=== PATIENT | female | born 1950 | race Hispanic/Latino ===

== ENCOUNTER 2017-10-13 10:03 | Emergency (ER) | payer OTHER ==
[2017-10-13] MEDS ORDERED: CODEINE 30MG/APAP 300MG TAB ONE (10:34)
--- NOTE | 2017-10-13 12:16 | EDPHYS ---
Physician Documentation [facility] Name: Lynne Leggett Age: 67 yrs Sex: Female : 1950 Arrival Date: 10/13/2017 Time: 10:06 Bed 12 Private MD: Kiersten Mukherjee ED Physician Jim Quintanilla HPI: 10/13 13:32 This 67 yrs old Female presents to ER via Ambulatory with complaints of Blood pm1 Pressure Problem, Headache. 13:32 The patient complains of pain to the left occipital area and right occipital area. The pm1 patient describes the headache as aching, constant. Onset: The symptoms/episode began/occurred this morning. Associated signs and symptoms: Pertinent negatives: fever, nausea, paresthesias, rash, vomiting, weakness, vertigo. Severity of symptoms: in the emergency department the pain is unchanged. Headache History: Denies prior headaches. The symptoms are alleviated by over the counter pain medication, Tylenol, the symptoms are aggravated by nothing. Patient with 4 episodes of vomiting on that resolved without intervention. Patient with dialysis treatment on [facility]. Patient reports that her blood pressure was 90's systolic Saturday and Saturday. Blood pressure has improved today. Patient presenting to the ER today due to headache, occipital area. Patient with history of CVA and is concerned about the headache. Historical: - Allergies: 10:16 Nifedipine; la1 10:16 Vancomycin; la1 - Home Meds: 10:23 amlodipine 5 mg tab 2 tabs nightly [Active]; atorvastatin 20 mg Oral tab 1 tab once la1 daily [Active]; Daily-Isael Oral tab daily [Active]; glipizide 10 mg Oral tab 1 tab 2 times per day [Active]; hydralazine 25 mg Oral tab 1 tab 2 times per day [Active]; losartan 100 mg Oral tab 1 tab once daily [Active]; metoprolol tartrate 25 mg Oral tab 1 tab 2 times per day [Active]; pantoprazole 40 mg Oral TbEC 1 tab 2 times per day [Active]; Renvela 800 mg Oral tab 2 tabs 3 times per day [Active]; sodium polystyrene sulfonate Oral [Active]; Tradjenta 5 mg Oral tab 1 tab once daily [Active]; valtessa [Active]; victoza 0.6mg/ 0.1 mL 6 units at bedtime [Active]; - PMHx: 10:16 CVA (hemorrhagic); Diabetes - NIDDM; DIALYSIS MWF; ESRD; GERD; High Cholesterol; la1 Hypertension; - Immunization history:: Adult Immunizations up to date. - Social history:: Smoking status: Patient/guardian denies using tobacco. ROS: 13:40 Constitutional: Negative for fever, chills, and weight loss, Eyes: Negative for injury, pm1 pain, redness, and discharge, ENT: Negative for injury, pain, and discharge, Neck: Negative for injury, pain, and swelling, Cardiovascular: Negative for chest pain, palpitations, and edema, Respiratory: Negative for shortness of breath, cough, wheezing, and pleuritic chest pain, Abdomen/GI: Negative for abdominal pain, nausea, vomiting, diarrhea, and constipation, Back: Negative for injury and pain, : Negative for injury, bleeding, discharge, and swelling, MS/Extremity: Negative for injury and deformity, Skin: Negative for injury, rash, and discoloration. 13:40 Neuro: Positive for headache, Negative for numbness, tingling, weakness. Exam: 13:40 Constitutional: This is a well developed, well nourished patient who is awake, alert, pm1 and in no acute distress. Head/Face: Normocephalic, atraumatic. Chest/axilla: Normal chest wall appearance and motion. Nontender with no deformity. No lesions are appreciated. Cardiovascular: Regular rate and rhythm with a normal S1 and S2. No gallops, murmurs, or rubs. Normal PMI, no JVD. No pulse deficits. Respiratory: Lungs have equal breath sounds bilaterally, clear to auscultation and percussion. No rales, rhonchi or wheezes noted. No increased work of breathing, no retractions or nasal flaring. Abdomen/GI: Soft, non-tender, with normal bowel sounds. No distension or tympany. No guarding or rebound. No evidence of tenderness throughout. Back: No spinal tenderness. No costovertebral tenderness. Full range of motion. Skin: Warm, dry with normal turgor. Normal color with no rashes, no lesions, and no evidence of cellulitis. MS/ Extremity: Pulses equal, no cyanosis. Neurovascular intact. Full, normal range of motion. 13:40 Neuro: Orientation: is normal, Mentation: is normal, Cranial nerves: CN II- XII are normal as tested, Cerebellar function: normal finger to nose testing, Motor: moves all fours, Sensation: is normal, no obvious gross deficits. Vital Signs: 10:17 BP 165 / 73; Pulse 81; Resp 15; Temp 97.2(TE); Pulse Ox 100% on R/A; Weight 52 kg; la1 Height 4 ft. 11 in. (149.86 cm); 12:11 BP 170 / 80; Pulse 78; Resp 16 S; Pulse Ox 100% on R/A; iw 10:17 Body Mass Index 23.15 (52.00 kg, 149.86 cm) la1 MDM: 10:19 Patient medically screened. pm1 10:35 ED course: Patient does not want labs drawn or IV medications. Requests medications for pm1 pain by mouth. 12:14 Data reviewed: vital signs. Data interpreted: Pulse oximetry: on room air is 100 %. pm1 Interpretation: normal. Counseling: I had a detailed discussion with the patient and/or guardian regarding: the historical points, exam findings, and any diagnostic results supporting the discharge/admit diagnosis, radiology results, the need for outpatient follow up, to return to the emergency department if symptoms worsen or persist or if there are any questions or concerns that arise at home. 10/13 10:31 Order name: CT Head Brain wo Cont pm1 Administered Medications: 10:32 Drug: Tylenol #3 (300 mg-30 mg) 1 tablet Route: PO; hj 10:53 Follow up: Response: Pain is decreased Point of Care Testing: Blood Glucose: 10:54 Blood Glucose: 168 mg/dL; Ranges: Critical Glucose Levels:Adult <50 mg/dl or >400 mg/dl <40 mg/dl or >180 mg/dl Disposition: 18:58 Co-signature as Attending Physician, Jim Quintanilla MD. Disposition: 10/13/17 12:15 Discharged to Home. Impression: Headache. - Condition is Stable. - Discharge Instructions: General Headache Without Cause. - Prescriptions for Tylenol- Codeine #3 300-30 mg Oral Tablet - take 1 tablet by ORAL route every 8 hours As needed; 15 tablet. - Medication Reconciliation Form, Thank You Letter, Prescription Opioid Use form. - Follow up: Emergency Department; When: As needed; Reason: Worsening of condition. Follow up: Kiersten Mukherjee MD; When: 2 - 3 days; Reason: Recheck today's complaints, Continuance of care, Re-evaluation by your physician. - Problem is new. - Symptoms have improved. Signatures: Dispatcher [employer] EDMS Velma Shore RN RN iw Attema, Lee, RN RN la1 Derek Nolan RN RN hj Marinas, Patrick, GENERAL ADMINISTRATOR GENERAL ADMINISTRATOR pm1 Jim Quintanilla MD MD
--- NOTE | 2017-10-13 12:16 | ER ---
Nurse's Notes [facility] Name: Lynne Leggett Age: 67 yrs Sex: Female : 1950 Arrival Date: 10/13/2017 Time: 10:06 Bed 12 Private MD: Kiersten Mukherjee Diagnosis: Headache Presentation: 10/13 10:14 Presenting complaint: Patient states: Since Saturday at dialysis (completed) I have been la1 having problems with my blood pressure being low. this morning the top number was 90 and I have a GUAN. Transition of care: patient was not received from another setting of care. Onset of symptoms was October 13, 2017. Initial Sepsis Screen: Does the patient meet any 2 criteria? No. Patient's initial sepsis screen is negative. Does the patient have a suspected source of infection? No. Patient's initial sepsis screen is negative. Care prior to arrival: None. 10:14 Method Of Arrival: Ambulatory la1 10:14 Acuity: SHIKHA 3 la1 Triage Assessment: 10:21 Headache History: Denies prior headaches. General: Appears in no apparent distress. la1 Behavior is calm, cooperative. Pain: Also complains of. Pain: Pain currently is 5 out of 10 on a pain scale. Pain began 1 day ago. Historical: - Allergies: 10:16 Nifedipine; la1 10:16 Vancomycin; la1 - Home Meds: 10:23 amlodipine 5 mg tab 2 tabs nightly [Active]; atorvastatin 20 mg Oral tab 1 tab once la1 daily [Active]; Daily-Isael Oral tab daily [Active]; glipizide 10 mg Oral tab 1 tab 2 times per day [Active]; hydralazine 25 mg Oral tab 1 tab 2 times per day [Active]; losartan 100 mg Oral tab 1 tab once daily [Active]; metoprolol tartrate 25 mg Oral tab 1 tab 2 times per day [Active]; pantoprazole 40 mg Oral TbEC 1 tab 2 times per day [Active]; Renvela 800 mg Oral tab 2 tabs 3 times per day [Active]; sodium polystyrene sulfonate Oral [Active]; Tradjenta 5 mg Oral tab 1 tab once daily [Active]; valtessa [Active]; victoza 0.6mg/ 0.1 mL 6 units at bedtime [Active]; - PMHx: 10:16 CVA (hemorrhagic); Diabetes - NIDDM; DIALYSIS MWF; ESRD; GERD; High Cholesterol; la1 Hypertension; - Immunization history:: Adult Immunizations up to date. - Social history:: Smoking status: Patient/guardian denies using tobacco. Screenin:21 Abuse screen: Denies threats or abuse. Nutritional screening: No deficits noted. la1 Tuberculosis screening: No symptoms or risk factors identified. Fall Risk None identified. Assessment: 10:20 General: Appears in no apparent distress. Behavior is calm, cooperative. Pain: la1 Complains of pain in headache. Neuro: Level of Consciousness is awake, alert, obeys commands, Oriented to person, place, time, situation. Neuro: Moves all extremities. Full function Gait is steady, Speech is normal, Facial symmetry appears normal, Pupils are PERRLA. Cardiovascular: Heart tones S1 S2 present Capillary refill < 3 seconds Chest pain is denied Dialysis shunt: in the dorsal aspect of right forearm, with palpable thrill, with auscultated bruit, with no erythema, with no edema, no bleeding noted. Respiratory: Airway is patent Respiratory effort is even, unlabored, Respiratory pattern is regular, symmetrical, Breath sounds are clear bilaterally. GI: No signs and/or symptoms were reported involving the gastrointestinal system. : No signs and/or symptoms were reported regarding the genitourinary system. 12:09 Reassessment: Patient appears in no apparent distress at this time. Patient and/or iw family updated on plan of care and expected duration. Pain level reassessed. Patient is alert, oriented x 3, equal unlabored respirations, skin warm/dry/pink. headache is resolved Patient states feeling better. Patient states symptoms have improved. Vital Signs: 10:17 BP 165 / 73; Pulse 81; Resp 15; Temp 97.2(TE); Pulse Ox 100% on R/A; Weight 52 kg; la1 Height 4 ft. 11 in. (149.86 cm); 12:11 BP 170 / 80; Pulse 78; Resp 16 S; Pulse Ox 100% on R/A; iw 10:17 Body Mass Index 23.15 (52.00 kg, 149.86 cm) la1 ED Course: 10:06 Patient arrived in ED. mr 10:06 Kiersten Mukherjee MD is Private Physician. mr 10:14 Darek Matta RN is Primary Nurse. la1 10:15 Triage completed. la1 10:17 Arm band placed on right wrist. la1 10:19 Mauro Medeiros NP is [facility]. pm1 10:19 Jim Quintanilla MD is Attending Physician. pm1 10:21 Call light in reach. Side rails up X 1. Pulse ox on. NIBP on. la1 10:45 CT completed. Patient moved to CT via stretcher. Patient moved back from CT. cw1 10:47 CT Head Brain wo Cont In Process Unspecified. EDMS 12:12 Primary Nurse role handed off by Darek Matta RN iw 12:12 Velma Shore, RN is Primary Nurse. iw 12:12 No provider procedures requiring assistance completed. Patient did not have IV access iw during this emergency room visit. 12:15 Kiersten Mukherjee MD is Referral Physician. pm1 Administered Medications: 10:32 Drug: Tylenol #3 (300 mg-30 mg) 1 tablet Route: PO; hj 10:53 Follow up: Response: Pain is decreased Point of Care Testing: Blood Glucose: 10:54 Blood Glucose: 168 mg/dL; hj Ranges: Outcome: 12:15 Discharge ordered by MD. pm1 12:30 Discharged to home ambulatory, with family. iw 12:30 Condition: good 12:30 Discharge instructions given to patient, family, Instructed on discharge instructions, follow up and referral plans. medication usage, Demonstrated understanding of instructions, follow-up care, medications, Prescriptions given X 1. 12:31 Patient left the ED. iw Signatures: Dispatcher [employer] EDWA Mayra Arguello mr Velma Shore RN RN Delia Collado cw1 Darek Matta RN RN la1 Joaquin, Henry, RN RN Mauro Medeiros NP COMPUTER CLERK pm1
[2017-10-13 12:35] VITALS: TEMP 97.2; O2SAT 100
[2017-10-13 12:36] VITALS: BP 170/80
--- NOTE | 2017-10-13 15:29 | RAD REPORT ---
EXAM DESCRIPTION: CT - Head Brain Wo Cont - 10/13/2017 10:47 am CLINICAL HISTORY: Headache, hypotension Hearing Impaired Teacher system malfunction precluded earlier written report. Verbal report call to the referevelyn anthony clinician. COMPARISON: CT imaging July 29 TECHNIQUE: Axial 5 mm thick images of the head were obtained without IV contrast. All CT scans are performed using dose optimization technique as appropriate and may include automated exposure control or mA/KV adjustment according to patient size. FINDINGS: No intracranial hemorrhage, mass, edema or shift of mid-line structures. No acute cortical based infarction. Moderate severity atrophy and chronic ischemic changes are present. Ventricular si ze is in proportion. Arterial and physiologic calcifications are present. No abnormal extra-axial flu id collections. Intracranial findings are similar to the comparison. Mastoid air cells and visualized portions of the paranasal sinuses are clear. No acute bony findings. IMPRESSION: Moderate severity atrophy and chronic ischemic change similar to comparison. No acute intracranial finding seen. Chronic ischemic changes can mask nonhemorrhagic acute infarction. MR brain followup can be obtained if there is ongoing concern for acute ischemia.
== END 2017-10-13 12:31 | disposition home or self-care (01) ==
LOC: ER 10:03
DX: R51 Headache (principal); E11.22 Type 2 diabetes mellitus with diabetic chronic kidney disease; I12.0 Hypertensive chronic kidney disease with stage 5 chronic kidney disease or end stage renal disease; N18.6 End stage renal disease; Z99.2 Dependence on renal dialysis; Z88.3 Allergy status to other anti-infective agents; Z88.8 Allergy status to other drugs, medicaments and biological substances
CPT/HCPCS: 70450; 82962; 99284

== ENCOUNTER 2017-10-15 10:34 | Observation (INO) | payer OTHER ==
[2017-10-15 11:36] LABS: Protime INR 1.11
[2017-10-15 11:38] LABS: Absolute Lymphocytes (CBC) 1.3 K/uL (0.7-4.9); Absolute Monocytes 1.2 K/uL (0.1-1.3); Absolute Neutrophil 12.1 K/uL (1.8-8.0); Basophils % 0.2 % (0-1.3); Eosinophils % 0.1 % (0-4.4); Hematocrit 38.8 % (36.0-45.0); Lymphocytes % 8.7 % (15.3-44.8); MCH 29.4 pg (27.0-35.0); MCV 92.3 fL (80-100); MPV 11.1 fL (7.6-11.3); Monocytes % 8.1 % (3.3-12.3)
--- NOTE | 2017-10-15 11:38 | RAD REPORT ---
EXAM DESCRIPTION: RAD - Chest Single View - 10/15/2017 11:24 am CLINICAL HISTORY: Chest pain. COMPARISON: 07/29/2017 FINDINGS: Portable technique limits examination quality. The lungs are grossly clear. The heart is normal in size. No displaced fractures.Stent is present in the right subclavian region. IMPRESSION: No acute intrathoracic process suspected.
[2017-10-15] MEDS ORDERED: NA CHLORIDE 0.9% 1,000 ML ONE (11:39)
[2017-10-15] MEDS ORDERED: ONDANSETRON 4 MG/2 ML VIAL ONE (11:39)
[2017-10-15 11:56] LABS: CKMB Creatine Kinase MB 1.3 ng/ml (0.3-4.0); Potassium 5.1 mEq/L (3.6-5.0)
[2017-10-15] MEDS ORDERED: FAMOTIDINE 20 MG/2 ML VIAL IV ONE (11:56)
[2017-10-15 12:02] LABS: Bilirubin Direct 0.2 mg/dL (0-0.2); Bilirubin Total 1.2 mg/dL (0.3-1.2)
--- NOTE | 2017-10-15 13:31 | EDPHYS ---
Physician Documentation [facility] Name: Lynne Leggett Age: 67 yrs Sex: Female : 1950 Arrival Date: 10/15/2017 Time: 10:35 Bed 18 Private MD: FELICIA Physician Nakul Jett HPI: 10/15 11:03 This 67 yrs old Female presents to ER via Ambulatory with complaints of Abd homero Pain > 50 y/o. 11:03 The patient presents with abdominal pain in the upper abdomen, in the lower abdomen. homero Onset: The symptoms/episode began/occurred 5 day(s) ago. The patient presents to the emergency department with nausea, vomiting, abdominal pain, of the right upper quadrant, left upper quadrant, right lower quadrant and left lower quadrant. Onset: The symptoms/episode began/occurred 5 day(s) ago. Possible causes: unknown. The symptoms are aggravated by nothing. The symptoms are alleviated by nothing. Associated signs and symptoms: The patient has no apparent associated signs or symptoms. Associated signs and symptoms: none. Historical: - Allergies: 10:42 Nifedipine; ch 10:42 Vancomycin; ch - Home Meds: 10:42 amlodipine 5 mg tab 2 tabs nightly [Active]; atorvastatin 20 mg Oral tab 1 tab once ch daily [Active]; Daily-Isael Oral tab daily [Active]; glipizide 10 mg Oral tab 1 tab 2 times per day [Active]; hydralazine 25 mg Oral tab 1 tab 2 times per day [Active]; losartan 100 mg Oral tab 1 tab once daily [Active]; metoprolol tartrate 25 mg Oral tab 1 tab 2 times per day [Active]; pantoprazole 40 mg Oral TbEC 1 tab 2 times per day [Active]; Renvela 800 mg Oral tab 2 tabs 3 times per day [Active]; sodium polystyrene sulfonate Oral [Active]; Tradjenta 5 mg Oral tab 1 tab once daily [Active]; valtessa [Active]; victoza 0.6mg/ 0.1 mL 6 units at bedtime [Active]; - PMHx: 10:42 CVA (hemorrhagic); Diabetes - NIDDM; DIALYSIS MWF; ESRD; GERD; High Cholesterol; ch Hypertension; - PSHx: 10:42 dialysis shunt R arm; ch - Immunization history:: Adult Immunizations up to date. - Social history:: Smoking status: Patient/guardian denies using tobacco. - Family history:: not pertinent. ROS: 11:03 Constitutional: Negative for fever, chills, and weight loss, Eyes: Negative for injury, homero pain, redness, and discharge, ENT: Negative for injury, pain, and discharge, Neck: Negative for injury, pain, and swelling, Cardiovascular: Negative for chest pain, palpitations, and edema, Respiratory: Negative for shortness of breath, cough, wheezing, and pleuritic chest pain, Back: Negative for injury and pain, : Negative for injury, bleeding, discharge, and swelling, MS/Extremity: Negative for injury and deformity, Skin: Negative for injury, rash, and discoloration, Neuro: Negative for headache, weakness, numbness, tingling, and seizure, Psych: Negative for depression, anxiety, suicide ideation, homicidal ideation, and hallucinations, Allergy/Immunology: Negative for hives, rash, and allergies, Endocrine: Negative for neck swelling, polydipsia, polyuria, polyphagia, and marked weight changes, Hematologic/Lymphatic: Negative for swollen nodes, abnormal bleeding, and unusual bruising. 11:03 Abdomen/GI: Positive for abdominal pain, nausea and vomiting, of the right upper quadrant, left upper quadrant, right lower quadrant and left lower quadrant. Exam: 11:03 Constitutional: This is a well developed, well nourished patient who is awake, alert, homero and in no acute distress. Head/Face: Normocephalic, atraumatic. Eyes: Pupils equal round and reactive to light, extra-ocular motions intact. Lids and lashes normal. Conjunctiva and sclera are non-icteric and not injected. Cornea within normal limits. Periorbital areas with no swelling, redness, or edema. ENT: Nares patent. No nasal discharge, no septal abnormalities noted. Tympanic membranes are normal and external auditory canals are clear. Oropharynx with no redness, swelling, or masses, exudates, or evidence of obstruction, uvula midline. Mucous membranes moist. Neck: Trachea midline, no thyromegaly or masses palpated, and no cervical lymphadenopathy. Supple, full range of motion without nuchal rigidity, or vertebral point tenderness. No Meningismus. Chest/axilla: Normal chest wall appearance and motion. Nontender with no deformity. No lesions are appreciated. Cardiovascular: Regular rate and rhythm with a normal S1 and S2. No gallops, murmurs, or rubs. Normal PMI, no JVD. No pulse deficits. Respiratory: Lungs have equal breath sounds bilaterally, clear to auscultation and percussion. No rales, rhonchi or wheezes noted. No increased work of breathing, no retractions or nasal flaring. Back: No spinal tenderness. No costovertebral tenderness. Full range of motion. Female : Normal external genitalia. Skin: Warm, dry with normal turgor. Normal color with no rashes, no lesions, and no evidence of cellulitis. MS/ Extremity: Pulses equal, no cyanosis. Neurovascular intact. Full, normal range of motion. Neuro: Awake and alert, GCS 15, oriented to person, place, time, and situation. Cranial nerves II-XII grossly intact. Motor strength 5/5 in all extremities. Sensory grossly intact. Cerebellar exam normal. Normal gait. Psych: Awake, alert, with orientation to person, place and time. Behavior, mood, and affect are within normal limits. 11:03 Abdomen/GI: Inspection: abdomen appears normal, Bowel sounds: normal, Palpation: mild abdominal tenderness, in the right upper quadrant, left upper quadrant, right lower quadrant and left lower quadrant, Liver: no appreciated palpable abnormalities, Hernia: not appreciated. Vital Signs: 10:42 BP 86 / 62; Pulse 93; Resp 14; Temp 97.1; Pulse Ox 94% on R/A; Weight 51 kg; Height 4 ch ft. 11 in. (149.86 cm); Pain 6/10; 10:50 BP 120 / 65; Pulse 89; Resp 16 S; Pulse Ox 96% on R/A; jl7 11:30 BP 171 / 75; Pulse 88; Resp 16; Pulse Ox 100% ; jl7 12:30 BP 151 / 74; Pulse 86; Resp 16; Pulse Ox 97% ; jl7 13:53 BP 151 / 74; Pulse 89; Resp 16; Pulse Ox 98% on R/A; mh5 14:30 BP 154 / 82; Pulse 90; Resp 16; Pulse Ox 100% ; jl7 15:13 BP 162 / 80; Pulse 94; Resp 16; Pulse Ox 98% ; jl7 10:42 Body Mass Index 22.71 (51.00 kg, 149.86 cm) MDM: 10:45 Patient medically screened. [facility] 11:06 Data reviewed: vital signs, nurses notes, lab test result(s), EKG, radiologic studies. [facility] 10/15 10:47 Order name: Basic Metabolic Panel; Complete Time: 13:[address] [facility] 10/15 10:47 Order name: BNP; Complete Time: 13:[address] [facility] 10/15 10:47 Order name: CBC with Diff; Complete Time: 13:[address] [facility] 10/15 10:47 Order name: Ckmb; Complete Time: 13:[address] [facility] 10/15 10:47 Order name: CPK; Complete Time: 13:[address] [facility] 10/15 10:47 Order name: LFT's; Complete Time: 13:[address] [facility] 10/15 10:47 Order name: Magnesium; Complete Time: 13:[address] [facility] 10/15 10:47 Order name: PT-INR; Complete Time: 13:[address] [facility] 10/15 10:47 Order name: Ptt, Activated; Complete Time: 13:[address] [facility] 10/15 10:47 Order name: Troponin (emerg Dept Use Only); Complete Time: 13:[address] [facility] 10/15 10:47 Order name: XRAY Chest (1 view); Complete Time: 13:[address] [facility] 10/15 10:47 Order name: Blood Culture Adult (2) [facility] 10/15 10:47 Order name: Type And Screen; Complete Time: 14:[address] [facility] 10/15 10:47 Order name: Urine Culture [facility] 10/15 10:47 Order name: EKG; Complete Time: 10:[address] [facility] 10/15 10:47 Order name: Cardiac monitoring; Complete Time: 12:[address] [facility] 10/15 10:47 Order name: EKG - Nurse/Tech; Complete Time: 12:[address] [facility] 10/15 10:47 Order name: IV Saline Lock; Complete Time: 12:[address] [facility] 10/15 10:47 Order name: Labs collected and sent; Complete Time: 12:[address] [facility] 10/15 10:47 Order name: O2 Per Protocol; Complete Time: 12:[address] [facility] 10/15 10:47 Order name: O2 Sat Monitoring; Complete Time: 11:[address] [facility] 10/15 10:47 Order name: CT Abd/Pelvis - Without Cont; Complete Time: 14:[address] [facility] 10/15 13:39 Order name: CONS Physician Consult EDMS Administered Medications: 11:50 Drug: NS 0.9% 1000 ml Route: IV; Rate: 75 ml/hr; Site: left antecubital; jl7 15:46 Follow up: IV Status: Infusion continued upon admission jl7 11:51 Drug: Zofran 4 mg Route: IVP; Site: left antecubital; jl7 12:24 Follow up: Response: No adverse reaction; Nausea is decreased jl7 11:58 Drug: Pepcid 20 mg Route: IVP; Site: left antecubital; jl7 12:23 Follow up: Response: No adverse reaction jl7 14:27 Drug: Flagyl 500 mg Volume: 100 ml; Route: IVPB; Rate: 200 ml/hr; Infused Over: 30 jl7 mins; Site: left antecubital; 15:00 Follow up: Response: No adverse reaction; IV Status: Completed infusion jl7 15:05 Drug: levofloxacin 500 mg Volume: 100 ml; Route: IVPB; Infused Over: 60 mins; Site: jl left antecubital; 15:45 Follow up: IV Status: Infusion continued upon admission jl7 15:46 Drug: Kayexalate 15 grams Route: PO; jl7 15:46 Follow up: Response: No adverse reaction 7 Disposition: 10/15/17 13:31 Hospitalization ordered by Yuriy Domingo for Inpatient Admission. Preliminary diagnosis are Abdominal tenderness, Vomiting, Weakness, Type 2 diabetes mellitus, Elevated white blood cell count, Hyperkalemia. - Bed requested for Telemetry/MedSurg (Inpatient). - Status is Inpatient Admission. 7 - Condition is Stable. - Problem is new. - Symptoms have improved. UTI on Admission? No Signatures: Dispatcher [employer] EDDelores Hutton, RN Vicky Matias ch, RN RN dw Anderson, Corey, MD MD cha Leal, Jahala, RN RN jl7 Corrections: (The following items were deleted from the chart) 15:09 10:47 Urine Dipstick-Ancillary ordered. homero terry
--- NOTE | 2017-10-15 13:31 | ER ---
Nurse's Notes [facility] Name: Lynne Leggett Age: 67 yrs Sex: Female : 1950 Arrival Date: 10/15/2017 Time: 10:35 Bed 18 Private MD: Diagnosis: Abdominal tenderness;Vomiting;Weakness;Type 2 diabetes mellitus;Elevated white blood cell count;Hyperkalemia Presentation: 10/15 10:40 Presenting complaint: Child states: headache, vomiting, abdominal pain for the past 5 ch days. seen here on Saturday for just a headache but her doctor said to come back. her dialysis doctor said to get labs checked here. Transition of care: patient was not received from another setting of care. Onset of symptoms was October 11, 2017. Initial Sepsis Screen: Does the patient meet any 2 criteria? Systolic BP < 90 mmHg. HR > 90 bpm. Yes Does the patient have a suspected source of infection? Yes: Acute abdominal pain. Care prior to arrival: None. 10:40 Method Of Arrival: Ambulatory 10:40 Acuity: SHIKHA 2 ch Triage Assessment: 10:42 General: Appears in no apparent distress. comfortable, Behavior is cooperative, ch appropriate for age. Pain: Complains of pain in abdomen. Historical: - Allergies: 10:42 Nifedipine; ch 10:42 Vancomycin; ch - Home Meds: 10:42 amlodipine 5 mg tab 2 tabs nightly [Active]; atorvastatin 20 mg Oral tab 1 tab once ch daily [Active]; Daily-Isael Oral tab daily [Active]; glipizide 10 mg Oral tab 1 tab 2 times per day [Active]; hydralazine 25 mg Oral tab 1 tab 2 times per day [Active]; losartan 100 mg Oral tab 1 tab once daily [Active]; metoprolol tartrate 25 mg Oral tab 1 tab 2 times per day [Active]; pantoprazole 40 mg Oral TbEC 1 tab 2 times per day [Active]; Renvela 800 mg Oral tab 2 tabs 3 times per day [Active]; sodium polystyrene sulfonate Oral [Active]; Tradjenta 5 mg Oral tab 1 tab once daily [Active]; valtessa [Active]; victoza 0.6mg/ 0.1 mL 6 units at bedtime [Active]; - PMHx: 10:42 CVA (hemorrhagic); Diabetes - NIDDM; DIALYSIS MWF; ESRD; GERD; High Cholesterol; ch Hypertension; - PSHx: 10:42 dialysis shunt R arm; ch - Immunization history:: Adult Immunizations up to date. - Social history:: Smoking status: Patient/guardian denies using tobacco. - Family history:: not pertinent. Screenin:00 Abuse screen: Denies threats or abuse. Denies injuries from another. Nutritional jl7 screening: No deficits noted. Tuberculosis screening: No symptoms or risk factors identified. Fall Risk IV access (20 points). Total James Fall Scale indicates No Risk (0-24 pts). Assessment: 11:00 General: Appears in no apparent distress. uncomfortable, Behavior is calm, cooperative, jl7 appropriate for age. Pain: Complains of pain in abdomen diffuse Pain currently is 4 out of 10 on a pain scale. Quality of pain is described as "Bloated." Pain began 2-3 days ago. Is intermittent. Neuro: Level of Consciousness is awake, alert, obeys commands, Oriented to person, place, time, situation. Cardiovascular: Patient's skin is warm and dry. Respiratory: Airway is patent Respiratory effort is even, unlabored, Respiratory pattern is regular, symmetrical. GI: Abdomen is flat, non-distended, Bowel sounds present X 4 quads. Abd is soft Abdomen is tender to palpation Reports nausea, vomiting. : Reports "I do not make urine.". EENT: No signs and/or symptoms were reported regarding the EENT system. Derm: Skin is pink, warm \\T\\ dry. Musculoskeletal: No signs and/or symptoms reported regarding the musculoskeletal system. 11:35 Reassessment: pt finished drinking oral contrast, CT notified. jl7 12:04 Reassessment: Provider notified of lab alert, Creatinine 6.88. jl7 13:00 Reassessment: Patient and/or family updated on plan of care and expected duration. Pain jl7 level reassessed. Patient is alert, oriented x 3, equal unlabored respirations, skin warm/dry/pink. 14:00 Reassessment: Patient and/or family updated on plan of care and expected duration. Pain jl7 level reassessed. Patient is alert, oriented x 3, equal unlabored respirations, skin warm/dry/pink. Daughter remains at bedside. 15:00 Reassessment: Patient and/or family updated on plan of care and expected duration. Pain jl7 level reassessed. Patient is alert, oriented x 3, equal unlabored respirations, skin warm/dry/pink. GI: Bowel sounds present X 4 quads. Abd is soft X 4 quads Abdomen is tender to palpation. Vital Signs: 10:42 BP 86 / 62; Pulse 93; Resp 14; Temp 97.1; Pulse Ox 94% on R/A; Weight 51 kg; Height 4 ch ft. 11 in. (149.86 cm); Pain 6/10; 10:50 BP 120 / 65; Pulse 89; Resp 16 S; Pulse Ox 96% on R/A; jl7 11:30 BP 171 / 75; Pulse 88; Resp 16; Pulse Ox 100% ; jl7 12:30 BP 151 / 74; Pulse 86; Resp 16; Pulse Ox 97% ; jl7 13:53 BP 151 / 74; Pulse 89; Resp 16; Pulse Ox 98% on R/A; 5 14:30 BP 154 / 82; Pulse 90; Resp 16; Pulse Ox 100% ; jl7 15:13 BP 162 / 80; Pulse 94; Resp 16; Pulse Ox 98% ; jl7 10:42 Body Mass Index 22.71 (51.00 kg, 149.86 cm) ED Course: 10:35 Patient arrived in ED. sb2 10:41 Triage completed. 10:42 Arm band placed on left wrist. Patient placed in an exam room, on a stretcher. 10:44 Tracy Scott, LUZMARIA is Primary Nurse. jl7 10:45 Nakul Jett MD is Attending Physician. [facility] [place] 11:00 Patient has correct armband on for positive identification. Placed in gown. Bed in low jl7 position. Call light in reach. Side rails up X 1. desk monitor on. Pulse ox on. NIBP on. Warm blanket given. 11:14 X-ray completed. Portable x-ray completed in exam room. Patient tolerated procedure jb2 well. 11:21 EKG done, by nanoscience technician. reviewed by Nakul Jett MD. dt2 11:24 XRAY Chest (1 view) In Process Unspecified. EDMS 11:30 Initial lab(s) drawn, by ak, sent to lab. Inserted saline lock: 20 gauge in left jl7 antecubital area, using aseptic technique. Blood collected. 13:28 CT completed. Patient tolerated procedure well. Patient moved to CT via wheelchair. Patient moved back from CT. 13:28 Yuriy Domingo MD is Hospitalizing Provider. [facility] [place] 13:29 CT Abd/Pelvis - Without Cont In Process Unspecified. EDMS 15:50 No provider procedures requiring assistance completed. Patient admitted, IV remains in jl7 place. Administered Medications: 11:50 Drug: NS 0.9% 1000 ml Route: IV; Rate: 75 ml/hr; Site: left antecubital; jl7 15:46 Follow up: IV Status: Infusion continued upon admission jl7 11:51 Drug: Zofran 4 mg Route: IVP; Site: left antecubital; jl7 12:24 Follow up: Response: No adverse reaction; Nausea is decreased jl7 11:58 Drug: Pepcid 20 mg Route: IVP; Site: left antecubital; jl7 12:23 Follow up: Response: No adverse reaction jl 14:27 Drug: Flagyl 500 mg Volume: 100 ml; Route: IVPB; Rate: 200 ml/hr; Infused Over: 30 jl7 mins; Site: left antecubital; 15:00 Follow up: Response: No adverse reaction; IV Status: Completed infusion jl7 15:05 Drug: levofloxacin 500 mg Volume: 100 ml; Route: IVPB; Infused Over: 60 mins; Site: jl7 left antecubital; 15:45 Follow up: IV Status: Infusion continued upon admission jl7 15:46 Drug: Kayexalate 15 grams Route: PO; jl7 15:46 Follow up: Response: No adverse reaction [facility] Outcome: 13:31 Decision to Hospitalize by Provider. [facility] [place] 15:47 Admitted to [facility] accompanied by tech, family with patient, via wheelchair, room 224, jl7 with chart, Report called to Rodri Thomas RN 15:47 Condition: stable 15:47 Discharge instructions given to 15:50 Patient left the ED. jl7 Signatures: Dispatcher [employer] EDDelores Hutton, RN Nakul Desai ch, MD MD cha Buechter, Jesse jb2 Jones, Susan sj Martinez, Maria 5 Tracy Scott RN RN jl7 Jacki Mcneal2 Janneth Martel2 Corrections: (The following items were deleted from the chart) 10:41 10:40 Acuity: SHIKHA 3 ch ch
--- NOTE | 2017-10-15 13:43 | RAD REPORT ---
EXAM DESCRIPTION: CT - Abdomen Pelvis Wo Contrast - 10/15/2017 1:29 pm CLINICAL HISTORY: Abdominal pain. COMPARISON: 01/30/2015 TECHNIQUE: CT imaging of the abdomen and pelvis was performed without contrast. Solid organ, bowel a nd vascular assessment is limited due to lack of IV and oral contrast. All CT scans are performed using dose optimization technique as appropriate and may include automated exposure control or mA/KV adjustment according to patient size. FINDINGS: The lower lung calderon are clear. The liver demonstrates no focal mass or biliary dilatation. The spleen, pancreas, adrenal glands are normal. Mildly atrophic kidneys are present bilaterally. Large duodenal diverticulum is present measu ring 3 cm. Additional more distal duodenal diverticulum is present which is larger measuring almost 5 cm. No bowel obstruction, free air, free fluid or abscess. Prominent sigmoid diverticulosis coli without diverticulitis. The appendix is normal. 3 cm soft tissue fullness in the right adnexa appears less pr ominent than on the comparative study. The osseous structures are within normal limits. IMPRESSION: Duodenal diverticulosis. Extensive sigmoid diverticulosis without diverticulitis. Mildly atrophic kidneys. A limited non-contrast examination was performed as detailed.
[2017-10-15] MEDS ORDERED: METRONIDAZOLE 500mg IVPB 500 MG/100 ML BAG IV ONE (14:14)
[2017-10-15] MEDS ORDERED: SOD POLYSTYREN SUL 15 GM/60 ML UCUP ONE (14:14)
[2017-10-15] MEDS ORDERED: Levofloxacin500mg IV 500 MG/100 ML BAG IV ONE (14:14)
[2017-10-15] MEDS ORDERED: ACETAMINOPHEN 500 MG TAB PO PRN (14:17)
[2017-10-15] MEDS ORDERED: ONDANSETRON 4 MG/2 ML VIAL IV PRN (14:17)
[2017-10-15] MEDS ORDERED: D50W 25 GM/50 ML SYRINGE IV PRN (14:27)
[2017-10-15] MEDS ORDERED: GLUCAGON 1 MG/VIAL IM PRN (14:27)
--- NOTE | 2017-10-15 14:35 | EKG ---
Test Date: 2017-10-15 Test Time: 11:02:01 [employer] Leader: BERNARD MEASUREMENT RESULTS: Intervals: Rate: 89 HI: 124 QRSD: 82 QT: 360 QTc: 438 [place]: P: 56 HI: 124 QRS: 17 T: 69 INTERPRETIVE STATEMENTS: Normal sinus rhythm Normal ECG Compared to ECG 07/29/2017 09:00:24 No significant changes Electronically Signed On 10-15-17 14:33:47 CDT by Umberto Puri
[2017-10-15] MEDS ORDERED: SODIUM CHLORIDE 0.9% 10ML INJ IV PRN (14:36)
[2017-10-15] MEDS ORDERED: NA CHLORIDE 0.9% 1,000 ML IV SCH (15:00)
[2017-10-15] MEDS ORDERED: MULTIVITAMINS,THERAPEUT 1 TAB PO SCH (16:15)
[2017-10-15] MEDS ORDERED: HYDRALAZINE HCL 25 MG TABLET PO PRN (16:17)
[2017-10-15 16:20] VITALS: BMI 22.6
[2017-10-15] MEDS: INSULIN -REGULAR HUMAN 50 UNIT/0.5 ML ML SQ SCH ×2 (16:21→21:00)
[2017-10-15] MEDS ORDERED: SEVELAMER CARBONATE 800 MG TABLET PO SCH (17:00)
[2017-10-15] MEDS: ENOXAPARIN 30 MG/0.3 ML SQ SCH (18:57)
[2017-10-15] MEDS: ATORVASTATIN 20 MG TAB PO SCH (21:11)
[2017-10-15] MEDS: METOPROLOL TAR 25 MG TAB PO SCH (21:11)
[2017-10-16] MEDS: METRONIDAZOLE 500mg IVPB 500 MG/100 ML BAG IV SCH ×3 (00:41→17:00)
--- NOTE | 2017-10-16 01:17 | HP ---
Date of Admission: 10/15/2017 Primary Care Physician: Dr. Dougherty. Consultants: Dr. Valencia with Nephrology. Chief Complaint: Abdominal pain, nausea, vomiting. Code Status: Full. History Of Present Illness: The patient is a 67-year-old female with past medical history of diabetes on insulin, end-stage renal disease on hemodialysis for the past 9 years, hypertension, hyperlipidemia, diverticulosis, right ovarian cyst, history of hemorrhagic CVA requiring craniotomy, GERD, who was in her usual state of health until the day prior to admission when the patient had sudden onset of diffuse epigastric abdominal pain that was nonradiating, dull, achy, associated with some nausea and vomiting. No fevers, chills, shortness of breath or chest pain. No unusual foods or travel outside the country. No ill contacts. The patient did go for dialysis yesterday and felt somewhat more lethargic. The patient's symptoms were constant, moderate, progressively worsening. Therefore, she came into the ER for further evaluation. Upon arrival, her workup revealed white blood cell count of 14,000 with left shift. Her CT scan of the abdomen showed diffuse diverticulosis without diverticulitis , and the patient was referred for admission. When seen in the ER, the patient was awake, alert, oriented x3, in some mild distress. Past Medical History: End-stage renal disease on hemodialysis Saturday, Saturday , and Saturday sees Dr. Lynn. Hyperlipidemia, hypertension, diabetes mellitus type 2, diverticulosis, right ovarian cyst, history of hemorrhagic CVA requiring craniotomy. GERD. Surgical History: Laser surgery on eyes, craniotomy for hemorrhagic CVA, AV graft to the right arm, AV graft to the right upper leg is no longer functioning. Allergies: THE PATIENT STATES SHE IS NOT ALLERGIC TO ANYTHING. HOWEVER, HER CHART SHOWS ALLERGIES TO NIFEDIPINE AND VANCOMYCIN. Family History: Mother has diabetes. Social History: The patient denies any tobacco use, alcohol use, or illicit drug use. The patient is independent in her activities of daily living. Does not use any assistive ambulatory devices. Review of Systems: An 11-point system reviewed, negative except as per HPI. Physical Examination: Vital Signs: Temperature 97.1, heart rate 93, blood pressure 86/62, respirations 14, O2 saturation 94% on room air. Blood pressure is improved to 151/74. General: Awake, alert, oriented x3. Denies any pain in some mild distress. Elderly female, ill appearing. HEENT: Normocephalic, atraumatic. PERRLA. EOMI. Dry mucous membranes. Oropharynx is clear. Normal dentition. Conjunctiva is anicteric. Neck: Supple. No JVD. Trachea midline. CV: S1, S2. No murmurs. Regular rate and rhythm. Peripheral pulses present. Respiratory: Moving air well bilaterally. No wheezing. No stridor. No use of accessory muscles. Gastrointestinal: Abdomen is soft, nontender. Has mild tenderness to palpation. Nondistended. Positive bowel sounds. No guarding or rigidity. Extremities: No clubbing, cyanosis, or edema. No calf tenderness. Neuro: Cranial nerves 2 through 12 intact grossly. No focal neurological deficit. Speech is normal. Strength is 5/5 bilateral in the upper and lower extremities. Skin: AV graft on the right arm with palpable thrill. Laboratory Data: Sodium 130, potassium 5.1, chloride 93, CO2 25, BUN 36, creatinine 6.88, glucose 208, calcium 9.4, magnesium 2. Troponin 0.03. BNP 459. INR 1.11. WBC 14.6, H and H 12.3 and 38.8, platelets 181, neutrophils 82% . Blood cultures pending. Chest x-ray, personally reviewed, shows no acute intrathoracic process. CT scan of the abdomen shows duodenal diverticulosis, extensive sigmoid diverticulosis without diverticulitis. Mildly atrophic kidneys. Limited noncontrast examination performed as above. Assessment: A 67-year-old female with: 1. Acute generalized abdominal pain. It may be secondary to viral or bacterial gastroenteritis. The patient does have some nausea and vomiting. We will start her on some antibiotics with Cipro and Flagyl. We will place her on clear liquid diet. 2. End-stage renal disease, on hemodialysis. We will continue dialysis as scheduled. Consult Dr. Valencia with Nephrology. 3. Hyperkalemia. The patient was given Kayexalate in the ER. We will monitor potassium level. 4. Essential hypertension. The patient was initially hypotensive. 5. Blood pressures, we will continue to monitor closely. 6. Diabetes mellitus type 2 without long-term use of insulin. We will place on sliding scale insulin and monitor. 7. Hyperlipidemia. Continue statin. 8. History of diffuse diverticulosis. CT scan of the abdomen shows sigmoid diverticulosis without diverticulitis. 9. Right ovarian cyst. 10. History of hemorrhagic CVA requiring craniotomy. 11. Gastroesophageal reflux disease without esophagitis. Continue PPI. 12. Gastrointestinal and deep venous thrombosis prophylaxis with PPI and Lovenox renally dosed. Plan: Admit the patient to [facility] inpatient. No medical power of patent attorney or living will /BROOKE Voice ID: [id number] MTDD
[2017-10-16 01:49] VITALS: O2SAT 96
--- NOTE | 2017-10-16 02:47 | CON ---
Date of Consultation: 10/15/2017 Additional Consulting Physician: Dr. Yuriy Domingo. Reason For Consultation: Elevated BUN and creatinine, hypertension, fluid management. History Of Present Illness: This is a pleasant 67-year-old female, [facility], with significant past medical history of hypertension; hyperlipidemia; end-stage renal disease, on hemodialysis Saturday, Saturday, and Saturday at [facility]; and diabetes complicat ed with neuropathy and nephropathy. The patient last dialyzed yesterday. The patient was in her [facility] state of health and started having abdominal pain on the right upper and lower quadrant, radiati ng to her back, with nausea without any vomiting. No diarrhea. For that reason, reported to the ER. In the ER, primary workup found to have colitis. For that reason, the patient was admitted. Her l ab showed leukocytosis with hyperkalemia. For that reason, we have been consulted and for the hypona tremia. The patient denied any change in her diet. The patient has been compliant with her dialysis . Past Medical History: Includes; 1.Hypertension. 2.Diabetes, complicated with neuropathy and nephropathy. 3.Hyperlipidemia. 4.End-stage renal disease, on hemodialysis Saturday, Saturday, and Saturday. Allergies: NO KNOWN DRUG ALLERGIES. Past Surgical History: Includes; 1.Ovarian cyst. 2.AV fistula creation. Family History: Positive for diabetes. Social History: Denies smoking. Denies drinking. Denies drug abuse. Home Medications: Include Nephro-Isael, atorvastatin, Norvasc, losartan, pantoprazole, and metoprolol . Review of Systems: Head and Neck: No red eye. No ear pain. Gastrointestinal: Has abdominal pain. Genitourinary: No polyuria. No dysuria. No hematuria. Gynecology: No vaginal discharge. Respiratory: No shortness of breath. Cardiovascular: No chest pain. Neurologic: No weakness. Musculoskeletal: No joint pain. Endocrine: No polydipsia. Skin: No rash. Current Medications: Current medications in the hospital include Cipro 400 daily, metronidazole 500 q.8 h., Lovenox, Norvasc 10, atorvastatin, hydralazine p.r.n., losartan 100 t.i.d., metoprolol 25 b.i .d., Renvela 4 tablets with each meal, Tylenol, Zofran, pantoprazole, and normal saline at 75 per gely r. Physical Examination: Vital Signs: When I saw the patient, blood pressure of 149/69, pulse of 97, and afebrile. Chest: Clear to auscultation. Heart: S1, S2. Systolic murmur. Abdomen: Soft, tender. No guarding. Extremities: No edema. Laboratory Data: WBC 14.6, H and H 12.3/38.8, and platelets 181. Sodium 130, potassium 5.1, bicarb 25, BUN 36, creatinine 6.8, calcium 9.4, and magnesium of 2. Assessment And Plan: 1.End-stage renal disease, normal volume. Discontinue IV fluid. We will arrange for dialysis tomor row. We will dialyze on low-potassium bath. 2.Hypertension, controlled, optimal. We will discontinue IV fluid. Continue home medication. 3.Hyperkalemia. Will be dialyzed on low-potassium bath, and we will follow up the patient. 4.Colitis. Continue current antibiotic. We will follow up with the primary dose of antibiotic appr opriate. 5.Diabetes, as by primary. 6.Hyponatremia secondary to renal failure, going to be corrected on dialysis tomorrow. Case was discussed with the patient and family by bedside, verbalized understanding. Discussed with Dr. Domingo. MECHELLE/BROOKE Voice ID: [id number] Report ID: [id number]
[2017-10-16 06:00] LABS: Absolute Lymphocytes (CBC) 1.8 K/uL (0.7-4.9); Absolute Monocytes 1.1 K/uL (0.1-1.3); Absolute Neutrophil 8.2 K/uL (1.8-8.0); Basophils % 0.3 % (0-1.3); Eosinophils % 0.5 % (0-4.4); Hematocrit 36.1 % (36.0-45.0); Lymphocytes % 15.8 % (15.3-44.8); MCH 30.6 pg (27.0-35.0); MCV 92.3 fL (80-100); Monocytes % 9.6 % (3.3-12.3); RBC Red Blood Cell Count 3.91 M/uL (3.86-4.86)
[2017-10-16 06:10] LABS: Albumin 3.2 g/dL (3.2-5.5); Bilirubin Total 1.1 mg/dL (0.3-1.2); Protein, Total 6.4 g/dL (6.0-8.3)
[2017-10-16] MEDS: INSULIN -REGULAR HUMAN 50 UNIT/0.5 ML ML SQ SCH ×3 (07:30→16:09)
[2017-10-16] MEDS ORDERED: AMLODIPINE 10 MG TAB PO SCH (09:00)
[2017-10-16] MEDS ORDERED: LOSARTAN POTASSIUM 50 MG TABLET PO SCH (09:00)
[2017-10-16] MEDS ORDERED: HOME MED 1 EA UNK (Linagliptin [Tradjenta] 5 MG) PO SCH (09:00)
[2017-10-16] MEDS ORDERED: PANTOPRAZOLE 40 MG INJ IVP SCH (09:00)
[2017-10-16] MEDS ORDERED: PATIROMER CALCIUM SORBITEX 8.4 GM PO SCH (09:00)
[2017-10-16] MEDS ORDERED: CIPROFLOXACIN 400mg IV 400 MG/200 ML BAG IV SCH (09:00)
[2017-10-16] MEDS: METOPROLOL TAR 25 MG TAB PO SCH ×2 (10:46→20:38)
[2017-10-16 16:16] VITALS: TEMP 97.7
[2017-10-16] MEDS: ENOXAPARIN 30 MG/0.3 ML SQ SCH (17:00)
[2017-10-16] MEDS: ATORVASTATIN 20 MG TAB PO SCH (20:38)
[2017-10-16 20:45] VITALS: BP 122/60
--- NOTE | 2017-10-17 03:40 | PN ---
Date of Progress Note: 10/16/2017 Subjective: The patient was admitted with colitis. Started hydration, recovered. The patient is pl anned for dialysis today. Physical Examination: Vital Signs: Blood pressure 138/70, pulse of 88. Chest: Clear to auscultation. Heart: S1, S2. Regular. Abdomen: Soft nontender. Extremities: No edema. Laboratory Data: Reviewed. Medications: Reviewed. Assessment And Plan: 1.End-stage renal disease. Normal volume. We are looking for dialysis today. 2.Leukocytosis, secondary to colitis, resolved. 3.Hypertension, controlled optimal. Continue current medication. 4.Hyperkalemia. We will dialyze on 2 potassium baths and we will follow up. 5.Dehydration, secondary to colitis. We will not have significant ultrafiltration. Today, we will follow up. FRANK Voice ID: [id number] Report ID: [id number]
--- NOTE | 2017-10-17 15:34 | DS ---
Date of Discharge: 10/16/2017 Deblocker: Dr. Valencia with Cardiology. Discharge Diagnoses: 1.Acute generalized abdominal pain, resolved. 2.End-stage renal disease, on hemodialysis. 3.Hyperkalemia, corrected. 4.Essential hypertension, stable. 5.Diabetes mellitus type 2 with long-term use of insulin. 6.Hyperlipidemia, statin. 7.Diverticulosis. 8.Right ovarian cyst. 9.History of hemorrhagic cerebrovascular accident, requiring craniotomy. 10.Gastroesophageal reflux disease without esophagitis. PPI. Hospital Course: The patient is a 67-year-old female, who came in with abdominal pain, nausea, and v omiting. The patient's workup showed elevated white count of 14,000 with left shift. She did have s ome generalized abdominal pain. CT scan, however, did not show any diverticulitis, but did show diff use diverticulosis in the sigmoid. The patient was admitted to the hospital. She was started on amelia ar liquid diet, IV fluids, and IV antibiotics. The patient had a negative troponin level. Chest x-r ay was negative. She was seen by Nephrology, Dr. Valencia, and her dialysis was continued. Her bloo d cultures were obtained, which were negative to date. She did have some mild electrolyte abnormalit ies, which were corrected. The patient had improvement in her condition. Her white count essentiall y normalized. She was able to tolerate her food, did not have any nausea or vomiting. The patient w as then cleared for discharge and was sent home in a stable condition after dialysis. Medications: As per medication reconciliation list. Followup: Follow up with primary care physician in 2-3 days. Follow up with chief order dispatcher, Dr. Marcus kilgore in 2 weeks. Return to ER for worsening condition. Diet: Renal. Activity: As tolerated. Physical Examination: General: Awake, alert, oriented, no acute distress. CV: S1, S2. No murmurs. Respiratory: Moving air well bilaterally. Gastrointestinal: Abdomen is soft, nontender, and nondistended. Positive bowel sounds. No guarding or rigidity. Bowel sounds are positive. Extremities: No clubbing, cyanosis, edema. Neurologic: Nonfocal. SA/MODL Voice ID: [id number] Report ID: [id number]
== END 2017-10-16 21:10 | disposition home or self-care (01) ==
LOC: ER 10:34 → ERHOLD 13:36 → INTOOBSV 13:36 → ERHOLD 14:44 → 2ND 15:26
PROVIDERS: ADMIT Family Medicine; ATTEND Family Medicine
PROC: 5A1D70Z Performance of Urinary Filtration, Intermittent, Less than 6 Hours Per Day (ICD-10-PCS; principal; 2017-10-16)
DX: R10.84 Generalized abdominal pain (principal); I12.0 Hypertensive chronic kidney disease with stage 5 chronic kidney disease or end stage renal disease; E11.22 Type 2 diabetes mellitus with diabetic chronic kidney disease; N18.6 End stage renal disease; E87.5 Hyperkalemia; K57.90 Diverticulosis of intestine, part unspecified, without perforation or abscess without bleeding; N83.201 Unspecified ovarian cyst, right side; K21.9 Gastro-esophageal reflux disease without esophagitis; E78.5 Hyperlipidemia, unspecified; E87.1 Hypo-osmolality and hyponatremia; Z86.73 Personal history of transient ischemic attack (TIA), and cerebral infarction without residual deficits
CPT/HCPCS: 36415; 71045; 74176; 80048; 80053; 80076; 82550; 82553; 82962; 83735; 83880; 84484; 85025; 85610; 85730; 86850; 86900; 86901; 87040; 93005; 94760; 96361; 96365; 96367; 96375; 99285; C9113; G0257; G0378; J0744; J1650; J2405; J7030

== ENCOUNTER 2017-12-04 23:08 | Emergency (ER) | payer OTHER ==
--- OUTSIDE RECORDS SUMMARY | 2017-12-04 23:11 | XMS REPORT ---
:1950 Author Organization [employer] Care Team Providers Name Role Phone Mukherjee, Na Provider Role Unavailable Allergies, Adverse Reactions, Alerts Substance Reaction Event Type Lisinopril Info Not Available Drug Allergy Problems Problem Type Condition Code Onset Dates Condition Status Assessment Hyperlipidemia, mixed E78.2 Active Assessment Controlled type 2 diabetes mellitus E11.29 Active with other diabetic kidney complication, without long-term current use of insulin Assessment Benign essential HTN I10 Active Assessment End stage renal disease N18.6 Active Problem Diabetes E11.9 Active Problem Benign essential HTN I10 Active Problem Controlled type 2 diabetes mellitus E11.29 Active with other diabetic kidney complication, without long-term current use of insulin Problem Hyperlipidemia, mixed E78.2 Active Problem End stage renal disease N18.6 Active Problem Venous insufficiency I87.2 Active Problem Anemia in chronic illness D63.8 Active Medications Medication Code Code Instructions Start End Date Status Dosage System Date Tradjenta [facility] 32224955818 5 MG Orally Once Active 1 tablet a day Fosrenol [facility] 66187592008 1000 MG Orally Active 1 tablet Twice a day with meals Lipitor ND 79594737404 20 MG Orally Active 1 tablet Once a day Renvela [facility] 97902669433 800 MG Orally Active 1 tablet Three times a with day meals Amlodipine ND 94871391740 10 MG Orally Active 1 tablet Besylate Once a day Protonix ND 11866683542 40 MG Orally Active 1 tablet Once a day Losartan ND 75720230055 100 MG Orally Active 1 tablet Potassium Once a day Metoprolol ND 02744578369 25 MG Orally Active 1 tablet Tartrate once a day with food Results No Known Results Summary Purpose [employer]Clinical[employer] Submission
[2017-12-04] MEDS ORDERED: CODEINE 30MG/APAP 300MG TAB ONE (23:44)
[2017-12-04] MEDS ORDERED: ONDANSETRON 4 MG (ODT) TAB ONE (23:52)
[2017-12-05] MEDS ORDERED: cloNIDine HCl 0.1 MG TAB ONE (01:09)
--- NOTE | 2017-12-05 02:58 | EDPHYS ---
Physician Documentation [facility] Name: Lynne Leggett Age: 67 yrs Sex: Female : 1950 Arrival Date: 12/04/2017 Time: 23:12 Bed 30 Private MD: Kiersten Mukherjee ED Physician Nakul Jett HPI: 12/05 00:00 This 67 yrs old Female presents to ER via Ambulatory with complaints of pm1 Headache. 00:00 The patient complains of pain to the forehead. The patient describes the headache as pm1 aching. Onset: The symptoms/episode began/occurred After dialysis treatment today. Associated signs and symptoms: Pertinent negatives: dizziness, fever, neck stiffness, paresthesias, Photophobia vision loss, weakness. Severity of symptoms: in the emergency department the pain is actually worse. Headache History: Other in September the patient had a similar headache. Patient has not had any headaches since then. The symptoms are alleviated by nothing. the symptoms are aggravated by nothing. The patient has experienced similar episodes in the past, a few times. Historical: - Allergies: 12/04 23:33 Nifedipine; bb 23:33 Vancomycin; bb - Home Meds: 23:33 amlodipine 5 mg tab 2 tabs nightly [Active]; atorvastatin 20 mg Oral tab 1 tab once bb daily [Active]; Daily-Isael Oral tab daily [Active]; glipizide 10 mg Oral tab 1 tab 2 times per day [Active]; hydralazine 25 mg Oral tab 1 tab 2 times per day [Active]; losartan 100 mg Oral tab 1 tab once daily [Active]; metoprolol tartrate 25 mg Oral tab 1 tab 2 times per day [Active]; pantoprazole 40 mg Oral TbEC 1 tab 2 times per day [Active]; Renvela 800 mg Oral tab 2 tabs 3 times per day [Active]; sodium polystyrene sulfonate Oral [Active]; Tradjenta 5 mg Oral tab 1 tab once daily [Active]; valtessa [Active]; victoza 0.6mg/ 0.1 mL 6 units at bedtime [Active]; - PMHx: 23:33 CVA (hemorrhagic); Diabetes - NIDDM; DIALYSIS MWF; ESRD; GERD; High Cholesterol; bb Hypertension; - PSHx: 23:33 dialysis shunt R arm; bb - Immunization history:: Adult Immunizations up to date. - Social history:: Smoking status: Patient/guardian denies using tobacco, Patient/guardian denies using alcohol, street drugs. - Ebola Screening: : Patient denies travel to an Ebola-affected area in the 21 days before illness onset No symptoms or risks identified at this time. ROS: 12/05 00:00 Constitutional: Negative for fever, chills, and weight loss, Eyes: Negative for injury, pm1 pain, redness, and discharge, ENT: Negative for injury, pain, and discharge, Neck: Negative for injury, pain, and swelling, Cardiovascular: Negative for chest pain, palpitations, and edema, Respiratory: Negative for shortness of breath, cough, wheezing, and pleuritic chest pain, Abdomen/GI: Negative for abdominal pain, nausea, vomiting, diarrhea, and constipation, Back: Negative for injury and pain, : Negative for injury, bleeding, discharge, and swelling, MS/Extremity: Negative for injury and deformity, Skin: Negative for injury, rash, and discoloration. Neuro: Positive for headache, Negative for altered mental status, dizziness, numbness, tingling, weakness. Exam: 00:00 Constitutional: This is a well developed, well nourished patient who is awake, alert, pm1 and in no acute distress. Head/Face: Normocephalic, atraumatic. Eyes: Pupils equal round and reactive to light, extra-ocular motions intact. Lids and lashes normal. Conjunctiva and sclera are non-icteric and not injected. Cornea within normal limits. Periorbital areas with no swelling, redness, or edema. ENT: Nares patent. No nasal discharge, no septal abnormalities noted. Tympanic membranes are normal and external auditory canals are clear. Oropharynx with no redness, swelling, or masses, exudates, or evidence of obstruction, uvula midline. Mucous membranes moist. Neck: Trachea midline, no thyromegaly or masses palpated, and no cervical lymphadenopathy. Supple, full range of motion without nuchal rigidity, or vertebral point tenderness. No Meningismus. Chest/axilla: Normal chest wall appearance and motion. Nontender with no deformity. No lesions are appreciated. Cardiovascular: Regular rate and rhythm with a normal S1 and S2. No gallops, murmurs, or rubs. Normal PMI, no JVD. No pulse deficits. Respiratory: Lungs have equal breath sounds bilaterally, clear to auscultation and percussion. No rales, rhonchi or wheezes noted. No increased work of breathing, no retractions or nasal flaring. Abdomen/GI: Soft, non-tender, with normal bowel sounds. No distension or tympany. No guarding or rebound. No evidence of tenderness throughout. Back: No spinal tenderness. No costovertebral tenderness. Full range of motion. Skin: Warm, dry with normal turgor. Normal color with no rashes, no lesions, and no evidence of cellulitis. 00:00 Musculoskeletal/extremity: Extremities: grossly normal except: left arm bruit auscultated and palpated over AV fistula for dialysis, ROM: intact in all extremities, Circulation is intact in all extremities. Sensation intact. Vital Signs: 12/04 23:33 BP 222 / 97; Pulse 95; Resp 18 S; Temp 98.6(O); Pulse Ox 99% on R/A; Weight 52 kg (R); bb Height 4 ft. 11 in. (149.86 cm) (R); Pain 10/10; 12/05 00:58 BP 233 / 108; Pulse 98; Resp 20; Pulse Ox 98% on R/A; mb3 02:39 BP 208 / 103; Pulse 103; Resp 20; Pulse Ox 98% on R/A; mb3 12/04 23:33 Body Mass Index 23.15 (52.00 kg, 149.86 cm) bb MDM: 12/04 23:38 Patient medically screened. pm1 12/05 02:56 Data reviewed: vital signs. Data interpreted: Pulse oximetry: on room air is 98 %. pm1 Interpretation: normal. Counseling: I had a detailed discussion with the patient and/or guardian regarding: the historical points, exam findings, and any diagnostic results supporting the discharge/admit diagnosis, radiology results, the need for outpatient follow up, to return to the emergency department if symptoms worsen or persist or if there are any questions or concerns that arise at home. 12/04 23:38 Order name: CT Head Brain wo Cont pm1 Administered Medications: 12/04 23:45 Drug: Tylenol #3 (300 mg-30 mg) 1 tablet Route: PO; 3 12/05 03:13 Follow up: Response: No adverse reaction 3 12/04 23:47 Not Given (Patient Refused; Pt took her own medication): HydrALAZINE 25 mg PO once mb3 23:51 Drug: Zofran 4 mg Route: PO; mb3 12/05 03:13 Follow up: Response: No adverse reaction mb3 01:10 Drug: cloNIDine 0.2 mg Route: PO; mb3 03:13 Follow up: Response: No adverse reaction mb3 Disposition: 15:33 Co-signature as Attending Physician, Nakul Jett MD I agree with the assessment and homero plan of care. Disposition: 12/05/17 02:57 Discharged to Home. Impression: Headache. - Condition is Stable. - Discharge Instructions: General Headache Without Cause, Hypertension. - Medication Reconciliation Form, Thank You Letter, Prescription Opioid Use form. - Follow up: Emergency Department; When: As needed; Reason: Worsening of condition. Follow up: Kiersten Mukherjee MD; When: 2 - 3 days; Reason: Recheck today's complaints, Continuance of care, Re-evaluation by your physician. - Problem is new. - Symptoms have improved. Signatures: Dispatcher [employer] EDNakul Edwards MD MD cha Ballard, Brenda, RN RN bb Mauro Medeiros, CIGAR HEAD PUNCHER CIGAR HEAD PUNCHER pm1 Alan Garcia RN RN mb3 Corrections: (The following items were deleted from the chart) 03:14 02:57 12/05/2017 02:57 Discharged to Home. Impression: Headache. Condition is Stable. mb3 Forms are Medication Reconciliation Form, Thank You Letter, Antibiotic Education, Prescription Opioid Use. Follow up: Emergency Department; When: As needed; Reason: Worsening of condition. Follow up: Kiersten Mukherjee; When: 2 - 3 days; Reason: Recheck today's complaints, Continuance of care, Re-evaluation by your physician. Problem is new. Symptoms have improved. pm1
--- NOTE | 2017-12-05 02:58 | ER ---
Nurse's Notes [facility] Name: Lynne Leggett Age: 67 yrs Sex: Female : 1950 Arrival Date: 12/04/2017 Time: 23:12 Bed 30 Private MD: Kiersten Mukherjee Diagnosis: Headache Presentation: 12/04 23:30 Presenting complaint: Patient states: she is having a really bad headache since she got bb home from dialysis today she took 2 tylenol but has no relief. Transition of care: patient was not received from another setting of care. Onset of symptoms was December 04, 2017. Risk Assessment: Do you want to hurt yourself or someone else? Patient reports no desire to harm self or others. Initial Sepsis Screen: Does the patient meet any 2 criteria? No. Patient's initial sepsis screen is negative. Does the patient have a suspected source of infection? No. Patient's initial sepsis screen is negative. Care prior to arrival: None. 23:30 Method Of Arrival: Ambulatory bb 23:30 Acuity: SHIKHA 2 bb Triage Assessment: 23:58 Headache History: The patient has had previous headaches and this one is similar to mb3 previous episodes. General: Appears uncomfortable, Behavior is calm, cooperative, appropriate for age. Pain: Also complains of. Pain: Pain currently is 10 out of 10 on a pain scale. Pain began gradually, 2 hours ago. Historical: - Allergies: 23:33 Nifedipine; bb 23:33 Vancomycin; bb - Home Meds: 23:33 amlodipine 5 mg tab 2 tabs nightly [Active]; atorvastatin 20 mg Oral tab 1 tab once bb daily [Active]; Daily-Isael Oral tab daily [Active]; glipizide 10 mg Oral tab 1 tab 2 times per day [Active]; hydralazine 25 mg Oral tab 1 tab 2 times per day [Active]; losartan 100 mg Oral tab 1 tab once daily [Active]; metoprolol tartrate 25 mg Oral tab 1 tab 2 times per day [Active]; pantoprazole 40 mg Oral TbEC 1 tab 2 times per day [Active]; Renvela 800 mg Oral tab 2 tabs 3 times per day [Active]; sodium polystyrene sulfonate Oral [Active]; Tradjenta 5 mg Oral tab 1 tab once daily [Active]; valtessa [Active]; victoza 0.6mg/ 0.1 mL 6 units at bedtime [Active]; - PMHx: 23:33 CVA (hemorrhagic); Diabetes - NIDDM; DIALYSIS MWF; ESRD; GERD; High Cholesterol; bb Hypertension; - PSHx: 23:33 dialysis shunt R arm; bb - Immunization history:: Adult Immunizations up to date. - Social history:: Smoking status: Patient/guardian denies using tobacco, Patient/guardian denies using alcohol, street drugs. - Ebola Screening: : Patient denies travel to an Ebola-affected area in the 21 days before illness onset No symptoms or risks identified at this time. Screenin:58 Abuse screen: Denies threats or abuse. Nutritional screening: No deficits noted. mb3 Tuberculosis screening: No symptoms or risk factors identified. Fall Risk None identified. Assessment: 23:30 General: Appears uncomfortable, ill, obese, Behavior is calm, cooperative, appropriate mb3 for age. Pain: Complains of pain in top of head, forehead, left temporal area and right temporal area Pain does not radiate. Neuro: No deficits noted. Level of Consciousness is awake, alert, obeys commands, Oriented to person, place, time, situation, Appropriate for age Recreation Therapy Director are equal bilaterally Moves all extremities. Cardiovascular: No deficits noted. Respiratory: No deficits noted. Airway is patent Respiratory effort is even, unlabored, Respiratory pattern is regular, symmetrical. Respiratory: Breath sounds are clear bilaterally. GI: No deficits noted. No signs and/or symptoms were reported involving the gastrointestinal system. : No deficits noted. No signs and/or symptoms were reported regarding the genitourinary system. 23:30 Derm: No deficits noted. No signs and/or symptoms reported regarding the dermatologic mb3 system. 23:53 Reassessment: Pt vomited, WIRE FENCE ERECTOR informed, zofran adm. mb3 12/05 02:43 Reassessment: Patient appears in no apparent distress at this time. Patient and/or mb3 family updated on plan of care and expected duration. Pain level reassessed. Patient is alert, oriented x 3, equal unlabored respirations, skin warm/dry/pink. Vital Signs: 12/04 23:33 BP 222 / 97; Pulse 95; Resp 18 S; Temp 98.6(O); Pulse Ox 99% on R/A; Weight 52 kg (R); bb Height 4 ft. 11 in. (149.86 cm) (R); Pain 10/; 12/05 00:58 BP 233 / 108; Pulse 98; Resp 20; Pulse Ox 98% on R/A; mb3 02:39 BP 208 / 103; Pulse 103; Resp 20; Pulse Ox 98% on R/A; mb3 12/04 23:33 Body Mass Index 23.15 (52.00 kg, 149.86 cm) bb ED Course: 12/04 23:12 Patient arrived in ED. es 23:13 Kiersten Mukherjee MD is Private Physician. es 23:31 Mauro Medeiros NP is PHCP. pm1 23:31 Nakul Jett MD is Attending Physician. pm1 23:31 Triage completed. bb 23:33 Alan Garcia, LUZMARIA is Primary Nurse. mb3 23:33 Arm band placed on Patient placed in an exam room, on a stretcher, on pulse oximetry. bb Family accompanied patient. 12/05 00:40 CT Head Brain wo Cont In Process Unspecified. EDMS 00:48 CT completed. Patient tolerated procedure well. Patient moved to CT via wheelchair. eh Patient moved back from CT. 01:01 Patient has correct armband on for positive identification. Bed in low position. Call mb3 light in reach. Side rails up X 1. 02:56 Kiersten Mukherjee MD is Referral Physician. pm1 03:12 No provider procedures requiring assistance completed. Patient did not have IV access mb3 during this emergency room visit. Administered Medications: 12/04 23:45 Drug: Tylenol #3 (300 mg-30 mg) 1 tablet Route: PO; mb3 12/05 03:13 Follow up: Response: No adverse reaction mb3 12/04 23:47 Not Given (Patient Refused; Pt took her own medication): HydrALAZINE 25 mg PO once mb3 23:51 Drug: Zofran 4 mg Route: PO; mb3 12/05 03:13 Follow up: Response: No adverse reaction mb3 01:10 Drug: cloNIDine 0.2 mg Route: PO; mb3 03:13 Follow up: Response: No adverse reaction mb3 Outcome: 02:57 Discharge ordered by MD. pm1 03:11 Discharged to home ambulatory, with family. mb3 03:11 Condition: stable 03:11 Discharge instructions given to patient, family, Instructed on discharge instructions, follow up and referral plans. Demonstrated understanding of instructions, follow-up care. 03:14 Patient left the ED. mb3 Signatures: Dispatcher [employer] Alona Veliz Ervin eh Ballard, Brenda, RN RN bb Mauro Medeiros, WIRE FENCE ERECTOR WIRE FENCE ERECTOR pm1 Alan Garcia RN RN mb3
[2017-12-05 05:03] VITALS: TEMP 98.6
[2017-12-05 05:04] VITALS: O2SAT 98
[2017-12-05 05:05] VITALS: BP 208/103
--- NOTE | 2017-12-05 08:24 | RAD REPORT ---
EXAM DESCRIPTION: CT - Head Brain Wo Cont - 12/05/2017 3:29 am CLINICAL HISTORY: HEADACHE History of CVA COMPARISON: Head Brain Wo Cont dated 10/13/2017; Facial Bones W/ Mpr dated 07/29/2017; Brain Wo Cont d ated 07/17/2017; MRA Head Wo Cont dated 07/17/2017 TECHNIQUE: All CT scans are performed using dose optimization technique as appropriate and may inclu de automated exposure control or mA/KV adjustment according to patient size. FINDINGS: No intracranial hemorrhage, hydrocephalus or extra-axial fluid collection.Mild generalized brain atrophy is present with mild periventricular and deep white matter chronic microvascular ische dot changes.No areas of brain edema or evidence of midline shift. The paranasal sinuses and mastoids are clear. The calvarium is intact. Mild vertebral atherosclerosis . IMPRESSION: No acute intracranial abnormality.
== END 2017-12-05 03:14 | disposition home or self-care (01) ==
LOC: ER 23:08
DX: R51 Headache (principal); Z88.1 Allergy status to other antibiotic agents; Z88.8 Allergy status to other drugs, medicaments and biological substances; Z86.73 Personal history of transient ischemic attack (TIA), and cerebral infarction without residual deficits; I12.0 Hypertensive chronic kidney disease with stage 5 chronic kidney disease or end stage renal disease; E11.22 Type 2 diabetes mellitus with diabetic chronic kidney disease; N18.6 End stage renal disease; Z99.2 Dependence on renal dialysis; Z79.84 Long term (current) use of oral hypoglycemic drugs; K21.9 Gastro-esophageal reflux disease without esophagitis; E78.00 Pure hypercholesterolemia, unspecified
CPT/HCPCS: 70450; 99284

== ENCOUNTER 2018-05-21 13:27 | Observation (INO) | payer OTHER ==
--- OUTSIDE RECORDS SUMMARY | 2018-05-21 13:32 | XMS REPORT ---
[...] Date Status Dosage System Date Tradjenta [facility] 47449167988 5 MG Orally Once Active 1 tablet a day Fosrenol [facility] 30221662548 1000 MG Orally Active 1 tablet Twice a day with meals Lipitor ND 72522145086 20 MG Orally Active 1 tablet Once a day Renvela [facility] 36330032153 800 MG Orally Active 1 tablet Three times a with day meals Amlodipine ND 07306200054 10 MG Orally Active 1 tablet Besylate Once a day Protonix ND 49914388545 40 MG Orally Active 1 tablet Once a day Losartan ND 30413785518 100 MG Orally Active 1 tablet Potassium Once a day Metoprolol ND 65147392590 25 MG Orally Active 1 tablet Tartrate once a day with food Results No Known Results Summary Purpose eClinicalWorks Submission
--- OUTSIDE RECORDS SUMMARY | 2018-05-21 13:32 | XMS REPORT | Summary of Care ---
:1950 Author Organization [facility] Address [address] [place] [id number] Encounter HQ Encntr_andry(FIN) [id number] Date(s): 08/12/16 - 08/22/[address] Professional Services provided by [facility] [place] [address]- Discharge Disposition: Home or Self Care Attending Physician: Dari Lantigua MD Admitting Physician: Naomy Triana MD Vital Signs Most recent to oldest 1 2 3 [Reference Range]: Height 160.02 cm 160.02 cm 160.02 cm (08/15/16 3:56 AM) (08/14/16 11:57 PM) (08/14/16 7:58 PM) Current Weight 62 kg 61.008 kg 60.008 kg (08/19/16 5:00 AM) (08/16/16 4:27 AM) (08/15/16 5:25 AM) Temperature Oral [96.4-99.1 98.4 DegF 97.3 DegF 98.6 DegF DegF] (08/22/16 3:47 PM) (08/22/16 1:07 PM) (08/22/16 12:15 PM) Blood Pressure [90-140/60-90 129/46 mmHg 126/57 mmHg 146/68 mmHg mmHg] (08/22/16 3:47 PM) (08/22/16 1:07 PM) *HI* (08/22/16 12:15 PM) Respiratory Rate [14-20 BRMIN] 16 BRMIN 19 BRMIN 18 BRMIN (08/22/16 3:47 PM) (08/22/16 1:07 PM) (08/22/16 12:15 PM) Peripheral Pulse Rate [60-100 88 bpm 84 bpm 87 bpm bpm] (08/22/16 3:47 PM) (08/22/16 3:50 AM) (08/21/16 11:35 PM) Weight 62.3 kg (08/13/16 4:48 AM) Body Mass Index 24.33 m2 (08/13/16 4:48 AM) Problem List Condition Effective Dates Status Health Status Informant DM (diabetes mellitus)(Confirmed) Resolved ESRD (end stage renal Active disease)(Confirmed) Hyperlipidemia(Confirmed) Resolved HTN (hypertension)(Confirmed) Active Allergies, Adverse Reactions, Alerts Substance Reaction Severity Status NKDA Active Medications albuterol 0.083% inhalation solution 19.92 mg, 24 mL, Route: NEB, Drug form: SOLN, Continuous, kg, Priority: STAT, Start date: 08/13/16 1:23:00 ABSTRACT MANAGER, Duration: 1 doses or times Notes: SEE RT DOCUMENTATION (Same as: Vernon) Start Date: 08/13/16 Stop Date: 08/21/16 Status: CompletedamLODIPine 5 mg, Route: PO, Drug form: TAB, ONCE, Dosing Weight 62.3, kg, Start date: 08/18 11:12:00 ABSTRACT MANAGER, Stop date: 08/18/16 11:12:00 ABSTRACT MANAGER Start Date: 08/18/16 Stop Date: 08/18/16 Status: DiscontinuedamLODIPine 10 mg, 1 tab, Route: PO, Drug form: TAB, Daily, Dosing Weight 62.3, kg, Priority : Routine, Start date: 08/19/16 9:00:00 ABSTRACT MANAGER, Duration: 30 day, Stop date: 9:00:00 CDT Notes: (Same as: Misha) Start Date: 08/19/16 Stop Date: 08/22/16 Status: DiscontinuedamLODIPine 5 mg, 1 tab, Route: PO, Drug form: TAB, Daily, Dosing Weight 62.3, kg, Start date: 08/16/16 9:00:00 ABSTRACT MANAGER, Duration: 30 day, Stop date: 09/14/16 9:00:00 CDT Notes: (Same as: Misha) Start Date: 08/16/16 Stop Date: 08/18/16 Status: DiscontinuedamLODIPine 10 mg oral tablet 10 mg=1 tab, PO, Daily, # 60 tab, 1 Refill(s) Start Date: 08/21/16 Status: OrderedamLODIPine 5 mg oral tablet 5 mg=1 tab, PO, Daily, evening, # 90 tab, 1 Refill(s) Start Date: 08/15/16 Stop Date: 08/21/16 Status: DiscontinuedAncef 2 gm, Route: IVPB, ONCE, Dosing Weight 62.3, kg, Start date: 08/13/16 17:47:00 ABSTRACT MANAGER, Duration: 1 doses or times, Stop date: 08/13/16 17:47:00 ABSTRACT MANAGER, Surgical Prophylaxis Only; For patients < 120 kg Start Date: 08/13/16 Stop Date: 08/13/16 Status: Completedatorvastatin 20 mg oral tablet 20 mg=1 tab, PO, Bedtime, # 90 tab, 3 Refill(s) Start Date: 08/15/16 Stop Date: 08/21/16 Status: DiscontinuedBeneprotein 7 gm pkt 2 pkt, Route: T FEED, Drug Form: PWDR, Dosing Weight 62.3, kg, QID, Start date: 08/14/16 13:00:00 ABSTRACT MANAGER, Duration: 30 day, Stop date: 09/13/16 9:00:00 CDT Notes: (Same as: Beneprotein) Start Date: 08/14/16 Stop Date: 08/22/16 Status: Discontinuedcalcium chloride + sodium chloride 0.9% INJ 100 mL 2 gm, 20 mL, Route: IVPB, PRN, Dosing Weight 62.3, kg, PRN Abnormal Lab Result, Via central line, Start date: 08/14/16 11:00:00 ABSTRACT MANAGER, Stop date: 09/13/16 11:59: 00 CDT Notes: WASTE: F/P - Sink; E - Municipal Trash Bin Start Date: 08/14/16 Stop Date: 08/16/16 Status: Discontinuedcalcium chloride + sodium chloride 0.9% INJ 50 mL 1 gm, 10 mL, Route: IVPB, PRN, Dosing Weight 62.3, kg, PRN Abnormal Lab Result, Via central line, Start date: 08/14/16 11:00:00 ABSTRACT MANAGER, Duration: 30 day, Stop date : 09/13/16 11:59:00 CDT Notes: WASTE: F/P - Sink; E - Municipal Trash Bin Start Date: 08/14/16 Stop Date: 08/16/16 Status: DiscontinuedCathflo Activase 2 mg injection 1 mg, 1 mL, Route: intraVENTRICular, Drug form: INJ, Q8H, Dosing Weight 62.3, kg , Start date: 08/14/16 0:00:00 ABSTRACT MANAGER, Duration: 4 day, Stop date: 08/17/16 16:00: 00 ABSTRACT MANAGER Notes: "Syringe for catheter clearance or interventional radiology use.Pharmacy : Reconstitute each vial of Cathflo Activase with 2.2 ml Sterile Water resulting in a 1 mg/ml solution. Stable for 8 hoursonly. (Same as: Activase) * MEDICATION WASTE Product Size: 2 mgProduct Wasted: _1__ mg Start Date: 08/14/16 Stop Date: 08/14/16 Status: DiscontinuedCombigan ophthalmic solution 2 drp, BOTH EYES, BID, 0 Refill(s) Start Date: 08/17/16 Status: OrderedDDAVP 10 microgram, Route: IV, ONCE, kg, Start date: 08/13/16 0:35:00 ABSTRACT MANAGER, Stop date: 08/13/16 0:35:00 ABSTRACT MANAGER Start Date: 08/13/16 Stop Date: 08/13/16 Status: DiscontinuedDDAVP + sodium chloride 0.9% INJ 50 mL 18.69 microgram, 4.67 mL, Route: IV, ONCE, Dosing Weight 62.3, kg, given over 30 minutes prior to procedure, Start date: 08/13/16 9:32:00 ABSTRACT MANAGER, Stop date: 9:32:00 ABSTRACT MANAGER Notes: (Same As: DDAVP) MEDICATION WASTE Product Size: 4 microgram Product Wasted: ___ microgram Start Date: 08/13/16 Stop Date: 08/13/16 Status: CompletedDextrose 50% Syringe 25 gm, 50 mL, Route: IVP, Drug Form: INJ, kg, ONCE, STAT, Start date: 08/13/16 1 :24:00 ABSTRACT MANAGER, Stop date: 08/13/16 1:24:00 ABSTRACT MANAGER Start Date: 08/13/16 Stop Date: 08/13/16 Status: DiscontinuedDextrose 50% Syringe 25 gm, 50 mL, Route: IVP, Drug Form: INJ, kg, PRN, PRN Abnormal Lab Result, Start date: 08/13/16 4:08:00 ABSTRACT MANAGER, Duration: 30 day, Stop date: 09/12/16 5:07:00 CDT Start Date: 08/13/16 Stop Date: 08/22/16 Status: DiscontinuedDextrose 50% Syringe 12.5 gm, 25 mL, Route: IVP, Drug Form: INJ, kg, PRN, PRN Abnormal Lab Result, Start date: 08/13/16 4:08:00 ABSTRACT MANAGER, Duration: 30 day, Stop date: 09/12/16 5:07:00 CDT Start Date: 08/13/16 Stop Date: 08/22/16 Status: DiscontinuedDextrose 50% Syringe 6.25 gm, 12.5 mL, Route: IVP, Drug Form: INJ, kg, PRN, PRN Abnormal Lab Result, Start date: 174:08:00 ABSTRACT MANAGER, Duration: 30 day, Stop date: 09/12/16 5:07:00 CDT Start Date: 08/13/16 Stop Date: 08/22/16 Status: Discontinueddocusate-senna 50 mg-8.6 mg oral tablet 1 tab, Route: PO, Drug Form: TAB, kg, Q12H, Start date: 08/13/16 9:00:00 ABSTRACT MANAGER, Duration: 30 day, Stopdate: 09/11/16 21:00:00 CDT Notes: (Same as Senokot-S) Equiv. to Sherrie-Colace. Start Date: 08/13/16 Stop Date: 08/22/16 Status: DiscontinuedfentaNYL 1000microgram/20ml drip (pyxis) 1,000 microgram 1,000 microgram, 20 mL, Rate: Titrate, Start Dose: 50 microgram/hr, Titration: 25 microgram/hour every 15 minutes, Goal(s): rass -1, Max Dose: 300 microgram/hr , Route: IV, Total Volume: 20, Start date:08/13/16 1:32:00 ABSTRACT MANAGER, Duration: 30 day , Stop date... Start Date: 08/13/16 Stop Date: 08/16/16 Status: DiscontinuedglipiZIDE 10 mg oral tablet 10 mg=1 tab, PO, BID-Before Meals, # 180 tab, 1 Refill(s) Start Date: 08/15/16 Status: Orderedheparin 5000 units/mL injectable solution 5,000 unit, 1 mL, Route: SUB-Q, Drug form: INJ, Q8H, Dosing Weight 62.3, kg, Priority: NOW, Start date: 08/14/16 10:02:00 ABSTRACT MANAGER, Duration: 30 day, Stop date: 09/13/16 8:00:00 CDT Notes: porcine heparin Start Date: 08/14/16 Stop Date: 08/22/16 Status: DiscontinuedHumulin N 5 unit, 0.05 mL, Route: SUB-Q, Drug form: INJ, BID, Start date: 08/18/16 17:00: 00 ABSTRACT MANAGER, Duration: 30 day, Stop date: 09/17/16 9:00:00 CDT Notes: Roll in palms of hands gently; Do not shake vigorously. (Same as: Humulin N)Do not hold insulin without contacting prescriberWASTE: F/P - Black; E - Municipal Trash Bin Stable for 28 days at room temperatureExpires in ____ _ days from Date Start Date: 08/18/16 Stop Date: 08/22/16 Status: DiscontinuedhydrALAZINE 10 mg, 1 tab, Route: PO, Drug form: TAB, Q6H, Dosing Weight 62.3, kg, Start date : 08/13/16 12:00:00 ABSTRACT MANAGER, Duration: 30 day, Stop date: 09/12/16 6:00:00 CDT Notes: (Same as: Apresoline) May interfere w/enteral feedings.Take With Food Start Date: 08/13/16 Stop Date: 08/14/16 Status: DiscontinuedhydrALAZINE 10 mg, 0.5 mL, Route: IVP, Drug form: INJ, Q4H, Dosing Weight 62.3, kg, PRN Other -See Comment, Start date: 08/15/16 19:22:00 ABSTRACT MANAGER, Duration: 30 day, Stop date: 09/14/16 19:21:00 CDT, For SBP > 150 Notes: (Same as: Apresoline) Start Date: 08/15/16 Stop Date: 08/22/16 Status: DiscontinuedInsulin regular 5 unit, 0.05 mL, Route: IV, Drug form: SOLN, ONCE, kg, Priority: STAT, Start date: 08/13/16 1:23:00 ABSTRACT MANAGER, Stop date: 08/13/16 1:23:00 ABSTRACT MANAGER Notes: (Same as: Humulin R) Roll in palms of hands gently; Do not shake vigorously. "single patientuse only"(Restricted to patients requiring a dose > 60 units)WASTE: F/P - Black; E - Municipal Trash Bin Stable for 28 days at room temperatureExpires in days from Date Start Date: 08/13/16 Stop Date: 08/13/16 Status: CompletedInsulin regular 10 unit, 0.1 mL, Route: SUB-Q, Drug form: SOLN, Q6H, Dosing Weight 62.3, kg, Start date: 08/13/16 12:00:00 ABSTRACT MANAGER, Duration: 30 day, Stop date: 09/12/16 6:00: 00 CDT Notes: (Same as: Humulin R) Roll in palms of hands gently; Do not shake vigorously. "single patientuse only"(Restricted to patients requiring a dose > 60 units)WASTE: F/P - Black; E - Municipal Trash Bin Stable for 28 days at room temperatureExpires in days from Date Start Date: 08/13/16 Stop Date: 08/18/16 Status: Voided With Resultsinsulin regular 100 units/mL human recombinant 5 unit, 0.05 mL, Route: SUB-Q, Drug form: SOLN, PRN, kg, PRN Abnormal Lab Result , Start date: 08/13/16 4:08:00 ABSTRACT MANAGER, Duration: 30 day, Stop date: 09/12/16 5:07: 00 CDT Notes: (Same as: Humulin R) Roll in palms of hands gently; Do not shake vigorously. "single patientuse only"(Restricted to patients requiring a dose > 60 units)WASTE: F/P - Black; E - Municipal Trash Bin Stable for 28 days at room temperatureExpires in days from Date Start Date: 08/13/16 Stop Date: 08/22/16 Status: Discontinuedinsulin regular 100 units/mL human recombinant 7 unit, 0.07 mL, Route: SUB-Q, Drug form: SOLN, PRN, kg, PRN Abnormal Lab Result , Start date: 08/13/16 4:08:00 ABSTRACT MANAGER, Duration: 30 day, Stop date: 09/12/16 5:07: 00 CDT Notes: (Same as: Humulin R) Roll in palms of hands gently; Do not shake vigorously. "single patientuse only"(Restricted to patients requiring a dose > 60 units)WASTE: F/P - Black; E - Municipal Trash Bin Stable for 28 days at room temperatureExpires in days from Date Start Date: 08/13/16 Stop Date: 08/22/16 Status: Discontinuedinsulin regular 100 units/mL human recombinant 3 unit, 0.03 mL, Route: SUB-Q, Drug form: SOLN, PRN, kg, PRN Abnormal Lab Result , Start date: 08/13/16 4:08:00 ABSTRACT MANAGER, Duration: 30 day, Stop date: 09/12/16 5:07: 00 CDT Notes: (Same as: Humulin R) Roll in palms of hands gently; Do not shake vigorously. "single patientuse only"(Restricted to patients requiring a dose > 60 units)WASTE: F/P - Black; E - Municipal Trash Bin Stable for 28 days at room temperatureExpires in days from Date Start Date: 08/13/16 Stop Date: 08/22/16 Status: Discontinuedlabetalol 10 mg, 2 mL, Route: IVP, Drug form: INJ, Q1H, Dosing Weight 62.3, kg, PRN Other -See Comment, Priority: Routine, Start date: 08/15/16 19:22:00 ABSTRACT MANAGER, Duration: 30 day, Stop date: 09/14/16 20:21:00 CDT, For SBP > 150; HOLD for pulse < 60 Start Date: 08/15/16 Stop Date: 08/22/16 Status: Discontinuedlabetalol 10 mg, 2 mL, Route: IVP, Drug form: INJ, ONCE, Dosing Weight 62.3, kg, Start date: 08/15/16 21:29:00CST, Stop date: 08/15/16 21:29:00 ABSTRACT MANAGER Start Date: 08/15/16 Stop Date: 08/15/16 Status: Completedlabetalol 100 mg, 1 tab, Route: PO, Drug form: TAB, Q8H, Dosing Weight 62.3, kg, Priority : NOW, Start date: 08/14/16 9:58:00 ABSTRACT MANAGER, Duration: 30 day, Stop date: 09/13/16 8 :00:00 CDT Notes: With food. (Same as:Trandate, Normodyne) Start Date: 08/14/16 Stop Date: 08/18/16 Status: Discontinuedlabetalol 150 mg, 0.5 tab, Route: PO, Drug form: TAB, Q8H, Dosing Weight 62.3, kg, Priority: Routine, Start date: 08/18/16 16:00:00 ABSTRACT MANAGER, Duration: 30 day, Stop date: 09/17/16 8:00:00 CDT Notes: With food. (Same as:Trandate, Normodyne)150 mg=1/2 x 300 mg TAB Start Date: 08/18/16 Stop Date: 08/22/16 Status: Discontinuedlansoprazole 30 mg, 10 mL, Route: NG, Drug form: SUSP, Before Breakfast, kg, Start date: 7:30:00 ABSTRACT MANAGER, Duration: 30 day, Stop date: 09/11/16 7:30:00 CDT Notes: Take 1 hour before or 2 hours after meal; Expires in 14 days. Shake well before use. (Same as:Prevacid) Compounded Product - formulation not commercially available Start Date: 08/13/16 Stop Date: 08/15/16 Status: Discontinuedlosartan 50 mg, 1 tab, Route: PO, Drug form: TAB, Q12H, Dosing Weight 62.3, kg, Start date: 08/16/16 9:00:00 ABSTRACT MANAGER, Duration: 30 day, Stop date: 09/14/16 21:00:00 CDT Notes: (Same as: Jade) Start Date: 08/16/16 Stop Date: 08/22/16 Status: Discontinuedlosartan 100 mg oral tablet 100 mg=1 tab, PO, Daily, # 90 tab, 0 Refill(s) Start Date: 08/15/16 Stop Date: 08/21/16 Status: Discontinuedlosartan 50 mg oral tablet 50 mg=1 tab, PO, Q12H, # 120 tab, 1 Refill(s) Start Date: 08/21/16 Status: Orderedmagnesium sulfate 4 gm, 100 mL, Route: IVPB, Drug form: INJ, PRN, Dosing Weight 62.3, kg, PRN Abnormal Lab Result, Viacentral line, Start date: 08/14/16 11:00:00 ABSTRACT MANAGER, Duration: 30 day, Stop date: 09/13/16 11:59:00 CDT Notes: WASTE: F/P - Sink; E - Municipal Trash Bin Start Date: 08/14/16 Stop Date: 08/16/16 Status: Discontinuedmagnesium sulfate 2 gm, 50 mL, Route: IVPB, Drug form: INJ, PRN, Dosing Weight 62.3, kg, PRN Abnormal Lab Result, Via central line, Start date: 08/14/16 11:00:00 ABSTRACT MANAGER, Duration: 30 day, Stop date: 09/13/16 11:59:00 CDT Notes: WASTE: F/P - Sink; E - Municipal Trash Bin Start Date: 08/14/16 Stop Date: 08/16/16 Status: Discontinuedmetoprolol tartrate 25 mg oral tablet 25 mg=1 tab, PO, BID, # 180 tab, 0 Refill(s) Start Date: 08/15/16 Status: Orderedmidazolam 50mg/ NS 50ml drip (premixed) 50 mg 50 mg, 50 mL, Rate: Titrate, Start Dose: 1 mg/hr, Titration: Rebolus 1 mg IV and /or Titrate infusionby 1 mg/hour every 30 minutes, Goal(s): rass -1, Max Dose: 10 mg/hr, Route: IV, Total Volume: 50, Start date: 08/13/16 1:33:00 ABSTRACT MANAGER, Duration: 30 day,... Notes: (Same as: Versed) Start Date: 08/13/16 Stop Date: 08/14/16 Status: DiscontinuedMiraLax 17 gm, 1 pkt, Route: PO, Drug form: PWDR, Daily, Dosing Weight 62.3, kg, Priority: NOW, Start date: 08/14/16 9:58:00 ABSTRACT MANAGER, Duration: 30 day, Stop date: 9:00:00 CDT Notes: Dissolve in 8 oz of water or juice.(Same as: Miralax) Start Date: 08/14/16 Stop Date: 08/22/16 Status: DiscontinuedMiraLax 17 gm, Route: PO, BID, Dosing Weight 62.3, kg, Start date: 08/14/16 17:00:00 ABSTRACT MANAGER , Duration: 30 day, Stop date: 09/13/16 9:00:00 CDT Start Date: 08/14/16 Stop Date: 08/14/16 Status: Canceledmultivitamin Daily, 0 Refill(s) Start Date: 08/15/16 Status: OrderedniCARdipine 40 mg/ NS 200 ml IV Soln (premix) 40 mg 40 mg, 200 mL, Rate: Titrate, Start Dose: 5 mg/hr, Titration: 2.5 mg/hr every 15 minutes, Goal(s): systolic 140, Max Dose: 15 mg/hr, Route: IV, Total Volume: 200, Start date: 08/13/16 1:18:00 ABSTRACT MANAGER, Duration: 30 day, Stop date: 09/12/16 1: 17:00 CDT Notes: Same as: CardeneConcentration: (0.2 mg /1 ml ) Start Date: 08/13/16 Stop Date: 08/14/16 Status: Discontinuedpantoprazole 40 mg oral enteric coated tablet 40 mg=1 tab, PO, Daily, # 90 tab, 0 Refill(s) Start Date: 08/15/16 Status: Orderedphysiological irrigating solution 5,000 mL, Route: DIALYSIS, Dialysis PRN, Start date: 08/14/16 11:02:00 ABSTRACT MANAGER, Duration: 30 day, Stop date: 09/13/16 12:01:00 CDT Notes: NxStage [id number] ingredients in bag Na 140meq/L; K 4meq/L; HCO 35meq/L; Ca 3meq/L;Magnesium 1meq/L; CL 113meq/L; Glucose 100mg/dL; "Break seal Between compartments and mix before hanging" Start Date: 08/14/16 Stop Date: 08/22/16 Status: Discontinuedphysiological irrigating solution 5000 mL 5,000 mL, Route: DIALYSIS, Irrigation Site: Other: See Comments, 2,000 ml/hr, catheter, 2.5 hr, Total Volume: 5,000 mL, "For Irrigation Only", Start date: 11:00:00 ABSTRACT MANAGER, Duration: 30 day, Stop date: 09/13/16 10:59:00 CDT Start Date: 08/14/16 Stop Date: 08/14/16 Status: Deletedpotassium chloride 20 mEq, 100 mL, Route: IVPB, Drug form: INJ, PRN, Dosing Weight 62.3, kg, PRN Abnormal Lab Result, Via central line, Start date: 08/14/16 11:00:00 ABSTRACT MANAGER, Duration: 30 day, Stop date: 09/13/16 11:59:00 CDT Notes: (Same as: KCL) Infuse no faster than 10 mEq/hr if given peripherally. Start Date: 08/14/16 Stop Date: 08/16/16 Status: Discontinuedpropofol INJ 1,000 mg 1,000 mg, 100 mL, Rate: Titrate, Start Dose: 5 microgram/kg/min, Titration: 5 microgram/kg/min every15 min, Goal(s): RASS -1, Max Dose: 50 microgram/kg/min, Route: IV, Dosing Weight 62.3 kg, Total Volume: 100, Start date: 08/13/16 17:47: 00 ABSTRACT MANAGER, Durat... Notes: Same as: Diprivan Start Date: 08/13/16 Stop Date: 08/14/16 Status: DiscontinuedRenvela 1,600 mg, 2 tab, Route: PO, Drug form: TAB, TID-Meals, Dosing Weight 62.3, kg, Start date: 08/22/16 8:00:00 ABSTRACT MANAGER, Duration: 30 day, Stop date: 09/20/16 17:00: 00 CDT Notes: Same as: Renvela Start Date: 08/22/16 Stop Date: 08/22/16 Status: DiscontinuedRenvela 800 mg oral tablet 1,600 mg=2 tab, PO, TID-Meals, # 180 tab, 1 Refill(s) Start Date: 08/15/16 Stop Date: 09/14/16 Status: OrderedSaline Flush 0.9% 10 ml, Route: MISC, Drug Form: INJ, kg, Q12H, Start date: 08/13/16 9:00:00 ABSTRACT MANAGER, Duration: 30 day, Stop date: 09/11/16 21:00:00 CDT Notes: (Same as: BD Posiflush) Start Date: 08/13/16 Stop Date: 08/22/16 Status: DiscontinuedSaline Flush 0.9% 10 ml, Route: MISC, Drug Form: INJ, kg, PRN, PRN Line Flush, Start date: 2:23:00 ABSTRACT MANAGER, Duration: 30 day, Stop date: 09/12/16 3:22:00 CDT Notes: (Same as: BD Posiflush) Start Date: 08/13/16 Stop Date: 08/22/16 Status: DiscontinuedSaline Flush 0.9% 10 mL, Route: IVP, Drug Form: INJ, kg, PRN, PRN Line Flush, Start date: 0:08:00 ABSTRACT MANAGER, Duration: 30 day, Stop date: 09/12/16 1:07:00 CDT Notes: Same as: BD Posiflush Sterile Start Date: 08/13/16 Stop Date: 08/22/16 Status: Discontinuedsevelamer 800 mg, 1 tab, Route: PO, Drug form: TAB, TID-Meals, Dosing Weight 62.3, kg, Start date: 08/17/16 17:00:00 ABSTRACT MANAGER, Duration: 30 day, Stop date: 09/16/16 12:00: 00 CDT Notes: Same as: Renvela Start Date: 08/17/16 Stop Date: 08/21/16 Status: Discontinuedsodium phosphate + sodium chloride 0.9% INJ 250 mL 15 mmol, 5 mL, Route: IVPB, PRN, Dosing Weight 62.3, kg, PRN Abnormal Lab Result , Via central line, Start date: 08/14/16 11:00:00 ABSTRACT MANAGER, Duration: 30 day, Stop date: 09/13/16 11:59:00 CDT Start Date: 08/14/16 Stop Date: 08/16/16 Status: Discontinuedsodium phosphate + sodium chloride 0.9% INJ 250 mL 30 mmol, 10 mL, Route: IVPB, PRN, Dosing Weight 62.3, kg, PRN Abnormal Lab Result, Via central line,Start date: 08/14/16 11:00:00 ABSTRACT MANAGER, Duration: 30 day, Stop date: 09/13/16 11:59:00 CDT Start Date: 08/14/16 Stop Date: 08/16/16 Status: DiscontinuedStimate + sodium chloride 0.9% INJ 50 mL 20 microgram, 5 mL, 110 ml/hr, Route: IV, ONCE, Start date: 08/13/16 2:00:00 ABSTRACT MANAGER , Stop date: 08/13/16 2:00:00 ABSTRACT MANAGER Notes: (Same As: DDAVP) MEDICATION WASTE Product Size: 4 microgram Product Wasted: ___ microgram Start Date: 08/13/16 Stop Date: 08/13/16 Status: CompletedTradjenta 5 mg oral tablet 5 mg=1 tab, PO, Daily, # 30 tab, 3 Refill(s) Start Date: 08/15/16 Status: OrderedTravatan Z 0.004% ophthalmic solution 1 drp, BOTH EYES, QPM, # 5 ml, 0 Refill(s) Start Date: 08/17/16 Status: OrderedTylenol 650 mg, 2 tab, Route: PO, Drug form: TAB, Q6H, Dosing Weight 62.3, kg, PRN Pain 1-3/Temp > 100.4 F, Start date: 08/14/16 0:35:00 ABSTRACT MANAGER, Stop date: 09/13/16 0:34: 00 CDT Notes: (Same as: Tylenol) Start Date: 08/14/16 Stop Date: 08/22/16 Status: DiscontinuedVisipaque 320mg/ml 100 mL, Route: IVP, Drug Form: SOLN, kg, ONCALL, STAT, Start date: 08/13/16 1:25 :00 ABSTRACT MANAGER, Duration: 1doses or times, Dose=2.2ml/kg, Max knur=134tq -- "To be infused by Radiology Staff ONLY" Start Date: 08/13/16 Stop Date: 08/13/16 Status: CompletedZofran 4 mg, 2 mL, Route: IVP, Drug form: INJ, Q8H, Dosing Weight 62.3, kg, PRN Nausea , Start date: 08/13/16 11:46:00 ABSTRACT MANAGER, Duration: 30 day, Stop date: 09/12/16 11:45 :00 CDT Notes: (Same as: Zofran) MEDICATION WASTE Product Size: 4 mgProduct Wasted: ___ mg Start Date: 08/13/16 Stop Date: 08/22/16 Status: Discontinued Results BLOOD BANK RESULTS Most recent to oldest [Reference Range]: 1 2 3 ABO/Rh O POS *Unknown* (08/13/16 1:44 AM) Antibody Scrn Negative (08/13/16 1:44 AM) ELECTROLYTES Most recent to oldest 1 2 3 [Reference Range]: Sodium Lvl [135-145 mEq/L] 132 mEq/L 136 mEq/L 135 mEq/L *LOW* (08/21/16 3:17 AM) (08/20/16 6:24 PM) (08/22/16 1:02 AM) Potassium Lvl [3.5-5.1 mEq/L] 5.4 mEq/L 4.5 mEq/L 4.2 mEq/L *HI* (08/21/16 3:17 AM) (08/20/16 6:24 PM) (08/22/16 1:02 AM) Chloride Lvl [95-109 mEq/L] 94 mEq/L 97 mEq/L 96 mEq/L *LOW* (08/21/16 3:17 AM) (08/20/16 6:24 PM) (08/22/16 1:02 AM) CO2 [24-32 mEq/L] 24 mEq/L 27 mEq/L 30 mEq/L (08/22/16 1:02 AM) (08/21/16 3:17 AM) (08/20/16 6:24 PM) AGAP [10.0-20.0 mEq/L] 19.4 mEq/L 16.5 mEq/L 13.2 mEq/L (08/22/16 1:02 AM) (08/21/16 3:17 AM) (08/20/16 6:24 PM) CHEM PANEL Most recent to oldest 1 2 3 [Reference Range]: Creatinine Lvl [0.50-1.40 6.00 mg/dL 3.93 mg/dL 3.04 mg/dL mg/dL] *HI* *HI* *HI* (08/22/16 1:02 AM) (08/21/16 3:17 AM) (08/20/16 6:24 PM) eGFR 7 mL/min/1.73m2 1 11 mL/min/1.73m2 2 16 mL/min/1.73m2 3 *NA* *NA* *NA* (08/22/16 1:02 AM) (08/21/16 3:17 AM) (08/20/16 6:24 PM) BUN [7-22 mg/dL] 65 mg/dL 40 mg/dL 31 mg/dL *HI* *HI* *HI* (08/22/16 1:02 AM) (08/21/16 3:17 AM) (08/20/16 6:24 PM) Glucose Lvl [70-99 mg/dL] 125 mg/dL 140 mg/dL 247 mg/dL *HI* *HI* *HI* (08/22/16 1:02 AM) (08/21/16 3:17 AM) (08/20/16 6:24 PM) Calcium Lvl [8.5-10.5 mg/dL] 8.9 mg/dL 9.0 mg/dL 8.6 mg/dL (08/22/16 1:02 AM) (08/21/16 3:17 AM) (08/20/16 6:24 PM) Phosphorus [2.5-4.5 mg/dL] 6.1 mg/dL 4.5 mg/dL 6.5 mg/dL *HI* (08/21/16 3:17 AM) *HI* (08/22/16 1:02 AM) (08/20/16 3:41 AM) Magnesium Lvl [1.8-2.4 mg/dL] 2.9 mg/dL 2.8 mg/dL 2.8 mg/dL *HI* *HI* *HI* (08/22/16 1:02 AM) (08/21/16 3:17 AM) (08/20/16 3:41 AM) 1Result Comment: The eGFR is calculated using the CKD-EPI formula. In most young , healthy individualsthe eGFR will be >90 mL/min/1.73m2. The eGFR declines with age. An eGFR of 60-89 may be normal in some populations, particularly the elderly, for whom the CKD-EPI formula has not been extensively validated. Use of the eGFR is not recommended in the following populations: Individuals with unstable creatinine concentrations, including patients and those with serious co-morbid conditions. Patients with extremes in muscle mass or diet. The data above are obtained from the [employer] ( [employer]) which additionally recommends that when the eGFR is used in patients with extremes of body mass index for purposesof drug dosing, the eGFR should be multiplied by the estimated BMI.2Result Comment: The eGFR is calculated using the CKD-EPI formula. In most young, healthy individualsthe eGFR will be >90 mL/ min/1.73m2. The eGFR declines with age. An eGFR of 60-89 may be normal in some populations, particularly the elderly, for whom the CKD-EPI formula has not been extensively validated. Use of the eGFR is not recommended in the following populations: Individuals with unstable creatinine concentrations, including patients and those with serious co-morbid conditions. Patients with extremes in muscle mass or diet. The data above are obtained from the National Kidney Disease Education Program ( NKDEP) which additionally recommends that when the eGFR is used in patients with extremes of body mass index for purposesof drug dosing, the eGFR should be multiplied by the estimated BMI.3Result Comment: The eGFR is calculated using the CKD-EPI formula. In most young, healthy individualsthe eGFR will be >90 mL/ min/1.73m2. The eGFR declines with age. An eGFR of 60-89 may be normal in some populations, particularly the elderly, for whom the CKD-EPI formula has not been extensively validated. Use of the eGFR is not recommended in the following populations: Individuals with unstable creatinine concentrations, including patients and those with serious co-morbid conditions. Patients with extremes in muscle mass or diet. The data above are obtained from the National Kidney Disease Education Program ( NKDEP) which additionally recommends that when the eGFR is used in patients with extremes of body mass index for purposesof drug dosing, the eGFR should be multiplied by the estimated BMI.LIPIDS Most recent to oldest [Reference Range]: 1 2 3 CHD Risk [3.90-5.80] 3.43 *LOW* (08/13/16 3:03 AM) Chol [<=199 mg/dL] 144 mg/dL (08/13/16 3:03 AM) Trig [<=149 mg/dL] 160 mg/dL *HI* (08/13/16 3:03 AM) HDL [>=61 mg/dL] 42 mg/dL *LOW* (08/13/16 3:03 AM) LDL (Calculated) [<=99 mg/dL] 70 mg/dL (08/13/16 3:03 AM) VLDL 32 *NA* (08/13/16 3:03 AM) SPECIAL CHEMISTRY Most recent to oldest [Reference Range]: 1 2 3 Hgb A1C [<=5.6 %] 8.6 % *HI* (08/13/16 3:03 AM) PARATHYROID PROFILE Most recent to oldest 1 2 3 [Reference Range]: Ca Ion WB [1.05-1.25 mMol/L] 0.99 mMol/L 0.99 mMol/L 1.02 mMol/L *LOW* *LOW* *LOW* (08/21/16 3:17 AM) (08/20/16 3:41 AM) (08/19/16 4:52 AM) Ca Norm WB [1.05-1.25 mMol/L] 1.02 mMol/L 0.98 mMol/L 1.06 mMol/L *LOW* *LOW* (08/19/16 4:52 AM) (08/21/16 3:17 AM) (08/20/16 3:41 AM) DRUG SCREEN Most recent to oldest [Reference Range]: 1 2 3 U Amph Scr [Negative] Negative *NA* (08/13/16 3:03 AM) U Zoey Scr [Negative] Negative *NA* (08/13/16 3:03 AM) U Benzodia Scr [Negative] Negative *NA* (08/13/16 3:03 AM) U Cocaine Scr [Negative] Negative *NA* (08/13/16 3:03 AM) U Opiate Scr [Negative] Negative *NA* (08/13/16 3:03 AM) U Phencyc Scr [Negative] Negative *NA* (08/13/16 3:03 AM) U Cannab Scr [Negative] Negative *NA* (08/13/16 3:03 AM) UDS Note See Note *NA* (08/13/16 3:03 AM) URINE AND STOOL Most recent to oldest [Reference Range]: 1 2 3 UA Turbidity [Clear] Slight Cloudy (08/13/16 3:07 AM) UA Color [Yellow] Yellow *NA* (08/13/16 3:07 AM) UA pH [5.0-8.0] 8.5 *HI* (08/13/16 3:07 AM) UA Spec Grav [<=1.030] 1.015 (08/13/16 3:07 AM) UA Glucose [Negative mg/dL] 500 mg/dL *ABN* (08/13/16 3:07 AM) UA Blood [Negative] Large *ABN* (08/13/16 3:07 AM) UA Ketones [Negative] Negative *NA* (08/13/16 3:07 AM) UA Protein [Negative mg/dL] >=300 mg/dL *ABN* (08/13/16 3:07 AM) UA Urobilinogen [0.1-1.0 EU/dL] 0.2 EU/dL (08/13/16 3:07 AM) UA Bili [Negative] Negative *NA* (08/13/16 3:07 AM) UA Leuk Est [Negative] Negative (08/13/16 3:07 AM) UA Nitrite [Negative] Negative (08/13/16 3:07 AM) UA WBC [None Seen /HPF] 0-2 /HPF (08/13/16 3:07 AM) UA RBC [0-2 /HPF] 3-5 /HPF *ABN* (08/13/16 3:07 AM) UA Bacteria [None Seen /HPF] Few /HPF (08/13/16 3:07 AM) UA Sq Epi [Few /LPF] Few /LPF (08/13/16 3:07 AM) IMMUNOLOGY Most recent to oldest [Reference Range]: 1 2 3 Hep Bs Ag [Negative] Negative *NA* (08/13/16 9:51 AM) Hep B Core IgM [Negative] Negative *NA* (08/13/16 9:51 AM) Hep Bs Ab [<=7.4 mIU/mL] 356.4 mIU/mL *HI* (08/13/16 9:51 AM) Hep B Core Ab [Negative] Negative *NA* (08/13/16 9:51 AM) Hep C Ab Negative *NA* (08/13/16 9:51 AM) HEMATOLOGY Most recent to oldest 1 2 3 [Reference Range]: WBC [3.7-10.4 K/CMM] 9.5 K/CMM 11.3 K/CMM 10.2 K/CMM (08/22/16 1:02 AM) *HI* (08/20/16 3:41 AM) (08/21/16 3:17 AM) RBC [4.20-5.40 M/CMM] 2.63 M/CMM 2.77 M/CMM 2.38 M/CMM *LOW* *LOW* *LOW* (08/22/16 1:02 AM) (08/21/16 3:17 AM) (08/20/16 3:41 AM) Hgb [12.0-16.0 g/dL] 8.2 g/dL 8.5 g/dL 8.9 g/dL *LOW* *LOW* *LOW* (08/22/16 1:02 AM) (08/21/16 3:17 AM) (08/20/16 6:24 PM) Hct [36.0-48.0 %] 25.2 % 26.2 % 26.3 % *LOW* *LOW* *LOW* (08/22/16 1:02 AM) (08/21/16 3:17 AM) (08/20/16 6:24 PM) MCV [80.0-98.0 fL] 95.8 fL 94.5 fL 94.2 fL (08/22/16 1:02 AM) (08/21/16 3:17 AM) (08/20/16 3:41 AM) MCH [27.0-31.0 pg] 31.1 pg 30.7 pg 31.7 pg *HI* (08/21/16 3:17 AM) *HI* (08/22/16 1:02 AM) (08/20/16 3:41 AM) MCHC [32.0-36.0 g/dL] 32.5 g/dL 32.5 g/dL 33.7 g/dL (08/22/16 1:02 AM) (08/21/16 3:17 AM) (08/20/16 3:41 AM) RDW [11.5-14.5 %] 13.2 % 13.1 % 13.2 % (08/22/16 1:02 AM) (08/21/16 3:17 AM) (08/20/16 3:41 AM) Platelet [133-450 K/CMM] 195 K/CMM 176 K/CMM 156 K/CMM (08/22/16 1:02 AM) (08/21/16 3:17 AM) (08/20/16 3:41 AM) MPV [7.4-10.4 fL] 12.8 fL 11.9 fL 12.2 fL *HI* *HI* *HI* (08/22/16 1:02 AM) (08/21/16 3:17 AM) (08/20/16 3:41 AM) Segs [45.0-75.0 %] 72.4 % 76.0 % 76.2 % (08/22/16 1:02 AM) *HI* *HI* (08/21/16 3:17 AM) (08/20/16 3:41 AM) Lymphocytes [20.0-40.0 %] 14.2 % 10.6 % 10.9 % *LOW* *LOW* *LOW* (08/22/16 1:02 AM) (08/21/16 3:17 AM) (08/20/16 3:41 AM) Monocytes [2.0-12.0 %] 10.1 % 10.7 % 10.0 % (08/22/16 1:02 AM) (08/21/16 3:17 AM) (08/20/16 3:41 AM) Eosinophils [0.0-4.0 %] 2.5 % 2.3 % 2.5 % (08/22/16 1:02 AM) (08/21/16 3:17 AM) (08/20/16 3:41 AM) Basophils [0.0-1.0 %] 0.8 % 0.4 % 0.4 % (08/22/16 1:02 AM) (08/21/16 3:17 AM) (08/20/16 3:41 AM) Segs-Bands # [1.5-8.1 K/CMM] 6.9 K/CMM 8.6 K/CMM 7.8 K/CMM (08/22/16 1:02 AM) *HI* (08/20/16 3:41 AM) (08/21/16 3:17 AM) Lymphocytes # [1.0-5.5 1.4 K/CMM 1.2 K/CMM 1.1 K/CMM K/CMM] (08/22/16 1:02 AM) (08/21/16 3:17 AM) (08/20/16 3:41 AM) Monocytes # [0.0-0.8 K/CMM] 1.0 K/CMM 1.2 K/CMM 1.0 K/CMM *HI* *HI* *HI* (08/22/16 1:02 AM) (08/21/16 3:17 AM) (08/20/16 3:41 AM) Eosinophils # [0.0-0.5 0.2 K/CMM 0.3 K/CMM 0.3 K/CMM K/CMM] (08/22/16 1:02 AM) (08/21/16 3:17 AM) (08/20/16 3:41 AM) Basophils # [0.0-0.2 K/CMM] 0.1 K/CMM (08/22/16 1:02 AM) PT [12.0-14.7 seconds] 13.6 seconds 13.1 seconds (08/17/16 3:54 AM) (08/13/16 12:26 AM) INR [0.85-1.17] 1.02 0.97 (08/17/16 3:54 AM) (08/13/16 12:26 AM) PTT [22.9-35.8 seconds] 40.4 seconds 26.0 seconds *HI* (08/13/16 12:26 AM) (08/17/16 3:54 AM) ACT (TEG) Rapid [86-118 105 seconds seconds] (08/13/16 1:44 AM) Split Point Rapid 0.5 minutes *NA* (08/13/16 1:44 AM) R-time Rapid [0.4-0.7 0.6 minutes minutes] (08/13/16 1:44 AM) K-time Rapid [0.6-2.3 0.8 minutes minutes] (08/13/16 1:44 AM) Angle Rapid [64-80 degrees] 81 degrees *HI* (08/13/16 1:44 AM) Max Amplitude Rapid [52-71 71 mm mm] (08/13/16 1:44 AM) G-value Rapid [5.0-11.6 K 12.2 K d/sc d/sc] *HI* (08/13/16 1:44 AM) Estimated % Lysis Rapid 0.0 % [0.0-7.5 %] (08/13/16 1:44 AM) Immunizations No data available for this section Procedures No data available for this section Social History Social History Type Response Smoking Status Unknown if ever smoked; Ready to change: No; Concerns about tobacco use in household: No; Exposure to Tobacco Smoke Unable to obtain; Cigarette Smoking Last 365 Days Unable to obtain; Reg Smoking Cessation Counseling No Assessment and Plan Extracted from: Title: Progress Note Author: Edgardo Rowland MD Date: 08/22/16 Assessment/Plan 66 y/o F admitted for ICH renal consulted for ESRD ESRD: Will do HD today Hyponatremia: Likely from ESRD, Will be corrected with HD Hyperkalemia: Will be corrected with HD VOl status: Appears mildly hypervolumic. Will do UF on HD today Anemia of CKD Addendum by Laure Arzate MD on 08/23/2016 16:06 ABSTRACT MANAGER ATTENDING NOTE I have seen and examined the patient, reviewed the laboratory data, discussed the pertinent case findings with the resident/fellow, and agree with the assessment and plan as documented below. Date of Service 08/22/2016 ESRD HD today for solute control (hyperkalemia, hyponatremia)and treatment of volume overload. Extracted from: Title: Nephrology Consultation Note Author: Moisés Khoury DO Date: 08/13 Patient: MADELINE KOO Age: 66 years Sex: Female : 1950 Associated Diagnoses: None Author: Moisés Khoury DO Basic Information Source of history: Family member, Medical record. Present at bedside: Family member. Referral source: Naomy Triana MD. History limitation: Clinical condition. Chief Complaint 08/13/2016 04:48 SAH/IVH 08/12/2016 23:25 pt presented at OSH with vommitting, headache and lethargy. Pt declined in status and was intubated and found to have an SAH. History of Present Illness 66F w/ pmhx of ESRD on MWF, HTN, DM who was transferred from outside hospital for management of ICH with IVH. Prior to hospitalization, patient was having profuse episodes of headaches/nausea/vomiting. Patient then appeared lethargic. Patient was brought to OSH she was evaluated and intubated for airway protection. CT showed ICH with IVH. Patient has been transferred to our facilicty and we have been asked to evaluate this patient for HEATING AND COOLING TECHNICIAN needs. Patient seen/evaluated at the bedside. Daughter at the bedside. Patient is intubated however wakes up to verbal stimuli shakes her head yes and no. Review of Systems Constitutional: Weakness, Fatigue. Eye: No recent visual problem. Ear/Nose/Mouth/Throat: Negative. Respiratory: Negative. Cardiovascular: Negative. Gastrointestinal: No nausea. Musculoskeletal: Negative. Integumentary: Negative. Neurologic: No headache. Psychiatric: Negative. Unable to fuly assess due to clinical condition. Health Status Allergies: Allergic Reactions (All) Severity Not Documented NKDA- No reactions were documented., Allergies (1) Active Reaction NKDA None Documented Current medications: (Selected) Inpatient Medications Ordered DDAVP + sodium chloride 0.9% INJ 50 mL: 18.69 microgram, 4.67 mL, 100 ml/hr, IV , ONCE Dextrose 50% Syringe: 12.5 gm, 25 mL, IVP, PRN, PRN: Abnormal Lab Result Dextrose 50% Syringe: 25 gm, 50 mL, IVP, PRN, PRN: Abnormal Lab Result Dextrose 50% Syringe: 6.25 gm, 12.5 mL, IVP, PRN, PRN: Abnormal Lab Result Saline Flush 0.9%: 10 mL, IVP, PRN, PRN: Line Flush Saline Flush 0.9%: 10 ml, MISC, PRN, PRN: Line Flush Saline Flush 0.9%: 10 ml, MISC, Q12H albuterol 0.083% inhalation solution: 19.92 mg, 24 mL, NEB, Continuous docusate-senna 50 mg-8.6 mg oral tablet: 1 tab, PO, Q12H fentaNYL 1000microgram/20ml drip (pyxis) 1,000 microgram: Titrate, IV, Stop: 1:31:00 CDT insulin regular 100 units/mL human recombinant: 3 unit, 0.03 mL, SUB-Q, PRN, PRN: Abnormal Lab Result insulin regular 100 units/mL human recombinant: 5 unit, 0.05 mL, SUB-Q, PRN, PRN: Abnormal Lab Result insulin regular 100 units/mL human recombinant: 7 unit, 0.07 mL, SUB-Q, PRN, PRN: Abnormal Lab Result lansoprazole: 30 mg, 10 mL, NG, Before Breakfast midazolam 50mg/ NS 50ml drip (premixed) 50 mg: Titrate, IV, Stop: 09/12/16 1:32 :00 CDT niCARdipine 40 mg/ NS 200 ml IV Soln (premix) 40 mg: Titrate, IV, Stop: 1:17:00 CDT, Medications (16) Active Scheduled: (5) albuterol 0.083% 3 ml neb SOLN 19.92 mg 24 mL, NEB, Continuous desmopressin INJ + sodium chloride 0.9% INJ 50 mL 18.69 microgram 4.67 mL, IV , ONCE docusate-senna 50-8.6 mg TAB 1 tab, PO, Q12H lansoprazole 30mg/10ml oral susp 10ml 30 mg 10 mL, NG, Before Breakfast sodium chloride 0.9% 10 ml flush syr BD 10 ml, MISC, Q12H Continuous: (3) fentaNYL 1000microgram/20ml drip (pyxis) 1,000 microgram 1,000 microgram 20 mL , IV midazolam 50mg/ NS 50ml drip (premixed) 50 mg 50 mg 50 mL, IV niCARdipine 40 mg/ NS 200 ml IV Soln (premix) 40 mg 40 mg 200 mL, IV PRN: (8) Dextrose 50% 50 ml INJ syringe 25 gm 50 mL, IVP, PRN Dextrose 50% 50 ml INJ syringe 12.5 gm 25 mL, IVP, PRN Dextrose 50% 50 ml INJ syringe 6.25 gm 12.5 mL, IVP, PRN insulin reg human rec 100 unit/ml INJ 3 ml Vial 3 unit 0.03 mL, SUB-Q, PRN insulin reg human rec 100 unit/ml INJ 3 ml Vial 5 unit 0.05 mL, SUB-Q, PRN insulin reg human rec 100 unit/ml INJ 3 ml Vial 7 unit 0.07 mL, SUB-Q, PRN sodium chloride 0.9% 10 ml flush syr BD 10 ml, MISC, PRN sodium chloride 0.9% 10ml sterile flush syr BD 10 mL, IVP, PRN Problem list: All Problems ESRD (end stage renal disease) / SNOMED CT 1352057554 / Confirmed HTN (hypertension) / SNOMED CT 0115379459 / Confirmed, Active Problems (2) ESRD (end stage renal disease) HTN (hypertension) Histories Past Medical History: Active ESRD (end stage renal disease) (5204864910) HTN (hypertension) (0847304888) Resolved DM (diabetes mellitus) (782539290): Resolved. Hyperlipidemia (45397071): Resolved. Family History: Type 2 diabetes mellitus Mother Procedure history: No active procedure history items have been selected or recorded. Social History Social & Psychosocial Habits Tobacco 08/13/2016 Use: Unknown if ever smoked Ready to change: No Concerns about tobacco use in household: No Exposure to Tobacco Smoke Unable to obtain Cigarette Smoking Last 365 Days Unable to obtain Reg Smoking Cessation Counseling No . Physical Examination VS/Measurements Measurements from flowsheet : Measurements 08/13/2016 04:49 Heparin Dosing Weight (kg) 62.30 08/13/2016 04:48 Height 160.02 cm Height Collection Method Estimated Weight 62.3 kg Dosing Weight Collection Method Measured Body Surface Area 1.6641 m2 Body Mass Index 24.33 m2 , Vital Signs (last 24 hrs) Last Charted Temp Axillary 97.6 DegF (AUG 13 08:00) Heart Rate Apical 93 bpm (AUG 13 10:15) Resp Rate 14 BRMIN (AUG 13 10:45) SBP H 158mmHg (AUG 13 10:15) DBP 72 mmHg (AUG 13 10:15) SpO2 100 % (AUG 13 10:15) Weight 62.3 kg (AUG 13 04:48) Height 160.02 cm (AUG 13 08:32) BMI 24.33 (AUG 13 04:48) Review / Management Results review: Labs (Last four charted values) WBC H 15.3 (AUG 13) H 16.7 (AUG 13) Hgb L 9.9 (AUG 13) L 10.5 (AUG 13) Hct L 30.7 (AUG 13) L 32.0 (AUG 13) Plt L 126 (AUG 13) L 127 (AUG 13) Na 137 (AUG 13) K H 6.0 (AUG 13) CO2 L 21 (AUG 13) Cl 97 (AUG 13) Cr H 9.74 (AUG 13) BUN H 65 (AUG 13) Glucose Random H 323 (AUG 13) Ca L 8.1 (AUG 13) PT 13.1 (AUG 13) INR 0.97 (AUG 13) PTT 26.0 (AUG 13) . Impression and Plan 1. ESRD. We will continue to provide HEATING AND COOLING TECHNICIAN for this patient while she is admitted. Due to her hyperkalemia, we will offer emergent dialysis today. Case was discussed with primary team and consensus was th at patient would be able to undergo iHD. We will provide iHD for the patient today for her hyperkalemia and metabolic clearance. If her condition changes/ worsens and there is concern for needing CRRT fo r this patient, please place temporary dialysis catheter. 2. ICH and IVH. 3. Hyperkalemia. Correct with iHD. 4. Metabolic acidosis. 5. Leukocytosis. 6. Anemia of CKD. All findings were discussed with my attending Dr. Ulisses Khoury D.O. Nephrology PGY-4 Addendum by Ulisses Bob MD on CRITICAL CARE NEPHROLOGY STAFF ATTESTATION 08/14/2016 13:15 I saw this medically complex patient on 08-13-2016, reviewed the labs and radiographic data, discussed the plans with the Fellow, and agree with this note. Ulisses Bob MD, FACP, FASN, [facility] Nephrology Staff HD Note I saw the patient during hemodialysis on 08-13-2016, reviewed the dialysis prescription in the EHR, and I agree with this note. Blood pressure stable thus far. Tolerating dialysis. Ulisses Bob MD, FACP, FASN, FCCM Extracted from: Title: Stroke H and P Author: Jennifer Golden MD Date: 08/13/16 Stroke History and Physical Patient Name: Madeline Fontana Date of Admission: 08/13/2016 Requesting Physician/Service: Neurosurgery Chief Complaint: IVH HISTORY OF PRESENT ILLNESS: Patient is a 66-year-old female with past medical history of hypertension, diabetes, end-stage renal disease on Saturday hemodialysis, presents as transfer from outside hospital due to co ncern for ICH with IVH. Patient's daughter, patient was in her normal state of health today when she started having profuse episodes of vomiting and headache at around 7 PM today. Patient suddenly see med very tired and daughter placed her in a chair. Patient was taken to outside hospital where she was intubated due to lethargy for airway protection. Patient was noted to be GCS 3 off sedation. Her report, patient was hypertensive on initial evaluation. Patient had brain CT that showed concern for ICH with IVH patient, transferred for higher level On evaluation patient noted to be following commands and moving all 4 extremities to command when sedation. Initial labs concerning for elevated electrolytes, BUN, creatinine. Coagulation studies with in normal limits. Patient given DDAVP prior to assessment. GCS on admission 11 REVIEW OF SYSTEMS: Unable to obtain patient PAST MEDICAL HISTORY: Per HPI PAST SURGICAL HISTORY: AV fistula creation FAMILY MEDICAL HISTORY: Hypertension SOCIAL HISTORY: Patient lives with daughter, is able to take care of all of her ADLs. Patient does not smoke, drink, or use illicit drugs. MEDICATIONS: Daughter does not remember, medications for hypertension and diabetes ALLERGIES: NKDA PHYSICAL EXAM: 00:51 ---- ---- ---- 159/62 102 104 16 100 --- --- 08/13 00:42 ---- ---- ---- 170/77 110 104 17 100 --- --- 08/12 23:45 ---- ---- ---- 124/74 --- 98 16 100 --- --- 08/12 23:25 98.5 36.94 rect 131/86 --- 102 16 100 --- --- 02/26 23:23 ---- ---- ---- ----- --- --- -- 100 40% 23 General Physical Examination: GENERAL: Somnolent, opens eyes to command, intubated HEENT: - Normocephalic and atraumatic; Moist mucous membranes, no JVD LUNGS - Clear to auscultation bilaterally with no wheezes CV - S1S2 Regular rate and rhythm ABDOMEN - Soft, nontender, nondistended with normoactive bowel sounds EXTREMITIES: no cyanosis, rashes or edema visible MUSCULOSCKELETAL: movements as below, no visible joint erythema/deformity SKIN: No visble rashes, petechaie, purpura Neurology Examination: Higher Function: Intubated, follows simple commands Speech: intubated Cranial nerves: Pupils equal, round, and reactive. R___3___mm L__3___mm. Face appears to move symetric Motor: - Normal bulk and tone. - Reflexes: 2 + - Plantar- equivical Sensory:- withdraws in all extremities Coordination: Unable to test Gait: Unable to test NIH Stroke Scale (NIHSS) 1a. Level of Consciousness; 0-alert 1-drowsy 2-stupor 2 1b. LOC Questions month and age; 0-both 1-one 2-neither 2 1c. LOC Commands open/close eyes, housing counselor/release non-paretic hand; 0-both 1-one 2 -neither 1 2. Best Gaze; 0-nl 1-partial 2-forced gaze 3. Visual Snider; 0-No visual loss. 1-Partial hemianopia 2-Complete 3-Bilateral 4. Facial Palsy; 0-none 1-minor 2-partial 3-complete 5. Motor - R arm; 0-No drift 1-Drift 2-Some antigravity 3-No antigravity 4-No movement 3 6. Motor - R leg; 0-No drift 1-Drift 2-Some antigravity 3-No antigravity 4-No movement 3 7. Motor - L arm; 0-No drift 1-Drift 2-Some antigravity 3-No antigravity 4-No movement 3 8. Motor - L leg; 0-No drift 1-Drift 2-Some antigravity 3-No antigravity 4-No movement 3 9. Limb Ataxia; 0 absent 1 - 1limb 2 - 2 limbs 10. Sensory; 0-nl 1-partial loss 2-dense loss 11. Best Language; 0-nl 1-mild/mod 2-severe 3-mute 3 12. Dysarthria; 0-nl 1-mild/mod 2-severe x-untestable x 13. Extinction and Inattention (formerly Neglect); 0-none 1-partial 2-complete TOTAL SCORE 20 SIGNIFICANT LABS: Creatinine: 9.74 Glucose: 160 INR: 0.97 Cardiac Markers: pending DIAGNOSTIC TESTS: CT Head: IMPRESSION: 1. Stable parenchymal hemorrhage within the right caudate head with intraventricular extension. 2. Arterial atherosclerosis. CTA/Perfusion: IMPRESSION: 1. Atherosclerotic disease with high-grade stenosis at the origin of the left subclavian artery. 2. No intracranial branch occlusion. 3. No carotid bifurcation stenosis. Mild calcified plaque is noted within the left carotid bulb without stenosis. 4. Nonvisualization of the medial right transverse sinus, possible occlusion vs hypoplasia. If venous sinus thrombosis is suspected, magnetic resonance imaging, MRV, or conventional arteriography may be helpful for further evaluation. MRI/MRA of head: pending EKG: NSR ASSESSMENT: Patient is a 66 year old female with history of ESRD on dialysis MWF, diabetes , HTN who presents after acute vomiting, headache and lethargy. Found to have IPH in right caudate head with IVH. DIAGNOSIS: Stable parenchymal hemorrhage within the right caudate head with intraventricular extension. ETIOLOGY OF STROKE: probable HTN Acute Hemorrhagic Stroke: -Location of Bleed: Size of bleed: ___right caudate head, 10 cc, IVH: yes; ICH score: ___2__, no midline shift, + edema, no mass effect -SBP at presentation: 134 mmHg ( to our hospital, on cardene) reported to be HTN at OSH (unknown, stroke team not called on arrival) -No evidence of coagulopathy -Platelets normal 127 -Urine Drug Screen ordered - MRI with and without contrast -BP goal SBP 110 - 140 mmHg -Cardene drip to control BP -No Heparin for DVT prophylaxis & no antiplatelet agents in view of recent hemorrhage -Code Status: Full code, daughter is her POA, reports that patient would not want continued care if poor quality of life -Disposition: Home/Rehab/SNF/Outpatient OT. PT/Pending OT, PT evaluation Neurosurgery aware of patient, holding EVD placement due to metabolic concerns (needs dialysis today). THE FOLLOWING WERE PRESENT ON ADMISSION (POA) LINEMAN Encephalopathy (anoxic, metabolic, other) Cerebral edema Anoxic brain damage Obstructive hydrocephalus Hemiplegia Coma Respiratory Ventilator dependent Respiratory failure (acute, chronic, acute on chronic) Aspiration pneumonia (specific organism when known) HTN Renal CKD Stage 5 Hematology Anemia LOC 1-24h (specify w/ or w/o return to normal) Diabetes Hyperglycemia Hyperkalemia Hypocalcemia ACUTE STROKE BENCHMARKS: code stroke not called TIME PATIENT LAST SEEN NORMAL NA CODE STROKE ACTIVATION (CARE4 COMPUTER TIME) NA NEUROLOGY RESIDENT ARRIVAL AT THE BEDSIDE (CARE4 COMPUTER TIME) MA IV TPA BOLUS (TIME AND DOSE) NA IV TPA INFUSION (TIME AND DOSE) NA DELAYS IN THE CODE STROKE PROCESS NA Jennifer Golden MD PGY#3 STROKE ATTENDING I have seen and examined the patient. Furthermore, I have discussed the case with and reviewed the resident's note and agree with the history, exam, assessment and plan. See note below for additions a nd/or exceptions and my findings. I have personally viewed the patient's radiographic studies and laboratory tests. Imaging: CTH: 1. Stable parenchymal hemorrhage within the right caudate head with intraventricular extension. 2. Arterial atherosclerosis. Initial Head and Neck CTAon 08/13/16: 1. Atherosclerotic disease with high-grade stenosis at the origin of the left subclavian artery. 2. No intracranial branch occlusion. 3. No carotid bifurcation stenosis. Mild calcified plaque is noted within the left carotid bulb without stenosis. 4. Nonvisualization of the medial right transverse sinus, possible occlusion vs hypoplasia. If venous sinus thrombosis is suspected, magnetic resonance imaging, MRV, or conventional arteriography may be helpful for further evaluation. MRI Brain: Pending TTE: EKG: Assessment/Plan: 66 y rold with PMH sig for HTN, DMII, ESRD on HD found to be lethargic with nausea/vomiting CTH with right caudate IPH with IVH, likely hypertensive in nature [id number] Inpatient admission Principal Diagnosis I61.6 Nontraumatic intracerebral hemorrhage, multiple localized G91.1 Obstructive hydrocephalus G93.6 cerebral edema Acuity: Acute Etiology: Hypertension Current suspected etiology: Hypertension Continue evaluation: Repeat CTH to ensure hemorrhage stability, monitor clinical exam, MRI brain Treatment/Plan: Aggressive blood pressure control, EVD per neurosurgery and wean as tolerated I10 Essential (primary) hypertension Treatment: Aggressive BP control, goal SBP < 140mmHg N18.5 Chronic kidney disease stage 5 <15 or on HD HD as needed J96.00 Acute respiratory failure Treatment: On ventilator, wean as tolerated per NICU team Physical Therapy/Occupational Therapy Evaluation Disposition recommendation: Speech and Language Recommendations: DVT Prophylaxis Treatment: SCD s Discuss philosophy of care with patient and family, reviewed and updated on plan of care and prognosis Angeles Diamond MD ([place]) [employer] [facility] Neu[facility] Pager: [phone]
[2018-05-21 14:28] LABS: Absolute Lymphocytes (CBC) 0.5 K/uL (0.7-4.9); Absolute Monocytes 0.8 K/uL (0.1-1.3); Absolute Neutrophil 10.7 K/uL (1.8-8.0); Basophils % 0.4 % (0-1.3); Eosinophils % 0.2 % (0-4.4); Hematocrit 29.2 % (36.0-45.0); Lymphocytes % 4.5 % (15.3-44.8); MCH 30.8 pg (27.0-35.0); MPV 11.2 fL (7.6-11.3); Monocytes % 6.4 % (3.3-12.3); RBC Red Blood Cell Count 3.11 M/uL (3.86-4.86)
[2018-05-21 14:46] LABS: Potassium 4.4 mmol/L (3.5-5.1)
[2018-05-21] MEDS ORDERED: LEVALBUTEROL 1.25 MG/3 ML NEB ONE (15:21)
--- NOTE | 2018-05-21 15:34 | EKG ---
Test Date: 2018-05-21 Test Time: 13:40:23 Podiatric Surgeon: KAPIL/ MEASUREMENT RESULTS: Intervals: Rate: 111 HI: 138 QRSD: 84 QT: 328 QTc: 446 [place]: P: 70 HI: 138 QRS: 76 T: 50 INTERPRETIVE STATEMENTS: Sinus tachycardia Nonspecific ST abnormality Abnormal ECG Compared to ECG 10/15/2017 11:02:01 ST (T wave) deviation now present Sinus rhythm no longer present Electronically Signed On 05-21-18 15:32:54 SECRETARY ADMINISTRATIVE ASSISTANT by Major Cedeño
[2018-05-21 15:41] LABS: Blood Morphology Comment NOT SEEN (NOT SEEN); Platelet Estimate ADEQ; Urine White Blood Cell Casts OK
--- NOTE | 2018-05-21 17:50 | ER ---
Nurse's Notes [facility] Name: Lynne Leggett Age: 67 yrs Sex: Female : 1950 Arrival Date: 05/21/2018 Time: 13:28 Bed 5 Private MD: Diagnosis: Influenza due to other identified influenza virus;Dyspnea, unspecified;Hypoxemia Presentation: 05/21 13:34 Presenting complaint: Child states: she went to dialysis today and she has having a tw2 cough since Saturday, and she is having stomach pain when she coughs. Transition of care: patient was not received from another setting of care. Onset of symptoms was May 21, 2018. Risk Assessment: Do you want to hurt yourself or someone else? Patient reports no desire to harm self or others. Initial Sepsis Screen: Does the patient meet any 2 criteria? No. Patient's initial sepsis screen is negative. Does the patient have a suspected source of infection? No. Patient's initial sepsis screen is negative. Care prior to arrival: None. 13:34 Method Of Arrival: Wheelchair tw2 13:34 Acuity: SHIKHA 3 tw2 Historical: - Allergies: 13:40 Nifedipine; hb 13:40 Vancomycin; hb - Home Meds: 13:40 amlodipine 5 mg tab 2 tabs nightly [Active]; atorvastatin 20 mg Oral tab 1 tab once hb daily [Active]; Daily-Isael Oral tab daily [Active]; glipizide 10 mg Oral tab 1 tab 2 times per day [Active]; hydralazine 25 mg Oral tab 1 tab 2 times per day [Active]; losartan 100 mg Oral tab 1 tab once daily [Active]; pantoprazole 40 mg Oral TbEC 1 tab 2 times per day [Active]; metoprolol tartrate 25 mg Oral tab 1 tab 2 times per day [Active]; Renvela 800 mg Oral tab 2 tabs 3 times per day [Active]; sodium polystyrene sulfonate Oral [Active]; Tradjenta 5 mg Oral tab 1 tab once daily [Active]; valtessa [Active]; victoza 0.6mg/ 0.1 mL 6 units at bedtime [Active]; - PMHx: 13:40 CVA (hemorrhagic); Diabetes - NIDDM; DIALYSIS MWF; ESRD; GERD; High Cholesterol; hb Hypertension; - PSHx: 13:40 dialysis shunt R arm; hb - Immunization history:: Adult Immunizations up to date. - Social history:: Smoking status: Patient/guardian denies using tobacco. - Ebola Screening: : No symptoms or risks identified at this time. - Family history:: not pertinent. - Hospitalizations: : No recent hospitalization is reported. Screenin:40 Abuse screen: Denies threats or abuse. Denies injuries from another. Nutritional hb screening: No deficits noted. Tuberculosis screening: No symptoms or risk factors identified. Fall Risk None identified. Assessment: 14:25 General: Appears in no apparent distress. well groomed, well developed, well nourished, sg Behavior is calm, cooperative, appropriate for age. Pain: Complains of pain in diaphragm, right upper quadrant and left upper quadrant Quality of pain is described as aching. Neuro: Level of Consciousness is awake, alert, obeys commands, Oriented to person, place, time, Birdcage Assembler are equal bilaterally Speech is normal, Facial symmetry appears normal. Cardiovascular: Patient's skin is warm and dry. Chest pain is denied. Cardiovascular: Heart tones S1 S2 present Dialysis shunt: in the right bicep, with palpable thrill, with auscultated bruit, with mild erythema, with mild edema, dried blood noted from having dialysis accessed today. Respiratory: Airway is patent Respiratory effort is even, unlabored, Respiratory pattern is regular, symmetrical. GI: No signs and/or symptoms were reported involving the gastrointestinal system. : No signs and/or symptoms were reported regarding the genitourinary system. EENT: No signs and/or symptoms were reported regarding the EENT system. Derm: Skin is intact, is fragile, Skin is dry, Skin is normal, Skin temperature is cool. Musculoskeletal: No signs and/or symptoms reported regarding the musculoskeletal system. 15:15 Reassessment: Patient appears in no apparent distress at this time. Patient and/or hb family updated on plan of care and expected duration. Pain level reassessed. Patient is alert, oriented x 3, equal unlabored respirations, skin warm/dry/pink. 16:06 Reassessment: Patient appears in no apparent distress at this time. Patient and/or hb family updated on plan of care and expected duration. Pain level reassessed. Patient is alert, oriented x 3, equal unlabored respirations, skin warm/dry/pink. 17:00 Reassessment: Patient appears in no apparent distress at this time. Patient and/or hb family updated on plan of care and expected duration. Pain level reassessed. Patient is alert, oriented x 3, equal unlabored respirations, skin warm/dry/pink. 18:00 Reassessment: Patient appears in no apparent distress at this time. No changes from hb previously documented assessment. Patient and/or family updated on plan of care and expected duration. Pain level reassessed. Patient is alert, oriented x 3, equal unlabored respirations, skin warm/dry/pink. 19:02 Reassessment: Patient appears in no apparent distress at this time. pt and family ak1 informed of wait for shift change to be transferred up to room. Vital Signs: 13:35 BP 109 / 88; Pulse 112; Resp 18; Temp 99.5(O); Pulse Ox 85% on R/A; Pain 7/10; tw2 14:45 BP 132 / 82; Pulse 112; Resp 15; Pulse Ox 100% on R/A; Pain 5/10; hb 16:00 BP 141 / 85; Pulse 111; Resp 17; Pulse Ox 98% on R/A; hb 17:37 BP 156 / 102; Pulse 103; Resp 17; Pulse Ox 98% on R/A; sg 18:30 BP 156 / 79; Pulse 102; Resp 17; Pulse Ox 96% on R/A; hb 19:06 BP 155 / 88; Pulse 108; Resp 18; Temp 98.6(TE); Pulse Ox 92% on 2 lpm NC; ak1 ED Course: 13:28 Patient arrived in ED. as 13:35 Triage completed. tw2 13:38 Dagoberto Stone MD is Attending Physician. rn 13:40 Arm band placed on right wrist. hb 14:00 EKG done, by air sealing technician. reviewed by Dagoberto Stone MD. vh 14:10 Initial lab(s) drawn, by me, sent to lab. Inserted saline lock: 22 gauge in left sg antecubital area, using aseptic technique. Blood collected. 14:10 First set of blood cultures drawn by me. sg 15:05 Garth Hartman, RN is Primary Nurse. sg 17:49 Les Thapa DO is Hospitalizing Provider. rn 17:49 Ronan Thapa MD is Hospitalizing Provider. rn 17:49 Anais Thapa MD is Hospitalizing Provider. rn 19:03 Patient has correct armband on for positive identification. Bed in low position. Call ak1 light in reach. Side rails up X2. Adult w/ patient. playground monitor on. Pulse ox on. NIBP on. 19:04 No provider procedures requiring assistance completed. Patient admitted, IV remains in ak1 place. Administered Medications: 15:19 Drug: Xopenex 1.25 mg Route: Inhalation; hb 17:55 Drug: NS 0.9% 500 ml Route: IV; Rate: bolus; Site: left forearm; hb 19:04 Follow up: IV Status: Completed infusion ak1 17:56 Drug: Tamiflu 75 mg Route: PO; hb 19:04 Follow up: Response: No adverse reaction ak1 Outcome: 17:50 Decision to Hospitalize by Provider. rn 19:38 Admitted to Med/surg accompanied by tech, family with patient, via wheelchair, room ak1 223, with oxygen, with chart, Report called to Nia. pt transported with 2L via NC and mask for droplet precautions. 19:38 Condition: good 19:38 Instructed on the need for admit. 19:50 Patient left the ED. ak1 Signatures: Garth Hartman RN RN Andree Ortega Roman, MD MD rn Harrell, Venessa vh Krenek, Amber, RN RN [facility] Irene Kelley RN RN Leonora Rodríguez RN RN tw2
--- NOTE | 2018-05-21 17:50 | EDPHYS ---
Physician Documentation [facility] Name: Lynne Leggett Age: 67 yrs Sex: Female : 1950 Arrival Date: 05/21/2018 Time: 13:28 Bed 5 Private MD: ED Physician Dagoberto Stone HPI: 05/21 14:08 This 67 yrs old Female presents to ER via Wheelchair with complaints of Cough, rn Fever, Chest Congestion. 14:08 The patient or guardian reports cough, described as moderate, with productive sputum. rn Onset: The symptoms/episode began/occurred 5 day(s) ago. Severity of symptoms: At their worst the symptoms were mild, in the emergency department the symptoms are unchanged. Modifying factors: The symptoms are alleviated by nothing, the symptoms are aggravated by nothing. The patient has experienced similar episodes in the past. Reports cough, fever, began 5 days ago, seen by pcp on Saturday, given tamiflu (told flu neg), and coughmedication, feels like getting worse. . Historical: - Allergies: 13:40 Nifedipine; hb 13:40 Vancomycin; hb - Home Meds: 13:40 amlodipine 5 mg tab 2 tabs nightly [Active]; atorvastatin 20 mg Oral tab 1 tab once hb daily [Active]; Daily-Isael Oral tab daily [Active]; glipizide 10 mg Oral tab 1 tab 2 times per day [Active]; hydralazine 25 mg Oral tab 1 tab 2 times per day [Active]; losartan 100 mg Oral tab 1 tab once daily [Active]; pantoprazole 40 mg Oral TbEC 1 tab 2 times per day [Active]; metoprolol tartrate 25 mg Oral tab 1 tab 2 times per day [Active]; Renvela 800 mg Oral tab 2 tabs 3 times per day [Active]; sodium polystyrene sulfonate Oral [Active]; Tradjenta 5 mg Oral tab 1 tab once daily [Active]; valtessa [Active]; victoza 0.6mg/ 0.1 mL 6 units at bedtime [Active]; - PMHx: 13:40 CVA (hemorrhagic); Diabetes - NIDDM; DIALYSIS MWF; ESRD; GERD; High Cholesterol; hb Hypertension; - PSHx: 13:40 dialysis shunt R arm; hb - Immunization history:: Adult Immunizations up to date. - Social history:: Smoking status: Patient/guardian denies using tobacco. - Ebola Screening: : No symptoms or risks identified at this time. - Family history:: not pertinent. - Hospitalizations: : No recent hospitalization is reported. ROS: 14:08 Constitutional: + fever chills Eyes: Negative for injury, pain, redness, and discharge, rn Neck: Negative for injury, pain, and swelling, Cardiovascular: Negative for chest pain, palpitations, and edema, Respiratory: + cough and sob Abdomen/GI: Negative for abdominal pain, nausea, vomiting, diarrhea, and constipation, MS/Extremity: Negative for injury and deformity, Skin: Negative for injury, rash, and discoloration, Neuro: Negative for headache, numbness, tingling, and seizure. Exam: 14:08 Constitutional: This is a well developed, well nourished patient who is awake, alert, rn and in no acute distress. Head/Face: Normocephalic, atraumatic. Eyes: Pupils equal round and reactive to light, extra-ocular motions intact. Lids and lashes normal. Conjunctiva and sclera are non-icteric and not injected. Cornea within normal limits. Periorbital areas with no swelling, redness, or edema. ENT: mild pharyngeal erythema, no stridor Cardiovascular: tachycardic, regular, no murmur Respiratory: + faint wheezing left lung field, no retractions Abdomen/GI: soft, non-tender MS/ Extremity: Pulses equal, no cyanosis. Neurovascular intact. Full, normal range of motion. Equal circumference. Neuro: Awake and alert, GCS 15, oriented to person, place, time, and situation. Cranial nerves II-XII grossly intact. Motor strength 5/5 in all extremities. Sensory grossly intact. Vital Signs: 13:35 BP 109 / 88; Pulse 112; Resp 18; Temp 99.5(O); Pulse Ox 85% on R/A; Pain 7/10; tw2 14:45 BP 132 / 82; Pulse 112; Resp 15; Pulse Ox 100% on R/A; Pain 5/10; hb 16:00 BP 141 / 85; Pulse 111; Resp 17; Pulse Ox 98% on R/A; hb 17:37 BP 156 / 102; Pulse 103; Resp 17; Pulse Ox 98% on R/A; sg 18:30 BP 156 / 79; Pulse 102; Resp 17; Pulse Ox 96% on R/A; hb 19:06 BP 155 / 88; Pulse 108; Resp 18; Temp 98.6(TE); Pulse Ox 92% on 2 lpm NC; ak1 MDM: 13:38 Patient medically screened. rn 17:48 Differential Diagnosis: Bronchitis Influenza Upper Respiratory Infection Viral Syndrome rn Pneumonia. Data reviewed: vital signs, nurses notes, lab test result(s), radiologic studies, plain films, and as a result, I will admit patient. Counseling: I had a detailed discussion with the patient and/or guardian regarding: the historical points, exam findings, and any diagnostic results supporting the discharge/admit diagnosis, lab results, radiology results, the need for further work-up and treatment in the hospital. Response to treatment: the patient's symptoms have mildly improved after treatment, and as a result, I will admit patient. Admission orders: after a detailed discussion of the patient's condition and case, the admit orders are written by me. ED course: Pt with oxygen requirement, 85% on RA, improved with nebulizer and 2L O2 to 97%, still tachycardic and reports dyspnea, will admit to Dr. Thapa for further therapy. . 05/21 13:46 Order name: Flu rn 05/21 13:46 Order name: CBC with Diff rn 05/21 13:46 Order name: Basic Metabolic Panel rn 05/21 13:46 Order name: Blood Culture Adult (2) rn 05/21 13:46 Order name: Procalcitonin rn 05/21 14:34 Order name: CBC with Automated Diff; Complete Time: 16:32 EDND 05/21 13:46 Order name: XRAY Chest (1 view) rn 05/21 14:43 Order name: Influenza Screen (A ; Complete Time: 14:45 EDMS 05/21 14:47 Order name: Basic Metabolic Panel; Complete Time: 15:00 EDND 05/21 15:06 Order name: Procalcitonin; Complete Time: 15:30 EDMS 05/21 15:42 Order name: CBC Smear Scan; Complete Time: 16:32 EDMS 05/21 17:53 Order name: RAD EDND 05/21 13:46 Order name: IV Start; Complete Time: 14:33 rn 05/21 13:46 Order name: EKG; Complete Time: 13:47 rn 05/21 13:46 Order name: EKG - Nurse/Tech; Complete Time: 15:05 rn Administered Medications: 15:19 Drug: Xopenex 1.25 mg Route: Inhalation; hb 17:55 Drug: NS 0.9% 500 ml Route: IV; Rate: bolus; Site: left forearm; hb 19:04 Follow up: IV Status: Completed infusion ak1 17:56 Drug: Tamiflu 75 mg Route: PO; hb 19:04 Follow up: Response: No adverse reaction ak1 Disposition: 05/21/18 17:50 Hospitalization ordered by Anais Thapa for Inpatient Admission. Preliminary diagnosis are Influenza due to other identified influenza virus, Dyspnea, unspecified, Hypoxemia. - Bed requested for Telemetry/MedSurg (Inpatient). - Status is Inpatient Admission. ak1 - Condition is Stable. - Problem is new. - Symptoms are unchanged. UTI on Admission? No Signatures: Dispatcher [employer] EDMS Vicky Kim RN RN dw Dagoberto Stone MD MD rn Krenek, Amber, RN RN ak1 Irene Kelley RN RN Corrections: (The following items were deleted from the chart) 18:38 17:50 Hospitalization Ordered by Anais Thapa MD for Inpatient Admission. Preliminary dw diagnosis is Influenza due to other identified influenza virus; Dyspnea, unspecified; Hypoxemia. Bed requested for Telemetry/MedSurg (Inpatient). Status is Inpatient Admission. Condition is Stable. Problem is new. Symptoms are unchanged. UTI on Admission? No. rn 19:20 18:38 05/21/2018 17:50 Hospitalization Ordered by Anais Thapa MD for Inpatient dw Admission. Preliminary diagnosis is Influenza due to other identified influenza virus; Dyspnea, unspecified; Hypoxemia. Bed requested for Telemetry/MedSurg (Inpatient). Status is Inpatient Admission. Condition is Stable. Problem is new. Symptoms are unchanged. UTI on Admission? No. dw 19:24 19:20 05/21/2018 17:50 Hospitalization Ordered by Anais Thapa MD for Inpatient dw Admission. Preliminary diagnosis is Influenza due to other identified influenza virus; Dyspnea, unspecified; Hypoxemia. Bed requested for Telemetry/MedSurg (Inpatient). Status is Inpatient Admission. Condition is Stable. Problem is new. Symptoms are unchanged. UTI on Admission? No. dw 19:50 19:24 05/21/2018 17:50 Hospitalization Ordered by Anais Thapa MD for Inpatient ak1 Admission. Preliminary diagnosis is Influenza due to other identified influenza virus; Dyspnea, unspecified; Hypoxemia. Bed requested for Telemetry/MedSurg (Inpatient). Status is Inpatient Admission. Condition is Stable. Problem is new. Symptoms are unchanged. UTI on Admission? No. dw
--- NOTE | 2018-05-21 17:51 | RAD REPORT ---
EXAM DESCRIPTION: Yazmin Single View05/21/2018 2:23 pm CLINICAL HISTORY: cough COMPARISON: none FINDINGS: The pulmonary interstitial pattern appears mildly prominent. . The heart is normal size IMPRESSION: Mild prominence of the pulmonary interstitium probably indicates mild interstitial pulm onary edema
[2018-05-21] MEDS ORDERED: NA CHLORIDE 0.9% 500 ML ONE (17:57)
[2018-05-21] MEDS ORDERED: OSELTAMIVIR 75 MG CAP ONE (17:59)
[2018-05-21] MEDS ORDERED: ACETAMINOPHEN 500 MG TAB PO PRN (18:10)
[2018-05-21] MEDS ORDERED: ONDANSETRON 4 MG/2 ML VIAL IV PRN (18:10)
[2018-05-21] MEDS ORDERED: IPRATROPIUM BROM 0.5MG/2.5ML NEB PRN (18:13)
[2018-05-21] MEDS ORDERED: ALBUTEROL 2.5 MG/3 ML NEB SOL NEB PRN (18:13)
[2018-05-21] MEDS: INSULIN -REGULAR HUMAN 50 UNIT/0.5 ML ML SQ SCH (21:00)
[2018-05-21] MEDS: Levofloxacin500mg IV 500 MG/100 ML BAG IV SCH (22:39)
[2018-05-21] MEDS: OSELTAMIVIR 75 MG CAP PO SCH (22:39)
[2018-05-21] MEDS ORDERED: NA CHLORIDE 0.9% 250 ML ONE (23:00)
[2018-05-22 06:32] LABS: Absolute Lymphocytes (CBC) 0.6 K/uL (0.7-4.9); Absolute Monocytes 0.8 K/uL (0.1-1.3); Absolute Neutrophil 10.7 K/uL (1.8-8.0); Basophils % 0.7 % (0-1.3); Eosinophils % 0.3 % (0-4.4); Hematocrit 26.8 % (36.0-45.0); Lymphocytes % 4.5 % (15.3-44.8); MCH 30.6 pg (27.0-35.0); MCV 93.8 fL (80-100); MPV 11.4 fL (7.6-11.3); Monocytes % 6.7 % (3.3-12.3); RBC Red Blood Cell Count 2.86 M/uL (3.86-4.86)
[2018-05-22 06:52] LABS: Blood Morphology Comment NOT SEEN (NOT SEEN); Platelet Estimate ADEQ; Platelets, Giant PRESENT; Urine White Blood Cell Casts OK
[2018-05-22 07:10] LABS: Albumin 3.1 g/dL (3.4-5.0); Magnesium 2.2 mg/dL (1.8-2.4); Phosphorus 4.7 mg/dL (2.5-4.9); Potassium 4.6 mmol/L (3.5-5.1); Protein, Total 6.8 g/dL (6.4-8.2)
[2018-05-22] MEDS: INSULIN -REGULAR HUMAN 50 UNIT/0.5 ML ML SQ SCH ×4 (07:30→21:09)
[2018-05-22] MEDS: OSELTAMIVIR 75 MG CAP PO SCH ×2 (09:33→21:01)
--- NOTE | 2018-05-22 14:30 | P.HP ---
Certification for Inpatient Patient admitted to: Observation With expected LOS: <2 Midnights Patient will require the following post-hospital care: None Practitioner: I am a practitioner with admitting privileges, knowledge of patient current condition, hospital course, and medical plan of care. Services: Services provided to patient in accordance with Admission requirements found in Title 42 Section 412.3 of the Code of Federal Regulations Patient History Date of Service: 05/21/18 Reason for admission: Hypoxemia History of Present Illness: Patient is a 68-year-old female who comes into the hospital with shortness of breath. She was found to be severely hypoxic at 85% on room air in the emergency room. She does not wear home oxygen. She has been coughing and congested for the last few days. Her clinical symptoms have not been improving even though she went to see her PCP and he gave her oral antibiotics. As she continued to worsen she went to the urgent care and was found to have influenza. She was prescribed Tamiflu and although her clinical symptoms still did not improve she had to come back to get readmitted. patient is short of breath even while in bed. She looks to be congested with significant amount of congestion. She has multiple comorbidities. I do not think she will get better and just 24 hr. I think because of her hypoxemia and the fact that she has so many comorbidities with the influenza virus she requires inpatient admission. Allergies No Known Allergies Allergy (Verified 05/22/18 12:06) Home Medications: Atorvastatin Calcium [Lipitor*] 20 mg PO BEDTIME 01/30/15 Losartan Potassium [Cozaar*] 100 mg PO DAILY 01/30/15 Metoprolol Tartrate [Lopressor*] 25 mg PO BID 01/30/15 Amlodipine [Norvasc*] 10 mg PO BEDTIME 01/02/17 Linagliptin [Tradjenta] 5 mg PO DAILY 01/02/17 Hydralazine [Apresoline*] 25 mg PO PRN PRN 07/29/17 Sevelamer Carbonate [Renvela*] 2 tab PO TIDWM 10/15/17 Pantoprazole Sodium [Protonix] 40 mg PO BIDAC 05/22/18 - Past Medical/Surgical History Has patient received pneumonia vaccine in the past: Yes Diabetic: Yes -: DM-Type 2 -: HTN -: Hyperlipidemia -: ESRD on Dialysis M,W,F, Nephrology-Dr. Lynn -: Diverticulosis -: GERD -: History hemorrhagic CVA requiring craniotomy -: GERD -: Laser surgery on bilateral eyes -: AV graft to right arm -: Old AV graft in right upper leg-doesn't work. -: Craniotomy Psychosocial/ Personal History: , Lives with daughter. - Family History Father History Unknown: Yes Mother Medical History: Diabetes - Social History Smoking Status: Never smoker Alcohol use: No CD- Drugs: No Caffeine use: Yes Place of Residence: Home Review of Systems 10-point ROS is otherwise unremarkable Physical Examination - Vital Signs Temperature: 98.1 F Blood Pressure: 121/65 Pulse: 100 Respirations: 18 Pulse Ox (%): 96 - Physical Exam General: Alert, In no apparent distress, Oriented x3 HEENT: Atraumatic, PERRLA, Mucous membr. moist/pink, EOMI, Sclerae nonicteric Neck: Supple, 2+ carotid pulse no bruit, No LAD, Without JVD or thyroid abnormality Respiratory: Diminished, Expiratory wheezes, Rhonchi/gurgles Cardiovascular: Regular rate/rhythm, Normal S1 S2, Systolic murmur Gastrointestinal: Normal bowel sounds, Soft and benign, Non-distended, No tenderness Musculoskeletal: No clubbing, No swelling, No tenderness Integumentary: No rashes Neurological: Normal speech, Normal tone, Sensation intact, Cranial nerves 3-12 intact, Normal affect, Abnormal strength Lymphatics: No axilla or inguinal lymphadenopathy - Studies Laboratory Data (last 24 hrs) 05/21/18 14:10: Sodium 137, Potassium 4.4, BUN 12, Creatinine 3.40 H, Glucose 124 H 05/21/18 14:10: WBC 12.0 H, Hgb 9.6 L, Hct 29.2 L, Plt Count 190 Microbiology Data (last 24 hrs): 05/21/18 14:10 Nasopharnyx Influenza Type A Antigen Screen - Final 05/21/18 14:10 Nasopharnyx Influenza Type B Antigen Screen - Final Assessment & Plan - Problems (Diagnosis) (1) Hypoxemia Current Visit: Yes Status: Acute (2) Influenza, pneumonia Current Visit: Yes Status: Acute (3) DM w/o complication type II Onset Date: 01/31/15 Current Visit: No Status: Chronic (4) End-stage renal disease on hemodialysis Onset Date: 04/05/15 Current Visit: No Status: Chronic (5) HTN (hypertension) Onset Date: 01/31/15 Current Visit: No Status: Chronic Qualifiers: (6) Hyperlipidemia Onset Date: 01/31/15 Current Visit: No Status: Chronic Qualifiers: - Plan Plan: 1. Continue with tamiflu 2. Awaiting culture; procalcitonin level 3. Repeat chest x-ray in AM 4. Will order CT scan of the chest if influenza pneumonia is not improving 5. Respiratory isolation 6. Continue with nebs as needed 7. O2 per protocol 8. Nephrology for HD 9. Repeat labs including CBC and renal function in a.m. 10. GI and DVT prophylaxis Discharge Plan: Home Plan to discharge in: Greater than 2 days - Advance Directives Does patient have a Living Will: No Does patient have a Durable POA for Healthcare: No - Code Status/Comfort Care Code Status Assessed: Yes Code Status: Full Code Critical Care: No Time Spent Managing PTS Care (In Minutes): 50
--- NOTE | 2018-05-22 16:01 | P.PN ---
Subjective Date of Service: 05/22/18 Chief Complaint: Hypoxemia Patient seen and examined at bedside with RN. Chart reviewed. Case discussed with family member at bedside. This morning patient has no complaints to offer and states that she feels much better than before. Coughing has improved markedly as well. Review of Systems 10-point ROS is otherwise unremarkable Physical Examination - Vital Signs Temperature: 98.1 F Blood Pressure: 121/65 Pulse: 100 Respirations: 18 Pulse Ox (%): 96 - Physical Exam General: Alert, In no apparent distress HEENT: Atraumatic, PERRLA, EOMI Neck: Supple, JVD not distended Respiratory: Normal air movement, Crackles/rales Cardiovascular: Regular rate/rhythm, Normal S1 S2 Gastrointestinal: Normal bowel sounds, No tenderness Musculoskeletal: No tenderness Integumentary: No rashes Neurological: Normal speech, Normal tone, Normal affect Lymphatics: No axilla or inguinal lymphadenopathy - Studies Microbiology Data (last 24 hrs): 05/21/18 14:10 Nasopharnyx Influenza Type A Antigen Screen - Final 05/21/18 14:10 Nasopharnyx Influenza Type B Antigen Screen - Final Medications List Reviewed: Yes Assessment And Plan - Current Problems (Diagnosis) (1) Influenza, pneumonia Current Visit: Yes Status: Acute Plan: FLU B + -On Tamiflu now -IV levaquin as well -Pending Improvement (2) Pneumonia Current Visit: Yes Status: Acute Plan: Most likely bacterial pneumonia with greenish sputum -on IV Levaquin at this time -pending sputum culture -anticipate discharge in 24-48 hr Qualifiers: Pneumonia type: due to unspecified organism Laterality: unspecified laterality Lung location: unspecified part of lung Qualified Code(s): J18.9 - Pneumonia, unspecified organism (3) Diabetes mellitus Onset Date: 07/30/17 Current Visit: No Status: Chronic Qualifiers: Diabetes mellitus type: type 2 Diabetes mellitus local company intermodal truck driver insulin use: without local company intermodal truck driver use Diabetes mellitus complication status: with kidney complications Diabetes mellitus complication detail: with chronic kidney disease Chronic kidney disease stage: on chronic dialysis Qualified Code(s) : E11.22 - Type 2 diabetes mellitus with diabetic chronic kidney disease; N18.6 - End stage renal disease; N18.6 - End stage renal disease; N18.6 - End stage renal disease; N18.6 - End stage renal disease; Z99.2 - Dependence on renal dialysis; Z99.2 - Dependence on renal dialysis; Z99.2 - Dependence on renal dialysis; Z99.2 - Dependence on renal dialysis (4) ESRD (end stage renal disease) on dialysis Onset Date: 01/31/15 Current Visit: No Status: Chronic (5) GERD (gastroesophageal reflux disease) Onset Date: 07/30/17 Current Visit: No Status: Chronic Qualifiers: Esophagitis presence: esophagitis presence not specified Qualified Code(s) : K21.9 - Gastro-esophageal reflux disease without esophagitis (6) HTN (hypertension) Onset Date: 01/31/15 Current Visit: No Status: Chronic Qualifiers: Hypertension type: essential hypertension (7) Hyperlipidemia Onset Date: 01/31/15 Current Visit: No Status: Chronic Qualifiers: Hyperlipidemia type: mixed hyperlipidemia Qualified Code(s): E78.2 - Mixed hyperlipidemia - Plan Pending clinical improvement at this time. Discharge Plan: Home Plan to discharge in: 48 Hours - Code Status/Comfort Care Code Status Assessed: Yes Critical Care: No
[2018-05-22] MEDS: Levofloxacin500mg IV 500 MG/100 ML BAG IV SCH (21:01)
--- NOTE | 2018-05-22 23:20 | P.CNS ---
Date of Consult: 05/22/18 Reason for Consult: ESRD to resume HD and volumemanagment Chief Complaint: Hypoxemia History of Present Illness: A 67-year-old woman, with PMHx of DM with neuropathy, ESRD from [facility] presented for SOB Pt had productive cough since ;last week, was prescrivbed abx and cough meds by her PCP without improvement yesterday had fever at the hd unit and instructed to visit ER in ER hypoxic , No cheat pain, nausea , vomiting or diarrhea tachycardiac, flu b +ve Allergies No Known Allergies Allergy (Verified 05/22/18 12:06) Home Medications: Atorvastatin Calcium [Lipitor*] 20 mg PO BEDTIME 01/30/15 Losartan Potassium [Cozaar*] 100 mg PO DAILY 01/30/15 Metoprolol Tartrate [Lopressor*] 25 mg PO BID 01/30/15 Amlodipine [Norvasc*] 10 mg PO BEDTIME 01/02/17 Linagliptin [Tradjenta] 5 mg PO DAILY 01/02/17 Hydralazine [Apresoline*] 25 mg PO PRN PRN 07/29/17 Sevelamer Carbonate [Renvela*] 2 tab PO TIDWM 10/15/17 Pantoprazole Sodium [Protonix] 40 mg PO BIDAC 05/22/18 - Past Medical/Surgical History Diabetic: Yes -: DM-Type 2 -: HTN -: Hyperlipidemia -: ESRD on Dialysis M,W,F, Nephrology-Dr. Lynn -: Diverticulosis -: GERD -: History hemorrhagic CVA requiring craniotomy -: GERD -: Laser surgery on bilateral eyes -: AV graft to right arm -: Old AV graft in right upper leg-doesn't work. -: Craniotomy Psychosocial/ Personal History: , Lives with daughter. - Family History Father History Unknown: Yes Mother Medical History: Diabetes - Social History Alcohol use: No CD- Drugs: No Caffeine use: Yes Place of Residence: Home Physical Examination Temp Pulse Resp BP Pulse Ox 98 F 107 H 16 143/73 H 96 05/22/18 20:00 05/22/18 20:00 05/22/18 20:00 05/22/18 20:00 05/22/18 20:00 General: Oriented x3 HEENT: Atraumatic Neck: Supple, Without JVD or thyroid abnormality Respiratory: Normal air movement, Crackles/rales Cardiovascular: No edema, Regular rate/rhythm (tachycardic), Normal S1 S2, No rubs, No murmurs - Problems (1) Hypoxemia Current Visit: Yes Status: Acute (2) Influenza, pneumonia Current Visit: Yes Status: Acute (3) Pneumonia Current Visit: Yes Status: Acute Qualifiers: Pneumonia type: due to unspecified organism Laterality: unspecified laterality Lung location: unspecified part of lung Qualified Code(s): J18.9 - Pneumonia, unspecified organism (4) Diabetes mellitus Onset Date: 07/30/17 Current Visit: No Status: Chronic Qualifiers: Diabetes mellitus type: type 2 Diabetes mellitus intermediate insulin use: without moth exterminator use Diabetes mellitus complication status: with kidney complications Diabetes mellitus complication detail: with chronic kidney disease Chronic kidney disease stage: on chronic dialysis Qualified Code(s) : E11.22 - Type 2 diabetes mellitus with diabetic chronic kidney disease; N18.6 - End stage renal disease; N18.6 - End stage renal disease; N18.6 - End stage renal disease; N18.6 - End stage renal disease; Z99.2 - Dependence on renal dialysis; Z99.2 - Dependence on renal dialysis; Z99.2 - Dependence on renal dialysis; Z99.2 - Dependence on renal dialysis (5) ESRD (end stage renal disease) on dialysis Onset Date: 01/31/15 Current Visit: No Status: Chronic Conclusions/Impression: A 67-year-old woman, with PMHx of DM with neuropathy, ESRD from [facility] presented for SOB Pt had productive cough since ;last week, was prescrivbed abx and cough meds by her PCP without improvement yesterday had fever at the hd unit and instructed to visit ER in ER hypoxic , No cheat pain, nausea , vomiting or diarrhea tachycardiac, flu b +ve ESRD on HD MW HD tomorrow renal diet renal dose all meds Hypoxia flu +ve Cont tamiflu Anemia will resume Epo MBD resume binders
[2018-05-23 05:12] LABS: Absolute Lymphocytes (CBC) 0.8 K/uL (0.7-4.9); Absolute Monocytes 0.9 K/uL (0.1-1.3); Absolute Neutrophil 7.7 K/uL (1.8-8.0); Basophils % 0.5 % (0-1.3); Eosinophils % 1.1 % (0-4.4); Hematocrit 27.4 % (36.0-45.0); Lymphocytes % 8.4 % (15.3-44.8); MCV 93.9 fL (80-100); MPV 11.1 fL (7.6-11.3); RBC Red Blood Cell Count 2.92 M/uL (3.86-4.86)
[2018-05-23 05:34] LABS: Albumin 3.1 g/dL (3.4-5.0); Bilirubin Total 0.9 mg/dL (0.2-1.0); Magnesium 2.4 mg/dL (1.8-2.4); Phosphorus 4.3 mg/dL (2.5-4.9); Potassium 4.7 mmol/L (3.5-5.1)
[2018-05-23] MEDS: INSULIN -REGULAR HUMAN 50 UNIT/0.5 ML ML SQ SCH ×4 (07:30→21:00)
[2018-05-23] MEDS: OSELTAMIVIR 75 MG CAP PO SCH ×2 (08:53→20:57)
[2018-05-23] MEDS ORDERED: EPOETIN ALFA 10,000 UNIT/ML VIAL SQ SCH (10:00)
--- NOTE | 2018-05-23 15:55 | P.DS ---
Admission Date: 05/21/18 Discharge Date: 05/23/18 Disposition: ROUTINE DISCHARGE Discharge Condition: GOOD Reason for Admission: Hypoxemia - Problems (1) Influenza, pneumonia Current Visit: Yes Status: Acute (2) Pneumonia Current Visit: Yes Status: Acute Qualifiers: Pneumonia type: due to unspecified organism Laterality: unspecified laterality Lung location: unspecified part of lung Qualified Code(s): J18.9 - Pneumonia, unspecified organism (3) Diabetes mellitus Onset Date: 07/30/17 Current Visit: No Status: Chronic Qualifiers: Diabetes mellitus type: type 2 Diabetes mellitus nursing home insulin use: without termite exterminator helper use Diabetes mellitus complication status: with kidney complications Diabetes mellitus complication detail: with chronic kidney disease Chronic kidney disease stage: on chronic dialysis Qualified Code(s) : E11.22 - Type 2 diabetes mellitus with diabetic chronic kidney disease; N18.6 - End stage renal disease; N18.6 - End stage renal disease; N18.6 - End stage renal disease; N18.6 - End stage renal disease; Z99.2 - Dependence on renal dialysis; Z99.2 - Dependence on renal dialysis; Z99.2 - Dependence on renal dialysis; Z99.2 - Dependence on renal dialysis (4) ESRD (end stage renal disease) on dialysis Onset Date: 01/31/15 Current Visit: No Status: Chronic (5) GERD (gastroesophageal reflux disease) Onset Date: 07/30/17 Current Visit: No Status: Chronic Qualifiers: Esophagitis presence: esophagitis presence not specified Qualified Code(s) : K21.9 - Gastro-esophageal reflux disease without esophagitis (6) HTN (hypertension) Onset Date: 01/31/15 Current Visit: No Status: Chronic Qualifiers: Hypertension type: essential hypertension (7) Hyperlipidemia Onset Date: 01/31/15 Current Visit: No Status: Chronic Qualifiers: Hyperlipidemia type: mixed hyperlipidemia Qualified Code(s): E78.2 - Mixed hyperlipidemia Brief History of Present Illness: Patient is a 68-year-old female who comes into the hospital with shortness of breath. She was found to be severely hypoxic at 85% on room air in the emergency room. She does not wear home oxygen. She has been coughing and congested for the last few days. Her clinical symptoms have not been improving even though she went to see her PCP and he gave her oral antibiotics. As she continued to worsen she went to the urgent care and was found to have influenza. She was prescribed Tamiflu and although her clinical symptoms still did not improve she had to come back to get readmitted. patient is short of breath even while in bed. She looks to be congested with significant amount of congestion. She has multiple comorbidities. I do not think she will get better and just 24 hr. I think because of her hypoxemia and the fact that she has so many comorbidities with the influenza virus she requires inpatient admission. Hospital Course: Overall during the hospital stay patient remained stable Patient was initially admitted to the hospital for shortness of breath cough and congestion was found to have influenza B along with pneumonia. Patient was recently discharged from urgent [facility] with Tamiflu so prescription after she was found positive for flu B influenza. Patient however did not have any improvement thus was admitted to the hospital here. Patient was started on IV Levaquin along with Tamiflu here in the hospital as well. Patient had marked improvement in her symptoms. Patient was able to breathe properly and denied having any shortness of breath. Patient then was discharged home under stable condition was asked to follow up with her primary care provider along with the library technology instructor. Patient demonstrated understanding and thus was discharged home under stable condition the patient was given a prescription for Levaquin for total of 5 more days along with Tamiflu which was given for total of 2 more days. Vital Signs/Physical Exam: Temp Pulse Resp BP Pulse Ox 97 F 104 H 18 123/74 97 05/23/18 12:00 05/23/18 12:00 05/23/18 12:00 05/23/18 12:00 05/23/18 12:00 General: Alert, In no apparent distress HEENT: Atraumatic, PERRLA, EOMI Neck: Supple, JVD not distended Respiratory: Clear to auscultation bilaterally, Normal air movement Cardiovascular: Regular rate/rhythm, Normal S1 S2 Gastrointestinal: Normal bowel sounds, No tenderness Musculoskeletal: No tenderness Integumentary: No rashes Neurological: Normal speech, Normal tone, Normal affect Lymphatics: No axilla or inguinal lymphadenopathy Laboratory Data at Discharge: WBC 9.5 K/uL (4.3-10.9) D 05/23/18 04:39 Hgb 9.1 g/dL (12.0-15.0) L 05/23/18 04:39 Hct 27.4 % (36.0-45.0) L 05/23/18 04:39 Plt Count 195 K/uL (152-406) 05/23/18 04:39 Sodium 134 mmol/L (136-145) L 05/23/18 04:39 Potassium 4.7 mmol/L (3.5-5.1) 05/23/18 04:39 BUN 38 mg/dL (7-18) H 05/23/18 04:39 Creatinine 7.20 mg/dL (0.55-1.3) H* D 05/23/18 04:39 Glucose 100 mg/dL (74-106) 05/23/18 04:39 Phosphorus 4.3 mg/dL (2.5-4.9) 05/23/18 04:39 Magnesium 2.4 mg/dL (1.8-2.4) 05/23/18 04:39 Total Bilirubin 0.9 mg/dL (0.2-1.0) 05/23/18 04:39 AST 12 U/L (15-37) L 05/23/18 04:39 ALT 10 U/L (12-78) L 05/23/18 04:39 Alkaline Phosphatase 115 U/L (45-117) 05/23/18 04:39 Home Medications: Atorvastatin Calcium [Lipitor*] 20 mg PO BEDTIME 01/30/15 Losartan Potassium [Cozaar*] 100 mg PO DAILY 01/30/15 Metoprolol Tartrate [Lopressor*] 25 mg PO BID 01/30/15 Amlodipine [Norvasc*] 10 mg PO BEDTIME 01/02/17 Linagliptin [Tradjenta] 5 mg PO DAILY 01/02/17 Hydralazine [Apresoline*] 25 mg PO PRN PRN 07/29/17 Sevelamer Carbonate [Renvela*] 2 tab PO TIDWM 10/15/17 Pantoprazole Sodium [Protonix] 40 mg PO BIDAC 05/22/18 Oseltamivir [Tamiflu*] 75 mg PO BID #6 cap 05/23/18 levoFLOXacin [Levaquin] 500 mg PO DAILY #5 tab 05/23/18 New Medications: levoFLOXacin [Levaquin] 500 mg PO DAILY #5 tab Oseltamivir [Tamiflu*] 75 mg PO BID #6 cap Diet: Regular Activity: Ad ludy Followup: Junior Peñaloza MD [ACTIVE - CAN ADMIT] - 1 Week (Call for appointment.)
--- NOTE | 2018-05-23 22:12 | P.PN ---
Subjective Date of Service: 05/23/18 Chief Complaint: Hypoxemia Subjective: No new changes +ve for influenza on Tamiflu and levo Improved now HD today cleared for discharge from nephrology point of view Physical Examination - Vital Signs Temperature: 98.2 F Blood Pressure: 138/73 Pulse: 118 Respirations: 20 Pulse Ox (%): 96 - Physical Exam General: Oriented x3 Neck: Supple, Without JVD or thyroid abnormality Respiratory: Crackles/rales Cardiovascular: No edema Gastrointestinal: Normal bowel sounds Integumentary: No rashes - Studies Medications List Reviewed: Yes Assessment And Plan - Current Problems (Diagnosis) (1) Hypoxemia Current Visit: Yes Status: Acute (2) Influenza, pneumonia Current Visit: Yes Status: Acute (3) Pneumonia Current Visit: Yes Status: Acute Qualifiers: Pneumonia type: due to unspecified organism Laterality: unspecified laterality Lung location: unspecified part of lung Qualified Code(s): J18.9 - Pneumonia, unspecified organism (4) Diabetes mellitus Onset Date: 07/30/17 Current Visit: No Status: Chronic Qualifiers: Diabetes mellitus type: type 2 Diabetes mellitus detention insulin use: without detention use Diabetes mellitus complication status: with kidney complications Diabetes mellitus complication detail: with chronic kidney disease Chronic kidney disease stage: on chronic dialysis Qualified Code(s) : E11.22 - Type 2 diabetes mellitus with diabetic chronic kidney disease; N18.6 - End stage renal disease; N18.6 - End stage renal disease; N18.6 - End stage renal disease; N18.6 - End stage renal disease; Z99.2 - Dependence on renal dialysis; Z99.2 - Dependence on renal dialysis; Z99.2 - Dependence on renal dialysis; Z99.2 - Dependence on renal dialysis (5) ESRD (end stage renal disease) on dialysis Onset Date: 01/31/15 Current Visit: No Status: Chronic - Plan A 67-year-old woman, with PMHx of DM with neuropathy, ESRD from [place] presented for SOB Pt had productive cough since ;last week, was prescrivbed abx and cough meds by her PCP without improvement yesterday had fever at the hd unit and instructed to visit ER in ER hypoxic , No cheat pain, nausea , vomiting or diarrhea tachycardiac, flu b +ve ESRD on HD MW HD today renal diet renal dose all meds Hypoxia , improved flu +ve on tamiflu Anemia VANESSA MBD resume binders
[2018-05-24 05:24] LABS: Absolute Lymphocytes (CBC) 0.9 K/uL (0.7-4.9); Absolute Monocytes 0.8 K/uL (0.1-1.3); Absolute Neutrophil 7.7 K/uL (1.8-8.0); Basophils % 0.5 % (0-1.3); Eosinophils % 1.8 % (0-4.4); Hematocrit 28.7 % (36.0-45.0); MCH 30.9 pg (27.0-35.0); MCV 93.3 fL (80-100); MPV 11.1 fL (7.6-11.3); RBC Red Blood Cell Count 3.07 M/uL (3.86-4.86)
[2018-05-24 05:36] VITALS: BP 109/57; TEMP 97.4; BMI 22.4
[2018-05-24 05:43] LABS: Bilirubin Total 0.7 mg/dL (0.2-1.0); Magnesium 2.3 mg/dL (1.8-2.4); Phosphorus 3.4 mg/dL (2.5-4.9); Potassium 4.3 mmol/L (3.5-5.1)
[2018-05-24] MEDS: INSULIN -REGULAR HUMAN 50 UNIT/0.5 ML ML SQ SCH (07:30)
[2018-05-24] MEDS: OSELTAMIVIR 75 MG CAP PO SCH (09:18)
[2018-05-24 09:20] VITALS: O2SAT 95
--- NOTE | 2018-05-24 11:55 | P.PN ---
Subjective Date of Service: 05/24/18 Chief Complaint: Hypoxemia Patient seen and examined at bedside with RN. Chart reviewed. Case discussed with family member at bedside. Held Discharge for Dyspnea yesterday. Doing well today. DC home Review of Systems 10-point ROS is otherwise unremarkable Physical Examination - Vital Signs Temperature: 97.4 F Blood Pressure: 109/57 Pulse: 106 Respirations: 20 Pulse Ox (%): 95 - Physical Exam General: Alert, In no apparent distress HEENT: Atraumatic, PERRLA, EOMI Neck: Supple, JVD not distended Respiratory: Clear to auscultation bilaterally, Normal air movement Cardiovascular: Regular rate/rhythm, Normal S1 S2 Gastrointestinal: Normal bowel sounds, No tenderness Musculoskeletal: No tenderness Integumentary: No rashes Neurological: Normal speech, Normal tone, Normal affect Lymphatics: No axilla or inguinal lymphadenopathy - Studies Medications List Reviewed: Yes Assessment And Plan - Current Problems (Diagnosis) (1) Influenza, pneumonia Status: Acute Plan: FLU B + -On Tamiflu now -PO levaquin as well (2) Pneumonia Status: Acute Plan: Most likely bacterial pneumonia with greenish sputum -on PO Levaquin at this time -discharge now Qualifiers: Pneumonia type: due to unspecified organism Laterality: unspecified laterality Lung location: unspecified part of lung Qualified Code(s): J18.9 - Pneumonia, unspecified organism (3) Diabetes mellitus Onset Date: 07/30/17 Status: Chronic Qualifiers: Diabetes mellitus type: type 2 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 assisted use Diabetes mellitus complication status: with kidney complications Diabetes mellitus complication detail: with chronic kidney disease Chronic kidney disease stage: on chronic dialysis Qualified Code(s) : E11.22 - Type 2 diabetes mellitus with diabetic chronic kidney disease; N18.6 - End stage renal disease; N18.6 - End stage renal disease; N18.6 - End stage renal disease; N18.6 - End stage renal disease; Z99.2 - Dependence on renal dialysis; Z99.2 - Dependence on renal dialysis; Z99.2 - Dependence on renal dialysis; Z99.2 - Dependence on renal dialysis (4) ESRD (end stage renal disease) on dialysis Onset Date: 01/31/15 Status: Chronic (5) GERD (gastroesophageal reflux disease) Onset Date: 07/30/17 Status: Chronic Qualifiers: Esophagitis presence: esophagitis presence not specified Qualified Code(s) : K21.9 - Gastro-esophageal reflux disease without esophagitis (6) HTN (hypertension) Onset Date: 01/31/15 Status: Chronic Qualifiers: Hypertension type: essential hypertension (7) Hyperlipidemia Onset Date: 01/31/15 Status: Chronic Qualifiers: Hyperlipidemia type: mixed hyperlipidemia Qualified Code(s): E78.2 - Mixed hyperlipidemia Discharge Plan: Home Plan to discharge in: 48 Hours - Code Status/Comfort Care Code Status Assessed: Yes Critical Care: No
[2018-05-24] MEDS ORDERED: Levofloxacin 250mg IV 250 MG/50 ML BAG IV SCH (21:00)
--- NOTE | 2018-05-25 02:52 | PN ---
Date of Progress Note: 05/24/2018 Chief Complaint: End-stage renal disease, on dialysis. The patient underwent dialysis yesterday. Subjective: The patient has multiple medical problems including history of diabetes mellitus, hypert ension, history of hemorrhagic stroke. The patient was admitted with cough, generalized weakness, an d she was found to have pneumonia and was treated with Tamiflu and Levaquin for pneumonia and influen za infection. The patient is feeling better. Review of Systems: Denies fever or chills. Physical Examination: Lungs: Few crackles at bases. Heart: S1-S2. Abdomen: Soft, benign. Extremities: Minimal edema. Impression: 1.End-stage renal disease, azotemia, electrolytes controlled. Continue renal diet. The patient und erwent dialysis yesterday. Continue dialysis Saturday, Saturday, Saturday schedule. 2.End-stage renal disease. Monitor electrolytes. Continue renal diet and check phosphorus and adju st binders. 3.Hypertension, blood pressure controlled on multiple blood pressure medications. 4.Gastroesophageal reflux disease. Continue treatment. The patient currently asymptomatic. 5.Hypertension. Continue low-sodium diet and blood pressure as before. HANY/BROOKE Voice ID: [id number] Report ID: [id number]
== END 2018-05-24 11:33 | disposition home or self-care (01) ==
LOC: ER 13:27 → ERHOLD 18:12 → 2ND 19:41
PROVIDERS: ADMIT Family Medicine; ATTEND Hospitalist
DX: J11.00 Influenza due to unidentified influenza virus with unspecified type of pneumonia (principal); I12.0 Hypertensive chronic kidney disease with stage 5 chronic kidney disease or end stage renal disease; E11.22 Type 2 diabetes mellitus with diabetic chronic kidney disease; N18.6 End stage renal disease; Z99.2 Dependence on renal dialysis; E78.5 Hyperlipidemia, unspecified; K21.9 Gastro-esophageal reflux disease without esophagitis; R09.02 Hypoxemia
CPT/HCPCS: 36415 ×3; 71045; 80048; 80053 ×3; 82962 ×10; 83605; 83735 ×3; 84100 ×3; 84145; 85025 ×4; 87040 ×2; 87070; 87205 ×2; 87804 ×2; 90935 ×2; 93005; 94760 ×5; 96360; 99285; G0378 ×2; J1644; Q4081

== ENCOUNTER 2018-08-06 13:19 | Emergency (ER) | payer OTHER ==
--- OUTSIDE RECORDS SUMMARY | 2018-08-06 13:23 | XMS REPORT ---
:1950 Author Organization [employer] Care Team Providers Name Role Phone Mukherjee, Na Provider Role Unavailable Allergies, Adverse Reactions, Alerts Substance Reaction Event Type Lisinopril Info Not Available Drug Allergy Problems Problem Type Condition Code Onset Dates Condition Status Assessment Fever, unspecified fever cause R50.9 Active Problem End stage renal disease N18.6 Active Assessment Viral upper respiratory illness J06.9 Active Assessment Flu-like symptoms R68.89 Active Problem Controlled type 2 diabetes mellitus E11.29 Active with other diabetic kidney complication, without long-term current use of insulin Problem Diabetes E11.9 Active Problem Gastroesophageal reflux disease, K21.9 Active esophagitis presence not specified Problem Anemia in chronic illness D63.8 Active Problem Hyperlipidemia, mixed E78.2 Active Problem Benign essential HTN I10 Active Problem Venous insufficiency I87.2 Active Medications Medication Code Code Instructions Start End Status Dosage System Date Date Tamiflu [facility] 81857962567 75 MG Orally Active 1 capsule Twice a day Cheratussin AC ND 17914555639 100-10 MG/5ML Active 5 ml Orally every 6 hrs HydrALAZINE HCl ND 05395245315 25 MG Orally May 12, Active 1 tablet when bp greater 2017 with food than 170 Fosrenol ND 15161591398 1000 MG Orally November 08, Active 1 tablet Twice a day 2018 with meals Tradjenta [facility] 80117321747 5 MG Orally Once Active 1 tablet a day Losartan ND 42016207477 100 MG Orally Active 1 tablet Potassium Once a day Lipitor ND 89111237779 20 MG Orally Active 1 tablet Once a day Renvela ND 21118384792 800 MG Orally November 08, Active 2 tablet Three times a 2018 with meals day Protonix ND 57236805976 40 MG Orally Active 1 tablet Once a day Amlodipine ND 10254507387 10 MG Orally Active 1 tablet Besylate Once a day Tradjenta [facility] 70826342012 5 MG Orally Once Active 1 tablet a day Metoprolol ND 16840496260 25 MG Orally Active 1 tablet Tartrate once a day with food Results No Known Results Summary Purpose [employer] Submission
--- OUTSIDE RECORDS SUMMARY | 2018-08-06 13:23 | XMS REPORT ---
:1950 Author Organization [employer] Care Team Providers Name Role Phone Mukherjee, Na Provider Role Unavailable Allergies, Adverse Reactions, Alerts Substance Reaction Event Type Lisinopril Info Not Available Drug Allergy Problems Problem Type Condition Code Onset Dates Condition Status Assessment Controlled type 2 diabetes mellitus E11.29 Active with other diabetic kidney complication, without long-term current use of insulin Problem End stage renal disease N18.6 Active Assessment Gastroesophageal reflux disease, K21.9 Active esophagitis presence not specified Assessment End stage renal disease N18.6 Active Assessment Hyperlipidemia, mixed E78.2 Active Assessment Benign essential HTN I10 Active Problem Controlled [...] Start End Status Dosage System Date Date Renvela [facility] 53607351419 800 MG Orally November 08, Active 2 tablet Three times a 2018 with day meals Tradjenta [facility] 88106753315 5 MG Orally Once Active 1 tablet a day Tradjenta [facility] 02401294858 5 MG Orally Once Active 1 tablet a day Amlodipine ND 58213946097 10 MG Orally Active 1 tablet Besylate Once a day Metoprolol ND 25294867843 25 MG Orally Active 1 tablet Tartrate once a day with food Losartan ND 15750510589 100 MG Orally Active 1 tablet Potassium Once a day Lipitor ND 52903821384 20 MG Orally Active 1 tablet Once a day Protonix [facility] 27702913730 40 MG Orally Active 1 tablet Once a day HydrALAZINE HCl ND 78512118368 25 MG Orally May 12, Active 1 tablet when bp greater 2017 with food than 170 Fosrenol [facility] 23016377319 1000 MG Orally November 08, Active 1 tablet Twice a day 2019 with meals Results No Known Results Summary Purpose [employer] Submission
--- OUTSIDE RECORDS SUMMARY | 2018-08-06 13:23 | XMS REPORT ---
:1950 Author Organization eClinicalWorks Care Team Providers Name Role Phone Mukherjee, Na Provider Role Unavailable Allergies, Adverse Reactions, Alerts Substance Reaction Event Type Lisinopril Info Not Available Drug Allergy Problems Problem Type Condition Code Onset Dates Condition Status Problem Hyperlipidemia, mixed E78.2 Active Problem End stage renal disease N18.6 Active Assessment Allergic rhinitis, unspecified J30.9 Active seasonality, unspecified trigger Assessment Cough R05 Active Problem Gastroesophageal reflux disease, K21.9 Active esophagitis presence not specified Problem Controlled type 2 diabetes mellitus E11.29 Active with other diabetic kidney complication, without long-term current use of insulin Problem Allergic rhinitis, unspecified J30.9 Active seasonality, unspecified trigger Problem Venous insufficiency I87.2 Active Problem Anemia in chronic illness D63.8 Active Problem Diabetes E11.9 Active Problem Benign essential HTN I10 Active Medications Medication Code Code Instructions Start End Status Dosage System Date Date Flonase [facility] 66173192532 50 MCG/DOSE Jul 09, Active 2 spray in Nasally Once a 2018 each day nostril Losartan [facility] 86202187632 100 MG Orally Active 1 tablet Potassium Once a day Cheratussin AC [facility] 79727469520 100-10 MG/5ML Active 5 ml Orally every [address] [facility] 63800544037 75 MG Orally Active 1 capsule Twice a day Tradjenta [facility] 78109569569 5 MG Orally Once Active 1 tablet a day Metoprolol ND 88844662950 25 MG Orally Active 1 tablet Tartrate once a day with food HydrALAZINE HCl ND 00567814679 25 MG Orally May 12, Active 1 tablet when bp greater 2017 with food than 170 Amlodipine ND 11609890599 10 MG Orally Active 1 tablet Besylate Once a day Benzonatate ND 80220854426 100 MG Orally Jul 09, Active 1 capsule Three times a 2019 day Protonix ND 93781509788 40 MG Orally Active 1 tablet Once a day Renvela [facility] 19040539336 800 MG Orally November 08, Active 2 tablet Three times a 2019 with meals day Lipitor [facility] 68969609911 20 MG Orally Active 1 tablet Once a day Tradjenta [facility] 86649082413 5 MG Orally Once Active 1 tablet a day Cetirizine HCl [facility] 17330923437 10 MG Orally Jul 09, Active 1 tablet Once a day [address] [facility] 47437500692 1000 MG Orally November 08, Active 1 tablet Twice a day 2018 with meals Results No Known Results Summary Purpose eClinicalWorks Submission
--- OUTSIDE RECORDS SUMMARY | 2018-08-06 13:23 | XMS REPORT ---
:1950 Author Organization eClinicalWorks Care Team Providers Name Role Phone Mukherjee, Na Provider Role Unavailable Allergies No Known Allergies Problems Problem Type Condition Code Onset Dates Condition Status Problem Hyperlipidemia, mixed E78.2 Active Problem End stage renal disease N18.6 Active Problem Gastroesophageal reflux disease, K21.9 Active esophagitis presence not specified Problem Controlled type 2 diabetes mellitus E11.29 Active with other diabetic kidney complication, without long-term current use of insulin Problem Allergic rhinitis, unspecified J30.9 Active seasonality, unspecified trigger Problem Venous insufficiency I87.2 Active Problem Anemia in chronic illness D63.8 Active Problem Diabetes E11.9 Active Problem Benign essential HTN I10 Active Medications No Known Medications Results No Known Results Summary Purpose eClinicalWorks Submission
--- OUTSIDE RECORDS SUMMARY | 2018-08-06 13:23 | XMS REPORT ---
[...] End Date Status Dosage System Date Tradjenta [facility] 87837588335 5 MG Orally Once Active 1 tablet a day Fosrenol [facility] 56141041042 1000 MG Orally Active 1 tablet Twice a day with meals Lipitor ND 89798008482 20 MG Orally Active 1 tablet Once a day Renvela [facility] 23244037220 800 MG Orally Active 1 tablet Three times a with day meals Amlodipine ND 28136886428 10 MG Orally Active 1 tablet Besylate Once a day Protonix ND 08623151509 40 MG Orally Active 1 tablet Once a day Losartan ND 84465578247 100 MG Orally Active 1 tablet Potassium Once a day Metoprolol ND 59612972914 25 MG Orally Active 1 tablet Tartrate once a day with food Results No Known Results Summary Purpose eClinicalWorks Submission
[2018-08-06 15:09] LABS: Absolute Lymphocytes (CBC) 0.6 K/uL (0.7-4.9); Absolute Monocytes 0.4 K/uL (0.1-1.3); Absolute Neutrophil 6.1 K/uL (1.8-8.0); Basophils % 0.6 % (0-1.3); Eosinophils % 0.9 % (0-4.4); Hematocrit 38.5 % (36.0-45.0); MPV 10.4 fL (7.6-11.3); Monocytes % 5.1 % (3.3-12.3); RBC Red Blood Cell Count 4.14 M/uL (3.86-4.86)
[2018-08-06 15:20] LABS: Albumin 4.3 g/dL (3.4-5.0); Bilirubin Total 0.7 mg/dL (0.2-1.0); Potassium 4.5 mmol/L (3.5-5.1); Protein, Total 8.4 g/dL (6.4-8.2)
--- NOTE | 2018-08-06 15:32 | EDPHYS ---
Physician Documentation [facility] Name: Lynne Leggett Age: 68 yrs Sex: Female : 1950 Arrival Date: 08/06/2018 Time: 13:20 Bed 15 Private MD: Kiersten Mukherjee ED Physician Noman Berry HPI: 08/06 15:28 This 68 yrs old Female presents to ER via Wheelchair with complaints of High ps1 Blood Pressure, Vomiting. 15:28 patient had dialysis and then daughter said that her BP was elevated and that she had a ps1 headache. Patient has a history of headaches. Pain is localized to left side of head. Pt BP was 180 systolic and given PRN BP medications. Symptoms are improving. Pain rated as moderate and BP now 150's.. Historical: - Allergies: 13:35 Nifedipine; tw2 13:35 Vancomycin; tw2 - PMHx: 13:35 GERD; Diabetes - NIDDM; High Cholesterol; Hypertension; DIALYSIS MWF; CVA tw2 (hemorrhagic); ESRD; - PSHx: 13:35 dialysis shunt R arm; tw2 - Immunization history:: Adult Immunizations. - Social history:: Smoking status: . - Ebola Screening: : Patient denies travel to an Ebola-affected area in the 21 days before illness onset. ROS: 15:28 Constitutional: Negative for fever, chills, and weight loss, Eyes: Negative for injury, ps1 pain, redness, and discharge, Cardiovascular: Negative for chest pain, palpitations, and edema, Respiratory: Negative for shortness of breath, cough, wheezing, and pleuritic chest pain, Abdomen/GI: Negative for abdominal pain, nausea, vomiting, diarrhea, and constipation, Skin: Negative for injury, rash, and discoloration, Psych: Negative for depression, anxiety, suicide ideation, homicidal ideation, and hallucinations, Allergy/Immunology: Negative for hives, rash, and allergies. 15:28 Neuro: Positive for headache. Exam: 15:28 Constitutional: This is a well developed, well nourished patient who is awake, alert, ps1 and in no acute distress. Head/Face: Normocephalic, atraumatic. Eyes: Pupils equal round and reactive to light, extra-ocular motions intact. Lids and lashes normal. Conjunctiva and sclera are non-icteric and not injected. Chest/axilla: Normal chest wall appearance and motion. Nontender with no deformity. No lesions are appreciated. Cardiovascular: Regular rate and rhythm. No gallops, murmurs, or rubs. Normal PMI, no JVD. No pulse deficits. Respiratory: Lungs have equal breath sounds bilaterally, clear to auscultation and percussion. No rales, rhonchi or wheezes noted. No increased work of breathing, no retractions or nasal flaring. Abdomen/GI: Soft, non-tender, with normal bowel sounds. No distension or tympany. No guarding or rebound. No evidence of tenderness throughout. Neuro: Awake and alert, GCS 15, oriented to person, place, time, and situation. Cranial nerves II-XII grossly intact. Sensory grossly intact. Psych: Awake, alert, with orientation to person, place and time. Behavior, mood, and affect are within normal limits. 15:28 Musculoskeletal/extremity: Extremities: grossly normal except: noted in the right arm: shunt. Vital Signs: 13:32 BP 153 / 93; Pulse 94; Resp 19; Temp 97.8(TE); Pulse Ox 98% on R/A; Weight 49 kg; Pain tw2 10/10; 14:47 BP 148 / 112; Pulse 89; Resp 19; Pulse Ox 98% on R/A; jb1 16:18 BP 151 / 89; Pulse 100; Resp 16; Pulse Ox 99% ; bp MDM: 14:31 Patient medically screened. ps1 15:28 Data reviewed: vital signs, nurses notes, lab test result(s), and as a result, I will ps1 discharge patient. 08/06 14:17 Order name: CBC with Diff; Complete Time: 16:18 ps1 08/06 14:17 Order name: CMP; Complete Time: 15:27 ps1 08/06 14:22 Order name: EKG - Nurse/Tech; Complete Time: 14:22 bp 08/06 15:19 Order name: CBC Smear Scan; Complete Time: 16:18 EDMS Administered Medications: 15:15 Drug: Reglan 10 mg Route: PO; bp 15:48 Follow up: Response: Pain is decreased bp 15:15 Drug: Benadryl 50 mg Route: PO; bp 15:48 Follow up: Response: Pain is decreased bp Disposition: 08/06/18 15:32 Discharged to Home. Impression: Headache, not intractable, Hypertension. - Condition is Stable. - Discharge Instructions: Migraine Headache, Hypertension. - Medication Reconciliation Form, Thank You Letter, Antibiotic Education, Prescription Opioid Use form. - Follow up: Kiersten Mukherjee MD; When: 48 Hours; Reason: Further diagnostic work-up, Recheck today's complaints, Continuance of care, Re-evaluation by your physician. Follow up: Emergency Department; When: As needed; Reason: Worsening of condition. Signatures: Dispatcher [employer] EDLeonora Mckenna RN RN tw2 Addison Hamm RN RN bp Noman Berry MD MD ps1 Corrections: (The following items were deleted from the chart) 16:19 15:32 08/06/2018 15:32 Discharged to Home. Impression: Headache, not intractable; bp Hypertension. Condition is Stable. Forms are Medication Reconciliation Form, Thank You Letter, Antibiotic Education, Prescription Opioid Use. Follow up: Kiersten Mukherjee; When: 48 Hours; Reason: Further diagnostic work-up, Recheck today's complaints, Continuance of care, Re-evaluation by your physician. Follow up: Emergency Department; When: As needed; Reason: Worsening of condition. ps1
--- NOTE | 2018-08-06 15:32 | ER ---
Nurse's Notes [facility] Name: Lynne Leggett Age: 68 yrs Sex: Female : 1950 Arrival Date: 08/06/2018 Time: 13:20 Bed 15 Private MD: Kiersten Mukherjee Diagnosis: Headache, not intractable;Hypertension Presentation: 08/06 13:31 Presenting complaint: Child states: she had dialysis today and then her head started tw2 hurting, and i gave her a bp med it was 170/108, and she she was vomiting and nauseous. Transition of care: patient was not received from another setting of care. Onset of symptoms was August 06, 2018. Risk Assessment: Do you want to hurt yourself or someone else? Patient reports no desire to harm self or others. Initial Sepsis Screen: Does the patient meet any 2 criteria? HR > 90 bpm. No. Patient's initial sepsis screen is negative. Does the patient have a suspected source of infection? No. Patient's initial sepsis screen is negative. Care prior to arrival: None. 13:31 Method Of Arrival: Wheelchair tw2 13:31 Acuity: SHIKHA 3 tw2 13:33 Presenting complaint: Patient states: just LEFT side of my head hurts, since after 1130.tw2 Triage Assessment: 13:35 General: Appears uncomfortable, Behavior is cooperative. Pain: Complains of pain in tw2 forehead, left ear and left mormon. GI: Reports nausea, vomiting. Historical: - Allergies: 13:35 Nifedipine; tw2 13:35 Vancomycin; tw2 - PMHx: 13:35 GERD; Diabetes - NIDDM; High Cholesterol; Hypertension; DIALYSIS MWF; CVA tw2 (hemorrhagic); ESRD; - PSHx: 13:35 dialysis shunt R arm; tw2 - Immunization history:: Adult Immunizations. - Social history:: Smoking status: . - Ebola Screening: : Patient denies travel to an Ebola-affected area in the 21 days before illness onset. Screenin:22 Abuse screen: Denies threats or abuse. Denies injuries from another. Nutritional bp screening: No deficits noted. Tuberculosis screening: No symptoms or risk factors identified. Fall Risk None identified. Assessment: 13:45 General: Appears in no apparent distress. uncomfortable, Behavior is cooperative, bp appropriate for age, anxious. Pain: Complains of pain in left mormon. Neuro: Level of Consciousness is awake, alert, obeys commands, Oriented to person, place, time, situation, Appropriate for age. Cardiovascular: No deficits noted. Respiratory: Airway is patent Respiratory effort is even, unlabored, Respiratory pattern is regular, symmetrical. GI: Abdomen is non-distended. : No signs and/or symptoms were reported regarding the genitourinary system. EENT: No deficits noted. Derm: No deficits noted. Musculoskeletal: Circulation, motion, and sensation intact. Vital Signs: 13:32 BP 153 / 93; Pulse 94; Resp 19; Temp 97.8(TE); Pulse Ox 98% on R/A; Weight 49 kg; Pain tw2 10/10; 14:47 BP 148 / 112; Pulse 89; Resp 19; Pulse Ox 98% on R/A; jb1 16:18 BP 151 / 89; Pulse 100; Resp 16; Pulse Ox 99% ; bp ED Course: 13:20 Patient arrived in ED. rg4 13:21 Kiersten Mukherjee MD is Private Physician. rg4 13:32 Triage completed. tw2 13:32 Arm band placed on. tw2 13:40 Addison Hamm, RN is Primary Nurse. bp 14:06 Noman Berry MD is Attending Physician. ps1 14:18 EKG done, by hydro plant technician. reviewed by Noman Berry MD. at1 14:22 Patient has correct armband on for positive identification. Bed in low position. Call bp light in reach. Side rails up X2. Adult w/ patient. 14:46 Initial lab(s) drawn, by sc, sent to lab. Inserted saline lock: 22 gauge in left jb1 antecubital area, using aseptic technique. Blood collected. 15:31 Kiersten Mukherjee MD is Referral Physician. ps1 16:18 No provider procedures requiring assistance completed. IV discontinued, intact, bp bleeding controlled, No redness/swelling at site. Pressure dressing applied. Administered Medications: 15:15 Drug: Reglan 10 mg Route: PO; bp 15:48 Follow up: Response: Pain is decreased bp 15:15 Drug: Benadryl 50 mg Route: PO; bp 15:48 Follow up: Response: Pain is decreased bp Outcome: 15:32 Discharge ordered by . ps1 16:18 Discharged to home ambulatory, with family. bp 16:18 Condition: stable 16:18 Discharge instructions given to patient, family, Instructed on discharge instructions, follow up and referral plans. Demonstrated understanding of instructions, follow-up care. 16:19 Patient left the ED. bp Signatures: Moisés Aguayo jb1 Samantha Lantigua, supervisor packing EKG Tat1 Leonora Rodríguez, LUZMARIA RN tw2 Felipa Nieto rg4 Addison Hamm RN RN bp Noman Berry MD MD ps1
[2018-08-06 15:49] LABS: Platelet Estimate ADEQ
[2018-08-06 15:50] LABS: Blood Morphology Comment NOT SEEN (NOT SEEN); Urine White Blood Cell Casts OK
[2018-08-06] MEDS ORDERED: METOCLOPRAMIDE 5 MG TAB ONE (15:54)
[2018-08-06] MEDS ORDERED: DIPHENHYDRAMINE 25 MG TAB/CAP ONE (15:54)
[2018-08-06 17:11] VITALS: TEMP 97.8
[2018-08-06 17:14] VITALS: BP 151/89; O2SAT 99
--- NOTE | 2018-08-07 07:04 | EKG ---
Test Date: 2018-08-06 Test Time: 14:12:34 Senior Principal: MURPHY MEASUREMENT RESULTS: Intervals: Rate: 99 MI: 138 QRSD: 88 QT: 350 QTc: 449 [place]: P: 71 MI: 138 QRS: 76 T: 52 INTERPRETIVE STATEMENTS: Normal sinus rhythm Right atrial enlargement Otherwise normal ECG Compared to ECG 05/21/2018 13:40:23 Atrial abnormality now present Sinus tachycardia no longer present ST (T wave) deviation no longer present Electronically Signed On 08-07-18 07:03:04 BUCKLE SEWER MACHINE by Major Cedeño
== END 2018-08-06 16:19 | disposition home or self-care (01) ==
LOC: ER 13:19
DX: R51 Headache (principal); E11.22 Type 2 diabetes mellitus with diabetic chronic kidney disease; I12.0 Hypertensive chronic kidney disease with stage 5 chronic kidney disease or end stage renal disease; N18.6 End stage renal disease; Z99.2 Dependence on renal dialysis; K21.9 Gastro-esophageal reflux disease without esophagitis; E78.00 Pure hypercholesterolemia, unspecified; Z88.1 Allergy status to other antibiotic agents; Z88.8 Allergy status to other drugs, medicaments and biological substances
CPT/HCPCS: 36415; 80053; 85025; 93005; 99284

== ENCOUNTER 2019-01-07 09:28 | Inpatient (IN) | payer OTHER ==
--- OUTSIDE RECORDS SUMMARY | 2019-01-07 09:35 | XMS REPORT ---
[...] End Date Status Dosage System Date Tradjenta [facility] 33709001125 5 MG Orally Once Active 1 tablet a day Fosrenol [facility] 85013674054 1000 MG Orally Active 1 tablet Twice a day with meals Lipitor ND 38881105648 20 MG Orally Active 1 tablet Once a day Renvela [facility] 17407905566 800 MG Orally Active 1 tablet Three times a with day meals Amlodipine ND 79794362175 10 MG Orally Active 1 tablet Besylate Once a day Protonix ND 91945663065 40 MG Orally Active 1 tablet Once a day Losartan ND 89974476596 100 MG Orally Active 1 tablet Potassium Once a day Metoprolol ND 97744418916 25 MG Orally Active 1 tablet Tartrate once a day with food Results No Known Results Summary Purpose eClinicalWorks Submission
--- OUTSIDE RECORDS SUMMARY | 2019-01-07 09:36 | XMS REPORT ---
[...] End Status Dosage System Date Date Tamiflu [facility] 60981280997 75 MG Orally Active 1 capsule Twice a day Cheratussin AC ND 60808398095 100-10 MG/5ML Active 5 ml Orally every 6 hrs HydrALAZINE HCl ND 15553573981 25 MG Orally May 12, Active 1 tablet when bp greater 2017 with food than 170 Fosrenol ND 08501633858 1000 MG Orally November 08, Active 1 tablet Twice a day 2018 with meals Tradjenta [facility] 76783720265 5 MG Orally Once Active 1 tablet a day Losartan ND 52279441152 100 MG Orally Active 1 tablet Potassium Once a day Lipitor ND 00027612002 20 MG Orally Active 1 tablet Once a day Renvela ND 59222024074 800 MG Orally November 08, Active 2 tablet Three times a 2018 with meals day Protonix ND 96714828734 40 MG Orally Active 1 tablet Once a day Amlodipine ND 33991270634 10 MG Orally Active 1 tablet Besylate Once a day Tradjenta [facility] 03417396164 5 MG Orally Once Active 1 tablet a day Metoprolol ND 76595482808 25 MG Orally Active 1 tablet Tartrate once a day with food Results No Known Results Summary Purpose eClinicalWorks Submission
--- OUTSIDE RECORDS SUMMARY | 2019-01-07 09:36 | XMS REPORT ---
:1950 Author Organization eClinicalWorks Care Team Providers Name Role Phone Mukherjee, Na Provider Role Unavailable Allergies No Known Allergies Problems Problem Type Condition Code Onset Dates Condition Status Problem Hyperlipidemia, mixed E78.2 Active Problem End stage renal disease N18.6 Active Assessment Gastroesophageal reflux disease, K21.9 Active esophagitis presence not specified Problem Gastroesophageal reflux disease, K21.9 Active esophagitis presence not specified Problem Controlled type 2 diabetes mellitus E11.29 Active with other diabetic kidney complication, without long-term current use of insulin Problem Allergic rhinitis, unspecified J30.9 Active seasonality, unspecified trigger Problem Venous insufficiency I87.2 Active Problem Anemia in chronic illness D63.8 Active Problem Diabetes E11.9 Active Problem Benign essential HTN I10 Active Medications Medication Code System Code Instructions Start Date End Date Status Dosage Protonix [facility] 41872529897 40 MG Orally Once Active 1 tablet a day Results No Known Results Summary Purpose eClinicalWorks Submission
--- OUTSIDE RECORDS SUMMARY | 2019-01-07 09:36 | XMS REPORT ---
[...] End Status Dosage System Date Date Flonase [facility] 88582630068 50 MCG/DOSE Jul 09, Active 2 spray in Nasally Once a 2018 each day nostril Losartan [facility] 86978454344 100 MG Orally Active 1 tablet Potassium Once a day Cheratussin AC [facility] 55245329553 100-10 MG/5ML Active 5 ml Orally every 6 hrs Tamiflu [facility] 75449216697 75 MG Orally Active 1 capsule Twice a day Tradjenta [facility] 16859852562 5 MG Orally Once Active 1 tablet a day Metoprolol ND 44050733963 25 MG Orally Active 1 tablet Tartrate once a day with food HydrALAZINE HCl ND 30317801943 25 MG Orally May 12, Active 1 tablet when bp greater 2017 with food than 170 Amlodipine ND 79861254037 10 MG Orally Active 1 tablet Besylate Once a day Benzonatate ND 77913895022 100 MG Orally Jul 09, Active 1 capsule Three times a 2019 day Protonix ND 07679583373 40 MG Orally Active 1 tablet Once a day Renvela [facility] 19827812602 800 MG Orally November 08, Active 2 tablet Three times a 2019 with meals day Lipitor [facility] 43462709738 20 MG Orally Active 1 tablet Once a day Tradjenta [facility] 86001469447 5 MG Orally Once Active 1 tablet a day Cetirizine HCl [facility] 33024456685 10 MG Orally Jul 09, Active 1 tablet Once a day 2018 Fosrenol [facility] 44877660193 1000 MG Orally November 08, Active 1 tablet Twice a day 2018 with meals Results No Known Results Summary Purpose eClinicalWorks Submission
--- OUTSIDE RECORDS SUMMARY | 2019-01-07 09:36 | XMS REPORT ---
[...] Status Dosage System Date Date Renvela [facility] 78958534416 800 MG Orally November 08, Active 2 tablet Three times a 2018 with day meals Tradjenta [facility] 00315226790 5 MG Orally Once Active 1 tablet a day Tradjenta [facility] 40439187421 5 MG Orally Once Active 1 tablet a day Amlodipine ND 06663841081 10 MG Orally Active 1 tablet Besylate Once a day Metoprolol ND 10275700785 25 MG Orally Active 1 tablet Tartrate once a day with food Losartan ND 40080652128 100 MG Orally Active 1 tablet Potassium Once a day Lipitor ND 21036452898 20 MG Orally Active 1 tablet Once a day Protonix [facility] 56141012276 40 MG Orally Active 1 tablet Once a day HydrALAZINE HCl ND 77581401220 25 MG Orally May 12, Active 1 tablet when bp greater 2017 with food than 170 Fosrenol [facility] 20867944094 1000 MG Orally November 08, Active 1 tablet Twice a day 2019 with meals Results No Known Results Summary Purpose eClinicalWorks Submission
--- NOTE | 2019-01-07 10:02 | RAD REPORT ---
EXAM DESCRIPTION: CT - Ct Stroke Brain Wo Cont - 01/07/2019 9:50 am CLINICAL HISTORY: Headache, nausea, no verbal response, stroke protocol CLINICAL HISTORY: CT head December 05, 2017 TECHNIQUE: Axial 5 millimeter thick images of the head were obtained without IV contrast. All CT scans are performed using dose optimization technique as appropriate and may include automated exposure control or mA/KV adjustment according to patient size. FINDINGS: No intracranial hemorrhage is present. No focal mass lesion identifiable. Arterial and phy siologic calcifications are present. A focal cortical based infarction is not identifiable. However, the patient does have a mild cerebral edema pattern throughout both cerebral hemispheres. No midline shift. No extra-axial fluid collections. Serrano matter white matter junction is less distinct than see n on November 2017. Visualized portions of the mastoid air cells, paranasal sinuses, and orbits are unremarkable. Findings telephoned to the referring clinician 9:55 a.m. IMPRESSION: No intracranial hemorrhage or mass. Mild cerebral edema.
[2019-01-07 10:15] LABS: Absolute Lymphocytes (CBC) 1.2 K/uL (0.7-4.9); Basophils % 1.2 % (0-1.3); Hematocrit 43.6 % (36.0-45.0); Lymphocytes % 15.2 % (15.3-44.8); MPV 11.3 fL (7.6-11.3); RBC Red Blood Cell Count 4.65 M/uL (3.86-4.86)
--- NOTE | 2019-01-07 10:22 | RAD REPORT ---
EXAM DESCRIPTION: RAD - Chest Single View - 01/07/2019 10:17 am CLINICAL HISTORY: AMS Chest pain. COMPARISON: <Comparisons> FINDINGS: Portable technique limits examination quality. Mild interstitial pulmonary edema is present. The heart is mildly enlarged in. No displaced fractures .Right-sided vascular stent is noted. IMPRESSION: Mild CHF versus volume overload pattern.
[2019-01-07 10:29] LABS: Potassium 4.3 mmol/L (3.5-5.1)
[2019-01-07 10:30] LABS: Protime INR 0.85
--- NOTE | 2019-01-07 10:34 | EKG ---
Test Date: 2019-01-07 Test Time: 09:54:23 Armament Repairer: BERNARD MEASUREMENT RESULTS: Intervals: Rate: 87 CO: 122 QRSD: 94 QT: 416 QTc: 500 [place]: P: 67 CO: 122 QRS: 43 T: 76 INTERPRETIVE STATEMENTS: Normal sinus rhythm Possible Left atrial enlargement Left ventricular hypertrophy with repolarization abnormality Consider subendocardiao injury Prolonged QT Abnormal ECG Compared to ECG 08/06/2018 14:12:34 Left ventricular hypertrophy now present Prolonged QT interval now present Electronically Signed On 01-07-19 10:33:53 CDT by Major Cedeño
[2019-01-07] MEDS ORDERED: dexAMETHasone 10 MG/ML VIAL ONE (10:35)
[2019-01-07] MEDS ORDERED: MORPHINE 4 MG/ML SYR ONE (10:35)
[2019-01-07] MEDS ORDERED: HYDRALAZINE HCL 20 MG/ML VIAL ONE (10:36)
[2019-01-07] MEDS ORDERED: ONDANSETRON 4 MG/2 ML VIAL ONE (10:36)
--- NOTE | 2019-01-07 11:50 | ER ---
Nurse's Notes [facility] Name: Lynne Leggett Age: 68 yrs Sex: Female : 1950 Arrival Date: 01/07/2019 Time: 09:32 Bed 16 Private MD: Diagnosis: Hypertensive encephalopathy;Altered mental status, unspecified Presentation: 01/07 09:37 Presenting complaint: EMS states: Became lethargic during HD, c/o headache and stomach hb pain. Upon arrival pt moaning, not cooperating with exam. SBP 150s, HR 80s, BGL 170. Transition of care: [facility]. Onset of symptoms was January 07, 2019. Risk Assessment: Do you want to hurt yourself or someone else? Patient reports no desire to harm self or others. Initial Sepsis Screen: Does the patient meet any 2 criteria? No. Patient's initial sepsis screen is negative. Does the patient have a suspected source of infection? No. Patient's initial sepsis screen is negative. Care prior to arrival: None. 09:37 Method Of Arrival: EMS: [facility] hb 09:37 Acuity: SHIKHA 2 hb Historical: - Allergies: 09:40 Nifedipine; hb 09:40 Vancomycin; hb - Home Meds: 11:12 amlodipine 5 mg tab 2 tabs nightly [Active]; atorvastatin 20 mg Oral tab 1 tab once sg daily [Active]; Daily-Isael Oral tab daily [Active]; glipizide 10 mg Oral tab 1 tab 2 times per day [Active]; hydralazine 25 mg Oral tab 1 tab 2 times per day [Active]; losartan 100 mg Oral tab 1 tab once daily [Active]; metoprolol tartrate 25 mg Oral tab 1 tab 2 times per day [Active]; pantoprazole 40 mg Oral TbEC 1 tab 2 times per day [Active]; Renvela 800 mg Oral tab 2 tabs 3 times per day [Active]; sodium polystyrene sulfonate Oral [Active]; Tradjenta 5 mg Oral tab 1 tab once daily [Active]; valtessa [Active]; victoza 0.6mg/ 0.1 mL 6 units at bedtime [Active]; - PMHx: 11:12 CVA (hemorrhagic); Diabetes - NIDDM; DIALYSIS MWF; ESRD; GERD; High Cholesterol; sg Hypertension; - PSHx: 11:12 dialysis shunt R arm; sg - Immunization history:: Adult Immunizations unknown. - Social history:: Smoking status: Patient/guardian denies using tobacco. - Ebola Screening: : No symptoms or risks identified at this time. - Unable to obtain history due to: patient being uncooperative. Screenin:41 Abuse screen: Denies threats or abuse. Denies injuries from another. Nutritional hb screening: No deficits noted. Tuberculosis screening: No symptoms or risk factors identified. Fall Risk Total James Fall Scale indicates High Risk Score (45 or more points). Fall prevention measures have been instituted. Side Rails Up X 2 Frequent Obs/Assessments Occuring As available patient and family educated on Fall Prevention Program and Strategies. 12:05 The patient has not been NPO before screening. The patient is alert, able to follow sg commands. The patient does not exhibit slurred or garbled speech The patient is not exhibiting difficulty speaking. The patient does not exhibit difficulty understanding words. The patient is able to swallow own secretions with no drooling or need for suction. Patient tolerated one teaspoon of water. No drooling, immediate coughing, gurgling, or clearing of the throat was noted. The patient tolerated 90mL of water. No drooling, immediate coughing, gurgling, or clearing of the throat was noted. The patient passed the bedside swallow screening. Oral medications may be given as ordered. Contact Physician for further diet orders. Provider notified of bedside swallow screening results: Dagoberto Stone MD. Assessment: 09:40 General: Appears in no apparent distress. uncomfortable, ill, well developed, well sg nourished, Behavior is calm, fussy, quiet, unresponsive. Pain: Unable to use pain scale. FLACC scale score is 4 out of 10. Patient is unresponsive. Neuro: Level of Consciousness is awake, unresponsive, Oriented to nonverbal at this time. Speech will not speak to staff, pt is cambodian speaking only but will not respond to providers questions in cambodian as well . Facial droop on right. Cardiovascular: Patient's skin is warm and dry. Chest pain is denied. Respiratory: Airway is patent Respiratory effort is even, unlabored, Respiratory pattern is regular, symmetrical. GI: Abdomen is round non-distended, Bowel sounds present X 4 quads. : No signs and/or symptoms were reported regarding the genitourinary system. EENT: No signs and/or symptoms were reported regarding the EENT system. Derm: Skin is pink, warm \T\ dry. Musculoskeletal: Circulation, motion, and sensation intact. Range of motion: intact in all extremities. 09:41 Reassessment: pt in ct at this time with nurse. sg 11:12 Reassessment: at bedside re evaluating pt at this time, pt responsive to sg questions, will continue to monitor. 11:12 Reassessment: pt able to verbalize at this time, answers questions for , pt sg family remains at bedside, will continue to mointor. 11:15 Reassessment: Patient appears in no apparent distress at this time. pt reports nausea sg per pt family member, notified, awaiting order at this time. 11:52 Reassessment: pt remains off the unit in MRI at this time. sg 12:37 Reassessment: at bedside, awaiting admission orders for admit to the facility. sg 14:22 Reassessment: Patient appears in no apparent distress at this time. Patient and/or sg family updated on plan of care and expected duration. Pain level reassessed. Patient is alert, oriented x 3, equal unlabored respirations, skin warm/dry/pink. pt family remains at bedside at this time. 15:08 Reassessment: Patient appears in no apparent distress at this time. notified sg of pt VS, orders to administer Nicardipene drip as ordered to titrate until Systolic of 160's. 15:33 Reassessment: VS reported to , orders to DC Cardene drip at this time, monitor sg BP for rebound, pt to ICU at this time. Vital Signs: 09:39 BP 221 / 85; Pulse 86; Resp 16; Temp 98.2; Pulse Ox 100% on R/A; Weight 56.7 kg; Height hb 4 ft. 11 in. (149.86 cm); Pain 4/10; 10:40 Pulse Ox 88% on R/A; sg 10:44 BP 210 / 79; Pulse 80; Resp 17 S; Pulse Ox 100% on 4 lpm NC; sg 11:02 BP 215 / 88; Pulse 88; Resp 17; Pulse Ox 100% on 4 lpm NC; sg 12:00 BP 233 / 89; Pulse 96; Resp 17; Pulse Ox 100% on 4 lpm NC; sg 13:00 BP 232 / 79; Pulse 90 MON; Resp 17; Pulse Ox 100% on 4 lpm NC; sg 15:07 BP 180 / 104; Pulse 92; Resp 17; Temp 98.2; Pulse Ox 100% on 4 lpm NC; sg 15:15 BP 163 / 91; Pulse 93; Pulse Ox 100% on 4 lpm NC; sg 15:30 BP 114 / 76; Pulse 98; Resp 16; Pulse Ox 99% on 4 lpm NC; sg 15:45 BP 119 / 74; Pulse 97; Resp 17; Pulse Ox 100% on R/A; sg 09:39 Body Mass Index 25.25 (56.70 kg, 149.86 cm) hb 09:39 Kun (FACES) hb 10:40 after having morphine 4 mg IVP as ordered, pt placed to NC 4 lpm o2 saturation improved sg to 100 % ED Course: 09:32 Patient arrived in ED. hb 09:36 Dagoberto Stone MD is Attending Physician. rn 09:39 Triage completed. hb 09:39 Arm band placed on. hb 09:40 Patient has correct armband on for positive identification. Call light in reach. Side sg rails up X2. Placed in gown. Bed in low position. surveillance system monitor on. Pulse ox on. NIBP on. 09:45 Garth Hartman, LUZMARIA is Primary Nurse. sg 09:51 CT Stroke Brain w/o Contrast In Process Unspecified. EDMS 09:59 Missed attempt(s): 22 gauge in left antecubital area. Bleeding controlled, band aid ms applied, catheter tip intact. 10:17 Stroke CXR 1 View In Process Unspecified. EDMS 10:46 Head of bed elevated. sg 11:18 Patient moved to MRI via stretcher. sg 11:36 Brain Wo Cont MRI In Process Unspecified. EDMS 11:48 Yuriy Domingo MD is Hospitalizing Provider. rn 11:58 Patient moved back from MRI. sg 15:13 No provider procedures requiring assistance completed. Patient admitted, IV remains in sg place. intact, No redness/swelling at site. Administered Medications: 10:40 Drug: Decadron - Dexamethasone 10 mg Route: IVP; Site: left antecubital; sg 10:40 Drug: morphine 4 mg Route: IVP; Site: left antecubital; sg 10:40 Drug: Zofran 4 mg Route: IVP; Site: left antecubital; sg 10:42 Drug: hydrALAZINE 5 mg Route: IV; Rate: 1 calculated rate; Site: left antecubital; sg 11:26 Not Given (Other Intervention Used): cloNIDine 0.2 mg PO once sg 12:01 Drug: cloNIDine 0.1 mg Route: PO; Point of Care Testing: Blood Glucose: 09:42 Blood Glucose: 166 mg/dL; sg Ranges: Outcome: 11:49 Decision to Hospitalize by Provider. rn 16:20 Admitted to ICU accompanied by nurse, accompanied by tech, family with patient, via sg stretcher, room 5, with oxygen, on monitor, with chart, Report called to Elena DUTTA 16:20 Condition: stable 16:20 Instructed on the need for admit, safety practices, Demonstrated understanding of instructions. 16:26 Patient left the ED. sg Signatures: Dispatcher [employer] Garth Carter RN RN sg Solis, Maria ms Nieto, Roman, MD MD rn Baxter, Heather, RN RN hb
--- NOTE | 2019-01-07 11:50 | EDPHYS ---
Physician Documentation [facility] Name: Lynne Leggett Age: 68 yrs Sex: Female : 1950 Arrival Date: 01/07/2019 Time: 09:32 Bed 16 Private MD: ED Physician Dagoberto Stone HPI: 01/07 09:40 This 68 yrs old Female presents to ER via EMS with complaints of Altered rn Mental Status. 09:40 The patient presents with decreased responsiveness. Onset: The symptoms/episode rn began/occurred at an unknown time. Possible causes: unknown. Current symptoms: In the emergency department the patient's symptoms are unchanged from the initial presentation. The patient has experienced similar episodes in the past. Per EMS, was at dialysis, began to complain of stomachache, then progressed to headache, given tylenol by dialysis and then became less responsive, no seizure, patient not cooperative with EMS or with ER staff, no timing or definitive onset/details given or known. . Historical: - Allergies: 09:40 Nifedipine; hb 09:40 Vancomycin; hb - Home Meds: 11:12 amlodipine 5 mg tab 2 tabs nightly [Active]; atorvastatin 20 mg Oral tab 1 tab once sg daily [Active]; Daily-Isael Oral tab daily [Active]; glipizide 10 mg Oral tab 1 tab 2 times per day [Active]; hydralazine 25 mg Oral tab 1 tab 2 times per day [Active]; losartan 100 mg Oral tab 1 tab once daily [Active]; metoprolol tartrate 25 mg Oral tab 1 tab 2 times per day [Active]; pantoprazole 40 mg Oral TbEC 1 tab 2 times per day [Active]; Renvela 800 mg Oral tab 2 tabs 3 times per day [Active]; sodium polystyrene sulfonate Oral [Active]; Tradjenta 5 mg Oral tab 1 tab once daily [Active]; valtessa [Active]; victoza 0.6mg/ 0.1 mL 6 units at bedtime [Active]; - PMHx: 11:12 CVA (hemorrhagic); Diabetes - NIDDM; DIALYSIS MWF; ESRD; GERD; High Cholesterol; sg Hypertension; - PSHx: 11:12 dialysis shunt R arm; sg - Immunization history:: Adult Immunizations unknown. - Social history:: Smoking status: Patient/guardian denies using tobacco. - Ebola Screening: : No symptoms or risks identified at this time. - Unable to obtain history due to: patient being uncooperative. ROS: 09:40 Unable to obtain ROS due to altered mental status, patient being uncooperative. rn Exam: 09:40 Constitutional: This is a well developed, well nourished patient who is awake, alert, rn uncooperative, moaning Head/Face: Normocephalic, atraumatic. ENT: MMM Cardiovascular: Regular rate and rhythm. No pulse deficits. Respiratory: Bibasilar crackles, no wheezing or retractions Abdomen/GI: soft, non-tender MS/ Extremity: Pulses equal, no cyanosis. Neuro: Awake, alert, uncooperative, moves extremities but all 4 extremities allowed to fall without resistance. Shaking head but not talking. Vital Signs: 09:39 BP 221 / 85; Pulse 86; Resp 16; Temp 98.2; Pulse Ox 100% on R/A; Weight 56.7 kg; Height hb 4 ft. 11 in. (149.86 cm); Pain 4/10; 10:40 Pulse Ox 88% on R/A; sg 10:44 BP 210 / 79; Pulse 80; Resp 17 S; Pulse Ox 100% on 4 lpm NC; sg 11:02 BP 215 / 88; Pulse 88; Resp 17; Pulse Ox 100% on 4 lpm NC; sg 12:00 BP 233 / 89; Pulse 96; Resp 17; Pulse Ox 100% on 4 lpm NC; sg 13:00 BP 232 / 79; Pulse 90 MON; Resp 17; Pulse Ox 100% on 4 lpm NC; sg 15:07 BP 180 / 104; Pulse 92; Resp 17; Temp 98.2; Pulse Ox 100% on 4 lpm NC; sg 15:15 BP 163 / 91; Pulse 93; Pulse Ox 100% on 4 lpm NC; sg 15:30 BP 114 / 76; Pulse 98; Resp 16; Pulse Ox 99% on 4 lpm NC; sg 15:45 BP 119 / 74; Pulse 97; Resp 17; Pulse Ox 100% on R/A; sg 09:39 Body Mass Index 25.25 (56.70 kg, 149.86 cm) hb 09:39 Kun (FACES) hb 10:40 after having morphine 4 mg IVP as ordered, pt placed to NC 4 lpm o2 saturation improved sg to 100 % MDM: 09:36 Patient medically screened. rn 09:56 ED course: Per Dr. Woodward, no acute findings on ct head, no hemorrhage or CVA.. rn 10:06 Differential Diagnosis: CVA, electrolyte abnormality, hypoglycemia, intracranial bleed, rn TIA, volume depletion. ED course: Family member here, states this is not baseline, also not sure when symptoms began, reports when woke up around 0500 was already complaining of headache. Pt still non-verbal, but now moving all 4 extremities against gravity. Family member also reports has cerebral hemorrhage 2 years ago, and that in combination with dialysis today with heparin, not a TPA candidate. Also, unclear onset of symptoms, even at 0500, is 5 hours out of onset. . 11:24 ED course: COnsulted with Dr. Sinha, suspects hypertensive emergency/encephalopathy, rn states ok to admit here, will consult, recommends slow BP control. Pt in MRI.. 11:32 Data reviewed: vital signs, nurses notes, lab test result(s), radiologic studies, CT rn scan, and as a result, I will admit patient. Counseling: I had a detailed discussion with the patient and/or guardian regarding: the historical points, exam findings, and any diagnostic results supporting the discharge/admit diagnosis, lab results, radiology results, the need for further work-up and treatment in the hospital. Response to treatment: the patient's symptoms have mildly improved after treatment. ED course: Spoke with Dr. Domingo, will wait for MRI results, then admit as long as doesn't need neurosurgical intervention.. 01/07 09:37 Order name: Basic Metabolic Panel; Complete Time: 10:55 rn 01/07 09:37 Order name: CBC with Diff; Complete Time: 10:55 rn 01/07 09:36 Order name: CT Stroke Brain w/o Contrast; Complete Time: 10:22 ms 01/07 09:37 Order name: Protime (+inr); Complete Time: 10:55 rn 01/07 09:37 Order name: Ptt, Activated; Complete Time: 10:55 rn 01/07 11:26 Order name: Glucose, Ancillary Testing; Complete Time: 11:27 EDMS 01/07 09:37 Order name: Stroke CXR 1 View; Complete Time: 10:55 rn 01/07 09:59 Order name: Brain Wo Cont MRI; Complete Time: 12:30 rn 01/07 09:37 Order name: EKG; Complete Time: 09:41 rn 01/07 09:37 Order name: Accucheck; Complete Time: 09:45 rn 01/07 09:37 Order name: Cardiac monitoring; Complete Time: 09:46 rn 01/07 09:37 Order name: EKG - Nurse/Tech; Complete Time: 09:46 rn 01/07 09:37 Order name: IV Saline Lock; Complete Time: 11:13 rn 01/07 09:37 Order name: Labs collected and sent; Complete Time: 11:13 rn 01/07 09:37 Order name: NPO; Complete Time: 09:47 rn 01/07 09:37 Order name: O2 Per Protocol; Complete Time: 09:47 rn 01/07 09:37 Order name: O2 Sat Monitoring; Complete Time: 09:46 rn 01/07 09:37 Order name: Stroke Swallow Screen; Complete Time: 12:58 rn Administered Medications: 10:40 Drug: Decadron - Dexamethasone 10 mg Route: IVP; Site: left antecubital; sg 10:40 Drug: morphine 4 mg Route: IVP; Site: left antecubital; sg 10:40 Drug: Zofran 4 mg Route: IVP; Site: left antecubital; sg 10:42 Drug: hydrALAZINE 5 mg Route: IV; Rate: 1 calculated rate; Site: left antecubital; sg 11:26 Not Given (Other Intervention Used): cloNIDine 0.2 mg PO once sg 12:01 Drug: cloNIDine 0.1 mg Route: PO; sg Point of Care Testing: Blood Glucose: 09:42 Blood Glucose: 166 mg/dL; sg Ranges: Critical Glucose Levels:Adult <50 mg/dl or >400 mg/dl <40 mg/dl or >180 mg/dl Disposition: 01/07/19 11:49 Hospitalization ordered by Yuriy Domingo for Inpatient Admission. Preliminary diagnosis are Hypertensive encephalopathy, Altered mental status, unspecified. - Bed requested for Intensive Care Unit. - Status is Inpatient Admission. sg - Condition is Stable. - Problem is new. - Symptoms have improved. UTI on Admission? No Signatures: Dispatcher [employer] EDVianey Newton Steven RN RN sg Dagoberto Stone MD MD rn Baxter, Heather, RN RN Gomez Escoto RN RN ja1 Corrections: (The following items were deleted from the chart) 14:42 11:49 Hospitalization Ordered by Yuriy Domingo MD for Inpatient Admission. Preliminary bd diagnosis is Hypertensive encephalopathy; Altered mental status, unspecified. Bed requested for Telemetry/MedSurg (Inpatient). Status is Inpatient Admission. Condition is Stable. Problem is new. Symptoms have improved. UTI on Admission? No. rn 15:06 14:42 01/07/2019 11:49 Hospitalization Ordered by Yuriy Domingo MD for Inpatient [facility] Admission. Preliminary diagnosis is Hypertensive encephalopathy; Altered mental status, unspecified. Bed requested for Intensive Care Unit. Status is Inpatient Admission. Condition is Stable. Problem is new. Symptoms have improved. UTI on Admission? No. bd 16:26 15:06 01/07/2019 11:49 Hospitalization Ordered by Yuriy Domingo MD for Inpatient sg Admission. Preliminary diagnosis is Hypertensive encephalopathy; Altered mental status, unspecified. Bed requested for Intensive Care Unit. Status is Inpatient Admission. Condition is Stable. Problem is new. Symptoms have improved. UTI on Admission? No. ja1
[2019-01-07] MEDS ORDERED: cloNIDine HCl 0.1 MG TAB ONE (11:57)
--- NOTE | 2019-01-07 12:15 | RAD REPORT ---
EXAM DESCRIPTION: MRI - Brain Wo Cont - 01/07/2019 11:52 am CLINICAL HISTORY: AMS;Headache Headache, CVA symptomology, drowsiness COMPARISON: Ct Stroke Brain Wo Cont dated 01/07/2019; Brain Wo Cont dated 07/17/2017; MRA Head Wo Cont dated 07/17/2017 TECHNIQUE: Multi-sequence, multiplanar MR imaging of the brain was performed without contrast. FINDINGS: No intracranial hemorrhage, hydrocephalus or extra-axial fluid collections.T2 and FLAIR hy perintensity is present in the periventricular and deep white matter compatible with chronic microvas cular ischemia. No midline shift. Areas of hypointense signal left frontal lobe appear chronic and un changed since comparative study. DWI is negative for acute CVA. Midline structures are normally formed. Mastoid air cells and paranasal sinuses are clear. IMPRESSION: Negative for acute CVA or other acute intracranial abnormality.
[2019-01-07] MEDS ORDERED: NICARDIPINE HCL 25 MG in NA CHLORIDE 0.9% 240 ML IV PRN ×2 (14:47→15:41)
[2019-01-07] MEDS ORDERED: Nicardipine/NS 0 MG/0 ML KIT IV ONE (15:02)
[2019-01-07] MEDS ORDERED: ONDANSETRON 4 MG/2 ML VIAL IV PRN (15:41)
[2019-01-07] MEDS ORDERED: ACETAMINOPHEN 500 MG TAB PO PRN (15:41)
[2019-01-07] MEDS: INSULIN -REGULAR HUMAN 50 UNIT/0.5 ML ML SQ SCH ×2 (17:20→21:30)
[2019-01-07] MEDS ORDERED: HYDRALAZINE HCL 25 MG TABLET PO PRN (17:34)
[2019-01-07] MEDS ORDERED: TRAMADOL HCL 50 MG TAB PO PRN (17:38)
[2019-01-07] MEDS: AMLODIPINE 10 MG TAB PO SCH (21:00)
[2019-01-07] MEDS: METOPROLOL TAR 25 MG TAB PO SCH (21:00)
[2019-01-07] MEDS: ATORVASTATIN 20 MG TAB PO SCH (21:29)
--- NOTE | 2019-01-07 21:47 | HP ---
Date of Admission: 01/07/2019 Chief Complaint: Altered mental status. Primary Care Physician: Kiersten Mukherjee DO Consultants: Dr. Sinha and Dr. Valencia with Nephrology. Code Status: Full. History Of Present Illness: Patient is a 68-year-old female with past medical history of end-stage renal disease, on hemodialysis Saturday, Saturday, Saturday; diabetes mellitus type 2, non-insulin requiring; hypertension; history of hemorrhagic stroke with ventriculostomy; hyperlipidemia; GERD; diverticulosis, who was in her usual state of health until day of admission when the patient went for dialysis and subsequently was transferred to the ER for altered mental status. According to the daughter, patient's blood pressure this morning was around 120 systolic. She had held her blood pressure medications due to dialysis anticipating a low blood pressure afterwards. Patient tolerated dialysis well, however, became altered. Her blood pressure was elevated in the 200s systolic over 100 diastolic. Therefore, was referred for further evaluation and workup. Her initial labs showed a creatinine of 4.03. Sodium was low at 131. WBC count was normal. CT scan of the brain showed no intracranial hemorrhage or mass; mild cerebral edema. The antony matter, white matter junction was less distinct than seen in November 2017. No cortical based infarction identifiable. There was no midline shift. Therefore, MRI of the brain was done. Did not show any edema, but is negative for acute CVA. The patient was given IV steroids, hydralazine, and clonidine. The patient's mental status improved slightly, however, continued to be altered from her baseline. Her blood pressure continued to remain elevated in the 200s. Patient was then referred for admission. When seen in the ER, she was drowsy, lethargic, confused, vomiting, and speaking only a few words. Past Medical History: End-stage renal disease, on hemodialysis; diabetes mellitus type 2, zjy-[id number]-ynukqggib; hypertension; hyperlipidemia; diverticulosis; gastroesophageal reflux disease; history of hemorrhagic CVA, requiring ventriculostomy tube; gastroesophageal reflux disease. Past Surgical History: Laser surgery on both eyes; AV graft to the right arm; old AV graft in the right upper leg, which is nonfunctional; and ventriculostomy tube in the cranium for drainage of hemorrhagic stroke. Allergies: NO KNOWN DRUG ALLERGIES. Medications: List reviewed. Social History: Patient is , lives with her daughter. Does not require any assistance with her activities of daily living. Denies any tobacco use, alcohol use, or illicit drug use. Family History: Mother had diabetes. Review of Systems: Ten-point system reviewed, limited due to the patient's medical condition, however, negative except as above. Physical Examination: Vital Signs: Blood pressure 221/85; pulse 86; respirations 16; temperature 98.2 ; O2 100% on room air, did drop down to 88% and was placed on 4 L via nasal cannula. General: Awake, lethargic, ill-appearing, elderly female, in some mild distress. HEENT: Normocephalic, atraumatic. PERRLA. EOMI. Dry mucous membranes. Oropharynx is clear. Conjunctivae anicteric. Neck: Supple. No JVD. Trachea midline. Cardiovascular: S1, S2. Regular rate and rhythm. Peripheral pulses present. Respiratory: Diminished breath sounds, some crackles heard at the bases. No wheezing or stridor. Gastrointestinal: Abdomen is soft, nontender, nondistended. Positive bowel sounds. No guarding or rigidity. Extremities: No clubbing, cyanosis. No pedal edema. No calf tenderness. Neurologic: Unable to properly assess cranial nerves due to patient's medical condition; however, there is no focal neurological deficit. Her speech is slowed and she has word-finding difficulty. Skin: No rashes. Normal skin turgor. AV graft in place. Psychiatric: Unable to assess. Laboratory Data: Sodium 131, potassium 4.3, chloride 93, CO2 of 29, BUN 20, creatinine 4.03, glucose 177, calcium 10.1. INR 0.85. WBC 8.2, H and H 15.2 and 43.6, platelets 189, neutrophils 74%. Imaging Studies: MRI of the brain shows negative for acute CVA or other acute intracranial abnormality. CT scan of the head showed no intracranial hemorrhage or mass. Mild cerebral edema. EKG shows normal sinus rhythm rate of 87, possible left atrial enlargement, left ventricular hypertrophy with repolarization abnormality, prolonged QT, abnormal EKG. Assessment And Plan: A 68-year-old female with. 1. Acute metabolic encephalopathy, may be related to elevated blood pressure with altered sensorium versus possible cerebrovascular accident or transient ischemic attack. Patient has had a hemorrhagic stroke in the past. We will consult Neurology. CT scan of the brain did show some mild cerebral edema. Patient was given steroids. MRI of the brain, however, did not show any edema or acute cortical based infarct. We will continue to monitor closely. Not a candidate for any tPA due to history of hemorrhagic cerebrovascular accident. 2. Hypertensive emergency. Blood pressure is 200s over 100s, not improved with dialysis. She was given hydralazine, clonidine in the ER. We will need to start on Cardene drip to lower blood pressure in the 180s to 160s systolic to avoid another hemorrhagic cerebrovascular accident. Patient previously required ventriculostomy drainage. We will monitor closely. 3. Hyponatremia. 4. End-stage renal disease, on hemodialysis. We will continue hemodialysis as scheduled. Consult out and out cigar maker hand. Patient follows with Dr. Estrella. 5. Diabetes mellitus type 2, iev-jdvxyte-[id number] with hyperglycemia and chronic kidney disease. We will place on sliding scale insulin and monitor blood glucose levels. 6. Mixed hyperlipidemia. We will continue statin. 7. Gastroesophageal reflux disease without esophagitis. 8. History of diverticulosis. 9. Deep vein thrombosis prophylaxis with SCDs. Plan: We will admit the patient to ICU, place as inpatient. Length of stay greater than 2 midnights. /BROOKE Voice ID: [id number] TIMO
[2019-01-08 05:03] LABS: Absolute Lymphocytes (CBC) 1.2 K/uL (0.7-4.9); Basophils % 0.3 % (0-1.3); Hematocrit 38.8 % (36.0-45.0); Lymphocytes % 12.7 % (15.3-44.8); MPV 11.9 fL (7.6-11.3); RBC Red Blood Cell Count 4.09 M/uL (3.86-4.86)
[2019-01-08 05:37] VITALS: BMI 21.7
[2019-01-08 06:06] LABS: Albumin 3.6 g/dL (3.4-5.0); Bilirubin Total 0.6 mg/dL (0.2-1.0); Magnesium 2.8 mg/dL (1.8-2.4); Phosphorus 5.7 mg/dL (2.5-4.9); Protein, Total 7.5 g/dL (6.4-8.2)
[2019-01-08 06:10] LABS: Potassium 6.5 mmol/L (3.5-5.1)
[2019-01-08] MEDS ORDERED: ALBUTEROL 2.5 MG/3 ML NEB SOL NEB ONE (06:43)
[2019-01-08] MEDS ORDERED: D50W 25 GM/50 ML SYRINGE IV ONE (06:44)
[2019-01-08] MEDS ORDERED: INSULIN -REGULAR HUMAN 50 UNIT/0.5 ML ML IV ONE (06:46)
[2019-01-08] MEDS: INSULIN -REGULAR HUMAN 50 UNIT/0.5 ML ML SQ SCH ×4 (07:30→20:57)
[2019-01-08] MEDS: LOSARTAN POTASSIUM 50 MG TABLET PO SCH (08:02)
[2019-01-08] MEDS: HOME MED 1 EA UNK (Linagliptin [Tradjenta] 5 MG) PO SCH (08:02)
[2019-01-08] MEDS: METOPROLOL TAR 25 MG TAB PO SCH ×2 (08:03→20:50)
[2019-01-08] MEDS: PANTOPRAZOLE 40MG TABLET PO SCH ×2 (08:14→16:09)
[2019-01-08] MEDS ORDERED: MANNITOL 25% 12.5 GM/50 ML VIAL IV PRN (09:14)
[2019-01-08] MEDS ORDERED: NA CHLORIDE 0.9% 1,000 ML IV PRN (09:14)
[2019-01-08] MEDS ORDERED: ALBUMIN HUMAN 25% 50 ML IV SCH (10:00)
--- NOTE | 2019-01-08 12:27 | PN ---
Date of Progress Note: 01/08/2019 Subjective: Patient seen and examined. Chart reviewed and case discussed with RN. Patient much mor e awake and alert today, talking in full sentences. No family at the bedside. Medications List: Reviewed. Physical Examination: Vital Signs: Temperature 97, heart rate 96, blood pressure 93/66, respirations 19, and O2 of 96% on room air. General: Awake, alert, and oriented x3. Elderly female, not in any acute distress. CV: S1, S2. Regular rate and rhythm. Peripheral pulses present. Respiratory: Moving air well bilaterally. No wheezing. Gastrointestinal: Abdomen is soft, nontender, nondistended. Positive bowel sounds. No guarding or rigidity. Extremities: No clubbing, cyanosis, or edema. Neuro: Cranial nerves 2 through 12 intact grossly. No focal neurological deficit. Speech is normal . Skin: No rashes. Normal skin turgor. Laboratory Data: Sodium 130, potassium 6.5, chloride 94, CO2 of 29, BUN 37, creatinine 5.9, glucose 169, calcium 9.2, phosphorus 5.7, magnesium 2.8. WBC 9.4, H and H of 13 and 38.8, platelets 183. Br ain MRI from yesterday shows no acute CVA or other intercranial abnormality. Patient has changes of previous ventriculostomy. Assessment And Plan: A 68-year-old female with: 1.Hypertensive emergency. Patient required Cardene drip. Blood pressure is now on the low side. W e will continue to monitor. Cardene drip is now off. Confusion is better, however, still seems to b e somewhat lethargic and not back to baseline per family. Neurology evaluation pending. MRI of the brain did not show any acute infarct. 2.Acute metabolic encephalopathy, likely related to elevated blood pressure versus possible transien t ischemic attack, cerebrovascular accident was ruled out. Neuro evaluation pending. 3.Hyponatremia. We will adjust IV fluids. 4.Hyperkalemia. Patient being dialyzed today. 5.Hyperphosphatemia. 6.Hypomagnesemia. We will continue with dialysis then monitor. 7.End-stage renal disease, on hemodialysis. Nephrology on board. We will continue dialysis as sche duled. 8.Diabetes mellitus type 2 [id number] with hyperglycemia and chronic kidney disease, end- stage. We will continue sliding scale insulin, monitor blood glucose levels. 9.Mixed hyperlipidemia. Continue with statin. 10.Gastroesophageal reflux disease without esophagitis, stable. 11.History of diverticulosis. 12.Deep venous thrombosis prophylaxis. We will start on Lovenox renally dosed. Plan: Step down from ICU pending neuro evaluation. PT/OT. /BROOKE Voice ID: [id number] Report ID: [id number]
[2019-01-08] MEDS: ENOXAPARIN 30 MG/0.3 ML SQ SCH (16:10)
--- NOTE | 2019-01-08 20:18 | CON ---
Date of Consultation: 01/08/2019 Reason For Consultation: Hyperkalemia. History Of Present Illness: This is a pleasant 68-year-old female, well known to me from dialysis wi th significant past medical history of hypertension, hyperlipidemia, end-stage renal disease, on hemo dialysis at [facility] Saturday, Saturday, Saturday. Patient was in her regular sta te of health. I saw her on dialysis. During the dialysis, patient started acting weird, confused, a nd elevation in the blood pressure. Blood sugar was within normal limit. For that reason, the patie nt was sent to the hospital. In the hospital, found to have elevation in the blood pressure. For th at reason, patient was admitted to ICU. The patient underwent urgent dialysis for potassium of 6.5. The patient currently back to her baseline. Denying nausea, no vomiting. Still has some headache, but much better than before. Past Medical History: 1.Hypertension. 2.Hyperlipidemia. 3.Diabetes. 4.CVA, requiring ventriculostomy tube. 5.GERD. 6.End-stage renal disease, on hemodialysis Saturday, Saturday, Saturday. Past Surgical History: 1.Laser surgery for the eye. 2.AV fistula. 3.Ventriculostomy tube in the cranium for drainage of hemorrhage. Allergies: NO KNOWN DRUG ALLERGY. Social History: Lives with family. Denies smoking. Denies drinking. Denies drugs abuse. Review of Systems: Head and neck: Has headache. GI: No nausea. No vomiting. : No polyuria. No dysuria. No hematuria. MEDICAID BILLING CLERK: No vaginal discharge. Respiratory: No shortness of breath. Cardiovascular: No chest pain. Endocrine: No polydipsia. Skin: No rash. Neuro: Has altered mental status. Musculoskeletal: No joint pain. Home Medications: Hydralazine, atorvastatin, amlodipine, pantoprazole, metoprolol, losartan, and Tra djenta. Current Medication In The Hospital: Amlodipine, atorvastatin, Cardizem, losartan, Zofran, and tramad ol. Physical Examination: Vital signs: When I saw the patient, blood pressure of 102/72, pulse of 83. Chest: Clear to auscultation. Heart: S1, S2. Regular. Systolic murmur. Abdomen: Soft, nontender. Extremities: No edema. Neurologic: Alert and oriented x3. Nonfocal. Laboratory Data: H and H 13/38.8. Sodium 130, potassium 6.5, bicarb 37, BUN 29, creatinine 5.9, idalia cium 9.2. Assessment And Plan: 1.End-stage renal disease with hyperkalemia and urgent hypertension. We have done the patient on di alysis. Hyperkalemia has been resolved. 2.Hypertension, controlled. Currently low blood pressure. We will hold on blood pressure medicatio n. 3.Anemia of chronic kidney disease. No need for VANESSA. 4.Secondary hyperparathyroidism. We will resume binder. 5.Urgent hypertension, status post treatment, resolved. 6.Diabetes, as by primary. 7.Hyperkalemia. Patient was dialyzed on low-potassium bath, recovered. We will follow up the lab f or tomorrow. Thank you, Dr. Domingo, for allowing us to participate in the care of your patient. FRANK Voice ID: [id number] Report ID: [id number]
[2019-01-08] MEDS: AMLODIPINE 10 MG TAB PO SCH (20:51)
[2019-01-08] MEDS: ATORVASTATIN 20 MG TAB PO SCH (20:57)
[2019-01-09 05:37] LABS: Absolute Lymphocytes (CBC) 1.2 K/uL (0.7-4.9); Basophils % 0.3 % (0-1.3); Lymphocytes % 15.7 % (15.3-44.8); MPV 11.6 fL (7.6-11.3); RBC Red Blood Cell Count 3.74 M/uL (3.86-4.86)
[2019-01-09 05:48] LABS: Albumin 3.6 g/dL (3.4-5.0); Bilirubin Total 0.6 mg/dL (0.2-1.0); Phosphorus 5.9 mg/dL (2.5-4.9); Potassium 4.2 mmol/L (3.5-5.1); Protein, Total 7.3 g/dL (6.4-8.2)
[2019-01-09] MEDS: INSULIN -REGULAR HUMAN 50 UNIT/0.5 ML ML SQ SCH ×3 (07:30→16:32)
[2019-01-09] MEDS: PANTOPRAZOLE 40MG TABLET PO SCH ×2 (07:30→16:33)
[2019-01-09] MEDS: HOME MED 1 EA UNK (Linagliptin [Tradjenta] 5 MG) PO SCH (09:00)
[2019-01-09] MEDS: METOPROLOL TAR 25 MG TAB PO SCH (09:00)
[2019-01-09] MEDS: LOSARTAN POTASSIUM 50 MG TABLET PO SCH (09:00)
[2019-01-09 11:34] VITALS: O2SAT 98
[2019-01-09 12:57] VITALS: TEMP 97.3
--- NOTE | 2019-01-09 13:21 | P.PN ---
Subjective Date of Service: 01/09/19 Subjective: Improving Pt with ESRD on HD MWF , sent from HD unit for confuion pt noticed to be confused during HD , no chest pain, plapitation Pt was hyperkalemic with HTN Urgnecy Today seen and examined during HD Stable VS MRI -ve Physical Examination - Vital Signs Temperature: 97.3 F Blood Pressure: 143/70 Pulse: 81 Respirations: 20 Pulse Ox (%): 98 - Physical Exam General: In no apparent distress, Oriented x3 HEENT: Atraumatic Neck: Supple, Without JVD or thyroid abnormality Respiratory: Clear to auscultation bilaterally, Normal air movement Cardiovascular: No edema, Normal pulses, Regular rate/rhythm, No gallops, No rubs, No murmurs Gastrointestinal: Normal bowel sounds, Soft and benign Assessment And Plan - Current Problems (Diagnosis) (1) Hyperkalemia Onset Date: 01/31/15 Current Visit: No Status: Acute (2) Diabetes mellitus Onset Date: 07/30/17 Current Visit: No Status: Chronic Qualifiers: (3) ESRD (end stage renal disease) on dialysis Onset Date: 01/31/15 Current Visit: No Status: Chronic - Plan End-stage renal disease on HD MWF HD today renal dose meds hyperkalemia corrected with HD HTN encephalopathy resolved MRI -ve Anemia of chronic kidney disease. No need for VANESSA. DM as per PCP
[2019-01-09 13:41] VITALS: BP 129/75
--- NOTE | 2019-01-09 15:33 | DS ---
Date of Discharge: 01/09/2019 Consultants: 1.Milton Sinha MD with Neurology. 2.Valdo Valencia M.D. with Nephrology. Admitting Diagnoses: 1.Hypertensive emergency. 2.Acute metabolic encephalopathy. 3.Hyponatremia. 4.End-stage renal disease, on hemodialysis. 5.Diabetes mellitus type 2 [id number]-lucsurqse with hyperglycemia and chronic kidney disease. 6.Mixed hyperlipidemia. 7.Gastroesophageal reflux disease without esophagitis. 8.History of diverticulosis. Discharge Diagnoses: 1.Hypertensive emergency, resolved. 2.Acute metabolic encephalopathy related to above cerebrovascular accident ruled out. 3.Hyponatremia, corrected. 4.Hyperkalemia, corrected. 5.Hyperphosphatemia. 6.Hypomagnesemia, replaced. 7.End-stage renal disease, on hemodialysis. 8.Diabetes mellitus type 2 [id number] with chronic kidney disease on dialysis. 9.Mixed hyperlipidemia. 10.Gastroesophageal reflux disease without esophagitis. 11.History of diverticulosis. Hospital Course: Patient is a 68-year-old female, who comes into the hospital with altered mental st atus after dialysis. Patient was found to have severely elevated blood pressure 200/100. CT scan wa s negative for any intracranial hemorrhage or mass, but did show cerebral edema. Therefore, MRI of t he brain was done, did not show any edema and was negative for acute cerebrovascular accident. Given her history of hemorrhagic stroke in the past, as well as uncontrolled blood pressure, not responsiv e to oral medications, patient was started on Cardene drip. Patient's blood pressure improved. She was monitored closely in the ICU setting. Neurology and Nephrology were consulted. Patient's mental status improved slowly and she was back to her baseline once her blood pressure improved. Patient's dialysis was continued by Nephrology. Overall, the patient did well. She was then able to ambulate without difficulty and was cleared for discharge from [employer] retailer sales consultant's standpoint. Condition: Fair. Activity: As tolerated. Diet: Renal. Followup: Follow up with primary care physician in 2-3 days. Follow up with dental hygiene professor, Dr. Marcus kilgore, in 2 weeks. Follow up with neurologist, Dr. Sinha in 2 weeks. Return to ER for worsening co ndition. Medications: As per medication reconciliation list. Physical Examination: General: Awake, alert, and oriented x3. Elderly female, no acute distress. CV: S1 and S2. Respiratory: Moving air well bilaterally. Abdomen: Soft, nontender, nondistended. Positive bowel sounds. Extremities: No clubbing, cyanosis, or edema. Neurologic: Nonfocal. Total time spent discharging the patient was 37 minutes. /BROOKE Voice ID: [id number] Report ID: [id number]
[2019-01-09] MEDS: ENOXAPARIN 30 MG/0.3 ML SQ SCH (16:34)
== END 2019-01-09 17:12 | disposition home or self-care (01) | DRG 304 ==
LOC: ER 09:28 → ERHOLD 12:45 → 3RD-ICU 16:02 → 2ND 01-08 14:35
PROVIDERS: ADMIT Family Medicine; ATTEND Family Medicine
PROC: 5A1D70Z Performance of Urinary Filtration, Intermittent, Less than 6 Hours Per Day (ICD-10-PCS; principal; 2019-01-07)
DX: I16.1 Hypertensive emergency (principal); N18.6 End stage renal disease; G93.41 Metabolic encephalopathy; G93.6 Cerebral edema; E87.1 Hypo-osmolality and hyponatremia; I12.0 Hypertensive chronic kidney disease with stage 5 chronic kidney disease or end stage renal disease; Z99.2 Dependence on renal dialysis; E11.22 Type 2 diabetes mellitus with diabetic chronic kidney disease; E11.65 Type 2 diabetes mellitus with hyperglycemia; E87.5 Hyperkalemia; E83.39 Other disorders of phosphorus metabolism; E83.42 Hypomagnesemia; D63.1 Anemia in chronic kidney disease; E78.2 Mixed hyperlipidemia; K21.9 Gastro-esophageal reflux disease without esophagitis; K57.90 Diverticulosis of intestine, part unspecified, without perforation or abscess without bleeding; Z86.73 Personal history of transient ischemic attack (TIA), and cerebral infarction without residual deficits
CPT/HCPCS: 36415; 70450; 70551; 71045; 80048; 80053; 80069; 82962; 83735; 84100; 85025; 85610; 85730; 90935; 93005; 94640; 96374; 96375; 97163; 99285; J0360; J1100; J1650; J2150; J2405; P9047

== ENCOUNTER 2019-04-07 06:25 | Observation (INO) | payer OTHER ==
--- NOTE | 2019-04-07 07:03 | RAD REPORT ---
EXAM DESCRIPTION: CT - Head Brain Wo Cont - 04/07/2019 6:54 am CLINICAL HISTORY: Headache, vomiting, transient alteration of awareness COMPARISON: CT head January 07, 2019 TECHNIQUE: Axial 5 mm thick images of the head were obtained without IV contrast. All CT scans are performed using dose optimization technique as appropriate and may include automated exposure control or mA/KV adjustment according to patient size. FINDINGS: No intracranial hemorrhage, mass, edema or shift of mid-line structures. No acute cortical based infarction identified. No cortical edema or sulcal effacement. No abnormal extra-axial fluid c ollections. Atrophy changes are mild. Chronic ischemic changes are seen in the cerebral white matter. Focal encephalomalacia is present in the anterior left frontal lobe. Ventricles are normal in size f or any volume loss. Arterial and physiologic calcifications are present. Small focal hyperdensity in the genu of the left internal capsule is unchanged comparison. Mastoid air cells and visualized portions of the paranasal sinuses are clear. No acute bony findings. IMPRESSION: Negative non-contrast CT head examination for acute intracranial finding. Atrophy, chronic ischemic change and left frontal encephalomalacia changes are all stable from December 16 imaging.
[2019-04-07 07:43] LABS: Protime INR 0.99
[2019-04-07 07:48] LABS: Absolute Lymphocytes (CBC) 0.7 K/uL (0.7-4.9); Basophils % 0.5 % (0-1.3); Hematocrit 35.8 % (36.0-45.0); Lymphocytes % 5.8 % (15.3-44.8); MPV 10.7 fL (7.6-11.3); RBC Red Blood Cell Count 3.76 M/uL (3.86-4.86)
[2019-04-07] MEDS ORDERED: NA CHLORIDE 0.9% 250 ML ONE (08:16)
[2019-04-07 08:25] LABS: Albumin 4.1 g/dL (3.4-5.0); Bilirubin Direct 0.3 mg/dL (0-0.2); Magnesium 2.9 mg/dL (1.8-2.4); Potassium 4.9 mmol/L (3.5-5.1); Protein, Total 8.8 g/dL (6.4-8.2); Troponin (Emerg Dept Use Only) 0.05 ng/mL (0.0-0.045)
[2019-04-07] MEDS ORDERED: ACETAMINOPHEN 650MG/RECT SUPP PR ONE (08:28)
[2019-04-07] MEDS ORDERED: ACETAMINOPHEN 325 MG/SUPP PR ONE (08:28)
[2019-04-07 08:30] LABS: Blood Morphology Comment NOT SEEN (NOT SEEN); Platelet Estimate ADEQ
--- NOTE | 2019-04-07 08:32 | RAD REPORT ---
EXAM DESCRIPTION: MRI - Brain Wo Cont - 04/07/2019 8:20 am CLINICAL HISTORY: MENTAL STATUS CHANGE, right-sided head pain, vomiting, excessive somnolence, histo ry of prior CVA 2016 COMPARISON: CT head April 07, MR brain December 2018 TECHNIQUE: Sagittal T1-weighted images were obtained along with axial PD, heavily T2-weighted and T2 -FLAIR images. Axial DWI and ADC mapping sequences were also obtained along with coronal heavily T2-w eighted images. FINDINGS: Motion degradation is present on most of the sequences. Exam is still considered diagnosti c. No intracranial hemorrhage, mass or acute infarction. There is no edema or shift of midline structure s. Focal signal abnormality is present extending from the skull to the left lateral ventricle. This i s defect related to an old ventriculostomy tube. Atrophy changes are mild with ventricles in proporti on to volume loss. Chronic ischemic changes evident in the cerebral white matter. Basal ganglia and b rainstem appear generally clear of any significant chronic ischemic change. Serrano-matter/white matter junction is preserved. Signal voids are seen as a normal finding in the major intracranial vessels. No globe or orbital content abnormality. No sella or supra sella abnormality. Mastoid air cells and paranasal sinuses are clear. IMPRESSION: Motion degraded study shows no acute infarction. Mild atrophy and chronic ischemic changes are present. No acute intracranial finding.
--- NOTE | 2019-04-07 08:43 | RAD REPORT ---
EXAM DESCRIPTION: RAD - Chest Single View - 04/07/2019 6:56 am CLINICAL HISTORY: Altered mental status, cough COMPARISON: January 07 TECHNIQUE: AP portable chest image was obtained 0652 hours . FINDINGS: Lung volumes are low. No peripheral mass or consolidation. Interstitial opacification is p resent slightly worse in the left upper lobe and right upper lobe. Trachea is midline. Vascular stent overlies the upper right chest. Heart size is upper normal. No vascular engorgement. No measurable p leural effusion and no pneumothorax. No acute bony abnormality seen. No acute aortic findings suspect ed. IMPRESSION: Heart size and vasculature are within normal limits. Increased interstitial opacification could indicate a mild failure or volume overload. Early upper lobe pneumonia is not excluded and can be monitored on subsequent imaging.
[2019-04-07] MEDS ORDERED: AZITHROMYCIN IV 500 MG in NA CHLORIDE 0.9% 250 ML IVPB ONE (09:15)
[2019-04-07] MEDS ORDERED: CEFTRIAXONE/SWI 1gm 1 GM/10 ML SYR ONE (09:19)
--- NOTE | 2019-04-07 09:23 | ER ---
Nurse's Notes [facility] Name: Lynne Leggett Age: 68 yrs Sex: Female : 1950 Arrival Date: 04/07/2019 Time: 06:26 Bed 4 Private MD: Diagnosis: Pneumonia, unspecified organism;Altered mental status, unspecified Presentation: 04/07 06:31 Presenting complaint: EMS states: EMS called to pt's residence, daughter reported this ea AM pt was complaining of severe headache, daughter gave Tylenol for pain. Pt vomited one time and became unresponsive. EMS reported pt responded to verbal stimulus. Blood sugar was 220. Transition of care: patient was not received from another setting of care. Onset of symptoms was April 07, 2019. Risk Assessment: Do you want to hurt yourself or someone else? Patient reports no desire to harm self or others. Initial Sepsis Screen: Does the patient meet any 2 criteria? No. Patient's initial sepsis screen is negative. Does the patient have a suspected source of infection? No. Patient's initial sepsis screen is negative. Care prior to arrival: None. 06:31 Method Of Arrival: EMS: [facility] 06:31 Acuity: SHIKHA 3 ea Triage Assessment: 06:38 General: Appears uncomfortable, Behavior is drowsy. Pain: Complains of pain in right ea frontal area, right temporal area and right side of forehead. Neuro: Level of Consciousness is drowsy. Oriented to person, place, Voip Network Technician are weak on left hand. Cardiovascular: Patient's skin is warm and dry. Respiratory: Airway is patent Respiratory effort is even, unlabored, Respiratory pattern is regular, symmetrical. GI: Abdomen is round. Derm: Skin is dry, Skin is normal, Skin temperature is warm. Historical: - Allergies: 06:37 Nifedipine; ea 06:37 Vancomycin; ea - PMHx: 06:37 Hypertension; High Cholesterol; GERD; ESRD; DIALYSIS MWF; Diabetes - NIDDM; CVA ea (hemorrhagic); - PSHx: 06:37 dialysis shunt R arm; ea - Immunization history:: Adult Immunizations up to date. - Social history:: Smoking status: Patient/guardian denies using tobacco. - Ebola Screening: : No symptoms or risks identified at this time. Screenin:36 Abuse screen: Denies threats or abuse. Nutritional screening: No deficits noted. ea Tuberculosis screening: No symptoms or risk factors identified. Fall Risk None identified. 06:36 VAN Screening: Arm Drift: Patient shows no arm weakness. Patient is VAN negative. ea 07:00 The patient has not been NPO before screening. The patient is currently on the jl7 following diet: Regular The patient is not alert, or is unable to follow commands. Bedside swallow screening discontinued. Patient kept NPO until cleared by Speech Therapy or Physician. The patient failed the bedside swallow screening. The patient will be kept NPO until cleared by Speech Therapy or Physician. Provider notified of bedside swallow screening results: Mauro Medeiros CARE ASSISTANT. Assessment: 06:44 Reassessment: Daughter at bedside reports last well known was 1999 last night, reports ea she has been on dialysis for nine years a half years and makes no urine. 07:30 General: Appears in no apparent distress. uncomfortable, Behavior is cooperative, jl7 drowsy. Neuro: Level of Consciousness is obtunded. Cardiovascular: Patient's skin is warm and dry. Rhythm is sinus tachycardia. Respiratory: Airway is patent Respiratory effort is even, unlabored, shallow, Respiratory pattern is regular, symmetrical. : Parent/caregiver report the patient having Pt on dialysis, she does not make urine. Derm: Skin is pink, warm \T\ dry. 08:33 Reassessment: Pt returned from MRI, pt responsive to sternal rub only, rectal temp jl7 assessed at 100.9, ERP notified see MAR for orders. 09:39 Reassessment: [id number]. sv Vital Signs: 06:36 BP 131 / 107; Pulse 117; Resp 20; Temp 99.4; Pulse Ox 96% on R/A; Weight 54.43 kg; ea Height 4 ft. 11 in. (149.86 cm); 07:00 BP 112 / 74; Pulse 115; Resp 16; Pulse Ox 99% ; sv 08:33 BP 151 / 94; Pulse 120; Resp 19 S; Temp 100.9(R); Pulse Ox 96% on 2 lpm NC; jl7 06:36 Body Mass Index 24.24 (54.43 kg, 149.86 cm) ea ED Course: 06:26 Patient arrived in ED. ss 06:28 Mauro Medeiros NP is PHCP. pm1 06:28 Nakul Jett MD is Attending Physician. pm1 06:36 Triage completed. ea 06:38 Arm band placed on right wrist. Patient placed in an exam room, on a stretcher, on ea pulse oximetry. 06:38 Patient has correct armband on for positive identification. Placed in gown. Bed in low ea position. Call light in reach. Side rails up X2. 06:53 XRAY Chest (1 view) In Process Unspecified. EDMS 06:55 CT Head Brain wo Cont In Process Unspecified. EDMS 07:20 First set of blood cultures drawn by me. Inserted saline lock: 24 gauge in left hand, sv using aseptic technique. Blood collected. Flushed left hand with 5 ml normal saline. 07:25 Patient moved to MRI via stretcher. sv 07:30 Tracy Scott RN is Primary Nurse. jl7 07:30 monitor technician on. Pulse ox on. NIBP on. Warm blanket given. jl7 08:20 Brain Wo Cont MRI In Process Unspecified. EDMS 09:21 Anais Thapa MD is Hospitalizing Provider. pm1 12:11 No provider procedures requiring assistance completed. Patient admitted, IV remains in jl7 place. intact, No redness/swelling at site. Administered Medications: 08:36 Drug: Acetaminophen Suppository 1000 mg Route: DC; jl7 08:44 Drug: NS 0.9% 250 ml Route: IV; Rate: bolus; Site: left hand; jl7 09:01 CANCELLED (Duplicate Order): Rocephin - (cefTRIAXone) 1 grams IVPB once over 30 mins; sv (mix in 50 mL NS) 09:24 Drug: Rocephin 1 grams Route: IV; Rate: calculated rate; Site: left hand; sv 09:27 Follow up: Response: No adverse reaction; IV Status: Completed infusion; IV Intake: 10mlsv 09:27 Drug: AZITHromycin 500 mg Route: IVPB; Infused Over: 1 hrs; Site: left hand; sv Intake: 09:27 IV: 10ml; Total: 10ml. sv Outcome: 09:21 Decision to Hospitalize by Provider. pm1 12:11 Admitted to Tele accompanied by lizbet, via stretcher, room 205, with chart, Report jl7 called to LUZMARIA Guadarrama 12:11 Condition: stable 12:11 Discharge instructions given to patient, family, Instructed on the need for admit, Demonstrated understanding of instructions. 12:37 Patient left the ED. ss Signatures: Dispatcher [employer] Amelia Krause RN RN sv Smirch, Shelby, RN RN ss Marinas, Patrick, CARE ASSISTANT CARE ASSISTANT pm1 Tracy Scott RN RN jl7 Nia Ramirez RN RN ea Corrections: (The following items were deleted from the chart) 06:44 06:31 Presenting complaint: EMS states: EMS called to pt's residence, daughter reported ea this AM pt was complaining of severe headache, daughter gave Tylenol for pain. Pt vomited one time and became unresponsive. EMS reported pt responded to verbal stimulus. Blood sugar was 220 ea
--- NOTE | 2019-04-07 09:23 | EDPHYS ---
Physician Documentation [facility] Name: Lynne Leggett Age: 68 yrs Sex: Female : 1950 Arrival Date: 04/07/2019 Time: 06:26 Bed 4 Private MD: ED Physician Nakul Jett HPI: 04/07 06:56 This 68 yrs old Female presents to ER via EMS with complaints of Altered pm1 Mental Status. 06:56 The patient presents with decreased responsiveness. Onset: The symptoms/episode pm1 began/occurred this morning, at 05:00. Possible causes: unknown. Associated signs and symptoms: Pertinent positives: headache, vomiting, Pertinent negatives: chest pain, shortness of breath. Patient's baseline: Neuro: alert and fully oriented, Motor: Left arm weakness from CVA 2 years ago, Ambulation: walks without assistance, Speech: normal, The patient has a previous history of CVA. The patient has been recently seen by a physician: the patient's primary care provider, Dr. Mukherjee for apparently unrelated complaints, patient was seen for a routine check. Information obtained from daughter. Patient AAO x 2, person and place, but appears drowsy. Moves all extremities. Responds to verbal stimuli. Patient with complaints of right sided headache that started at 1900 yesterday. Daughter gave her some Tylenol and the patient reported slight improvement in headache. Went to bed at 2100 at her normal baseline. Daughter went to get check on her this AM at 0500 and woke the patient up. Patient continued to complain of right sided headache and vomited. Daughter reports that she has decreased responsiveness. Historical: - Allergies: 06:37 Nifedipine; ea 06:37 Vancomycin; ea - PMHx: 06:37 Hypertension; High Cholesterol; GERD; ESRD; DIALYSIS MWF; Diabetes - NIDDM; CVA ea (hemorrhagic); - PSHx: 06:37 dialysis shunt R arm; ea - Immunization history:: Adult Immunizations up to date. - Social history:: Smoking status: Patient/guardian denies using tobacco. - Ebola Screening: : No symptoms or risks identified at this time. ROS: 07:35 Constitutional: Negative for fever, chills, and weight loss, Eyes: Negative for injury, pm1 pain, redness, and discharge. 07:35 ENT: Negative for injury, pain, and discharge, Neck: Negative for injury, pain, and swelling, Cardiovascular: Negative for chest pain, palpitations, and edema. 07:35 Back: Negative for injury and pain, : Negative for injury, bleeding, discharge, and swelling. Has not urinated in 3 years, dialysis for 9.5 years 07:35 MS/Extremity: Negative for injury and deformity, Skin: Negative for injury, rash, and discoloration. 07:35 Respiratory: Positive for cough, with no reported sputum, Negative for shortness of breath, wheezing. 07:35 Abdomen/GI: Positive for Vomiting this AM, Negative for diarrhea, constipation. 07:35 Neuro: Positive for altered mental status, headache, Negative for numbness, tingling, no new weakness, baseline left arm and hand weakness. Exam: 07:35 Constitutional: This is a well developed, well nourished patient who is awake, alert, pm1 and in no acute distress. Head/Face: Normocephalic, atraumatic. Eyes: Pupils equal round and reactive to light, extra-ocular motions intact. Lids and lashes normal. Conjunctiva and sclera are non-icteric and not injected. Cornea within normal limits. Periorbital areas with no swelling, redness, or edema. ENT: Nares patent. No nasal discharge, no septal abnormalities noted. Tympanic membranes are normal and external auditory canals are clear. Oropharynx with no redness, swelling, or masses, exudates, or evidence of obstruction, uvula midline. Mucous membranes moist. Neck: Trachea midline, no thyromegaly or masses palpated, and no cervical lymphadenopathy. Supple, full range of motion without nuchal rigidity, or vertebral point tenderness. No Meningismus. Chest/axilla: Normal chest wall appearance and motion. Nontender with no deformity. No lesions are appreciated. Cardiovascular: Regular rate and rhythm with a normal S1 and S2. No gallops, murmurs, or rubs. No pulse deficits. Respiratory: Lungs have equal breath sounds bilaterally, clear to auscultation and percussion. No rales, rhonchi or wheezes noted. No increased work of breathing, no retractions or nasal flaring. Abdomen/GI: Soft, non-tender, with normal bowel sounds. No distension or tympany. No guarding or rebound. No evidence of tenderness throughout. Back: No spinal tenderness. No costovertebral tenderness. Full range of motion. Skin: Warm, dry with normal turgor. Normal color with no rashes, no lesions, and no evidence of cellulitis. MS/ Extremity: Pulses equal, no cyanosis. Neurovascular intact. Full, normal range of motion. 07:35 Neuro: Orientation: to person, place, Not oriented to time, situation, Mentation: responsive to voice sleepy, Motor: moves all fours, Sensation: is normal, no obvious gross deficits. Vital Signs: 06:36 BP 131 / 107; Pulse 117; Resp 20; Temp 99.4; Pulse Ox 96% on R/A; Weight 54.43 kg; ea Height 4 ft. 11 in. (149.86 cm); 07:00 BP 112 / 74; Pulse 115; Resp 16; Pulse Ox 99% ; sv 08:33 BP 151 / 94; Pulse 120; Resp 19 S; Temp 100.9(R); Pulse Ox 96% on 2 lpm NC; jl7 06:36 Body Mass Index 24.24 (54.43 kg, 149.86 cm) ea MDM: 06:28 Patient medically screened. pm1 07:35 Data reviewed: vital signs. Data interpreted: Pulse oximetry: on room air is 99 %. pm1 Interpretation: normal. 08:52 Counseling: I had a detailed discussion with the patient and/or guardian regarding: the pm1 historical points, exam findings, and any diagnostic results supporting the discharge/admit diagnosis, lab results, radiology results, the need for further work-up and treatment in the hospital. 04/07 06:30 Order name: Basic Metabolic Panel; Complete Time: 08:41 pm1 04/07 06:30 Order name: CBC with Diff; Complete Time: 08:41 pm1 04/07 06:30 Order name: LFT's; Complete Time: 08:41 pm1 04/07 06:30 Order name: Magnesium; Complete Time: 08:41 pm1 04/07 06:30 Order name: NT PRO-BNP; Complete Time: 08:41 pm1 04/07 06:30 Order name: PT-INR; Complete Time: 08:15 pm1 04/07 06:30 Order name: Troponin (emerg Dept Use Only); Complete Time: 08:41 pm1 04/07 06:30 Order name: Urine Microscopic Only pm1 10/22 07:07 Order name: Blood Culture Adult (2) pm1 04/07 07:07 Order name: Procalcitonin; Complete Time: 08:41 pm1 04/07 07:07 Order name: Flu; Complete Time: 08:15 pm1 04/07 07:11 Order name: Lactate; Complete Time: 08:15 pm1 04/07 08:31 Order name: Manual Differential; Complete Time: 08:41 EDMS 04/07 09:34 Order name: Sputum Culture EDMS 04/07 06:30 Order name: CT Head Brain wo Cont; Complete Time: 07:11 pm1 04/07 06:30 Order name: XRAY Chest (1 view); Complete Time: 08:48 pm1 04/07 06:30 Order name: EKG; Complete Time: 06:33 pm1 04/07 06:30 Order name: Cardiac monitoring; Complete Time: 06:39 pm1 04/07 06:30 Order name: EKG - Nurse/Tech; Complete Time: 06:39 pm1 04/07 06:30 Order name: IV Saline Lock; Complete Time: 07:25 pm1 04/07 06:30 Order name: Labs collected and sent; Complete Time: 07:25 pm1 04/07 06:53 Order name: Brain Wo Cont MRI; Complete Time: 08:41 pm1 04/07 09:34 Order name: NPO; Complete Time: 10:01 EDMS 04/07 10:26 Order name: Glucose, Ancillary Testing; Complete Time: 10:44 EDMS 04/07 10:33 Order name: Glucose, Ancillary Testing; Complete Time: 10:44 EDMS 04/07 06:30 Order name: O2 Per Protocol; Complete Time: 06:39 pm1 04/07 06:30 Order name: O2 Sat Monitoring; Complete Time: 06:39 pm1 Administered Medications: 08:36 Drug: Acetaminophen Suppository 1000 mg Route: NH; jl7 08:44 Drug: NS 0.9% 250 ml Route: IV; Rate: bolus; Site: left hand; jl7 09:01 CANCELLED (Duplicate Order): Rocephin - (cefTRIAXone) 1 grams IVPB once over 30 mins; sv (mix in 50 mL NS) 09:24 Drug: Rocephin 1 grams Route: IV; Rate: calculated rate; Site: left hand; sv 09:27 Follow up: Response: No adverse reaction; IV Status: Completed infusion; IV Intake: 10mlsv 09: Drug: AZITHromycin 500 mg Route: IVPB; Infused Over: 1 hrs; Site: left hand; Disposition: 04/08 06:39 Co-signature as Attending Physician, Nakul Jett MD I agree with the assessment and homero plan of care. Disposition: 04/07/19 09:21 Hospitalization ordered by Anais Thapa for Observation. Preliminary diagnosis are Pneumonia, unspecified organism, Altered mental status, unspecified. - Bed requested for Telemetry/MedSurg (observation). - Status is Observation. ss - Condition is Stable. - Problem is new. - Symptoms have improved. UTI on Admission? No Signatures: Dispatcher [employer] Amelia Krause, RN Nakul Mclean MD MD cha Nieto, Roman, MD MD rn Smirch, Shelby, RN RN ss Mauro Medeiros, TESTING AND REGULATING CHIEF TESTING AND REGULATING CHIEF pm1 Tracy Scott RN RN jl7 Nia Ramirez RN RN ea Corrections: (The following items were deleted from the chart) 04/07 06:47 06:30 Urine Dipstick-Ancillary ordered. pm1 ea 06:47 06:30 Mancini ordered. pm1 ea 09:01 08:58 Rocephin - (cefTRIAXone) 1 grams IVPB once over 30 mins; (mix in 50 mL NS) sv ordered. pm1 09:27 09:21 Hospitalization Ordered by Anais Thapa MD for Inpatient Admission. Preliminary pm1 diagnosis is Pneumonia, unspecified organism; Altered mental status, unspecified. Bed requested for Telemetry/MedSurg (Inpatient). Status is Inpatient Admission. Condition is Stable. Problem is new. Symptoms have improved. UTI on Admission? No. pm1 10:30 09:27 04/07/2019 09:21 Hospitalization Ordered by Anais Thapa MD for Observation. rn Preliminary diagnosis is Pneumonia, unspecified organism; Altered mental status, unspecified. Bed requested for Telemetry/MedSurg (observation). Status is Observation. Condition is Stable. Problem is new. Symptoms have improved. UTI on Admission? No. pm1 12:37 10:30 04/07/2019 09:21 Hospitalization Ordered by Anais Thapa MD for Observation. ss Preliminary diagnosis is Pneumonia, unspecified organism; Altered mental status, unspecified. Bed requested for Telemetry/MedSurg (observation). Status is Observation. Condition is Stable. Problem is new. Symptoms have improved. UTI on Admission? No. rn
--- NOTE | 2019-04-07 12:10 | EKG ---
Test Date: 2019-04-07 Test Time: 06:33:17 Clerical Car Checker: MAX MEASUREMENT RESULTS: Intervals: Rate: 118 GA: 130 QRSD: 86 QT: 316 QTc: 442 Lisle: P: 74 GA: 130 QRS: 81 T: 71 INTERPRETIVE STATEMENTS: Sinus tachycardia Biatrial enlargement Nonspecific ST abnormality Abnormal ECG Compared to ECG 01/07/2019 09:54:23 ST (T wave) deviation now present Sinus rhythm no longer present Left ventricular hypertrophy no longer present Early repolarization no longer present Prolonged QT interval no longer present Electronically Signed On 04-07-19 12:08:51 CDT by Umberto Puri
[2019-04-07] MEDS ORDERED: ONDANSETRON 4 MG/2 ML VIAL IV PRN (12:44)
[2019-04-07] MEDS: INSULIN -REGULAR HUMAN 50 UNIT/0.5 ML ML SQ SCH ×3 (12:44→20:22)
[2019-04-07] MEDS ORDERED: ACETAMINOPHEN 500 MG TAB PO PRN (13:13)
[2019-04-07 13:43] VITALS: BMI 24.2
[2019-04-07] MEDS ORDERED: INFLUENZA VACCINE (for 3y+) 0.5 ML DOSE IMVAC ONE (14:00)
[2019-04-07] MEDS ORDERED: NA CHLORIDE 0.9% 500 ML IV ONE (14:48)
--- NOTE | 2019-04-07 14:54 | P.HP ---
Certification for Inpatient Patient admitted to: Observation With expected LOS: <2 Midnights Patient will require the following post-hospital care: None Practitioner: I am a practitioner with admitting privileges, knowledge of patient current condition, hospital course, and medical plan of care. Services: Services provided to patient in accordance with Admission requirements found in Title 42 Section 412.3 of the Code of Federal Regulations Patient History Date of Service: 04/07/19 Primary Care Provider: Dr Mukherjee Reason for admission: Fever, nausea and vomitting History of Present Illness: 68 y/o F with Pmhx of Type 2 DM, HTN, ESRD on HD MWF who presented to the ED complaining of having Nausea, Vomiting and fever that started this AM. Family at bedside stated patient was having AMS and seemed lethargic and thus was brought to the ER for further care. Pt also complained of having SOB all day yesterday and appeared to be weak. Pt family denied any recent sick contacts. Pt has never said similar symptoms in the past. Pt had a low grade fever at home today and was given Tylenol at home at helped with Fever. Denies having cough, congestion, chills, Chest pain or any other symptoms. In the ER pt was found to have Sepsis 2.2 to PNA and thus was admitted for further care Allergies No Known Allergies Allergy (Verified 01/07/19 16:49) Home medications list reviewed: Yes - Past Medical/Surgical History Has patient received pneumonia vaccine in the past: No Diabetic: Yes -: DM-Type 2 -: HTN -: Hyperlipidemia -: ESRD on Dialysis M,W,F, Nephrology-Dr. Lynn -: Diverticulosis -: GERD -: History hemorrhagic CVA requiring craniotomy -: GERD -: Laser surgery on bilateral eyes -: AV graft to right arm -: Old AV graft in right upper leg-doesn't work. -: Craniotomy Psychosocial/ Personal History: , Lives with daughter. - Family History Mother -: Diabetes - Social History Smoking Status: Never smoker Alcohol use: No CD- Drugs: No Caffeine use: Yes Place of Residence: Home Review of Systems 10-point ROS is otherwise unremarkable Physical Examination - Vital Signs Temperature: 100.9 F Blood Pressure: 151/94 Pulse: 120 Respirations: 19 - Physical Exam General: Mild distress, Other (Lethargic ) HEENT: Atraumatic, PERRLA, Mucous membr. moist/pink, EOMI, Sclerae nonicteric Neck: Supple, 2+ carotid pulse no bruit, No LAD, Without JVD or thyroid abnormality Respiratory: Normal air movement, Crackles/rales, Expiratory wheezes, Inspiratory wheezes Cardiovascular: Regular rate/rhythm, Normal S1 S2 Gastrointestinal: Normal bowel sounds, No tenderness Musculoskeletal: No tenderness Integumentary: No rashes Neurological: Normal speech, Normal tone Lymphatics: No axilla or inguinal lymphadenopathy - Studies Laboratory Data (last 24 hrs) 04/07/19 07:20: PT 11.7, INR 0.99 04/07/19 07:20: WBC 11.7 H, Hgb 12.0, Hct 35.8 L, Plt Count 242 04/07/19 07:20: Sodium 131 L, Potassium 4.9, BUN 33 H, Creatinine 5.85 H*, Glucose 199 H, Magnesium 2.9 H, Total Bilirubin 1.0, AST 16, ALT 28, Alkaline Phosphatase 119 H Microbiology Data (last 24 hrs): 04/07/19 07:20 Nasopharnyx Influenza Type A Antigen Screen - Final 04/07/19 07:20 Nasopharnyx Influenza Type B Antigen Screen - Final Assessment and Plan - Problems (Diagnosis) (1) Sepsis Current Visit: Yes Status: Acute Plan: Sepsis 2.2 to PNA. -Initially with Tachycardia and Hypotension -Blood and sputum culture collected on Pending -On IV azithromycin and rocephin for PNA -Ildefonso continue and monitor closely Qualifiers: Sepsis type: sepsis due to unspecified organism Sepsis acute organ dysfunction status: with acute organ dysfunction Severe sepsis acute organ dysfunction type: encephalopathy Severe sepsis shock status: without septic shock Qualified Code(s): A41.9 - Sepsis, unspecified organism; R65.20 - Severe sepsis without septic shock; G93.40 - Encephalopathy, unspecified (2) Pneumonia Current Visit: No Status: Acute Plan: Chext xray with concerns for PNA -Started on IV abx azithromycin and rocephin -Procal and WBC elevated. -Pt with fever now and tachycardia. -caution with Fluids at this time due xray finding of volume overload -Will monitor closely Qualifiers: Pneumonia type: due to unspecified organism (3) Diabetes mellitus Onset Date: 07/30/17 Current Visit: No Status: Chronic Plan: On ISS for now Qualifiers: Diabetes mellitus type: type 2 Diabetes mellitus meterman insulin use: without penitentiary use Diabetes mellitus complication status: without complication Qualified Code(s): E11.9 - Type 2 diabetes mellitus without complications (4) ESRD (end stage renal disease) on dialysis Onset Date: 01/31/15 Current Visit: No Status: Chronic Plan: Currently with volume overload. -ESRD on HD MWF. Will dialysis patient clair (5) GERD (gastroesophageal reflux disease) Onset Date: 07/30/17 Current Visit: No Status: Chronic Qualifiers: (6) HTN (hypertension) Onset Date: 01/31/15 Current Visit: No Status: Chronic Qualifiers: (7) Hyperlipidemia Onset Date: 01/31/15 Current Visit: No Status: Chronic Qualifiers: Hyperlipidemia type: mixed hyperlipidemia Discharge Plan: Home Plan to discharge in: Greater than 2 days - Advance Directives Does patient have a Living Will: No Does patient have a Durable POA for Healthcare: No - Code Status/Comfort Care Code Status Assessed: Yes Critical Care: No
--- NOTE | 2019-04-07 14:56 | P.CNS ---
Date of Consult: 04/07/19 Chief Complaint: AMS History of Present Illness: pt is confused , hx obtained from chart and family at bedside A 68-year-old , with past medical history of hypertension, hyperlipidemia, end- stage renal disease, on hemodialysis at [facility] on MWF [place] Rt AVF Pt presented or AMS in ER pt was hypotensive , CXR with pneumonia family denied sick contact or recent travel, no vomiting , diarrhea or constipation Allergies No Known Allergies Allergy (Verified 01/07/19 16:49) - Past Medical/Surgical History Diabetic: Yes -: DM-Type 2 -: HTN -: Hyperlipidemia -: ESRD on Dialysis M,W,F, Nephrology-Dr. Lynn -: Diverticulosis -: GERD -: History hemorrhagic CVA requiring craniotomy -: GERD -: Laser surgery on bilateral eyes -: AV graft to right arm -: Old AV graft in right upper leg-doesn't work. -: Craniotomy Psychosocial/ Personal History: , Lives with daughter. - Family History Mother Medical History: Diabetes - Social History Alcohol use: No CD- Drugs: No Caffeine use: Yes Place of Residence: Home Physical Examination Temp Pulse Resp BP Pulse Ox 100.9 F 120 H 19 151/94 H 04/07/19 08:33 04/07/19 08:33 04/07/19 08:33 04/07/19 08:33 General: Confused HEENT: Atraumatic Neck: Supple, Without JVD or thyroid abnormality Respiratory: Clear to auscultation bilaterally, Normal air movement Cardiovascular: No edema, Normal S1 S2, Abnormal S3, No gallops, No murmurs Gastrointestinal: Soft and benign Laboratory Data (last 24 hrs) 04/07/19 07:20: PT 11.7, INR 0.99 04/07/19 07:20: WBC 11.7 H, Hgb 12.0, Hct 35.8 L, Plt Count 242 04/07/19 07:20: Sodium 131 L, Potassium 4.9, BUN 33 H, Creatinine 5.85 H*, Glucose 199 H, Magnesium 2.9 H, Total Bilirubin 1.0, AST 16, ALT 28, Alkaline Phosphatase 119 H Conclusions/Impression: End-stage renal disease on HD MWF HD tomorrow renal dose meds Sepsis F/u cultures Cont Abx HTN Controlled AMS likely due to sepsis head Ct : -ve hyponatremia will normalize with dialysis DM as per PCP
[2019-04-07] MEDS ORDERED: HYDRALAZINE HCL 25 MG TABLET PO PRN ×2 (16:40→18:48)
[2019-04-07] MEDS ORDERED: SEVELAMER CARBONATE 800 MG TABLET PO SCH (17:00)
[2019-04-07] MEDS ORDERED: ATORVASTATIN 20 MG TAB PO SCH (21:00)
[2019-04-07 21:40] VITALS: O2SAT 99
[2019-04-07] MEDS ORDERED: TEMAZEPAM 15 MG CAP PO PRN (23:57)
[2019-04-08 05:59] LABS: Absolute Lymphocytes (CBC) 1.3 K/uL (0.7-4.9); Basophils % 0.9 % (0-1.3); Lymphocytes % 16.1 % (15.3-44.8); MPV 10.8 fL (7.6-11.3); RBC Red Blood Cell Count 3.14 M/uL (3.86-4.86)
[2019-04-08 06:17] LABS: Albumin 3.3 g/dL (3.4-5.0); Bilirubin Total 0.7 mg/dL (0.2-1.0); Phosphorus 6.2 mg/dL (2.5-4.9); Protein, Total 7.2 g/dL (6.4-8.2)
[2019-04-08] MEDS: INSULIN -REGULAR HUMAN 50 UNIT/0.5 ML ML SQ SCH ×2 (07:30→11:30)
[2019-04-08] MEDS ORDERED: NA CHLORIDE 0.9% 1,000 ML IV PRN (08:22)
[2019-04-08] MEDS: SEVELAMER CARBONATE 800 MG TABLET PO SCH ×2 (08:23→12:52)
[2019-04-08] MEDS ORDERED: AMLODIPINE 10 MG TAB PO SCH ×2 (09:00)
[2019-04-08] MEDS ORDERED: AZITHROMYCIN IV 500 MG in NA CHLORIDE 0.9% 250 ML IVPB SCH (09:00)
[2019-04-08] MEDS ORDERED: CEFTRIAXONE/SWI 1gm 1 GM/10 ML SYR IV SCH (09:00)
[2019-04-08] MEDS ORDERED: ATORVASTATIN 20 MG TAB PO SCH (09:00)
--- NOTE | 2019-04-08 12:08 | P.SSS ---
Patient History Date of Service: 04/08/19 Primary Care Provider: Dr Mukherjee Reason for admission: Fever, nausea and vomitting History of Present Illness: 68 y/o F with Pmhx of Type 2 DM, HTN, ESRD on HD MWF who presented to the ED complaining of having Nausea, Vomiting and fever that started this AM. Family at bedside stated patient was having AMS and seemed lethargic and thus was brought to the ER for further care. Pt also complained of having SOB all day yesterday and appeared to be weak. Pt family denied any recent sick contacts. Pt has never said similar symptoms in the past. Pt had a low grade fever at home today and was given Tylenol at home at helped with Fever. Denies having cough, congestion, chills, Chest pain or any other symptoms. In the ER pt was found to have Sepsis 2.2 to PNA and thus was admitted for further care Allergies No Known Allergies Allergy (Verified 01/07/19 16:49) Home Medications: Amlodipine [Norvasc*] 10 mg PO DAILY 04/07/19 Atorvastatin Calcium 20 mg PO BEDTIME 04/07/19 Hydralazine [Apresoline*] 25 mg PO DAILY PRN 04/07/19 Linagliptin [Tradjenta] 5 mg PO DAILY 04/07/19 Sevelamer Carbonate [Renvela] 800 mg PO TID 04/07/19 Azithromycin [Zithromax Tri-Rosendo] 500 mg PO DAILY #7 tablet 04/08/19 - Past Medical/Surgical History Has patient received pneumonia vaccine in the past: Yes Diabetic: Yes -: DM-Type 2 -: HTN -: Hyperlipidemia -: ESRD on Dialysis M,W,F, Nephrology-Dr. Lynn -: Diverticulosis -: GERD -: History hemorrhagic CVA requiring craniotomy -: GERD -: Laser surgery on bilateral eyes -: AV graft to right arm -: Old AV graft in right upper leg-doesn't work. -: Craniotomy Psychosocial/ Personal History: , Lives with daughter. - Family History Mother -: Diabetes - Social History Smoking Status: Never smoker Alcohol use: No CD- Drugs: No Caffeine use: Yes Place of Residence: Home Review of Systems 10-point ROS is otherwise unremarkable Physical Examination - Vital Signs Temperature: 97.9 F Blood Pressure: 140/72 Pulse: 87 Respirations: 18 Pulse Ox (%): 100 - Physical Exam General: Alert, In no apparent distress HEENT: Atraumatic, PERRLA, Mucous membr. moist/pink, EOMI, Sclerae nonicteric Neck: Supple, 2+ carotid pulse no bruit, No LAD, Without JVD or thyroid abnormality Respiratory: Clear to auscultation bilaterally, Normal air movement Cardiovascular: Regular rate/rhythm, Normal S1 S2 Gastrointestinal: Normal bowel sounds, No tenderness Musculoskeletal: No tenderness Integumentary: No rashes Neurological: Normal gait, Normal speech, Normal strength at 5/5 x4 extr, Normal tone, Normal affect Lymphatics: No axilla or inguinal lymphadenopathy - Studies Microbiology Data (last 24 hrs): 04/07/19 08:39 Blood - Blood Anaerobic Blood Culture - Final 04/07/19 07:20 Blood - Blood Anaerobic Blood Culture - Final 04/07/19 07:20 Nasopharnyx Influenza Type A Antigen Screen - Final 04/07/19 07:20 Nasopharnyx Influenza Type B Antigen Screen - Final - Diagnosis (Problem(s)) (1) Sepsis Current Visit: Yes Status: Acute Plan: Sepsis 2.2 to PNA. Now resolved after IV antibiotics. Qualifiers: Sepsis type: sepsis due to unspecified organism Sepsis acute organ dysfunction status: with acute organ dysfunction Severe sepsis acute organ dysfunction type: encephalopathy Severe sepsis shock status: without septic shock Qualified Code(s): A41.9 - Sepsis, unspecified organism; R65.20 - Severe sepsis without septic shock; G93.40 - Encephalopathy, unspecified (2) Pneumonia Current Visit: No Status: Acute Plan: Chext xray with concerns for PNA Improved today. No fever or tachycardia noted. Will switch over to p.o. azithromycin and discharge patient home today. Qualifiers: Pneumonia type: due to unspecified organism (3) Diabetes mellitus Onset Date: 07/30/17 Current Visit: No Status: Chronic Qualifiers: Diabetes mellitus type: type 2 Diabetes mellitus [employer] insulin use: without alf use Diabetes mellitus complication status: without complication Qualified Code(s): E11.9 - Type 2 diabetes mellitus without complications (4) ESRD (end stage renal disease) on dialysis Onset Date: 01/31/15 Current Visit: No Status: Chronic Plan: Currently with volume overload. Getting hemodialysis today. Will discharge after dialysis (5) GERD (gastroesophageal reflux disease) Onset Date: 07/30/17 Current Visit: No Status: Chronic Qualifiers: (6) HTN (hypertension) Onset Date: 01/31/15 Current Visit: No Status: Chronic Qualifiers: (7) Hyperlipidemia Onset Date: 01/31/15 Current Visit: No Status: Chronic Qualifiers: Hyperlipidemia type: mixed hyperlipidemia Treatment Summary: Patient to be discharged home today after dialysis. Was treated with IV antibiotics here in the hospital had marked improvement. Was switched over to p.o. azithromycin to be taken for total of 7 days. - Disposition Disposition: ROUTINE DISCHARGE Condition: GOOD Diet: Regular Activity: Ad ludy
[2019-04-08 12:51] VITALS: BP 136/76; TEMP 97.7
--- NOTE | 2019-04-08 17:09 | PN ---
Date of Progress Note: 04/08/2019 Subjective: The patient was admitted with pneumonia, shortness of breath, failed on outpatient treat ment. Patient had dialysis today, tolerated the dialysis very well. Managed to remove 2200. Physical Examination: Vital Signs: Blood pressure 140/72, pulse of 87, afebrile. Chest: Clear to auscultation. Heart: S1, S2. Regular. Abdomen: Soft, nontender. Extremities: No edema. Laboratory Data: WBC 8.2, H and H 10.2/30, platelets 192. Sodium 134, potassium 5, bicarb 26, BUN 4 9, creatinine 8, calcium 8.8. Phosphorus 6.2. Current Medications: The patient on its include: 1.Z-Rosendo. 2.Ceftriaxone. 3.Tylenol. 4.Temazepam. 5.Zofran. 6.Insulin. Assessment And Plan: 1.End-stage renal disease. We will continue the patient on dialysis, status post dialysis today. 2.Hypertension, controlled. Optimal continue current medication. 3.Secondary hyperparathyroidism. We will resume her binder. 4.Anemia of chronic kidney disease, stable. 5.Hyperkalemia. Patient dialyzed on low-potassium bath. The patient cleared from the renal standpo int. 6.Pneumonia. Continue Z-Rosendo. Okay current dose. The patient cleared from the renal standpoint for discharge planning to follow up with dialysis. FRANK Voice ID: [id number] Report ID: [id number]
--- OUTSIDE RECORDS SUMMARY | 2019-04-26 05:13 | XMS REPORT ---
[...] Active Problem Benign essential HTN I10 Active Assessment End stage renal disease N18.6 Active Assessment Hyperlipidemia, mixed E78.2 Active Assessment Benign essential HTN I10 Active Assessment Gastroesophageal reflux disease, K21.9 Active esophagitis presence not specified Assessment Controlled type 2 diabetes mellitus E11.29 Active with other diabetic kidney complication, without long-term current use of insulin Medications Medication Code Code Instructions Start End Status Dosage System Date Date Metoprolol [facility] 23514602484 25 MG Orally Active 1 tablet Tartrate once a day with food Cetirizine HCl ND 28257374593 10 MG Orally Jul 09, Active 1 tablet Once a day 2018 Tradjenta [facility] 53043515331 5 MG Orally Once Active 1 tablet a day Tamiflu ND 16336843856 75 MG Orally Active 1 capsule Twice a day Lipitor [facility] 48401042015 20 MG Orally Active 1 tablet Once a day Amlodipine [facility] 62191268888 10 MG Orally Active 1 tablet Besylate Once a day Metoprolol ND 98504221884 25 MG Orally Active 1 tablet Tartrate once a day with food Protonix [facility] 94017077775 40 MG Orally Active 1 tablet Once a day Losartan ND 60495819157 100 MG Orally Active 1 tablet Potassium Once a day Renvela [facility] 08777665305 800 MG Orally Active 2 tablet Three times a with meals day Benzonatate ND 49370293502 100 MG Orally Jul 09, Active 1 capsule Three times a 2019 day Flonase [facility] 39726701121 50 MCG/DOSE Jul 09, Active 2 spray in Nasally Once a 2018 each day nostril Cheratussin AC [facility] 50610387799 100-10 MG/5ML Active 5 ml Orally every 6 hrs Losartan [facility] 69487291328 100 MG Orally Active 1 tablet Potassium Once a day HydrALAZINE HCl [facility] 77025743480 25 MG Active TAKE 1 TABLET BY MOUTH every 8 hours WITH WHEN BP IS GREATER THAN 170 HydrALAZINE HCl [facility] 94335996362 25 MG Orally Active 1 tablet when bp greater with food than 170 Tradjenta [facility] 44368707015 5 MG Orally Once Active 1 tablet a day Results No Known Results Summary Purpose eClinicalWorks Submission
== END 2019-04-08 13:15 | disposition home or self-care (01) ==
LOC: ER 06:25 → ERHOLD 09:32 → 2ND 12:23
PROVIDERS: ADMIT Family Medicine; ATTEND Family Medicine
PROC: 5A1D70Z Performance of Urinary Filtration, Intermittent, Less than 6 Hours Per Day (ICD-10-PCS; principal; 2019-04-08)
DX: A41.9 Sepsis, unspecified organism (principal); R65.20 Severe sepsis without septic shock; G93.40 Encephalopathy, unspecified; J18.9 Pneumonia, unspecified organism; E11.22 Type 2 diabetes mellitus with diabetic chronic kidney disease; I12.0 Hypertensive chronic kidney disease with stage 5 chronic kidney disease or end stage renal disease; N18.6 End stage renal disease; K57.90 Diverticulosis of intestine, part unspecified, without perforation or abscess without bleeding; K21.9 Gastro-esophageal reflux disease without esophagitis; E78.2 Mixed hyperlipidemia; N25.81 Secondary hyperparathyroidism of renal origin; E87.5 Hyperkalemia; Z99.2 Dependence on renal dialysis
CPT/HCPCS: 93005; 87040 ×2; 85025 ×2; 80048; 36415; 83735; 84100; 85610; 82947 ×6; 80076; 83605; 84484; 80053; 84145; 83880; 87804 ×2; 70450; 71045; 90935 ×2; 70551; 96375; 96374; 99285; J0456; J1644; J0696 ×2; J7030 ×2; G0378 ×3

== ENCOUNTER 2019-07-10 06:36 | Observation (INO) | payer OTHER ==
--- OUTSIDE RECORDS SUMMARY | 2019-07-10 06:39 | XMS REPORT ---
[...] Status Dosage System Date Date Metoprolol [facility] 79489542030 25 MG Orally Active 1 tablet Tartrate once a day with food Cetirizine HCl ND 41682860818 10 MG Orally Jul 09, Active 1 tablet Once a day 2018 Tradjenta [facility] 89986038210 5 MG Orally Once Active 1 tablet a day Tamiflu ND 20483517111 75 MG Orally Active 1 capsule Twice a day Lipitor [facility] 09530897157 20 MG Orally Active 1 tablet Once a day Amlodipine [facility] 57379241221 10 MG Orally Active 1 tablet Besylate Once a day Metoprolol ND 11948570384 25 MG Orally Active 1 tablet Tartrate once a day with food Protonix [facility] 22208975058 40 MG Orally Active 1 tablet Once a day Losartan ND 00156669836 100 MG Orally Active 1 tablet Potassium Once a day Renvela [facility] 45973218785 800 MG Orally Active 2 tablet Three times a with meals day Benzonatate ND 70544165378 100 MG Orally Jul 09, Active 1 capsule Three times a 2019 day Flonase [facility] 27262643097 50 MCG/DOSE Jul 09, Active 2 spray in Nasally Once a 2018 each day nostril Cheratussin AC [facility] 46499664060 100-10 MG/5ML Active 5 ml Orally every 6 hrs Losartan [facility] 95766397535 100 MG Orally Active 1 tablet Potassium Once a day HydrALAZINE HCl [facility] 95601811936 25 MG Active TAKE 1 TABLET BY MOUTH every 8 hours WITH WHEN BP IS GREATER THAN 170 HydrALAZINE HCl [facility] 94880559284 25 MG Orally Active 1 tablet when bp greater with food than 170 Tradjenta [facility] 98323556802 5 MG Orally Once Active 1 tablet a day Results No Known Results Summary Purpose eClinicalWorks Submission
--- NOTE | 2019-07-10 08:15 | RAD REPORT ---
EXAM DESCRIPTION: CT - Head Brain Wo Cont - 07/10/2019 7:11 am CLINICAL HISTORY: SEIZURE Headache, seizure COMPARISON: Head Brain Wo Cont dated 04/07/2019; Ct Stroke Brain Wo Cont dated 01/07/2019 TECHNIQUE: All CT scans are performed using dose optimization technique as appropriate and may inclu de automated exposure control or mA/KV adjustment according to patient size. FINDINGS: No intracranial hemorrhage, hydrocephalus or extra-axial fluid collection.Mild generalized brain atrophy is present with mild periventricular and deep white matter chronic microvascular ische dot changes.No areas of brain edema or evidence of midline shift. Small area of gliosis is seen left frontal region, unchanged. The paranasal sinuses and mastoids are clear. The calvarium is intact. IMPRESSION: No acute intracranial abnormality.
[2019-07-10 08:20] LABS: Absolute Lymphocytes (CBC) 0.6 K/uL (0.7-4.9); Basophils % 0.5 % (0-1.3); Hematocrit 31.8 % (36.0-45.0); Lymphocytes % 6.4 % (15.3-44.8); MPV 11.3 fL (7.6-11.3); RBC Red Blood Cell Count 3.27 M/uL (3.86-4.86)
[2019-07-10 08:37] LABS: Albumin 3.6 g/dL (3.4-5.0); Bilirubin Direct 0.3 mg/dL (0-0.2); Bilirubin Total 0.8 mg/dL (0.2-1.0); Magnesium 2.9 mg/dL (1.8-2.4); Potassium 5.2 mmol/L (3.5-5.1); Protein, Total 7.6 g/dL (6.4-8.2); Troponin (Emerg Dept Use Only) 0.02 ng/mL (0.0-0.045)
--- NOTE | 2019-07-10 09:23 | RAD REPORT ---
EXAM DESCRIPTION: RAD - Chest Single View - 07/10/2019 8:16 am CLINICAL HISTORY: PAIN Chest pain. COMPARISON: Chest Single View dated 04/07/2019; Chest Single View dated 01/07/2019; Chest Single View dated 05/21/2018; Chest Single View dated 10/15/2017 FINDINGS: Portable technique limits examination quality. Mild interstitial pulmonary edema seen. The heart is upper limit of normal in size. No displaced frac tures.Right-sided vascular stenting is seen. IMPRESSION: Mild CHF versus volume overload pattern.
--- NOTE | 2019-07-10 09:47 | EDPHYS ---
Physician Documentation [facility] Name: Lynne Leggett Age: 69 yrs Sex: Female : 1950 Arrival Date: 07/10/2019 Time: 06:39 Bed 15 Private MD: Nakul Kirby HPI: 07/10 07:02 This 69 yrs old Female presents to ER via Unassigned with complaints of kb syncope/seizure. 07:03 The patient presents after having a single isolated seizure, that lasted 3 minute(s). kb Character of seizure(s): Loss of consciousness: the patient experienced loss of consciousness, Motor activity: generalized, shaking all over, Incontinence: none. Seizure onset: this morning. Context: the seizure(s) was witnessed, dialysis center staff. Seizure Hx: the patient has no previous seizure history. Associated injury: The patient did not suffer any apparent associated injury. EMS care: none. Current symptoms: Currently, the patient is not experiencing any symptoms, the patient feels back to baseline, no decreased level of consciousness, no confusion, no dysphasia, no headache, no paralysis, no visual changes. The patient has not experienced similar symptoms in the past. The patient has not recently seen a physician. EMS reports they were called by dialysis center staff for seizure activity and unresponsiveness. When they arrived on scene pt was awake, alert and oriented x4. Pt reports she was sitting in the waiting area at [facility] and the next thing she knew she was on the floor. Only complaint is upper abd pain at this time. Denies headache, dizziness. Awake, alert and oriented x4.. Historical: - Allergies: 07:09 Nifedipine; ea 07:09 Vancomycin; ea - Home Meds: 07:09 victoza 0.6mg/ 0.1 mL 6 units at bedtime [Active]; amlodipine 5 mg tab 2 tabs nightly ea [Active]; atorvastatin 20 mg Oral tab 1 tab once daily [Active]; Daily-Isael Oral tab daily [Active]; pantoprazole 40 mg Oral TbEC 1 tab 2 times per day [Active]; metoprolol tartrate 25 mg Oral tab 1 tab 2 times per day [Active]; losartan 100 mg Oral tab 1 tab once daily [Active]; Renvela 800 mg Oral tab 2 tabs 3 times per day [Active]; hydralazine 25 mg Oral tab 1 tab 2 times per day [Active]; sodium polystyrene sulfonate Oral [Active]; glipizide 10 mg Oral tab 1 tab 2 times per day [Active]; valtessa [Active]; Tradjenta 5 mg Oral tab 1 tab once daily [Active]; - PMHx: 07:09 Hypertension; High Cholesterol; GERD; ESRD; DIALYSIS MWF; Diabetes - NIDDM; ea - PSHx: 07:09 dialysis shunt R arm; ea - Immunization history:: Adult Immunizations Adult Immunizations up to date. - Social history:: Smoking status: Smoking status: Patient denies any tobacco usage or history of. - Ebola Screening: : Patient denies travel to an Ebola-affected area in the 21 days before illness onset No symptoms or risks identified at this time. ROS: 07:01 Constitutional: Negative for fever, chills, and weight loss, ENT: Negative for injury, kb pain, and discharge, Neck: Negative for injury, pain, and swelling, Cardiovascular: Negative for chest pain, palpitations, and edema, Respiratory: Negative for shortness of breath, cough, wheezing, and pleuritic chest pain, Back: Negative for injury and pain, : Negative for injury, bleeding, discharge, and swelling, MS/Extremity: Negative for injury and deformity, Skin: Negative for injury, rash, and discoloration. 07:01 Abdomen/GI: Positive for abdominal pain. 07:01 Neuro: Positive for seizure activity, syncope. Exam: 07:00 Constitutional: This is a well developed, well nourished patient who is awake, alert, kb and in no acute distress. Head/Face: Normocephalic, atraumatic. ENT: Nares patent. No nasal discharge, no septal abnormalities noted. Tympanic membranes are normal and external auditory canals are clear. Oropharynx with no redness, swelling, or masses, exudates, or evidence of obstruction, uvula midline. Mucous membranes moist. Neck: Trachea midline, no thyromegaly or masses palpated, and no cervical lymphadenopathy. Supple, full range of motion without nuchal rigidity, or vertebral point tenderness. No Meningismus. Chest/axilla: Normal chest wall appearance and motion. Nontender with no deformity. No lesions are appreciated. Cardiovascular: Regular rate and rhythm with a normal S1 and S2. No gallops, murmurs, or rubs. Normal PMI, no JVD. No pulse deficits. Respiratory: Lungs have equal breath sounds bilaterally, clear to auscultation and percussion. No rales, rhonchi or wheezes noted. No increased work of breathing, no retractions or nasal flaring. Skin: Warm, dry with normal turgor. Normal color with no rashes, no lesions, and no evidence of cellulitis. MS/ Extremity: Pulses equal, no cyanosis. Neurovascular intact. Full, normal range of motion. Neuro: Awake and alert, GCS 15, oriented to person, place, time, and situation. Cranial nerves II-XII grossly intact. Motor strength 5/5 in all extremities. Sensory grossly intact. Cerebellar exam normal. Normal gait. 07:00 Abdomen/GI: Inspection: abdomen appears normal, Bowel sounds: normal, in all quadrants, Palpation: soft, in all quadrants, mild abdominal tenderness, in the epigastric area. Vital Signs: 06:41 BP 119 / 97; Pulse 86; Resp 16; Temp 97.6; Pulse Ox 98% ; Weight 51 kg; Height 59 in. ea (149.86 cm); 09:00 BP 167 / 89; Pulse 79; Resp 18 S; Pulse Ox 97% on R/A; Pain 5/10; aa5 12:04 BP 180 / 94; Pulse 91; Resp 18; Pulse Ox 99% on R/A; aj1 13:20 BP 164 / 93; Pulse 80; Resp 18; Pulse Ox 96% on R/A; aj1 06:41 Body Mass Index 22.71 (51.00 kg, 149.86 cm) ea [place] Score: 06:41 Eye Response: spontaneous(4). Verbal Response: oriented(5). Motor Response: obeys ea commands(6). Total: 15. MDM: 06:41 Patient medically screened. kb 07:00 Data reviewed: vital signs, nurses notes. Data interpreted: Pulse oximetry: on room air kb is 100 %. Interpretation: normal. 09:27 Counseling: I had a detailed discussion with the patient and/or guardian regarding: the kb historical points, exam findings, and any diagnostic results supporting the discharge/admit diagnosis, lab results, radiology results, the need for further work-up and treatment in the hospital. 09:45 Physician consultation: Yuriy Domingo MD was contacted at 09:45, regarding admission, to kb the telemetry unit. patient's condition, in the emergency department to see patient at 09:45. 07/10 06:41 Order name: Basic Metabolic Panel; Complete Time: 09:44 kb 07/10 06:41 Order name: CBC with Diff; Complete Time: 11:03 kb 07/10 06:41 Order name: LFT's; Complete Time: 09:44 kb 07/10 06:41 Order name: Magnesium; Complete Time: 09:44 kb 07/10 06:41 Order name: NT PRO-BNP; Complete Time: 09:44 kb 07/10 06:41 Order name: PT-INR; Complete Time: 09:52 kb 07/10 06:41 Order name: Troponin (emerg Dept Use Only); Complete Time: 09:44 kb 07/10 06:41 Order name: XRAY Chest (1 view); Complete Time: 09:23 kb 07/10 06:41 Order name: EKG; Complete Time: 06:42 kb 07/10 06:41 Order name: Cardiac monitoring; Complete Time: 08:03 kb 07/10 06:41 Order name: EKG - Nurse/Tech; Complete Time: 09:56 kb 07/10 06:41 Order name: CT Head Brain wo Cont; Complete Time: 08:30 kb 07/10 08:23 Order name: CBC Smear Scan; Complete Time: 11:03 EDMS 07/10 06:41 Order name: IV Saline Lock; Complete Time: 08:03 kb 07/10 06:41 Order name: Labs collected and sent; Complete Time: 09:56 kb 07/10 06:41 Order name: O2 Per Protocol; Complete Time: 07:08 kb 07/10 06:41 Order name: O2 Sat Monitoring; Complete Time: 07:08 kb Administered Medications: 09:57 Drug: Tylenol 500 mg Route: PO; aa5 Disposition: 07/11 02:31 Co-signature as Attending Physician, Nakul Jett MD I agree with the assessment and homero plan of care. Disposition: 07/10/19 09:46 Hospitalization ordered by Yuriy Domingo for Inpatient Admission. Preliminary diagnosis is Syncope and collapse - vs new onset seizure. - Bed requested for Telemetry/MedSurg (Inpatient). - Status is Inpatient Admission. aj1 - Condition is Stable. - Problem is new. - Symptoms are resolved. UTI on Admission? No Signatures: Dispatcher [employer] EDMS Jocelyn Casanova, CERTIFIED HISTOLOGIC TECHNICIAN-C CERTIFIED HISTOLOGIC TECHNICIAN-Ckb Nadja Levi, RN RN aj1 Nakul Jett MD MD cha Calderon, Audri, RN RN aa5 Leonora Rodríguez, RN RN tw2 Nia Ramirez, RN RN ea Gomez Escoto, RN RN ja1 Awilda Ram Corrections: (The following items were deleted from the chart) 07/10 09:48 09:46 Hospitalization Ordered by Yuriy Domingo MD for Inpatient Admission. Preliminary eb diagnosis is Syncope and collapse - vs new onset seizure. Bed requested for Telemetry/MedSurg (Inpatient). Status is Inpatient Admission. Condition is Stable. Problem is new. Symptoms are resolved. UTI on Admission? No. kb 12:19 09:48 07/10/2019 09:46 Hospitalization Ordered by Yuriy Domingo MD for Inpatient ja1 Admission. Preliminary diagnosis is Syncope and collapse - vs new onset seizure. Bed requested for Telemetry/MedSurg (Inpatient). Status is Inpatient Admission. Condition is Stable. Problem is new. Symptoms are resolved. UTI on Admission? No. eb 13:50 12:19 07/10/2019 09:46 Hospitalization Ordered by Yuriy Domingo MD for Inpatient aj1 Admission. Preliminary diagnosis is Syncope and collapse - vs new onset seizure. Bed requested for Telemetry/MedSurg (Inpatient). Status is Inpatient Admission. Condition is Stable. Problem is new. Symptoms are resolved. UTI on Admission? No. ja1
--- NOTE | 2019-07-10 09:47 | ER ---
Nurse's Notes [facility] Name: Lynne Leggett Age: 69 yrs Sex: Female : 1950 Arrival Date: 07/10/2019 Time: 06:39 Bed 15 Private MD: Diagnosis: Syncope and collapse-vs new onset seizure Presentation: 07/10 06:41 Presenting complaint: EMS states: She was at dialysis waiting in the [facility] ea staff reported she went unresponsive and started having seizure like activity that lasted about three minutes. Transition of care: patient was not received from another setting of care. Onset of symptoms was July 10, 2019. Risk Assessment: Do you want to hurt yourself or someone else? Patient reports no desire to harm self or others. Initial Sepsis Screen: Does the patient meet any 2 criteria? No. Patient's initial sepsis screen is negative. Does the patient have a suspected source of infection? No. Patient's initial sepsis screen is negative. Care prior to arrival: 20 G to let forearm, BS 145. 06:41 Method Of Arrival: EMS: [facility] ea 06:41 Acuity: SHIKHA 3 ea Triage Assessment: 06:41 General: Appears uncomfortable, Behavior is appropriate for age. Pain: Complains of ea pain in epigastric area. Neuro: Level of Consciousness is awake, alert, obeys commands, Oriented to person, place, situation. Cardiovascular: Patient's skin is warm and dry. Cardiovascular: Dialysis shunt: in the dorsal aspect of right forearm, with palpable thrill, with no erythema, with no edema, no bleeding noted. Respiratory: Airway is patent Respiratory effort is even, unlabored, Respiratory pattern is regular, symmetrical. GI: Abdomen is non-distended. Derm: Skin is pink, warm \T\ dry. Historical: - Allergies: 07:09 Nifedipine; ea 07:09 Vancomycin; ea - Home Meds: 07:09 victoza 0.6mg/ 0.1 mL 6 units at bedtime [Active]; amlodipine 5 mg tab 2 tabs nightly ea [Active]; atorvastatin 20 mg Oral tab 1 tab once daily [Active]; Daily-Isael Oral tab daily [Active]; pantoprazole 40 mg Oral TbEC 1 tab 2 times per day [Active]; metoprolol tartrate 25 mg Oral tab 1 tab 2 times per day [Active]; losartan 100 mg Oral tab 1 tab once daily [Active]; Renvela 800 mg Oral tab 2 tabs 3 times per day [Active]; hydralazine 25 mg Oral tab 1 tab 2 times per day [Active]; sodium polystyrene sulfonate Oral [Active]; glipizide 10 mg Oral tab 1 tab 2 times per day [Active]; valtessa [Active]; Tradjenta 5 mg Oral tab 1 tab once daily [Active]; - PMHx: 07:09 Hypertension; High Cholesterol; GERD; ESRD; DIALYSIS MWF; Diabetes - NIDDM; ea - PSHx: 07:09 dialysis shunt R arm; ea - Immunization history:: Adult Immunizations Adult Immunizations up to date. - Social history:: Smoking status: Smoking status: Patient denies any tobacco usage or history of. - Ebola Screening: : Patient denies travel to an Ebola-affected area in the 21 days before illness onset No symptoms or risks identified at this time. Screenin:04 Abuse screen: Denies threats or abuse. Nutritional screening: No deficits noted. ea Tuberculosis screening: No symptoms or risk factors identified. Fall Risk IV access (20 points). Assessment: 06:41 Reassessment: see triage assessment. ea 09:00 General: Appears comfortable, Behavior is calm, cooperative. Pain: Complains of pain in aa5 right zoroastrianism Pain does not radiate. Pain currently is 5 out of 10 on a pain scale. Quality of pain is described as aching, Pain began 1 hour ago. Is continuous. Neuro: Level of Consciousness is awake, alert, obeys commands, Oriented to person, place, time, situation, Early Childhood Specialist are equal bilaterally Moves all extremities. Speech is normal, Facial symmetry appears normal. Cardiovascular: Heart tones S1 S2 present Rhythm is regular Dialysis shunt: in the dorsal aspect of right forearm, with palpable thrill, with auscultated bruit, with no erythema, with no edema, no bleeding noted. Respiratory: Airway is patent Respiratory effort is even, unlabored, Respiratory pattern is regular, symmetrical. GI: Abdomen is round non-distended, Bowel sounds present X 4 quads. Abd is soft and non tender X 4 quads. Patient currently denies nausea, Reports vomiting once BELT LACER. : No signs and/or symptoms were reported regarding the genitourinary system. EENT: No signs and/or symptoms were reported regarding the EENT system. Derm: Skin is pink, warm \T\ dry. Musculoskeletal: Range of motion: intact in all extremities. 09:50 Reassessment: Patient is alert, oriented x 3, equal unlabored respirations, skin aa5 warm/dry/pink. Pt requesting medication for headache at this time, SHEARING MACHINE TENDER notified. . 10:15 General: Appears in no apparent distress. comfortable, Behavior is calm, cooperative, aj1 appropriate for age. Pain: Denies pain. Neuro: Level of Consciousness is awake, alert, obeys commands, Oriented to person, place, time, situation, Early Childhood Specialist are equal bilaterally Moves all extremities. Speech is normal, Facial symmetry appears normal. Cardiovascular: Patient's skin is warm and dry. Respiratory: Airway is patent Respiratory effort is even, unlabored, Respiratory pattern is regular, symmetrical. GI: Abdomen is non-distended. Derm: No signs and/or symptoms reported regarding the dermatologic system. Skin is pink, warm \T\ dry. normal. Musculoskeletal: No signs and/or symptoms reported regarding the musculoskeletal system. Range of motion: intact in all extremities. 11:15 Reassessment: Patient appears in no apparent distress at this time. No changes from aj1 previously documented assessment. Patient and/or family updated on plan of care and expected duration. Pain level reassessed. Patient is alert, oriented x 3, equal unlabored respirations, skin warm/dry/pink. 12:03 Reassessment: Patient appears in no apparent distress at this time. No changes from aj1 previously documented assessment. Patient and/or family updated on plan of care and expected duration. Pain level reassessed. Patient is alert, oriented x 3, equal unlabored respirations, skin warm/dry/pink. 13:19 Reassessment: Patient and/or family updated on plan of care and expected duration. Pain aj1 level reassessed. General: Appears in no apparent distress. comfortable, Behavior is calm, cooperative, appropriate for age. Pain: Denies pain. Neuro: Level of Consciousness is awake, alert, obeys commands, Oriented to person, place, time, situation, Speech is normal, Facial symmetry appears normal. Cardiovascular: Patient's skin is warm and dry. Respiratory: Airway is patent Respiratory effort is even, unlabored, Respiratory pattern is regular, symmetrical. Derm: No signs and/or symptoms reported regarding the dermatologic system. Skin is pink, warm \T\ dry. normal. Musculoskeletal: No signs and/or symptoms reported regarding the musculoskeletal system. Range of motion: intact in all extremities. Vital Signs: 06:41 BP 119 / 97; Pulse 86; Resp 16; Temp 97.6; Pulse Ox 98% ; Weight 51 kg; Height 59 in. ea (149.86 cm); 09:00 BP 167 / 89; Pulse 79; Resp 18 S; Pulse Ox 97% on R/A; Pain 5/10; aa5 12:04 BP 180 / 94; Pulse 91; Resp 18; Pulse Ox 99% on R/A; aj1 13:20 BP 164 / 93; Pulse 80; Resp 18; Pulse Ox 96% on R/A; aj1 06:41 Body Mass Index 22.71 (51.00 kg, 149.86 cm) ea [place] Coma Score: 06:41 Eye Response: spontaneous(4). Verbal Response: oriented(5). Motor Response: obeys ea commands(6). Total: 15. ED Course: 06:39 Patient arrived in ED. ea 06:40 Jocelyn Casanova FNP-C is PHCP. kb 06:41 Nakul Jett MD is Attending Physician. kb 06:41 Arm band placed on right wrist. Patient placed in an exam room, on a stretcher, on ea pulse oximetry. 07:04 Triage completed. ea 07:06 Leonora Rodríguez, RN is Primary Nurse. tw2 07:07 Adult w/ patient. tw2 07:11 CT Head Brain wo Cont In Process Unspecified. EDMS 07:14 Maintain EMS IV. Dressing intact. Site clean \T\ dry. Gauge \T\ site: 20 G to left AC . ea 07:20 CT completed. Patient tolerated procedure well. Patient moved to CT via stretcher. Patient moved back from CT. 07:40 IV discontinued, intact, bleeding controlled, No redness/swelling at site. Pressure dh3 dressing applied. 07:45 Missed attempt(s): 24 gauge in left wrist. Bleeding controlled, band aid applied, dh3 catheter tip intact. 07:50 Initial lab(s) drawn, by id, sent to lab. Inserted saline lock: 24 gauge in left dh3 forearm, using aseptic technique. Blood collected. 08:17 XRAY Chest (1 view) In Process Unspecified. EDMS 08:54 Seizure precautions initiated. tw2 09:00 Report received from LUZMARIA Lea. aa5 09:46 Yuriy Domingo MD is Hospitalizing Provider. kb 10:03 Report given to Nadja Levi RN. aa5 11:03 EKG done, by waste handling technician. reviewed by Ulisses Herring MD. tc 13:35 No provider procedures requiring assistance completed. hb 13:36 Patient admitted, IV remains in place. hb Administered Medications: 09:57 Drug: Tylenol 500 mg Route: PO; aa5 Outcome: 09:46 Decision to Hospitalize by Provider. kb 13:34 Admitted to Tele accompanied by tech, via stretcher, room 228, Report called to Yasmeen thacker RN 13:34 Condition: stable 13:34 Instructed on the need for admit, Demonstrated understanding of instructions. 13:50 Patient left the ED. aj1 Signatures: Dispatcher [employer] EDMA Jocelyn Casanova, PERIPHERAL EDP EQUIPMENT OPERATOR-C PERIPHERAL EDP EQUIPMENT OPERATOR-Ckb Nadja Levi, RN RN aj1 Celso Rodriguez Audri, RN RN aa5 Amelia Mohr, recruiting intern EKG Ttc Irene Kelley RN RN Leonora Rodríguez RN RN 2 Nika Valderrama [facility] Nia Ramirez, RN RN ea
[2019-07-10 09:48] LABS: Protime INR 1.01
[2019-07-10] MEDS ORDERED: ACETAMINOPHEN 500 MG TAB ONE (10:02)
[2019-07-10 11:00] LABS: Anisocytosis 1+; Blood Morphology Comment NOTED (NOT SEEN); Platelet Estimate ADEQ; Urine White Blood Cell Casts OK
[2019-07-10] MEDS ORDERED: HYDROMORPHONE HCL 0.5 MG/0.5 ML INJ IV ONE (12:23)
--- NOTE | 2019-07-10 13:09 | P.CNS ---
Date of Consult: 07/10/19 Reason for Consult: hyperkalemia, fluid overlaod Requesting Physician: Yuriy Domingo Chief Complaint: Syncope History of Present Illness: A 69-year-old , with past medical history of hypertension, hyperlipidemia, end- stage renal disease, on hemodialysis at [facility] on MWF [place] Rt AVF Pt presented for Syncope ipt was AAOX3, this morning , went to HD center , in the dialysis center , pt was found unresponsive, head CT with no significant findings , had AMS in 2018 that related to sepsis complaining of Rt sided headache Pt denied blurry vision chest pain, palpitation, nausea , vomiting , diarrhea , any hallucination before the incident in ER cXR with edema, K 5.2 Allergies No Known Allergies Allergy (Verified 01/07/19 16:49) Home medications list reviewed: Yes Home Medications: Amlodipine [Norvasc*] 10 mg PO DAILY 04/07/19 Atorvastatin Calcium 20 mg PO BEDTIME 04/07/19 Hydralazine [Apresoline*] 25 mg PO DAILY PRN 04/07/19 Linagliptin [Tradjenta] 5 mg PO DAILY 04/07/19 Sevelamer Carbonate [Renvela] 800 mg PO TID 04/07/19 Azithromycin [Zithromax Tri-Rosendo] 500 mg PO DAILY #7 tablet 04/08/19 - Past Medical/Surgical History Diabetic: Yes -: DM-Type 2 -: HTN -: Hyperlipidemia -: ESRD on Dialysis M,W,F, Nephrology-Dr. Lynn -: Diverticulosis -: GERD -: History hemorrhagic CVA requiring craniotomy -: GERD -: Laser surgery on bilateral eyes -: AV graft to right arm -: Old AV graft in right upper leg-doesn't work. -: Craniotomy Psychosocial/ Personal History: , Lives with daughter. - Family History Mother Medical History: Diabetes - Social History Alcohol use: No CD- Drugs: No Caffeine use: Yes Physical Examination Laboratory Data (last 24 hrs) 07/10/19 09:33: PT 11.9, INR 1.01 07/10/19 07:50: WBC 8.9, Hgb 10.3 L, Hct 31.8 L, Plt Count 169 07/10/19 07:50: Sodium 135 L, Potassium 5.2 H, BUN 55 H, Creatinine 7.44 H*, Glucose 190 H, Magnesium 2.9 H, Total Bilirubin 0.8, AST 31, ALT 37, Alkaline Phosphatase 201 H Conclusions/Impression: Physical exam general: AAOX3, NAD , Neck; Supple, No elevated JVD hear: RRR, normal S1,2 systolic murmur Chest: Basal rales Abdomen: Soft , Nt Extremities no edema Neuro: AAOx3, no focal deficit , Power 5/5 in all 4 extremities End-stage renal disease on HD MWF HD today renal dose meds LOC head ct negative further W/U as per team HTN resume home meds Hyperkalemia hd today pulmonary edema HD today Anemia will resume epogen DM as per PCP
[2019-07-10] MEDS ORDERED: EPOETIN 4,000 UNIT/ML VIAL IV SCH (13:15)
[2019-07-10] MEDS ORDERED: ONDANSETRON 4 MG/2 ML VIAL IV PRN (14:03)
[2019-07-10] MEDS ORDERED: ACETAMINOPHEN 500 MG TAB PO PRN (14:03)
[2019-07-10 14:11] VITALS: BMI 23.6
--- NOTE | 2019-07-10 14:31 | EKG ---
Test Date: 2019-07-10 Test Time: 10:56:53 Biology Specialist: ROSINA MEASUREMENT RESULTS: Intervals: Rate: 84 IA: 136 QRSD: 88 QT: 388 QTc: 458 [place]: P: 69 IA: 136 QRS: 72 T: 63 INTERPRETIVE STATEMENTS: Normal sinus rhythm Nonspecific ST abnormality Abnormal ECG Compared to ECG 04/07/2019 06:33:17 Sinus tachycardia no longer present Atrial abnormality no longer present ST (T wave) deviation still present Electronically Signed On 07-10-19 14:29:49 ASSISTANT FINANCE MANAGER by Major Cedeño
[2019-07-10] MEDS ORDERED: HYDRALAZINE HCL 25 MG TABLET PO PRN (16:16)
--- NOTE | 2019-07-10 16:55 | RAD REPORT ---
EXAM DESCRIPTION: MRI - Brain Wo Cont - 07/10/2019 4:29 pm CLINICAL HISTORY: Seizure, right-sided headache COMPARISON: Brain Wo Cont dated 04/07/2019; Head Brain Wo Cont dated 07/10/2019 TECHNIQUE: Sagittal T1-weighted images were obtained along with axial PD, heavily T2-weighted and T2 -FLAIR images. Axial DWI and ADC mapping sequences were also obtained along with coronal heavily T2-w eighted images. FINDINGS: No intracranial hemorrhage, mass or acute infarction. There is no edema or shift of midlin e structures. No extra-axial fluid collections. Serrano-matter/white matter junction is preserved. Signa l voids are seen as a normal finding in the major intracranial vessels. Atrophy changes are present s imilar to the June 2018 MRI study. Chronic ischemic changes are seen in the cerebral white matter. Signal abnormality in the left frontal lobe extends from skull to frontal horn left lateral ventricl e. This has the appearance of an old shunt tube or ventriculostomy tube. No globe or orbital content abnormality. No acute sella finding. Pituitary tissue is seen along the f glenny of the sella. Mastoid air cells and paranasal sinuses are clear. IMPRESSION: No infarction, mass or acute intracranial finding. Atrophy and chronic ischemic changes are similar to comparison.
--- NOTE | 2019-07-10 17:43 | RAD REPORT ---
EXAM DESCRIPTION: - CP - 07/10/2019 4:57 pm CLINICAL HISTORY: syncope COMPARISON: Head C Spine Mpr Wo Con dated 07/29/2017None. TECHNIQUE: Real-time sonographic evaluation of bilateral carotid and vertebral systems was performed . Serrano scale and Doppler interrogation were performed with waveform tracing bilaterally. FINDINGS: Normal high resistance waveforms are noted in both external carotid arteries. The common c arotid arteries and internal carotid arteries show normal low resistance waveforms. Calcified and noncalcified plaquing changes are identified. No significant luminal narrowing seen. No dissection is identified. Peak systolic and end diastolic velocity values and the ICA/CCA ratios are in the non-hemodynamically significant range. Antegrade flow seen in both vertebral arteries. Velocity values and ratios were recorded and are retained in the patient's imaging records. IMPRESSION: Mild atherosclerotic changes are present. No evidence of a hemodynamically significant stenosis.
[2019-07-10] MEDS ORDERED: D50W 25 GM/50 ML SYRINGE/VIAL IV PRN (17:47)
[2019-07-10] MEDS ORDERED: GLUCAGON 1 MG/VIAL IM PRN (17:47)
[2019-07-10] MEDS ORDERED: ATORVASTATIN 20 MG TAB PO SCH (21:00)
[2019-07-10] MEDS: INSULIN -REGULAR HUMAN 50 UNIT/0.5 ML ML SQ SCH (21:00)
[2019-07-10] MEDS: SEVELAMER CARBONATE 800 MG TABLET PO SCH (21:39)
--- NOTE | 2019-07-10 23:20 | HP ---
Date of Admission: 07/10/2019 Primary Care Physician: None. Code Status: Full. Chief Complaint: Syncope. Consultants: 1. Nephrology, Dr. Mcallister. 2. Neurology, Dr. Sinha. History Of Present Illness: Patient is a 69-year-old female with past medical history of end-stage renal disease, on hemodialysis; diabetes mellitus type 2, [id number], mixed hyperlipidemia, GERD, history of diverticulosis, comes in with syncopal episode versus seizure episode prior to dialysis. Patient was at the facility, however prior to starting dialysis, the patient had an episode of passing out, was found to be shaking and was brought into the ER for further evaluation. The patient remembers coming into the dialysis center and then remembers waking up with the EMS around her. There was no postictal state. No tongue biting or loss of bowel or bladder control, therefore seizure is less likely. Patient's symptoms were constant, moderate, progressively worsening. She denies any nausea, vomiting, fever, chills, cough. Patient's workup revealed a potassium of 5.2. White blood cell count was normal. BNP was 1,25,511. CT scan of the head did not show any acute intracranial abnormality. Patient was then referred for admission. When seen in the ER, she was awake, alert, and oriented x3, in some mild distress. Past Medical History: 1. End-stage renal disease on hemodialysis Saturday, Saturday, and Saturday. 2. Mixed hyperlipidemia. 3. Gastroesophageal reflux disease without esophagitis. 4. History of diverticulosis. 5. Patient also has GERD. 6. History of hemorrhagic CVA requiring craniotomy. Surgical History: Laser surgery in bilateral eyes. AV graft to the right arm and AV graft in right upper leg, which is nonfunctional. Craniotomy. Allergies: NO KNOWN DRUG ALLERGIES. Medications: List reviewed. Social History: No tobacco use, alcohol use, or illicit drug use. Lives at home, has a daughter. Family History: Mother has diabetes. Review of Systems: Ten-point system reviewed, negative except as per HPI. Physical Examination: Vital Signs: Temperature 97.6, heart rate 86, blood pressure 119/97, respirations 16, O2 98% on room air. General: Awake, alert, and oriented x3, in some mild distress. Elderly female , ill-appearing. CV: S1, S2 regular rate and rhythm. Peripheral pulses present. Respiratory: Moving air well bilaterally. No wheezing or stridor. No use of accessory muscles. Gastrointestinal: Abdomen is soft, nontender, nondistended. Positive bowel sounds. Extremities: No clubbing, cyanosis, or edema. Neuro: Cranial nerves 2 through 12 intact grossly. No focal neurological deficits. Speech is normal. SKIN: No rashes, normal skin turgor. Laboratory Data: Sodium 135, potassium 5.2, chloride 100, CO2 24, BUN 55, creatinine 7.44, glucose 190, calcium 9.2, magnesium 2.9, alkaline phosphatase 201, troponin 0.02, BNP 125,511, albumin 3.6. WBC 8.9, H and H 10.3 and 31.8, platelets 169, neutrophils 85%. INR 1.01. Imaging Studies: MRI of the brain shows no infarction, mass, or acute intracranial finding, atrophy and chronic ischemic changes are similar to comparison. CT scan of the head shows no acute intracranial abnormality. Patient does have deep white matter chronic microvascular ischemic changes. Small area of gliosis seen in the left frontal region, unchanged from previous. Chest x-ray shows mild CHF versus volume overload pattern. Carotid artery ultrasound is pending. Assessment: A 69-year-old female with, 1. Syncopal episode, unclear etiology, may be neurogenic versus cardiogenic. We will continue on telemetry. Check orthostatic vital signs. Episode occurred prior to initiation of dialysis. Doubt hypotension as an etiology, seizure is less likely. There was no postictal state and there was no bowel or bladder incontinence or tongue biting. No prior history of seizures. However, patient does have a history of cerebrovascular accident with hemorrhagic conversion and craniotomy. Dr. Sinha with Neurology has been consulted. We will continue to monitor. We will have PT, OT evaluation. MRI of the brain was obtained. The patient was admitted, currently has ruled out cerebrovascular accident. Carotid artery ultrasound is pending. 2. End-stage renal disease, on hemodialysis. Appreciate Dr. Mcallister's input. Patient was unable to be dialyzed today. Likely need to be dialyzed later today in the hospital or tomorrow. 3. Hypermagnesemia. 4. Hyperkalemia. We will correct with dialysis. 5. Anemia of chronic disease. We will continue to monitor H and H. 6. Essential hypertension. Resume home medications as appropriate. 7. Mixed hyperlipidemia. 8. History of hemorrhagic cerebrovascular accident, status post craniotomy. 9. Diverticulosis, stable. 10. Diabetes mellitus type 2, non-insulin requiring. Continue sliding scale insulin. Monitor blood glucose levels. 11. Gastroesophageal reflux disease without esophagitis. Continue home medications. Plan: Admit patient to Med-Surg, place as observation. SEBAS Voice ID: [id number] MTDD
[2019-07-11 05:57] LABS: Absolute Lymphocytes (CBC) 0.6 K/uL (0.7-4.9); Basophils % 0.5 % (0-1.3); Hematocrit 31.4 % (36.0-45.0); Lymphocytes % 8.6 % (15.3-44.8); MPV 10.7 fL (7.6-11.3); RBC Red Blood Cell Count 3.27 M/uL (3.86-4.86)
[2019-07-11 06:19] LABS: Albumin 3.3 g/dL (3.4-5.0); Bilirubin Total 0.9 mg/dL (0.2-1.0); Potassium 3.8 mmol/L (3.5-5.1); Protein, Total 6.7 g/dL (6.4-8.2)
[2019-07-11] MEDS: INSULIN -REGULAR HUMAN 50 UNIT/0.5 ML ML SQ SCH (07:30)
[2019-07-11] MEDS: SEVELAMER CARBONATE 800 MG TABLET PO SCH (08:25)
[2019-07-11] MEDS ORDERED: HOME MED 1 EA UNK (Linagliptin [Tradjenta] 5 MG) PO SCH (09:00)
[2019-07-11] MEDS ORDERED: AMLODIPINE 10 MG TAB PO SCH (09:00)
[2019-07-11 09:43] VITALS: O2SAT 92
[2019-07-11 10:38] VITALS: BP 137/83; TEMP 97.8
--- NOTE | 2019-07-11 14:43 | DS ---
Date of Discharge: 07/11/2019 Consultants: Dr. Sinha with Neurology. Nephrology Discharge Diagnoses: 1. Syncope, resolved. 2. End-stage renal disease, on hemodialysis. 3. Hypomagnesemia, corrected. 4. Hyperkalemia, corrected. 5. Anemia of chronic disease. H and H are stable. 6. Essential hypertension, stable. 7. Mixed hyperlipidemia. Increase dose of statin. 8. Carotid artery disease. No significant stenosis. 9. History of hemorrhagic CVA status post craniotomy. 10. Diverticulosis, stable. 11. Diabetes mellitus type 2, non-insulin requiring. 12. Gastroesophageal reflux disease without esophagitis. Hospital Course: Patient is a 69-year-old female with multiple chronic medical conditions including end-stage renal disease on dialysis, diabetes, hyperlipidemia, comes in with syncopal episode while at dialysis prior to it initiating. No seizure-type activity noted. Patient was admitted to the hospital for further evaluation. Neurology was consulted; Dr. Sinha. Started on IVFs. Fall and seizure precautions initiated. MRI brain and CT caraotid were negative. No CVA. Patient will need EEG as out patient. Cleared by neurology. Patient did not have any further seizure or syncopal episode. Able to ambulate well. Diet: Renal Activity: seizure precautions Follow up: PCP in 2-3 days; flyer maker in 2 weeks, Neurology Dr. Sinha in 2 weeks Medications: As per reconciliation list Physical exam: General: AA&Ox3 CV: S1, S2 Respiratory: CTA b/l GI: Abdomen is soft NT/ND. +BS Extremities: no c/c/edema Neuro: nonfocal SA/MODL Voice ID: [id number] Report ID: [id number] MTDD
--- NOTE | 2019-07-11 18:52 | PN ---
Date of Progress Note: 07/11/2019 Chief Complaint: End-stage renal disease, on dialysis. History Of Present Illness: Patient has been dialyzed via right AV fistula in [facility]. She presented after syncope. She went to dialysis center and patient was found to be unresponsive. CT scan of the head did not show any finding. Altered mental status resolved. Previ ously, she was hospitalized for sepsis in March 2019 and had altered mental status. Patient denies chest pain, palpitation. Denies nausea, vomiting. Physical Examination: Lungs: Clear to auscultation bilaterally. Heart: S1, S2. Abdomen: Soft, benign. Extremities: No edema. Impression And Plan: 1.End-stage renal disease. Patient will resume dialysis on Saturday. Patient received dialysis yeste and hyperkalemia was treated with dialysis. Potassium level improved. Prior to dialysis, potas sium level was 5.2. 2.Pulmonary edema, fluid overload. Patient received dialysis and volemia is in good control. Patie nt denies chest pain, palpitation. Patient will continue blood pressure medication. 3.Hemoglobin level is 10.5. Monitor hemoglobin level. There is no evidence of acute bleeding. Pat ient will continue VANESSA with dialysis. 4.Hyperkalemia. Currently on this admission, potassium was 5.2 and today after dialysis 3.8. Ilene nue low-potassium diet. EB/MODL Voice ID: [id number] Report ID: [id number]
== END 2019-07-11 10:49 | disposition home or self-care (01) ==
LOC: ER 06:36 → ERHOLD 10:08 → 2ND 13:39
PROVIDERS: ADMIT Family Medicine; ATTEND Family Medicine
DX: R55 Syncope and collapse (principal); I12.0 Hypertensive chronic kidney disease with stage 5 chronic kidney disease or end stage renal disease; E11.22 Type 2 diabetes mellitus with diabetic chronic kidney disease; N18.6 End stage renal disease; E83.42 Hypomagnesemia; E87.5 Hyperkalemia; D63.1 Anemia in chronic kidney disease; E78.2 Mixed hyperlipidemia; I77.89 Other specified disorders of arteries and arterioles; Z86.73 Personal history of transient ischemic attack (TIA), and cerebral infarction without residual deficits; K21.9 Gastro-esophageal reflux disease without esophagitis; Z99.2 Dependence on renal dialysis
CPT/HCPCS: 36415; 70450; 70551; 71045; 80048; 80053; 80076; 82947; 83735; 83880; 84484; 85025; 85610; 93005; 93880; 94760; 97161; 99285; G0257; G0378; J1644

== ENCOUNTER 2020-03-23 08:44 | Inpatient (IN) | payer OTHER ==
--- NOTE | 2020-03-23 09:16 | RAD REPORT ---
EXAM DESCRIPTION: CT - Ct Stroke Brain Wo Cont - 03/23/2020 9:10 am CLINICAL HISTORY: Confusion/alteration of awareness COMPARISON: June 2019 TECHNIQUE: Computed axial tomography of the head was obtained. All CT scans are performed using dose optimization technique as appropriate and may include automated exposure control or mA/KV adjustment according to patient size. FINDINGS: An intracranial bleed is not seen . The ventricles are normal in caliber. No extra-axial fluid collection is noted. Mild to moderate low-density within periventricular, deep and subcortical white matter likely ischemi c changes secondary to small vessel disease. Low-density within the left frontal lobe compatible with old infarction. Fluid within the sinuses/ mastoids is not seen. IMPRESSION: No acute intracranial abnormality is seen. If patient's symptoms persist MRI of the bra in would be recommended. Dr Stone of the emergency room was notified at 9:11 a.m. March 23, 2020
[2020-03-23 09:21] LABS: Absolute Lymphocytes (CBC) 0.3 K/uL (0.7-4.9); Basophils % 0.5 % (0-1.3); Hematocrit 38.1 % (36.0-45.0); Lymphocytes % 2.5 % (15.3-44.8); MPV 12.5 fL (7.6-11.3); RBC Red Blood Cell Count 3.88 M/uL (3.86-4.86)
--- NOTE | 2020-03-23 09:23 | RAD REPORT ---
EXAM DESCRIPTION: CT - Abdomen Pelvis Wo Contrast - 03/23/2020 9:11 am CLINICAL HISTORY: Abdominal pain COMPARISON: 2018 TECHNIQUE: Computed axial tomography of the abdomen and pelvis was obtained. IV and oral contrast we re not requested. All CT scans are performed using dose optimization technique as appropriate and may include automated exposure control or mA/KV adjustment according to patient size. FINDINGS: The evaluation of solid organs, vessels and bowel is limited secondary to the lack of con trast administration. The liver, spleen, pancreas, and adrenal appear grossly normal. Kidneys are small. Diffuse atherosclerotic disease. Calcification results high-grade stenosis right common iliac artery 2.4 centimeter right ovarian cyst is mildly decreased in size Normal appendix Small bilateral pleural effusions. Small amount of ascites. Diverticula stem from the colon without visualization of diverticulitis. Duodenal diverticulum. Gallbladder wall is thickened IMPRESSION: Thickening of the gallbladder wall probably related to hypoalbuminemia. Cholecystitis ca n also result in this appearance and should be correlated clinically Small bilateral pleural effusions with small amount of ascites
[2020-03-23 09:35] LABS: Protime INR 0.97
--- NOTE | 2020-03-23 09:42 | RAD REPORT ---
EXAM DESCRIPTION: Yazmin Single View03/23/2020 9:32 am CLINICAL HISTORY: Hypertension/shortness of breath COMPARISON: June 2019 FINDINGS: Mild bilateral pulmonary opacities. The heart is borderline enlarged IMPRESSION: Mild pulmonary edema
[2020-03-23 09:55] LABS: Troponin (Emerg Dept Use Only) 0.04 ng/mL (0.0-0.045)
[2020-03-23 10:00] LABS: Potassium 5.8 mmol/L (3.5-5.1)
[2020-03-23 10:44] LABS: Blood Morphology Comment NOT SEEN (NOT SEEN); Platelet Estimate ADEQ
[2020-03-23] MEDS ORDERED: NA CHLORIDE 0.9% 100 ML IV ONE (11:17)
[2020-03-23] MEDS ORDERED: FOLIC ACID 5 MG/ML VIAL ONE (11:18)
[2020-03-23] MEDS ORDERED: HYDRALAZINE HCL 20 MG/ML VIAL ONE (11:29)
[2020-03-23] MEDS ORDERED: ONDANSETRON 4 MG/2 ML VIAL IV PRN (11:38)
[2020-03-23] MEDS ORDERED: ACETAMINOPHEN 500 MG TAB PO PRN (11:38)
[2020-03-23] MEDS: NA CHLORIDE 0.9% 1,000 ML IV SCH ×2 (12:00→14:03)
--- NOTE | 2020-03-23 12:43 | ER ---
Nurse's Notes [facility] Name: Lynne Leggett Age: 69 yrs Sex: Female : 1950 Arrival Date: 03/23/2020 Time: 08:46 Bed 4 Private MD: Diagnosis: Altered mental status, unspecified;End stage renal disease;Hypertension, unspecified Presentation: 03/23 08:47 Chief complaint: EMS states: AMS AT HOME, BASELINE AOx4. Coronavirus screen: At this bp time, the client does not indicate any symptoms associated with coronavirus-19. Ebola Screen: No symptoms or risks identified at this time. An acute neurological deficit is present. The charge nurse has been notified. The patient has been moved to a treatment area. The patients blood glucose was checked prior to arriving to the hospital and was found to be hyperglycemic. The patient has been moved to a treatment room. Initial Sepsis Screen: Does the patient meet any 2 criteria? Altered Mental Status. HR > 90 bpm. No. Patient's initial sepsis screen is negative. Does the patient have a suspected source of infection? Yes: Acute abdominal pain. Risk Assessment: Do you want to hurt yourself or someone else? Patient reports no desire to harm self or others. Onset of symptoms was March 22, 2020 at 21:00. Care prior to arrival: Glucose check: 425. 08:47 Method Of Arrival: EMS: [facility] bp 08:47 Acuity: SHIKHA 2 bp Triage Assessment: 08:50 The onset of the patients symptoms was March 22, 2020 at 21:00. General: Appears in bp no apparent distress. uncomfortable, obese, Behavior is CONFUSED. Pain: Complains of pain in abdomen. EENT: No deficits noted. Neuro: Level of Consciousness is confused, Reports paresthesias. Cardiovascular: Rhythm is sinus tachycardia. Respiratory: No deficits noted. GI: Reports upper abdominal pain. : No signs and/or symptoms were reported regarding the genitourinary system. Derm: No deficits noted. Musculoskeletal: No deficits noted. Stroke Activation: Symptom onset > 6 hours Physician: Stroke Attending; Name: ; Notified At: ; Arrived At: Physician: Chief Stroke Resident; Name: ; Notified At: ; Arrived At: Physician: Stroke Resident; Name: ; Notified At: ; Arrived At: Physician: ED Attending; Name: ; Notified At: ; Arrived At: Physician: ED Resident; Name: ; Notified At: ; Arrived At: Historical: - Allergies: 08:50 Vancomycin; bp 08:50 Nifedipine; bp - PMHx: 08:50 CVA (hemorrhagic); Diabetes - NIDDM; DIALYSIS MWF; ESRD; GERD; High Cholesterol; bp Hypertension; - Immunization history:: Adult Immunizations up to date. - Social history:: Smoking status: Patient denies any tobacco usage or history of. - Family history:: not pertinent. - Hospitalizations: : No recent hospitalization is reported. Screenin:50 Abuse screen: Denies threats or abuse. Denies injuries from another. Nutritional bp screening: No deficits noted. Tuberculosis screening: No symptoms or risk factors identified. Fall Risk None identified. Assessment: 08:50 VAN Scoring: Arm Drift: Minor drift. The patient has not been NPO before screening. The bp patient is not alert and/or unable to follow commands. The patient does not exhibit slurred or garbled speech. The patient is exhibiting difficulty speaking. The patient is exhibiting difficulty understanding words. The patient failed the bedside swallow screening. The patient will be kept NPO until cleared by Speech Therapy or Physician. Provider notified of bedside swallow screening results: Dagoberto Stone MD. T-PA (Activase) Screening: Contraindications: Patient reports onset of signs and symptoms of stroke greater than 6 hours ago: Yes. 09:02 Reassessment: Pt to CT via stretcher . aa5 09:51 Reassessment: NO CHANGE IN NEURO STATUS. FAMILY AT B/S. CONFIRMED LAST KNOWN NORMAL bp LAST PM. Neuro: Level of Consciousness is confused, lethargic, Oriented to none Weakness in right arm(s). 11:32 Reassessment: NO CHANGE IN NEURO STATUS. ADMIT IN PROCESS, MRI PENDING. bp 12:30 The patient is able to swallow own secretions with no drooling or need for suction. The bp patient did not tolerate one teaspoon of water. Drooling, immediate coughing, gurgling, or clearing of the throat was noted. The patient did not tolerate 90mL of water. Drooling, immediate coughing, gurgling, or clearing of the throat was noted. Vital Signs: 08:47 BP 168 / 85; Pulse 110; Resp 17; Temp 98; Pulse Ox 97% ; bp 09:07 BP 171 / 107; Pulse 114; Resp 16; Pulse Ox 98% ; bp 09:51 BP 185 / 126; Pulse 112; Resp 17; Pulse Ox 95% ; bp 11:33 BP 170 / 111; Pulse 113; Resp 26; Pulse Ox 96% ; bp NIH Stroke Scale Scores: 08:50 NIHSS Score: 8 bp 08:55 NIHSS Score: 6 consultant rn Course: 08:46 Patient arrived in ED. bp 08:46 Dagoberto Stone MD is Attending Physician. rn 08:47 Addison Hamm, LUZMARIA is Primary Nurse. bp 08:50 Triage completed. bp 08:50 Patient has correct armband on for positive identification. Fall risk band placed. Bed bp in low position. Call light in reach. Side rails up X2. 08:55 Splint/sling/ice applied as appropriate. Arm band placed on. bp 08:58 Initial lab(s) drawn, by me, sent to lab. Missed attempt(s): 20 gauge in left aa5 antecubital area. Bleeding controlled, band aid applied, catheter tip intact. 09:10 CT Stroke Brain w/o Contrast In Process Unspecified. EDMS 09:11 CT Abd/Pelvis - Without Contrast In Process Unspecified. EDMS 09:19 EKG done, by ED staff, reviewed by Dagoberto Stone MD. ds4 09:32 Stroke CXR 1 View In Process Unspecified. EDMS 09:45 Inserted saline lock: 22 gauge in left wrist, using aseptic technique. bp 11:00 Yasmin Fournier MD is Hospitalizing Provider. rn 12:29 No provider procedures requiring assistance completed. Patient admitted, IV remains in bp place. Administered Medications: 10:45 Drug: foLIC Acid 1 mg Route: IVPB; Site: left wrist; bp 11:32 Follow up: IV Status: Completed infusion; IV Intake: 100ml bp 11:00 Drug: hydrALAZINE 10 mg Route: IV; Rate: calculated rate; Site: left wrist; bp 11:32 Follow up: IV Status: Completed infusion bp 11:10 Not Given (FAILED SWALLOW STUDY): Aspirin Chewable Tablet 324 mg PO once; 81 mg tablets bp x 4 Intake: 11:32 IV: 100ml; Total: 100ml. bp Outcome: 11:01 Decision to Hospitalize by Provider. rn 12:35 Admitted to Tele accompanied by tech, family with patient, via stretcher, room 213, bp with chart, Report called to KARINA DUTTA 12:35 Condition: stable 12:35 Instructed on the need for admit. 12:42 Patient left the ED. bp NIH Stroke Scale - NIH Stroke Score Date: 03/23/2020 Time: 08:50 Total Score = 8 1a. Level of Consciousness (LOC) - 0(Alert) 1b. Level of Consciousness (LOC) (Year \T\ Age) - 2(Neither) 1c. LOC Commands (Open \T\ Closes Eyes/Sharepoint Web Developer) - 2(Neither) 2. Best Gaze (Lateral Gaze Paresis) - 0(Normal) 3. Visual Field Loss - 0(No visual loss) 4. Facial Palsy - 0(Normal) 5a. Left Arm: Motor (10-second hold) - 0(No drift) 5b. Right Arm: Motor (10-second hold) - 1(Drift) 6a. Left Leg: Motor (5-second hold - always test supine) - 0(No drift) 6b. Right Leg: Motor (5-second hold - always test supine) - 1(Drift) 7. Limb Ataxia (finger/nose \T\ heel/olvera - test with eyes open) - 0(Absent) 8. Sensory Loss (pinprick arms/legs/face) - 0(Normal) 9. Best Language: Aphasia (description/naming/reading) - 0(No aphasia) 10. Dysarthria (speech clarity - read or repeat words) - 2(Severe) 11. Extinction and Inattention (visual/tactile/auditory/spatial/personal) - 0(No abnormality) Initials: bp NIH Stroke Scale - NIH Stroke Score Date: 03/23/2020 Time: 08:55 Total Score = 6 1a. Level of Consciousness (LOC) - 0(Alert) 1b. Level of Consciousness (LOC) (Year \T\ Age) - 2(Neither) 1c. LOC Commands (Open \T\ Closes Eyes/Sharepoint Web Developer) - 1(One) 2. Best Gaze (Lateral Gaze Paresis) - 0(Normal) 3. Visual Field Loss - 0(No visual loss) 4. Facial Palsy - 0(Normal) 5a. Left Arm: Motor (10-second hold) - 0(No drift) 5b. Right Arm: Motor (10-second hold) - 1(Drift) 6a. Left Leg: Motor (5-second hold - always test supine) - 0(No drift) 6b. Right Leg: Motor (5-second hold - always test supine) - 0(No drift) 7. Limb Ataxia (finger/nose \T\ heel/olvera - test with eyes open) - 0(Absent) 8. Sensory Loss (pinprick arms/legs/face) - 0(Normal) 9. Best Language: Aphasia (description/naming/reading) - 1(Mild to moderate aphasia) 10. Dysarthria (speech clarity - read or repeat words) - 1(Mild to Moderate) 11. Extinction and Inattention (visual/tactile/auditory/spatial/personal) - 0(No abnormality) Initials: rn Signatures: Dispatcher [employer] Dagoberto Paulino MD MD rn Calderon, Audri, RN RN aa5 Damon Sousa ds4 Addison Hamm RN RN bp
--- NOTE | 2020-03-23 12:43 | EDPHYS ---
Physician Documentation [facility] Name: Lynne Leggett Age: 69 yrs Sex: Female : 1950 Arrival Date: 03/23/2020 Time: 08:46 Bed 4 Private MD: ED Physician Dagoberto Stone HPI: 03/23 08:55 This 69 yrs old Female presents to ER via EMS with complaints of AMS. rn 08:55 The patient's problem is reported as altered mental status. Onset: The symptoms/episode rn began/occurred at an unknown time. Duration: The episode is continuous. The symptoms are alleviated by nothing. The symptoms are aggravated by nothing. Severity of symptoms: At their worst the symptoms were moderate in the emergency department the symptoms are unchanged. It is unknown whether or not the patient has had similar symptoms in the past. The patient has not recently seen a physician. Family reports last known normal last night, went to wake her up this AM for dialysis, was altered, not responding like she normally does, threw up once, did not improve so called 911. No injury noted. Family reports left sided weakness residual form previous stroke. . Historical: - Allergies: 08:50 Vancomycin; bp 08:50 Nifedipine; bp - PMHx: 08:50 CVA (hemorrhagic); Diabetes - NIDDM; DIALYSIS MWF; ESRD; GERD; High Cholesterol; bp Hypertension; - Immunization history:: Adult Immunizations up to date. - Social history:: Smoking status: Patient denies any tobacco usage or history of. - Family history:: not pertinent. - Hospitalizations: : No recent hospitalization is reported. ROS: 08:55 Unable to obtain ROS due to altered mental status. rn Exam: 08:55 Constitutional: This is a well developed, well nourished patient who is awake, alert, rn and in no acute distress. Head/Face: Normocephalic, atraumatic. Eyes: Pupils equal round and reactive to light Cardiovascular: Tachycardic, regular Respiratory: No increased work of breathing, no retractions or nasal flaring. Abdomen/GI: soft, non-distended MS/ Extremity: Pulses equal, no cyanosis. Neurovascular intact. Full, normal range of motion. Equal circumference. Neuro: Awake, alert, follows some commands, + RUE drift. Speech difficult to understand and sometimes inappropriate answers. Sensation intact to painful stimuli. Vital Signs: 08:47 BP 168 / 85; Pulse 110; Resp 17; Temp 98; Pulse Ox 97% ; bp 09:07 BP 171 / 107; Pulse 114; Resp 16; Pulse Ox 98% ; bp 09:51 BP 185 / 126; Pulse 112; Resp 17; Pulse Ox 95% ; bp 11:33 BP 170 / 111; Pulse 113; Resp 26; Pulse Ox 96% ; bp NIH Stroke Scale Scores: 08:50 NIHSS Score: 8 bp 08:55 NIHSS Score: 6 rn MDM: 08:46 Patient medically screened. rn 09:24 ED course: NO acute findings on CT head. rn 10:59 Differential diagnosis: CVA, TIA, metabolic disorder. Data reviewed: vital signs, rn nurses notes, lab test result(s), EKG, radiologic studies, CT scan, plain films, and as a result, I will admit patient. Counseling: I had a detailed discussion with the patient and/or guardian regarding: the historical points, exam findings, and any diagnostic results supporting the discharge/admit diagnosis, lab results, radiology results, the need for further work-up and treatment in the hospital. Admission orders: after a detailed discussion of the patient's condition and case, the admit orders are written by me. ED course: Admitted to Dr. Fournier for further w/u, possible CVA vs HTN encephalopathy. Family states has gotten like this before and improved with BP control. CT head no acute findings. Hydralazine given now, will admit. . 03/23 08:48 Order name: Troponin (emerg Dept Use Only); Complete Time: 10:35 rn 03/23 08:48 Order name: Basic Metabolic Panel; Complete Time: 10:35 rn 03/23 08:48 Order name: CBC with Diff; Complete Time: 10:53 rn 03/23 08:48 Order name: Protime (+inr); Complete Time: 09:42 rn 03/23 08:48 Order name: Ptt, Activated; Complete Time: 09:42 rn 03/23 10:44 Order name: Manual Differential; Complete Time: 10:53 EDMS 03/23 11:43 Order name: CBC with Automated Diff EDMS 03/23 11:44 Order name: CBC with Automated Diff EDMS 03/23 11:44 Order name: Comprehensive Metabolic Panel EDMS 03/23 11:44 Order name: Comprehensive Metabolic Panel EDMS 03/23 11:44 Order name: Lipid Profile EDMS 03/23 11:44 Order name: Lipid Profile EDMS 03/23 11:44 Order name: Magnesium EDMS 03/23 11:44 Order name: Magnesium EDMS 03/23 11:44 Order name: Phosphorus EDMS 03/23 11:44 Order name: Phosphorus EDMS 03/23 11:44 Order name: Protime (+INR) EDMS 03/23 11:44 Order name: Protime (+INR) EDMS 03/23 11:44 Order name: PTT, Activated Partial Thromb EDMS 03/23 11:44 Order name: PTT, Activated Partial Thromb EDMS 03/23 11:44 Order name: PTT, Activated Partial Thromb EDMS 03/23 11:44 Order name: PTT, Activated Partial Thromb EDMS 03/23 11:44 Order name: PTT, Activated Partial Thromb EDMS 03/23 11:44 Order name: PTT, Activated Partial Thromb EDMS 03/23 11:44 Order name: T4,Total EDMS 03/23 11:44 Order name: T4,Total EDMS 03/23 11:44 Order name: Thyroid Stimulating Hormone EDMS 03/23 11:44 Order name: Thyroid Stimulating Hormone EDMS 03/23 11:44 Order name: Troponin I EDMS 03/23 11:44 Order name: Troponin I EDMS 03/23 08:48 Order name: CT Stroke Brain w/o Contrast; Complete Time: 09:42 rn 03/23 08:48 Order name: Stroke CXR 1 View; Complete Time: 09:57 rn 03/23 08:48 Order name: EKG; Complete Time: 08:49 rn 03/23 08:48 Order name: Accucheck; Complete Time: 09:07 rn 03/23 08:48 Order name: Cardiac monitoring; Complete Time: 09:03 rn 03/23 08:48 Order name: EKG - Nurse/Tech; Complete Time: 09:03 rn 03/23 08:48 Order name: IV Saline Lock; Complete Time: 09:03 rn 03/23 08:48 Order name: Labs collected and sent; Complete Time: 09:03 rn 03/23 08:48 Order name: NPO; Complete Time: 09:03 rn 03/23 08:48 Order name: O2 Per Protocol; Complete Time: 09:03 rn 03/23 08:48 Order name: O2 Sat Monitoring; Complete Time: 09:03 rn 03/23 08:48 Order name: Stroke Swallow Screen; Complete Time: 09:07 rn 03/23 09:04 Order name: CT Abd/Pelvis - Without Contrast; Complete Time: 09:42 rn 03/23 11:27 Order name: MRI Stroke Protocol 03/23 11:43 Order name: Physical Therapy Consult EDMS 03/23 11:43 Order name: Speech Therapy Consult EDMS 03/23 11:43 Order name: NPO EDMS 03/23 11:43 Order name: NPO EDMS 03/23 11:43 Order name: NPO EDMS 03/23 11:43 Order name: Echo with Doppler EDMS 03/23 11:43 Order name: EKG Electrocardiogram EDMS 03/23 11:44 Order name: Brain Wo Cont EDMS 03/23 11:44 Order name: MRA Head Wo Cont EDMS Administered Medications: 10:45 Drug: foLIC Acid 1 mg Route: IVPB; Site: left wrist; bp 11:32 Follow up: IV Status: Completed infusion; IV Intake: 100ml bp 11:00 Drug: hydrALAZINE 10 mg Route: IV; Rate: calculated rate; Site: left wrist; bp 11:32 Follow up: IV Status: Completed infusion bp 11:10 Not Given (FAILED SWALLOW STUDY): Aspirin Chewable Tablet 324 mg PO once; 81 mg tablets bp x 4 Disposition: 03/23/20 11:01 Hospitalization ordered by Yasmin Fournier for Inpatient Admission. Preliminary diagnosis are Altered mental status, unspecified, End stage renal disease, Hypertension, unspecified. - Bed requested for Telemetry/MedSurg (Inpatient). - Status is Inpatient Admission. bp - Condition is Stable. - Problem is new. - Symptoms are unchanged. NIH Stroke Scale - NIH Stroke Score Date: 03/23/2020 Time: 08:50 Total Score = 8 1a. Level of Consciousness (LOC) - 0(Alert) 1b. Level of Consciousness (LOC) (Year \T\ Age) - 2(Neither) 1c. LOC Commands (Open \T\ Closes Eyes/Design Engineering Specialist) - 2(Neither) 2. Best Gaze (Lateral Gaze Paresis) - 0(Normal) 3. Visual Field Loss - 0(No visual loss) 4. Facial Palsy - 0(Normal) 5a. Left Arm: Motor (10-second hold) - 0(No drift) 5b. Right Arm: Motor (10-second hold) - 1(Drift) 6a. Left Leg: Motor (5-second hold - always test supine) - 0(No drift) 6b. Right Leg: Motor (5-second hold - always test supine) - 1(Drift) 7. Limb Ataxia (finger/nose \T\ heel/olvera - test with eyes open) - 0(Absent) 8. Sensory Loss (pinprick arms/legs/face) - 0(Normal) 9. Best Language: Aphasia (description/naming/reading) - 0(No aphasia) 10. Dysarthria (speech clarity - read or repeat words) - 2(Severe) 11. Extinction and Inattention (visual/tactile/auditory/spatial/personal) - 0(No abnormality) Initials: bp NIH Stroke Scale - NIH Stroke Score Date: 03/23/2020 Time: 08:55 Total Score = 6 1a. Level of Consciousness (LOC) - 0(Alert) 1b. Level of Consciousness (LOC) (Year \T\ Age) - 2(Neither) 1c. LOC Commands (Open \T\ Closes Eyes/Design Engineering Specialist) - 1(One) 2. Best Gaze (Lateral Gaze Paresis) - 0(Normal) 3. Visual Field Loss - 0(No visual loss) 4. Facial Palsy - 0(Normal) 5a. Left Arm: Motor (10-second hold) - 0(No drift) 5b. Right Arm: Motor (10-second hold) - 1(Drift) 6a. Left Leg: Motor (5-second hold - always test supine) - 0(No drift) 6b. Right Leg: Motor (5-second hold - always test supine) - 0(No drift) 7. Limb Ataxia (finger/nose \T\ heel/olvera - test with eyes open) - 0(Absent) 8. Sensory Loss (pinprick arms/legs/face) - 0(Normal) 9. Best Language: Aphasia (description/naming/reading) - 1(Mild to moderate aphasia) 10. Dysarthria (speech clarity - read or repeat words) - 1(Mild to Moderate) 11. Extinction and Inattention (visual/tactile/auditory/spatial/personal) - 0(No abnormality) Initials: rn Signatures: Dispatcher [employer] EDMS Vianey Cornell bd Bailey Ackerman RN RN kl Nieto, Roman, MD MD rn Peltier, Brian, RN RN bp Corrections: (The following items were deleted from the chart) 11:47 11:44 Chest Pa And Lat (2 Views) ordered. [facility] 12:20 11:01 Hospitalization Ordered by Yasmin Fournier MD for Inpatient Admission. kl Preliminary diagnosis is Altered mental status, unspecified; End stage renal disease; Hypertension, unspecified. Bed requested for Intensive Care Unit. Status is Inpatient Admission. Condition is Stable. Problem is new. Symptoms are unchanged. rn 12:20 12:20 03/23/2020 11:01 Hospitalization Ordered by Yasmin Fournier MD for bd Inpatient Admission. Preliminary diagnosis is Altered mental status, unspecified; End stage renal disease; Hypertension, unspecified. Bed requested for Telemetry/MedSurg (Inpatient). Status is Inpatient Admission. Condition is Stable. Problem is new. Symptoms are unchanged. kl 12:42 12:20 03/23/2020 11:01 Hospitalization Ordered by Yasmin Fournier MD for bp Inpatient Admission. Preliminary diagnosis is Altered mental status, unspecified; End stage renal disease; Hypertension, unspecified. Bed requested for Telemetry/MedSurg (Inpatient). Status is Inpatient Admission. Condition is Stable. Problem is new. Symptoms are unchanged. bd
[2020-03-23] MEDS ORDERED: D50W 25 GM/50 ML SYRINGE/VIAL IV PRN (14:52)
[2020-03-23] MEDS ORDERED: GLUCAGON 1 MG/VIAL IM PRN (14:52)
[2020-03-23] MEDS ORDERED: D50W 25 GM/50 ML SYRINGE/VIAL IV ONE (15:00)
[2020-03-23] MEDS: HYDRALAZINE HCL 25 MG TABLET PO SCH ×2 (15:00→21:00)
[2020-03-23] MEDS ORDERED: INSULIN -REGULAR HUMAN 50 UNIT/0.5 ML ML IV ONE (15:00)
[2020-03-23] MEDS ORDERED: FUROSEMIDE 40 MG/4 ML VIAL IV ONE (16:00)
[2020-03-23] MEDS: SEVELAMER CARBONATE 800 MG TABLET PO SCH (16:20)
[2020-03-23 16:30] LABS: Potassium 5.4 mmol/L (3.5-5.1)
[2020-03-23] MEDS ORDERED: INSULIN 70/30 100 UNITS/ML SQ ONE (18:00)
--- NOTE | 2020-03-23 19:05 | P.HP ---
Certification for Inpatient Patient admitted to: Inpatient With expected LOS: >2 Midnights Patient will require the following post-hospital care: None Practitioner: I am a practitioner with admitting privileges, knowledge of patient current condition, hospital course, and medical plan of care. Services: Services provided to patient in accordance with Admission requirements found in Title 42 Section 412.3 of the Code of Federal Regulations Patient History Date of Service: 03/23/20 Reason for admission: Acute CVA History of Present Illness: Patient is a 69yo female who presented to the ER with AMS. Patient was not able to interact and was not talking much at all. Patient would just stare at us. Decision was made to admit patient to the hospital for further evaluation. Patient has not had any issues similar to this in the past. Patient's daughter is not really sure exactly when she ended up like this. We went ahead and did a CT of the brain which was negative. Electrolytes were stable. Decision was made to admit the patient to the hospital for further evaluation. Allergies nifedipine Allergy (Verified 03/23/20 13:19) Rash vancomycin Allergy (Verified 03/23/20 13:19) Rash Home Medications: Amlodipine [Norvasc*] 10 mg PO DAILY 04/07/19 Hydralazine [Apresoline*] 25 mg PO DAILY PRN 04/07/19 Linagliptin [Tradjenta] 5 mg PO DAILY 04/07/19 Sevelamer Carbonate [Renvela] 800 mg PO TID 04/07/19 Magnesium Chloride [Slow-Mag*] 64 mg PO DAILY 07/10/19 Atorvastatin Calcium 20 mg PO BEDTIME 03/23/20 Cetirizine HCl 10 mg PO DAILY 03/23/20 Losartan Potassium 100 mg PO DAILY 03/23/20 Metoprolol Tartrate 25 mg PO DAILY 03/23/20 Pantoprazole [Protonix Tab*] 1 tab PO DAILY 03/23/20 Aspirin [Aspirin EC 81 MG] 81 mg PO DAILY #30 tablet. 03/26/20 - Past Medical/Surgical History Has patient received pneumonia vaccine in the past: Yes Diabetic: Yes -: DM-Type 2 -: HTN -: Hyperlipidemia -: ESRD on Dialysis M,W,F, Nephrology-Dr. Lynn -: Diverticulosis -: GERD -: History hemorrhagic CVA requiring craniotomy -: GERD -: Laser surgery on bilateral eyes -: AV graft to right arm -: Old AV graft in right upper leg-doesn't work. -: Craniotomy Psychosocial/ Personal History: , Lives with daughter. - Family History Mother Medical History: Diabetes - Social History Smoking Status: Never smoker Review of Systems is unable to be obtained Physical Examination - Vital Signs Temperature: 98.8 F Blood Pressure: 147/68 Pulse: 112 Respirations: 20 Pulse Ox (%): 91 - Physical Exam General: Alert, Confused HEENT: Atraumatic, PERRLA, Mucous membr. moist/pink, EOMI, Sclerae nonicteric Neck: Supple, 2+ carotid pulse no bruit, No LAD, Without JVD or thyroid abnormality Respiratory: Diminished, Crackles/rales Cardiovascular: Regular rate/rhythm, Normal S1 S2, Systolic murmur Gastrointestinal: Normal bowel sounds, Soft and benign, Non-distended, No tenderness Musculoskeletal: No clubbing, No tenderness, Swelling Integumentary: No rashes Neurological: Sensation intact, Cranial nerves 3-12 intact, Abnormal speech, Abnormal strength, Abnormal affect Lymphatics: No axilla or inguinal lymphadenopathy - Studies Laboratory Data (last 24 hrs) 03/23/20 08:58: PT 11.5, INR 0.97, APTT 29.7 03/23/20 08:58: WBC 11.6 H, Hgb 12.6, Hct 38.1, Plt Count 155 03/23/20 08:58: Sodium 132 L, Potassium 5.8 H*, BUN 46 H, Creatinine 7.93 H*, Glucose 401 H* Assessment & Plan - Problems (Diagnosis) (1) Altered mental status Status: Acute (2) Acute CVA (cerebrovascular accident) Status: Acute (3) DM w/o complication type II Onset Date: 01/31/15 Status: Chronic (4) End-stage renal disease on hemodialysis Onset Date: 04/05/15 Status: Chronic (5) GERD (gastroesophageal reflux disease) Onset Date: 07/30/17 Status: Chronic (6) HTN (hypertension) Onset Date: 01/31/15 Status: Chronic Qualifiers: (7) Hyperlipidemia Onset Date: 01/31/15 Status: Chronic Qualifiers: - Plan Plan: 1. MRI of the brain pending 2. Physical therapy and speech therapy evaluation 3. Anti-platelet therapy and statin therapy 4. Echocardiogram and carotid Doppler 5. Neuro consultation 6. Nephrology consultation for dialysis 7. Echocardiogram and carotid Doppler 8. GI and DVT prophylaxis Discharge Plan: Home Plan to discharge in: Greater than 2 days - Advance Directives Does patient have a Living Will: No Does patient have a Durable POA for Healthcare: No - Code Status/Comfort Care Code Status Assessed: Yes Code Status: Full Code Critical Care: No Time Spent Managing PTS Care (In Minutes): 55
[2020-03-23] MEDS ORDERED: LORazepam 2 MG/ML VIAL IV ONE (20:20)
[2020-03-23] MEDS ORDERED: LORazepam 2 MG/ML VIAL ONE (20:35)
[2020-03-23] MEDS ORDERED: ATORVASTATIN 40 MG TAB PO SCH (21:00)
[2020-03-23] MEDS: ATORVASTATIN 20 MG TAB PO SCH (21:00)
--- NOTE | 2020-03-23 21:30 | RAD REPORT ---
EXAM DESCRIPTION: MRI - MRA Head Wo Cont - 03/23/2020 9:24 pm CLINICAL HISTORY: AMS CVA COMPARISON: Ct Stroke Brain Wo Cont dated 03/23/2020 FINDINGS: 3D noncontrast [id number] MR angiography of the [place] was performed. Mild motion artifact is noted. No aneurysm, flow-limiting stenosis or vascular malformation is seen. Forward flow seen in codominant vertebral arteries. IMPRESSION: No gross [place] flow abnormality detected.
--- NOTE | 2020-03-23 21:31 | RAD REPORT ---
EXAM DESCRIPTION: MRI - Brain Wo Cont - 03/23/2020 9:24 pm CLINICAL HISTORY: AMS Headache, CVA symptomology COMPARISON: MRA Head Wo Cont dated 03/23/2020 TECHNIQUE: Multi-sequence, multiplanar MR imaging of the brain was performed without contrast. FINDINGS: Moderate motion artifact is present, degrading image quality. No gross evidence of hemorrhage, hydrocephalus or midline shift. Diffusion-weighted imaging is negati ve for acute infarction. No areas of brain edema suspected. Moderate chronic microvascular ischemic c hanges are evident. Mild right mastoid effusion. IMPRESSION: No gross acute CVA or other acute intracranial finding.
[2020-03-24] MEDS: NA CHLORIDE 0.9% 1,000 ML IV SCH (00:59)
[2020-03-24] MEDS: FUROSEMIDE 40 MG/4 ML VIAL IV SCH ×3 (01:06→16:18)
--- NOTE | 2020-03-24 05:29 | EKG ---
Test Date: 2020-03-23 Test Time: 08:54:29 Molecular Genetic Pathologist: JOSE MEASUREMENT RESULTS: Intervals: Rate: 110 VT: 128 QRSD: 86 QT: 334 QTc: 452 [place]: P: 69 VT: 128 QRS: 85 T: 70 INTERPRETIVE STATEMENTS: Sinus tachycardia Possible Left atrial enlargement RSR' or QR pattern in V1 suggests right ventricular conduction delay Nonspecific ST abnormality Abnormal ECG Compared to ECG 07/10/2019 10:56:53 RSR' in V1 or V2 now present Sinus rhythm no longer present ST (T wave) deviation still present Electronically Signed On 03-24-20 05:28:44 CDT by Umberto Puri
[2020-03-24 06:31] LABS: Absolute Lymphocytes (CBC) 0.8 K/uL (0.7-4.9); Basophils % 0.2 % (0-1.3); Hematocrit 31.6 % (36.0-45.0); Lymphocytes % 6.8 % (15.3-44.8); MPV 12.1 fL (7.6-11.3); RBC Red Blood Cell Count 3.26 M/uL (3.86-4.86)
[2020-03-24 06:39] LABS: Protime INR 1.08
[2020-03-24 06:40] LABS: RBC Red Blood Cell Count 3.24 M/uL (3.86-4.86)
[2020-03-24 07:05] LABS: Blood Morphology Comment NOT SEEN (NOT SEEN); Platelet Estimate DECR
[2020-03-24 07:16] LABS: Albumin 3.5 g/dL (3.4-5.0); Bilirubin Total 1.1 mg/dL (0.2-1.0); Magnesium 2.8 mg/dL (1.8-2.4); Phosphorus 4.1 mg/dL (2.5-4.9); Potassium 4.8 mmol/L (3.5-5.1); Protein, Total 7.5 g/dL (6.4-8.2); T4,Total 7.5 ug/dL (4.8-13.9); Thyroid Stimulating Hormone 0.705 uIU/mL (0.360-3.740)
[2020-03-24] MEDS: SEVELAMER CARBONATE 800 MG TABLET PO SCH ×3 (08:00→16:18)
[2020-03-24] MEDS: ENOXAPARIN 30 MG/0.3 ML SQ SCH (08:43)
[2020-03-24] MEDS: ASPIRIN EC 81 MG TAB PO SCH (08:43)
[2020-03-24] MEDS: HYDRALAZINE HCL 25 MG TABLET PO SCH ×2 (08:43→21:00)
[2020-03-24] MEDS: METOPROLOL TAR 25 MG TAB PO SCH (08:44)
[2020-03-24] MEDS: HOME MED 1 EA UNK (Linagliptin [Tradjenta] 5 MG) PO SCH (08:44)
[2020-03-24] MEDS: CETIRIZINE HCL 5 MG TABLET PO SCH (08:45)
[2020-03-24] MEDS: MAGNESIUM CHLORIDE 64 MG TAB PO SCH (08:45)
[2020-03-24] MEDS: PANTOPRAZOLE 40MG TABLET PO SCH (08:45)
[2020-03-24] MEDS: CLOPIDOGREL 75 MG TABLET PO SCH (08:45)
[2020-03-24] MEDS ORDERED: LOSARTAN POTASSIUM 50 MG TABLET PO SCH (09:00)
[2020-03-24] MEDS ORDERED: HOME MED 1 EA UNK (Losartan Potassium [Losartan Potassium] 100 MG) PO SCH (09:00)
[2020-03-24] MEDS ORDERED: AMLODIPINE 10 MG TAB PO SCH (09:00)
[2020-03-24] MEDS ORDERED: HOME MED 1 EA UNK (Cetirizine Hcl [Cetirizine Hcl] 10 MG) PO SCH (09:00)
--- NOTE | 2020-03-24 15:05 | ECHO ---
HEIGHT: 4 ft 11 in WEIGHT: 120 lb 0 oz DATE OF STUDY: 03/24/[address]: Yasmin Fournier MD 2-DIMENSIONAL: YES M.MODE: YES DOPPLER: YES COLOR FLOW: YES TDS: NO PORTABLE: NO DEFINITY: NO BUBBLE STUDY: NO DIAGNOSIS: STROKE CARDIAC HISTORY: CATHERIZATION: NO SURGERY: NO PROSTHETIC VALVE: NO PACEMAKER: NO MEASUREMENTS (cm) DIASTOLIC (NORMALS) SYSTOLIC (NORMALS) IVSd 1.0 (0.6-1.2) LA Diam 3.1 (1.9-4.0) LVEF 71% LVIDd 3.1 (3.5-5.7) LVIDs 1.9 (2.0-3.5) %FS 39% LVPWd 1.1 (0.6-1.2) Ao Diam 2.3 (2.0-3.7) 2 DIMENSIONAL ASSESSMENT: RIGHT ATRIUM: NORMAL LEFT ATRIUM: NORMAL RIGHT VENTRICLE: DILATED LEFT VENTRICLE: NORMAL TRICUSPID VALVE: MITRAL VALVE: MITRAL ATRIAL CALCIFICATION PULMONIC VALVE: NORMAL AORTIC VALVE: CALCIFIED PERICARDIAL EFFUSION: NONE AORTIC ROOT: NORMAL LEFT VENTRICULAR WALL MOTION: NORMAL DOPPLER/COLOR FLOW: SEVERE PULMONARY HYPERTENSION. COMMENTS: NORMAL LEFT VENTRICULAR EJECTION FRACTION 55-60% WITH NORMAL WALL MOTION. SEVERE TRICCUSPID REGURITATION. MILD MITRAL REGURGITATION. SEVERE PULMONARY HYPERTENSION WITH RIGHT VENTRICULAR SYSTOLIC PRESSURE >60 mmHg. MILDLY DILATED RIGHT VENTRICLE WITH MILDLY DEPRESSED FUNCTION. PLEASE EVALUATE FOR PE. TECHNOLOGIST: Bartolome PATRICIO
[2020-03-24 16:49] VITALS: O2SAT 98
[2020-03-24] MEDS ORDERED: ALBUMIN HUMAN 25% 100 ML IV ONE (18:00)
--- OUTSIDE RECORDS SUMMARY | 2020-03-24 19:03 | XMS REPORT | Continuity of Care Document ---
:1950 Author Organization [id number] Care Team Providers Name Role Phone [facility] Unavailable Un available Problems Problem Status Onset Classification Date Comments Sourc e Date Reported SAH Active 08/12/[address] LFLT TRANSFER Active 08/12/19 Deyvi as #[id number] [address] [place] [address] IVH Active 08/12/[address] Diabetes mellitus Resolved Problem 08/25/2016 [facility] [place] (disorder) [facility] End stage renal Active Problem 08/25/2016 [facility] disease Medical (disorder) Center Hyperlipidemia Resolved Problem 08/25/2016 [facility] ex (disorder) [facility] Center Hypertensive Active Problem 08/25/2016 De[place]vi as disorder, Medical systemic arterial Ce nter (disorder) NONTRAUMATIC Active [facility] INTRACEREBRAL Medica l HEMORRHAGE, I Center Medications Medication Details Route Status Patient Ordering Order Source Instructions Provider Date Notes: Same as: Inactive 08/22[facility] [place] [address] [place] [address] losartan 50 mg 50 mg = 1 tab, Active 08/22[facility] oral tablet PO, Q12H, # 120 2017 [place] tab, 1 Refill(s) Center amLODIPine 10 10 mg = 1 tab, Active 08/22[facility] mg oral tablet PO, Daily, # 60 2017 edical tab, 1 Refill(s) Center Amlodipine Notes: (Same as: No Longer [facility] Norvasc) Active [address] [place] [address] Humulin N Notes: [place] palms of hands Active 2017 Medical gently; Do not Center shake vigorously. (Same as: Humulin N) Do not hold insulin without contacting prescriber WASTE: F/P - Black; E - Municipal Trash Bin Stable for 28 days at room temperature Expires in days from Da te Labetalol Notes: With No Longer [facility] food. (Same Active 2017 Medical as:Trandate, [place] Normodyne) 150 mg = 1/2 x 300 mg TAB Amlodipine 5 mg, Route: PO, Inactive [facility] Drug form: TAB, 2017 Medical ONCE, Dosing Center Weight 62.3, kg, Start date: 08/18/16 11:12:00 STRATEGY ANALYST, Stop date: 08/18/16 11:12:00 STRATEGY ANALYST sevelamer Notes: Same as: No Longer [facility] exas Renvela Active [address] [place] [address] travoprost 0.04 1 drp, BOTH Active [facility] exas MG/ML EYES, QPM, # 5 2017 Medical Ophthalmic ml, 0 Refill(s) Cente r Solution [Travatan] Brimonidine 2 drp, BOTH Active [facility] tartrate 2 EYES, BID, 0 2016 Medical MG/ML / Timolol Refill(s) [place] 5 MG/ML Ophthalmic Solution [Combigan] Amlodipine Notes: (Same as: No Longer [facility] Norvasc) Active [address] [place] [address] Losartan Notes: (Same as: No Longer [facility] exas Cozaar) Active 2017 [facility] Labetalol 10 mg, 2 mL, Inactive [facility] Route: IVP, Drug 2017 Medical form: INJ, ONCE, Center Dosing Weight 62.3, kg, Start date: 08/15/16 21:29:00 STRATEGY ANALYST, Stop date: 08/15/16 21:29:00 STRATEGY ANALYST Labetalol 150; HOLD [place] pulse < [address] [place] [address] Hydralazine Notes: (Same as: No Longer [place] Apresoline) Active 2017 [facility] multivitamin Daily, 0 Active [facility] Refill(s) 2017 [facility] losartan 100 mg 100 mg = 1 tab, No Longer [facility] oral tablet PO, Daily, # 90 Active 2016 [facility] idalia tab, 0 Refill(s) [place] amLODIPine 5 mg 5 mg = 1 tab, No Longer [facility] oral tablet PO, Daily, Active 2017 Medical evening, # 90 Center tab, 1 Refill(s) Glipizide 10 MG 10 mg = 1 tab, Active [place] Oral Tablet PO, BID-Before 2017 Medic al Meals, # 180 Center tab, 1 Refill(s) pantoprazole 40 40 mg = 1 tab, Active 08/15/ H [place] mg oral enteric PO, Daily, # 90 2017 Medical coated tablet tab, 0 Refill(s) C enter sevelamer 1,600 mg = 2 Active [place] carbonate 800 tab, PO, 2017 Medical MG Oral Tablet TID-Meals, # 180 Center [Renvela] tab, 1 Refill(s) atorvastatin 20 20 mg = 1 tab, No Longer [place] mg oral tablet PO, Bedtime, # Active 2016 [place] dical 90 tab, 3 Center Refill(s) Linagliptin 5 5 mg = 1 tab, Active [place] Oral Tablet PO, Daily, # 30 2016 M edical [Tradjenta] tab, 3 Refill(s) [address] [facility] metoprolol 25 mg = 1 tab, Active [place] as tartrate 25 mg PO, BID, # 180 2017 [place] dical oral tablet tab, 0 Refill(s) [address] [facility] Miralax 17 gm, Route: Inactive [place] PO, BID, Dosing 2016 Medical Weight 62.3, kg, Center Start date: 08/14/16 17:00:00 STRATEGY ANALYST, Duration: 30 day, Stop date: 09/13/16 9:00:00 CDT Beneprotein 7 Notes: (Same as: No Longer [place] gm pkt Beneprotein) Active 2017 [facility] physiological Notes: NxStage No Longer [facility] [place] irrigating [id number] = K4/Ca3 Active 2016 Medi [place] solution Total Center ingredients in bag Na 140meq/L; K 4meq/L; HCO 35meq/L; Ca 3meq/L; Magnesium 1meq/L; CL 113meq/L; Glucose 100mg/dL; "Break seal Between compartments and mix before hanging" sodium 15 mmol, 5 mL, [place] phosphate + Route: IVPB, Active 2016 Medical sodium chloride PRN, Dosing Cent er 0.9% INJ 250 mL Weight 62.3, kg, PRN Abnormal Lab Result, Via central line, Start date: 08/14/16 11:00:00 STRATEGY ANALYST, Duration: 30 day, Stop date: 09/13/16 11:59:00 CDT Magnesium Notes: WASTE: No Longer [place] as Sulfate F/P - Sink; E - Active [facility] [place] Bin Calcium Notes: WASTE: No Longer [place] Chloride F/P - Sink; E - Active [address] [facility] Bin physiological 5,000 mL, Route: Inactive [place] irrigating DIALYSIS, 2017 Medical solution 5000 Irrigation Site: C enter mL Other: See Comments, 2,000 ml/hr, catheter, 2.5 hr, Total Volume: 5,000 mL, "For Irrigation Only", Start date: 08/14/16 11:00:00 STRATEGY ANALYST, Duration: 30 day, Stop date: 09/13/16 10:59:00 CDT potassium Notes: (Same as: No Longer [place] chloride KCL) Infuse no Active 2016 Medical faster than 10 Center mEq/hr if given peripherally. heparin sodium, Notes: porcine No Longer [place] porcine 2500 heparin Active 2017 [facility] UNT/ML Center Injectable Solution Miralax Notes: Dissolve No Longer [place] as in 8 oz of water Active 2017 Medical or juice. (Same Center as: Miralax) Labetalol Notes: With No Longer [place] food. (Same Active 2017 Medical as:Trandate, [place] Normodyne) Tylenol Notes: (Same as: [place] Tylenol) Active 2017 [facility] Cathflo Notes: "Syringe Inactive [place] Activase 2 mg for catheter 2017 Medic al injection clearance or [place] interventional radiology use. Pharmacy: Reconstitute each vial of Cathflo Activase with 2.2 ml Sterile Water resulting in a 1 mg/ml solution. Stable for 8 hours only. (Same as: Activase) MEDICATION WASTE Product Size: 2 mg Product Wasted: _1__ mg Ancef 2 gm, Route: Inactive [place] IVPB, ONCE, 2016 Medical Dosing Weight Center 62.3, kg, Start date: 08/13/16 17:47:00 STRATEGY ANALYST, Duration: 1 doses or times, Stop date: 08/13/16 17:47:00 STRATEGY ANALYST, Surgical Prophylaxis Only; For patients < 120 kg Propofol 10 Notes: Same as: No Longer [place] MG/ML Diprivan Active 2016 Medical Injectable Center Suspension Hydralazine Notes: (Same as: No Longer [facility] Apresoline) October Active 2016 Medical interfere Center w/enteral feedings. Take With Food Insulin regular 60 units) No Longer [facility] WASTE: F/P - Active 2016 Medical Black; E - Center Municipal Trash Bin Stable for 28 days at room temperature Expires in days from Da te Zofran Notes: (Same as: [place] Zofran) Active 2016 Medical MEDICATION WASTE Center Product Size: 4 mg Product Wasted: ___ mg DDAVP Notes: (Same As: Inactive [place] DDAVP) 2017 Medical MEDICATION WASTE Center Product Size: 4 microgram Product Wasted: ___ microgram Docusate Sodium Notes: (Same as No Longer [place] 50 MG / Senokot-S) Active 2016 [facility] sennosides, RESIDENTIAL Equiv. to Center 8.6 MG Oral Sehrrie-Colace. Tablet Saline Flush Notes: (Same as: No Longer [place] 0.9% BD Posiflush) Active 2016 Medical [place] lansoprazole Notes: Take 1 No Longer [facility] hour before or 2 Active 2016 Medical hours after Center meal; Expires in 14 days. Shake well before use. (Same as:Prevacid) Compounded Product - formulation not commercially available Dextrose 50% 25 gm, 50 mL, No Longer [facility] Syringe Route: IVP, Drug Active 2016 Medical Form: INJ, kg, Center PRN, PRN Abnormal Lab Result, Start date: 08/13/16 4:08:00 STRATEGY ANALYST, Duration: 30 day, Stop date: 09/12/16 5:07:00 CDT Regular 60 units) No Longer [facility] Insulin, Human WASTE: F/P - Active 2016 [place]i [place] 100 UNT/ML Black; E - Center Injectable Municipal Trash Solution Bin Stable for 28 days at room temperature Expires in days from Da te Saline Flush Notes: (Same as: No Longer [place] 0.9% BD Posiflush) Active 2016 Medical Center Stimate + Notes: (Same As: Inactive [place] sodium chloride DDAVP) 2017 Med ical 0.9% INJ 50 mL MEDICATION WASTE Center Product Size: 4 microgram Product Wasted: ___ microgram midazolam 50mg/ Notes: (Same as: No Longer 08/13 [place] NS 50ml drip Versed) Active 2016 Medical (premixed) 50 Center mg Fentanyl 1,000 microgram, [place] 20 mL, Rate: Active 2017 Medical Titrate, Start Center Dose: 50 microgram/hr, Titration: 25 microgram/hour every 15 minutes, Goal(s): rass -1, Max Dose: 300 microgram/hr, Route: IV, Total Volume: 20, Start date: 08/13/16 1:32:00 STRATEGY ANALYST, Duration: 30 day, Stop date... iodixanol 100 mL, Route: Inactive [place] as IVP, Drug Form: 2017 Medical SOLN, kg, Center ONCALL, STAT, Start date: 08/13/16 1:25:00 STRATEGY ANALYST, Duration: 1 doses or times, Dose = 2.2ml/kg, Max dose = 100ml -- "To be infused by Radiology Staff ONLY" Dextrose 50% 25 gm, 50 mL, Inactive [place] Syringe Route: IVP, Drug 2016 Medical Form: INJ, kg, Center ONCE, STAT, Start date: 08/13/16 1:24:00 STRATEGY ANALYST, Stop date: 08/13/16 1:24:00 STRATEGY ANALYST Insulin regular 60 units) Inactive [place] WASTE: F/P - 2017 Medical Black; E - Center Municipal Trash Bin Stable for 28 days at room temperature Expires in days from Da te Albuterol 0.83 Notes: SEE RT No Longer 08/13/ H [place] MG/ML Inhalant DOCUMENTATION Active 2016 Med ical Solution (Same as: [place] Proventil) niCARdipine 40 Notes: Same as: No Longer [place] mg/ NS 200 ml Cardene Active 2016 Medical IV Soln Concentration: [place] (premix) 40 mg (0.2 mg /1 ml ) DDAVP 10 microgram, Inactive [place] Route: IV, ONCE, 2017 Medical kg, Start date: Center 08/13/16 0:35:00 STRATEGY ANALYST, Stop date: 08/13/16 0:35:00 STRATEGY ANALYST Saline Flush Notes: Same as: No Longer [facility] 0.9% BD Posiflush Active 2016 [facility] Sterile Center Allergies, Adverse Reactions, Alerts No Known Medication Allergies Immunizations No Data Provided for This Section Results Order Name Results Value Reference Date Interpretation Comments Anna rce Range CHEM PANEL Magnesium Lvl 2.9 1.8 - 2.4 08/22 [place] [facility] CHEM PANEL Phosphorus 6.1 2.5 - 4.5 08/22 [facility] CHEM PANEL eGFR 7 08/22 Result Comment: The Medical eGFR is Center calculated using the CKD-EPI formula. In most young, healthy individuals the eGFR will be >90 mL/min/1.73m2 . The eGFR declines with age. An eGFR of 60-89 may be normal in some populations, particularly the elderly, for whom the CKD-EPI formula has not been extensively validated. Use of the eGFR is not recommended in the following populations:< br/>
Ashley viduals with unstable creatinine concentration s, including patients and those with serious co-morbid conditions.<b r/>
Patie nts with extremes in muscle mass or diet.

The data above are obtained from the National Kidney Disease Education Program (NKDEP) which additionally recommends that when the eGFR is used in patients with extremes of body mass index for purposes of drug dosing, the eGFR should be multiplied by the estimated BMI. CHEM PANEL Calcium Lvl 8.9 8.5 - 10.5 08/22 [facility] CHEM PANEL AGAP 19.4 10.0 - 08/22 [facility] 20.0 [facility] CHEM PANEL CO2 24 24 - 32 08/22 [facility] CHEM PANEL Creatinine 6.00 0.50 - 08/22 [facility] Lvl 1.40 [facility] CHEM PANEL BUN 65 7 - 22 08/22 [facility] CHEM PANEL Glucose Lvl 125 70 - 99 03/ [facility] CHEM PANEL Chloride Lvl 94 95 - 109 03/ [facility] CHEM PANEL Potassium Lvl 5.4 3.5 - 5.1 03 [facility] CHEM PANEL Sodium Lvl 132 135 - 145 03/ [facility] HEMATOLOGY Basophils # 0.1 0.0 - 0.2 03/ [facility] HEMATOLOGY Eosinophils 2.5 0.0 - 4.0 03/ [facility] HEMATOLOGY Segs-Bands # 6.9 1.5 - 8.1 03 [facility] HEMATOLOGY Basophils 0.8 0.0 - 1.0 03/ [facility] HEMATOLOGY Monocytes 10.1 2.0 - 12.0 03/ [facility]2016 [facility] HEMATOLOGY Lymphocytes 14.2 20.0 - 03 40.0 [facility] HEMATOLOGY Lymphocytes # 1.4 1.0 - 5.5 03 [facility] HEMATOLOGY Eosinophils # 0.2 0.0 - 0.5 03/ [facility] HEMATOLOGY Monocytes # 1.0 0.0 - 0.8 03 [facility] HEMATOLOGY Segs 72.4 45.0 - 0308 75.0 [facility] HEMATOLOGY RDW 13.2 11.5 - 03 [place] 14.5 [facility] HEMATOLOGY MCHC 32.5 32.0 - 0308 [place] 36.0 [facility] HEMATOLOGY Platelet 195 133 - 450 03/ [facility] HEMATOLOGY MCH 31.1 27.0 - 03/08 31.0 [facility] HEMATOLOGY MCV 95.8 80.0 - 0308 [facility] 98.0 [facility] HEMATOLOGY Hct 25.2 36.0 - 03/08 48.0 [facility] HEMATOLOGY MPV 12.8 7.4 - 10.4 03/ [facility] HEMATOLOGY WBC 9.5 3.7 - 10.4 03/ [facility] HEMATOLOGY RBC 2.63 4.20 - 0308 [place] 5.40 [facility] HEMATOLOGY Hgb 8.2 12.0 - 08/22 [facility] 16. [facility] CHEM PANEL Phosphorus 4.5 2.5 - 4.5 08/21 [facility] CHEM PANEL eGFR 11 08/21 Result Comment: The Medical eGFR is Center calculated using the CKD-EPI formula. In most young, healthy individuals the eGFR will be >90 mL/min/1.73m2 . The eGFR declines with age. An eGFR of 60-89 may be normal in some populations, particularly the elderly, for whom the CKD-EPI formula has not been extensively validated. Use of the eGFR is not recommended in the following populations:< br/>
Ashley viduals with unstable creatinine concentration s, including patients and those with serious co-morbid conditions.<b r/>
Patie nts with extremes in muscle mass or diet.

The data above are obtained from the National Kidney Disease Education Program (NKDEP) which additionally recommends that when the eGFR is used in patients with extremes of body mass index for purposes of drug dosing, the eGFR should be multiplied by the estimated BMI. CHEM PANEL Calcium Lvl 9.0 8.5 - 10.5 08/21 [facility] CHEM PANEL AGAP 16.5 10.0 - 08/21 [facility] 20. [facility] CHEM PANEL CO2 27 24 - 32 08/21 2016 [facility] CHEM PANEL Chloride Lvl 97 95 - 109 08/21 [facility] CHEM PANEL Potassium Lvl 4.5 3.5 - 5.1 08/21 [facility] CHEM PANEL BUN 40 7 - 22 08/21 [facility] CHEM PANEL Sodium Lvl 136 135 - 145 08/21 [facility] CHEM PANEL Creatinine 3.93 0.50 - 03 [facility] Lvl 1.40 [facility] CHEM PANEL Glucose Lvl 140 70 - 99 08/21 [facility]2016 [facility] CHEM PANEL Magnesium Lvl 2.8 1.8 - 2.4 08/21 [facility] HEMATOLOGY Eosinophils # 0.3 0.0 - 0.5 08/21 [facility] HEMATOLOGY Lymphocytes # 1.2 1.0 - 5.5 08/21 [facility] HEMATOLOGY Monocytes # 1.2 0.0 - 0.8 03 s [facility] HEMATOLOGY Segs-Bands # 8.6 1.5 - 8.1 08/21 as [facility] HEMATOLOGY Segs 76.0 45.0 - 03 [place] 75.0 /2016 [facility] HEMATOLOGY Eosinophils 2.3 0.0 - 4.0 08/21 s [facility] HEMATOLOGY Lymphocytes 10.6 20.0 - 08/21 [place] 40.0 [facility] HEMATOLOGY Basophils 0.4 0.0 - 1.0 03/ [facility] HEMATOLOGY Monocytes 10.7 2.0 - 12.0 08/21 [facility] HEMATOLOGY MCHC 32.5 32.0 - 03 [place] 36.0 [facility] HEMATOLOGY MCH 30.7 27.0 - 03 [place] 31.0 [facility] HEMATOLOGY MCV 94.5 80.0 - 08/21 [place] 98.0 [facility] HEMATOLOGY WBC 11.3 3.7 - 10.4 08/21 [facility] HEMATOLOGY Hct 26.2 36.0 - 03 [place] 48.0 [facility] HEMATOLOGY Hgb 8.5 12.0 - 08/21 [place] 16.0 [facility] HEMATOLOGY RBC 2.77 4.20 - 08/21 [place] 5.40 /2016 [facility] HEMATOLOGY RDW 13.1 11.5 - 03 [place] 14.5 /2016 [facility] HEMATOLOGY Platelet 176 133 - 450 08/21 [facility] HEMATOLOGY MPV 11.9 7.4 - 10.4 08/21 [facility] PARATHYROID Ca Norm WB 1.02 1.05 - 03 [place] PROFILE 1. [facility] PARATHYROID Ca Ion WB 0.99 1.05 - 08/21 [facility] PROFILE 1. [facility] CHEM PANEL eGFR 16 08/21 [facility] Comment: The Medical eGFR is Center calculated using the CKD-EPI formula. In most young, healthy individuals the eGFR will be >90 mL/min/1.73m2 . The eGFR declines with age. An eGFR of 60-89 may be normal in some populations, particularly the elderly, for whom the CKD-EPI formula has not been extensively validated. Use of the eGFR is not recommended in the following populations:< br/>
Ashley viduals with unstable creatinine concentration s, including patients and those with serious co-morbid conditions.<b r/>
Patie nts with extremes in muscle mass or diet.

The data above are obtained from the National Kidney Disease Education Program (NKDEP) which additionally recommends that when the eGFR is used in patients with extremes of body mass index for purposes of drug dosing, the eGFR should be multiplied by the estimated BMI. CHEM PANEL Calcium Lvl 8.6 8.5 - 10.5 08/21 [facility] CHEM PANEL AGAP 13.2 10.0 - 08/21 20.0 [facility] CHEM PANEL CO2 30 24 - 32 08/21 [facility] CHEM PANEL BUN 31 7 - 22 08/21 [facility] CHEM PANEL Creatinine 3.04 0.50 - 08/21 [facility] Lvl 1.40 [facility] CHEM PANEL Sodium Lvl 135 135 - 145 08/21 [facility] CHEM PANEL Potassium Lvl 4.2 3.5 - 5.1 08/21 [facility] CHEM PANEL Chloride Lvl 96 95 - 109 08/21 [facility] CHEM PANEL Glucose Lvl 247 70 - 99 08/21 [facility] HEMATOLOGY Hct 26.3 36.0 - 08/21 48.0 [facility] HEMATOLOGY Hgb 8.9 12.0 - 08/21 16.0 [facility] CHEM PANEL Phosphorus 6.5 2.5 - 4.5 08/20 [facility] CHEM PANEL Magnesium Lvl 2.8 1.8 - 2.4 08/20 [facility] HEMATOLOGY RBC 2.38 4.20 - 03 [place] 5.40 [facility] HEMATOLOGY MCV 94.2 80.0 - 08/20 [place] 98.0 [facility] HEMATOLOGY MCH 31.7 27.0 - 03/ [place] 31.0 [facility] HEMATOLOGY Platelet 156 133 - 450 03 [facility] HEMATOLOGY MCHC 33.7 32.0 - 03 [place] 36.0 [facility] HEMATOLOGY MPV 12.2 7.4 - 10.4 03 [facility] HEMATOLOGY RDW 13.2 11.5 - 03 14.5 [facility] HEMATOLOGY WBC 10.2 3.7 - 10.4 03 [facility] HEMATOLOGY Lymphocytes # 1.1 1.0 - 5.5 03 [facility] HEMATOLOGY Eosinophils # 0.3 0.0 - 0.5 03 [facility] xa [facility] HEMATOLOGY Monocytes # 1.0 0.0 - 0.8 03 [facility] HEMATOLOGY Segs 76.2 45.0 - 03 [facility] 75.0 [facility] HEMATOLOGY Eosinophils 2.5 0.0 - 4.0 03 [facility] HEMATOLOGY Lymphocytes 10.9 20.0 - 08/20 40.0 [facility] HEMATOLOGY Basophils 0.4 0.0 - 1.0 08/20 [facility] HEMATOLOGY Monocytes 10.0 2.0 - 12.0 03 [facility] HEMATOLOGY Segs-Bands # 7.8 1.5 - 8.1 08/20 [facility] PARATHYROID Ca Ion WB 0.99 1.05 - 03 [facility] PROFILE 1. [facility] PARATHYROID Ca Norm WB 0.98 1.05 - 08/20 [facility] PROFILE 07.11 [facility] PARATHYROID Ca Ion WB 1.02 1.05 - 03 [facility] PROFILE 07.11 [facility] PARATHYROID Ca Norm WB 1.06 1.05 - 03 [facility] PROFILE 07.11 [facility] HEMATOLOGY PT 13.6 12.0 - 03 [facility] 14.7 [facility] HEMATOLOGY INR 1.02 0.85 - 08/17 [facility] 1. [facility] HEMATOLOGY PTT 40.4 22.9 - 03/03 [place] 35.8 [facility] IMMUNOLOGY Hep Bs Ab 356.4 <=7.4 08/13 [facility] mIU/mL /2016 [facility] IMMUNOLOGY Hep B Core Negative Negative 08/13 [facility] IgM *NA* /2016 [facility] (08/13/16 9:51 AM) [place] IMMUNOLOGY Hep B Core Ab Negative Negative 08/13 [place] *NA* [facility] (08/13/16 9:51 AM) [place] IMMUNOLOGY Hep Bs Ag Negative Negative 08/13 [place] *NA* [facility] (08/13/16 9:51 AM) Center IMMUNOLOGY Hep C Ab Negative 08/13 [place] *NA* [facility] (08/13/16 9:51 AM) [place] URINE AND UA Bacteria Few /HPF None Seen 08/13 [place] /HPF /2016 Medical Center URINE AND UA WBC 0-2 /HPF None Seen 08/13 [place] STOOL /HPF /2016 Medical [place] URINE AND UA RBC 3-5 /HPF 0 - 2 08/13 [place] STOOL /2016 [facility] URINE AND UA Sq Epi Few /LPF Few /LPF 08/13 [place] STOOL [facility] URINE AND UA Protein >=300 Negative 08/13 [place] STOOL mg/dL mg/dL [facility] URINE AND UA Glucose 500 mg/dL Negative 08/13 [facility] mg/dL /2016 [facility] URINE AND UA Bili Negative Negative 08/13 [place] STOOL *NA* [facility] (08/13/16 3:07 AM) [place] URINE AND UA Ketones Negative Negative 08/13 [place] STOOL *NA* [facility] (08/13/16 3:07 AM) [place] URINE AND UA Turbidity Slight Cloudy Clear 08/13 [facility] (08/13/16 3:07 AM) [facility] URINE AND UA Spec Grav 1.015 <=1.030 08/13 [place] STOOL /2016 [facility] URINE AND UA pH 8.5 5.0 - 8.0 08/13 [place] STOOL /2016 [facility] URINE AND UA Blood Large Negative 08/13 [place] STOOL *ABN* [facility] (08/13/16 3:07 AM) [place] URINE AND UA Leuk Est Negative Negative 08/13 [facility] (08/13/16 3:07 AM) Medica l [place] URINE AND UA 0.2 0.1 - 1.0 08/13 [facility] Urobilinogen /2016 [facility] URINE AND UA Nitrite Negative Negative 08/13 [facility] (08/13/16 3:07 AM) Medica l [place] URINE AND UA Color Yellow Yellow 08/13 [place] STOOL *NA* [facility] (08/13/16 3:07 AM) Center DRUG SCREEN UDS Note See Note 08/13 [place] *NA* Medical (08/13/16 3:03 AM) Center DRUG SCREEN U Cannab Scr Negative Negative 08/13 [place] *NA* Medical (08/13/16 3:03 AM) Center DRUG SCREEN U Zoey Scr Negative Negative 08/13 [place] *NA* [place] (08/13/16 3:03 AM) Center DRUG SCREEN U Benzodia Negative Negative 08/13 [place] *NA* Medical (08/13/16 3:03 AM) Center DRUG SCREEN U Cocaine Scr Negative Negative 08/13 [place] *NA* Medical (08/13/16 3:03 AM) Center DRUG SCREEN U Opiate Scr Negative Negative 08/13 [place] *[place]* Medical (08/13/16 3:03 AM) Center DRUG SCREEN U Phencyc Scr Negative Negative 08/13 [place] *NA* Medical (08/13/16 3:03 AM) Center DRUG SCREEN U Amph Scr Negative Negative 08/13 [place] (08/13/16 3:03 AM) Center LIPIDS VLDL 32 08/13 [facility] LIPIDS LDL 70 <=99 mg/dL 08/13 [facility] (Calculated) [facility] LIPIDS HDL 42 >=61 mg/dL 08/13 [facility] LIPIDS Chol 144 <=199 08/13 [facility] mg/dL [facility] LIPIDS Trig 160 <=149 08/13 [facility] mg/dL [facility] LIPIDS CHD Risk 3.43 3.90 - 08/13 [facility] 5.80 [facility] SPECIAL Hgb A1C 8.6 <=5.6 % 08/13 [facility] CHEMISTRY [facility] BLOOD BANK Antibody Scrn Negative 08/13 [place] RESULTS (08/13/16 1:44 AM) /2016 [facility] BLOOD BANK ABO/Rh O POS 08/13 [facility] RESULTS [facility] HEMATOLOGY Estimated % 0.0 0.0 - 7.5 08/13 [place] Rapid [facility] HEMATOLOGY Max Amplitude 71 52 - 71 08/13 [place] Rapid [facility] HEMATOLOGY Angle Rapid 81 64 - 80 08/13 [facility] HEMATOLOGY G-value Rapid 12.2 5.0 - 11.6 08/13 [place] [facility] HEMATOLOGY R-time Rapid 0.6 0.4 - 0.7 08/13 [facility] HEMATOLOGY K-time Rapid 0.8 0.6 - 2.3 08/13 [facility] HEMATOLOGY ACT (TEG) 105 86 - 118 08/13 [facility] HEMATOLOGY [place] 0.5 08/13 [facility] HEMATOLOGY PTT 26.0 22.9 - 08/13 [place] 35.8 [facility] HEMATOLOGY INR 0.97 0.85 - 08/13 [place] 1.17 [facility] HEMATOLOGY PT 13.1 12.0 - 08/13 [facility] 14.7 [facility] Pathology Reports No Data Provided for This Section Diagnostic Reports Report Value Date Source Brain wo contrast CT CT HEAD WITHOUT CONTRAST 08/16/2016 [facility] Medical DATE: 08/16/2016 at 12:24 AM. Ce nter COMPARISON: 08/14/2016.. HISTORY: Bleeding. TECHNIQUE: Contiguous axial images of the brain were obtained without intravenous contrast administration utilizing a portable CT scanner. DLP: 1343.83 mGy-cm. FINDINGS: There has been interval evol utionary change of the bilateral intraventricular hemorrhage. The cavernous noted previously have partially broken down. Blood is again noted within the right occipital and t emporal horns with an evolving cast within the l eft ventricular body. A left transfrontal ventricu lostomy is again noted in place with tip ending in the body of the left lateral ventricle. A small focus of parenchymal hemorrhage has developed adjacent to the left frontal ventriculostomy catheter. A small focus of hemorrhage is also noted within the left frontal white matter just below the catheter and lateral to ent maddy of the ventriculostomy catheter into the left lateral ventricle. The previously noted subarachnoid hemorrhage has resolved. There are no mass lesions or extra axial collect ions. There are no acute bony abnormalities. IMPRESSION: 1. Interval development of s mall pericatheter hematoma adjacent to the left frontal ventriculostomy. 2. Evolving bilateral intraventricular hemorrhag e. 3. Interval resolution of subarachnoid hemorrhag e. 4. Left transfrontal ventric ulostomy in place without malfunction. There is no hydrocephalus Chest 1view DX EXAM: XR CHEST 1 VIEW 08/15/2016 [facility] DATE: 08/15/2016 Center INDICATION: Abnormal chest sounds . Comparison is made with yesterday FINDINGS: Cardiomediastinal silhouette, vascular stent and life-support lines are stable. Costophrenic sulci are sharp . There is linear atelectasis at the left lower lobe. The remainder the lungs are clear. IMPRESSION: Linear atelectas is in the left lower lobe. The remainder the lungs are clear. Brain wo contrast MRI EXAM: MRI BRAIN WITHOUT CONTRAST 7 [facility] DATE: 08/13/2016 2:23 AM [facility] er INDICATION: Weakness COMPARISON: CT brain 08/14/2016 TECHNIQUE: Multiplanar, multisequence MRI of the brain without contrast. IV contrast: None. FINDINGS: Stable interventricular hemo rrhage with left frontal approach ventricular catheter in place. The ventricles are stable in size. Subarachnoid hemorrhage extends through the sylvian fissures. No midline shift. Numerous scattered bilateral microhemorrhages are seen on susceptibility images predominantly in a peripheral distrubution in the cerebral hemispheres and throughout the cerebellum. No mass lesion or structural abnormality. Diffusion-weighted images de monstrate a small focus of cortical restricted diffusion at the right fronto parietal junction (se 601, im 264). Bilateral mastoid effusions. IMPRESSION: Recent focus of ischemia at the right frontoparietal junction without hemorrhagic change. Stable shunted interventricular hemorrhage with out hydrocephalus. Numerous scattered microhemo rrhages may be hypertensive in nature versus amyloid angiopathy. The microhemorrhages are predominantly peripheral in distribution in the cerebral hemispheres and are seen throughout the cerebellum. Brain wo contrast CT EXAM: CT BRAIN WITHOUT CONTRAST 08/14/2016 [facility] DATE: 08/14/2016 9:20 AM [facility] er INDICATION: Intracranial hemorrhage COMPARISON: None TECHNIQUE: Routine axial sandrine ges of the brain were obtained using a conventional ct scanner. Reformatted images in the sagittal and coronal plane were included. IV contrast: None. DOSE: Total DLP 926 mGy*cm FINDINGS: Extensive intraventricular c asting of hemorrhage is slightly diminished on the current study. A left transfrontal ventriculostomy remains in place. Ventricular size is slightly smaller on the left and unchanged on the right. Minimal residual subarachnoid blood products are stable. The appearance of the remainder of the brain par enchyma is alsounchanged. Incidental imaging of the or bits, paranasal sinuses, skull, and skull base also demonstrates no interval change. IMPRESSION: Slight reduction in size of the left lateral ventricle with decrease in intraventricular blood products. Redistribution of subarachnoid blood products. No additional parenchymal hemorrhage. CT examination of the brain parenchyma proper is unchanged. Chest 1view DX EXAM: [facility]R CHEST 1 [facility] INDICATION: Abnormal chest sounds . Comparison is made with yesterday FINDINGS: The gastric tube i s been removed and replaced by a feeding tube with its tip in the duodenal bulb. Tip of the endotracheal tube is well above the florence. Right subclavian vascular stent is in place. Cardiomediastinal silhouette is stable. Costophrenic sulci are sharp. The lungs are clear IMPRESSION: New feeding tube. Brain wo contrast CT CT HEAD WITHOUT CONTRAST 08/13/2016 [facility] DATE: 08/13/2016 at 9:05 PM. COMPARISON: 08/13/2016 at 1:19 AM. HISTORY: Bleeding. TECHNIQUE: Contiguous axial images of the brain were obtained without intravenous contrast administration utilizing a portable CT scanner. DLP: 1202.38 mGy-cm. FINDINGS: There has been interval plac ement of a left transfrontal ventriculostomy with the catheter traversing the body of the left lateral ventricle and tip ending in the region of the left thalamus. There is b een interval decrease in siz e of the ventricular system and resolution of the mild hydrocephalus. A small parenchymal hemorrha ge is again noted within the right caudate head with dissection into the ventricles and extensive intraventricular hemorrhage. Blood is noted within all 4 ventricles with gre ater prominence on the right . Blood is noted extending through the outlet foramina of the cerebellum into the medullary cisterns. There are no acute infarcts. The antony-white inte rfaces are well defined. There are no mass lesions or extra axial collect ions. Prosthetic lenses are again noted within both globes consistent with prior cataract surgery. Atherosclerotic calcification is again noted within the johnson of the bilateral cavernous internal carotid arteries. IMPRESSION: 1. Interval placement of lef t transfrontal ventriculostomy with decompression of the ventricular system. 2. Stable parenchymal hemorr jefry within the right caudate head with intraventricular extension. 3. Arterial atherosclerosis. Abdomen AP DX EXAM: XR ABDOMEN 1 FRONTAL VIEW 08/13/2016 [facility] DATE: 08/13/2016 4:59 PM [facility]GY ANALYST Cent er INDICATION: Tube placement/removal/reposition ADDITIONAL INFORMATION: None. COMPARISON: CXR 08/13/2016 at 0436 hours TECHNIQUE: Single frontal view of the abdomen. FINDINGS: Lines and tubes: Tip of ente tobi tube projects over the duodenopyloric junction with guidewire present. Tip of NG tube projects over the proximal gastric body with sidehole overlying the gastric cardia. Lower thorax: Unremarkable where visualized. Bowel: Gaseous distention of the stomach. Nonobstructive bowel gas pattern within the visualized abdomen. Solid organs: No abnormal mass or organomegaly s een. Calcifications: No abnormal calcifications found . Bones: No acute osseous lesions. IMPRESSION: 1. NG and enteric tubes as detailed. 2. Recommend advancement of the enteric tube into the 2nd stage of the duodenum. 3. Recommend advancement of the NG tube by at l east 10 cm. Chest 1 v for EXAM: XR CHEST 1 VIEW 08/13/2016 [facility] edical Placement DX DATE: 08/13/2016 4:11 AM STRATEGY ANALYST Cent er INDICATION: Tube Placement (Endotracheal) COMPARISON: Previous Day FINDINGS: ET tube with tip above the c sonido and NG tube with sideholes below the GE junction are stable. Vascular stent overlying the right apex is similar. The cardiomediastinal silhou ette is stable. Aortic vascular calcifications are present. While evaluation is limited given semi-erect positioning, no distinct pneumothorax is identified. No focal consolidation is present. IMPRESSION: 1. Stable lines and tubes. 2. Minimal basilar atelectasis. Brain wo contrast CT CT HEAD WITHOUT CONTRAST 08/13/2016 [facility] DATE: 08/13/2016 at 1:[address] COMPARISON: Outside imaging from [facility] 08/12/2016 at 8:45 PM.. HISTORY: Bleeding. TECHNIQUE: Contiguous axial images of the brain were obtained without intravenous contrast administration. Sagittal and coronal reformatted images were also provided. DLP: 963 mGy-cm. FINDINGS: A small parenchymal hemorrha ge is again noted within the right caudate head with dissection into the ventricles and extensive intraventricular hemorrhage. Blood is noted within all 4 ventricles with gre ater prominence on the right . Blood is noted extending through the outlet foramina of the cerebellum into the medullary cisterns. There are no acute infarcts. The antony-white inte rfaces are well defined. There are no mass lesions or extra axial collect ions. There are no acute bony abno rmalities. The calvarium is intact. Prosthetic lenses are noted within both globes consistent with prior cataract surgery. Atherosclerotic calcification is noted within the w alls of the bilateral cavernous internal carotid arteries. IMPRESSION: 1. Stable parenchymal hemorr jefry within the right caudate head with intraventricular extension. 2. Arterial atherosclerosis. Resident preliminary report by Dr. Jake Green: - moderate to large intraventricular hemorrhage, similar in extent to prior exam, and may be centered around right basal ganglia - stable ventricular system - no midline shift Brain/Neck CTA EXAM: CTA BRAIN 08/13/2016 [facility] EXAM: CTA NECK Center DATE: 08/13/2016 at 1:21 AM STRATEGY ANALYST INDICATION: Bleeding COMPARISON: CT brain 08/13/2016 at 1:19 AM. TECHNIQUE: Rapid acquisition spiral CT images of the brain and neck were obtained between the aortic arch and the cranial vertex during intravenous infusion of iodinated contrast for the purposes of CT angiography . 3-D CT angiographic images are created using MIP technique at the acquisition workstation. The source images are also presented for interpretation. IV contrast: 75 mL of Visipaque 320. DLP: 764 mGy-cm FINDINGS: NECK CTA: Aortic arch: Atherosclerotic calcification is noted within the wall of the aortic arch and proximal great vessels. High-grade stenosis is noted the origin of the left subclavian artery. . The vertebral artery origins are patent bilaterally. Carotid arteries: The cervic al common carotid arteries and cervical internal carotid arteries have a normal course, caliber, and contour. Atherosclerotic calcification is noted within the left carotid b ulb without stenosis. No hem odynamically significant stenosis of the carotid bifurcations or internal carotid arteries is present by NASCET criteria. There is no vascular injury. Vertebral arteries: The vert ebral arteries have a normal course, caliber and contour. Endovascular stent is noted within the right subclavian vein. The regional soft tissues and incidental structures are otherwise unremarkable. BRAIN CTA: Atherosclerotic calcificatio n is noted within the johnson of the bilateral cavernous internal carotid arteries without stenosis. The anterior and posterior circulations have a normal appearance and a jaja dard branching pattern. No b ranch occlusion, vascular injury, arteritis, vascular malformation or aneurysm is identified. The right transverse sinus f rom its origin at the torcula approximately is poorly visualized and may be hypoplastic or possibly occluded. Dense contrast enhancement is noted within the lateral right tra nsverse sinus and sigmoid si nus. The deep cerebral veins and major venous sinuses are otherwise normal. Small parenchymal hemorrhage within the right caudate nucleus and extensive intraventricular hemorrhage are again noted. IMPRESSION: 1. Atherosclerotic disease w ith high-grade stenosis at the origin of the left subclavian artery. 2. No intracranial branch occlusion. 3. No carotid bifurcation st enosis. Mild calcified plaque is noted within the left carotid bulb without stenosis. 4. Nonvisualization of the m edial right transverse sinus, possible occlusion vs hypoplasia. If venous sinus thrombosis is suspected, magnetic resonance imaging, MRV, or conventional arteriography may be helpful for further evaluation. Resident preliminary report by Dr. Jake Green:- no acute vascular abnormality - right subclavian stent - severe left subclavian artery stenosis at the origin - IVH (All qualitative and quantit ative assessments of carotid bifurcation and proximal internal carotid artery stenosis are made referencing the distal internal carotid artery {NASCET criteria}.) Consultation Notes No Data Provided for This Section Discharge Summaries No Data Provided for This Section History and Physicals No Data Provided for This Section Vital Signs Vital Sign Value Date Comments Source Systolic (mm Hg) 129 08/22/2016 [facility] Center Diastolic (mm Hg) 46 08/22/2016 [facility] Respitory Rate 16 08/22/2016 [facility] Temperature Oral (F) 98.4 F 08/22/2016 [facility] Heart Rate 88 08/22/2016 [facility] Systolic (mm Hg) 126 08/22/2016 [facility] Diastolic (mm Hg) 57 08/22/2016 [facility] Respitory Rate 19 08/22/2016 [facility] Temperature Oral (F) 97.3 F 08/22/2016 [facility] Temperature Oral (F) 98.6 F 08/22/2016 [facility] Respitory Rate 18 08/22/2016 [facility] Systolic (mm Hg) 146 08/22/2016 [facility] Diastolic (mm Hg) 68 08/22/2016 [facility] Heart Rate 84 08/22/2016 [facility] Heart Rate 87 08/22/2016 [facility] Height 160.02 cm 08/15/2016 [facility] Height 160.02 cm 08/15/2016 [facility] Height 160.02 cm 08/15/2016 [facility] BMI Calculated 24.33 08/13/2016 [facility] Weight 62.3 08/13/2016 [facility] Encounters Location Location Encounter Encounter Reason Attending ADM DC Stat us Source Details Type Number For Provider Date Date Visit [facility] [id number] Dari 08/13 08/22 [facility] Lorne Joynerales /2016 [place] Procedures No Data Provided for This Section Assessment and Plan Assessment and Plan Date Source Extracted from:Title: Progress Note 08/22/2016 [facility] Author: Edgardo Rowland MD Date: 08/22/16 Assessment/Plan 66 y/o F admitted for ICH renal consulted for ESRD ESRD: Will do HD today Hyponatremia: Likely from ESRD, Will be corrected with HD Hyperkalemia: Will be corrected with HD VOl status: Appears mildly hypervolumic. Will do UF on HD to day Anemia of CKD Addendum by Laure Arzate MD on 08/23/2016 16:06 STRATEGY ANALYST ATTENDING NOTE I have seen and examined the patient, re viewed the laboratory data, discussed the pertinent case findings with the resident/fellow, and agree with the assessment and plan as documented below. Date of Service 08/22/2016 ESRD HD today for solute control (hyperk alemia, hyponatremia)and treatment of volume overload. Extracted from:Title: Nephrology Consultation Note Author: Moisés Khoury DO Date: 08/13/16 Patient: MADELINE KOO Age: 66 years Sex: Female : 1950 Associated Diagnoses: None Author: Moisés Khoury DO Basic Information Source of history: Family member, Medical record. Present at bedside: Family member. Referral source: Naomy Triana MD. History limitation: Clinical condition. Chief Complaint 08/13/2016 04:48 SAH/IVH 08/12/2016 23:25 pt presented at OSH with vommitting, hea dache and lethargy. Pt declined in status and [...] been asked to evaluate this patient for SALON LEADER needs. Patient seen/evaluated at the bedside. Purnima gutiérrez at the bedside. Patient is intubated however [...] mL: 18.69 microgram, 4.67 mL, 100 ml/hr, IV, ONCE Dextrose 50% Syringe: 12.5 gm, 25 mL, IVP, PRN, PRN: Abnorma l Lab Result Dextrose 50% Syringe: 25 gm, 50 mL, IVP, PRN, PRN: Abnormal Lab Result Dextrose 50% Syringe: 6.25 gm, 12.5 mL, IVP, PRN, PRN: Abnor mal Lab Result Saline Flush 0.9%: 10 mL, IVP, PRN, PRN: Line Flush Saline Flush 0.9%: 10 ml, MISC, PRN, PRN: Line Flush Saline Flush 0.9%: 10 ml, MISC, Q12H albuterol 0.083% inhalation solution: 19.92 mg, 24 mL, NEB, Continuous docusate-senna 50 mg-8.6 mg oral tablet: 1 tab, PO, Q12H fentaNYL 1000microgram/20ml drip (pyxis) 1,000 microgram: Titrate, IV, Stop: 09/12/16 1:31:00 CDT insulin regular 100 units/mL human recom binant: 3 unit, 0.03 mL, SUB-Q, PRN, PRN: Abnormal Lab Result insulin regular 100 units/mL human recom binant: 5 unit, 0.05 mL, SUB-Q, PRN, PRN: Abnormal Lab Result insulin regular 100 units/mL human recom binant: 7 unit, 0.07 mL, SUB-Q, PRN, PRN: Abnormal Lab Result lansoprazole: 30 mg, 10 mL, NG, Before Breakfast midazolam 50mg/ NS 50ml drip (premixed) 50 mg: Titrate, IV, Stop: 09/12/16 1:32:00 CDT niCARdipine 40 mg/ NS 200 ml IV Soln (pr emix) 40 mg: Titrate, IV, Stop: 09/12/16 1:17:00 CDT, Medications (16) Active Scheduled: (5) albuterol 0.083% 3 ml neb SOLN 19.92 mg 24 mL, NEB, Continu ous desmopressin INJ + sodium chloride 0.9% INJ 50 mL 18.69 microgram 4.67 mL, IV, ONCE docusate-senna 50-8.6 mg TAB 1 tab, PO, Q12H lansoprazole 30mg/10ml oral susp 10ml 30 mg 10 mL, NG, Befo re Breakfast sodium chloride 0.9% 10 ml flush syr BD 10 ml, MISC, Q12H Continuous: (3) fentaNYL 1000microgram/20ml drip (pyxis) 1,000 microgram 1,000 microgram 20 mL, IV midazolam 50mg/ NS 50ml drip (premixed) 50 mg 50 mg 50 mL, IV niCARdipine 40 mg/ NS 200 ml IV Soln (premix) 40 mg 40 mg 2 00 mL, IV PRN: (8) Dextrose 50% 50 [...] (end stage renal disease) / SNOMED CT [id number] / Conf irmed HTN (hypertension) / SNOMED CT 1243228541 / Confirmed, Active Problems (2) ESRD (end stage renal disease) HTN (hypertension) Histories Past Medical History: Active ESRD (end stage renal disease) (5412830936) HTN (hypertension) (8503497152) Resolved DM (diabetes mellitus) (444274539): Resolved. Hyperlipidemia (12522939): Resolved. Family History: Type 2 diabetes mellitus Mother Procedure history: No active procedure history items have been selected or johana rded. Social History Social and Psychosocial Habits Tobacco 08/13/2016 Use: Unknown if [...] Vital Signs (last 24 hrs) Last Charted _ Temp Axillary 97.6 DegF (AUG 13 08:00) [...] Plt L 126 (AUG 13) L 127 (JUL 19 7) Na 137 (AUG 13) K H 6.0 (AUG 13) CO2 L 21 (AUG 13) Cl 97 (AUG 13) Cr H 9.74 (AUG 13) BUN H 65 (AUG 13) Glucose Random H 323 (AUG 13) Ca L 8.1 (AUG 13) PT 13.1 (AUG 13) INR 0.97 (AUG 13) PTT 26.0 (AUG 13) . Impression and Plan 1. ESRD. We will continue to provide SALON LEADER for this patient while she is admitted. Due to her hyperkalemia, we will offer emergent dialysis today. Case was discussed with primary team and consensus was th at patient would be able to undergo iHD. We will provide iHD for the patient today for her hyperkalemia and metabolic clearance. If her condition changes/worsens and there is concern for needing CRRT fo r this patient, please place temporary dialysis catheter. 2. ICH and IVH. 3. Hyperkalemia. Correct with iHD. 4. Metabolic acidosis. 5. Leukocytosis. 6. Anemia of CKD. All findings were discussed with my attending Dr. Ulisses Khoury D.O. Nephrology PGY-4 Addendum by Ulisses Bob MD on 08/14/2016 13:15 CRITICAL CARE NEPHROLOGY STAFF ATTESTATION I saw this medically complex patient on 08-13-2016, reviewed the labs and radiographic data, discussed the plans with the Fellow, and agree with this note. Ulisses Bob MD, FACP, CASSANDRAN, FCCM Nephrology Staff HD Note I saw the patient during hemodialysis on 08-13-2016, reviewed the dialysis prescription in the EHR, and I agree with this note. Blood pressure stable thus far. Tolerating dialysis. Ulisses Bob MD, FACP, CASSANDRAN, FCCM Extracted from:Title: Stroke H and P Author: Jennifer Golden MD Date: 08/13/16 Stroke History and Physical Patient Name: Madeline Fontana Date of Admission: 08/13/2016 Requesting Physician/Service: Neurosurgery Chief Complaint: IVH HISTORY OF PRESENT ILLNESS: Patient is a 66-year-old female with pas t medical history of hypertension, diabetes, end-stage renal disease on Saturday hemodialysis, presents as transfer from outside hospital due to co ncern for ICH with IVH. Patient's daugh ter, patient was in her normal state of health today when she started having profuse episodes of vomiting and headache at around 7 PM today. Patient suddenl y seemed very tired and daughter placed her in a chair. Patient was taken to outside hospital where she was intubated due to lethargy for airway protection. Patient was noted to be GCS 3 off sedation. Her report, patient was hypertensive o n initial evaluation. Patient had brain CT that showed concern for ICH with IVH patient, transferred for higher level On evaluation patient noted to be follow ing commands and moving all 4 extremities to [...] NKDA PHYSICAL EXAM: 00:51 ---- ---- ---- 159 /62 102 104 16 100 --- --- 08/13 00:42 ---- ---- ---- 1 70/ 110 104 17 100 --- --- 08/12 23:45 ---- ---- ---- 1 --- 98 16 100 --- --- 08/12 23:25 98.5 36.94 rect 131/86 --- 102 16 100 --- --- 08/12 23:23 ---- ---- ---- - ---- --- --- -- 100 40% 23 General Physical Examination: GENERAL: Somnolent, opens eyes to command, intubated HEENT: - Normocephalic and atraumatic; Moist mucous membrane s, no JVD LUNGS - Clear to auscultation bilaterally with no wheezes CV - S1S2 Regular rate and rhythm ABDOMEN - Soft, nontender, nondistended with normoactive bow el sounds EXTREMITIES: no cyanosis, rashes or edema visible MUSCULOSCKELETAL: movements as below, no visible joint eryth odilon/deformity SKIN: No visble rashes, petechaie, purpura Neurology [...] 2-neither 2 1c. LOC Commands open/close eyes, industrial photographer/r elease non-paretic hand; 0-both 1-one 2-neither 1 2. Best Gaze; 0-nl 1-partial 2-forced gaze 3. Visual Snider; 0-No visual loss. 1-Partial hemianop ia 2-Complete 3-Bilateral 4. Facial Palsy; 0-none 1-minor 2-partial 3-complete 5. Motor - R arm; 0-No drift 1-Drift 2-S ome antigravity 3-No antigravity 4-No movement 3 6. Motor - R leg; 0-No drift 1-Drift 2-S ome antigravity 3-No antigravity 4-No movement 3 7. Motor - L arm; 0-No drift 1-Drift 2-S ome antigravity 3-No antigravity 4-No movement 3 8. Motor - L leg; 0-No drift 1-Drift 2-S ome antigravity 3-No antigravity 4-No movement 3 9. Limb Ataxia; 0 absent 1 - 1limb 2 - 2 limbs 10. Sensory; 0-nl 1-partial loss 2-dense loss 11. Best Language; 0-nl 1-mild/mod 2-severe 3-mute 3 12. Dysarthria; 0-nl 1-mild/mod 2-severe x-untestable x 13. Extinction and Inattention (formerly Neglect); 0-none 1- partial 2-complete TOTAL SCORE 20 SIGNIFICANT LABS: Creatinine: 9.74 Glucose: 160 INR: 0.97 Cardiac Markers: pending DIAGNOSTIC TESTS: CT Head: IMPRESSION: 1. Stable parenchymal hemorrhage within the right caudate head with intraventricular extension. 2. Arterial atherosclerosis. CTA/Perfusion: IMPRESSION: 1. Atherosclerotic disease with high-gra de stenosis at the origin of the left [...] is a 66 year old female with his tory of ESRD on dialysis MWF, diabetes, HTN who presents after acute vomiting, headache and lethargy. Found to have IPH in right caudate head with IVH. DIAGNOSIS: Stable parenchymal hemorrhage within the right caudate head with intraventricular extension. ETIOLOGY OF STROKE: probable HTN Acute Hemorrhagic Stroke: -Location of Bleed: Size of bleed: ___ri ght caudate head, 10 cc, IVH: yes; ICH [...] control BP -No Heparin for DVT prophylaxis and no a ntiplatelet agents in view of recent hemorrhage -Code Status: Full code, daughter is her POA, reports that patient would not want continued care if poor quality of life -Disposition: Home/Rehab/SNF/Outpatient OT. PT/Pending OT, P T evaluation Neurosurgery aware of patient, holding E VD placement due to metabolic concerns (needs dialysis today). ======== THE FOLLOWING WERE PRESENT ON ADMISSION (POA) DATA MANAGEMENT ENGINEER Encephalopathy (anoxic, metabolic, other) Cerebral edema Anoxic [...] RESIDENT ARRIVAL AT THE BEDSIDE (CARE4 COMPUTER TI ME) MA IV TPA BOLUS (TIME AND DOSE) NA IV TPA INFUSION (TIME AND DOSE) NA DELAYS IN THE CODE STROKE PROCESS NA Jennifer Golden MD PGY#3 STROKE ATTENDING I have seen and examined the patient. Sara winter, I have discussed the case with and reviewed the resident's note and agree with the history, exam, assessment and plan. See note below for additi ons and/or exceptions and my findings. I have personally viewed the patient's radiographic studies and laboratory tests. Imaging: CTH: 1. Stable parenchymal hemorrhage within the right caudate head with intraventricular extension. 2. Arterial atherosclerosis. Initial Head and Neck CTAon 08/13/16: 1. Atherosclerotic disease with high-gra de stenosis at the origin of the left [...] rold with PMH sig for HTN, DMII, ES RD on HD found to be lethargic with nausea/vomiting CTH with right caudate IPH with IVH, likely hypertensive in nature [address] Inpatient admission Principal Diagnosis I61.6 Nontraumatic intracerebral hemorrhage, multiple loc alized G91.1 Obstructive hydrocephalus G93.6 cerebral edema Acuity: Acute Etiology: Hypertension Current suspected etiology: Hypertension Continue evaluation: Repeat CTH to ensu re hemorrhage stability, monitor clinical exam, MRI brain Treatment/Plan: Aggressive blood pressur e control, EVD per neurosurgery and wean as tolerated I10 Essential (primary) hypertension Treatment: Aggressive BP control, goal SBP < 140mmHg N18.5 Chronic kidney disease stage 5 <15 or on HD HD as needed J96.00 Acute respiratory failure Treatment: On ventilator, wean as tolerated per NICU team Physical Therapy/Occupational Therapy Evaluation Disposition recommendation: Speech and Language Recommendations: DVT Prophylaxis Treatment: SCDs Discuss philosophy of care with patient and family, reviewed and updated on plan of care and prognosis Angeles Diamond MD ([place]) Account Installer of Neurology Pager: [phone] Plan of Care No Data Provided for This Section Social History Social History Date Source Social History TypeResponse 08/13/2016 [facility] Smoking Status Unknown if ever smoked; Ready to change: No; Concerns about tobacco use in household: No; Exposure to Tobacco Smoke Unable to obtain; Cigarette Smoking Last 365 Days Unable to obtain; Reg Smoking Cessation Counseling No Family History No Data Provided for This Section Advance Directives No Data Provided for This Section Functional Status No Data Provided for This Section
--- OUTSIDE RECORDS SUMMARY | 2020-03-24 19:05 | XMS REPORT | Continuity of Care Document ---
:1950 Author Organization [facility] t Address [address] [place] [address] Care Team Providers Name Role Phone Dari Lantigua Attending Clinician Blossom Triana Admitting Clinician Problems Condition Condition Condition Status Onset Resolution Last Treating Co mments Source Name Details Category Date Date Treatment Clinician Date SAH Diagnosis Active 2016-08-13 Mem oria 08-12 01:49:00 l SAH 00:00: [place] 00 Active 08/12/2016 [facility] LFLT Diagnosis Active 2016-08-12 Mem oria TRANSFER 08-12 23:41:00 l #1001-A LFLT 00:00: [place]orne TRANSFER 00 #1001-A Active 08/12/2016 [facility] IVH Diagnosis Active 2016-08-28 Mem oria 08-12 21:58:00 l IVH 00:00: [place] 00 Active 08/12/2016 [facility] Hyperlipid Hyperlipid Diagnosis Active [facility] - mixed mixed Memoria l Outpati ent Clinics Controlled Controlled Diagnosis Active [facility] type 2 type 2 [facility] - diabetes diabetes Memori a mellitus mellitus l with other with other Ou tpati diabetic diabetic ent kidney kidney Clinics complicati complicati on, on, without without long-term long-term current current use of use of insulin insulin Elevated Elevated Diagnosis Active [facility] blood blood [facility] - pressure pressure Memori a reading reading l with with Outpati diagnosis diagnosis ent of of Clinics hypertensi hypertensi on on 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[facility] renal renal [facility] - disease disease [facility]ics Diabetes Diabetes Problem [facility] Venous Venous Problem Active [facility] insufficie insufficie Vania kes - ncy ncy [facility] ent Clinics Anemia in Anemia in Problem Active [facility] chronic chronic [facility] - illness illness [facility] ent Clinics Gastroesop Gastroesop Problem Active [facility] hageal hageal [facility] - reflux reflux Memoria disease, disease, l esophagiti esophagiti Ou tpati s presence s presence en t not not Clinics specified specified Allergic Allergic Problem Active [facility] rhinitis, rhinitis, Luke s - unspecifie unspecifie Me moria d d l seasonalit seasonalit Ou tpati y, y, ent unspecifie unspecifie Cl inics d trigger d trigger Hyperglyce Hyperglyce Diagnosis Active [facility] St adriela, dariela, [facility] - unspecifie unspecifie Me moria d d l [facility] Diabetes Problem Resolve 2016-08-25 Me moria mellitus d 02:25:35 l (disorder) Diabetes He rmann mellitus (disorder) Resolved Problem 08/25/2016 [facility] Hyperlipid Problem Resolve 2016-08-25 Memoria emia d 02:25:35 l (disorder) Barry n Hyperlipid emia (disorder) Resolved Problem 08/25/2016 [facility] End stage Problem Active 2016-08-25 Me moria renal 02:25:35 l disease End Lorne (disorder) stage renal disease (disorder) Active Problem 08/25/2016 [facility] Hypertensi Problem Active 2016-08-25 M emoria ve 02:25:35 l disorder, [place] systemic Hypertensi arterial ve (disorder) disorder, systemic arterial (disorder) Active Problem 08/25/2016 [facility] NONTRAUMAT Diagnosis Active 2016-08-28 Memoria IC 21:58:00 l INTRACEREB Barry n RAL NONTRAUMAT HEMORRHAGE IC , I INTRACEREB RAL HEMORRHAGE , I Active [facility] Allergies, Adverse Reactions, Alerts Allergy Allergy Status Severity Reaction(s) Onset Inactive Treating Comm ents Source Name Type Date Date Clinician Lisinopr Adverse Active Info Not [facility] Reaction Available [facility] ent Clinics Medications Ordered Filled Start Stop Current Ordering Indication Dosage Frequency Signature Comments Components Source Medication Medication Date Date Medication? Clinician (SIG) Name Name Flonase Flonase Yes Na Mukherjee [address] [facility] 07-09 each [facility] - 00:00: nostril Memoria l [facility] ent Clinics Cetirizine Cetirizine Yes Na Mukherjee [address] [facility] HCl HCl 07-09 - 00:00: Memoria 00 l [facility] ent [facility] Renvela No Notes: Memoria 08-22 Same as: l 14:00: Renvela losartan 50 Yes 50 mg = 1 M emoria mg oral 3-08 tab, PO, l tablet 00:02: Q12H, # [place] 00 120 tab, 1 Refill(s) amLODIPine Yes 10 mg = 1 Me moria 10 mg oral 3-08 tab, PO, l tablet 00:02: Daily, # [place] 60 tab, 1 Refill(s) Amlodipine No Notes: Memor ia 08-19 (Same as: l 15:00: Norvasc) Humulin N No Notes: Memori a 08-18 Roll in l 23:00: palms of hands gently; Do not shake vigorously . (Same as: Humulin N) Do not hold insulin without contacting prescriber WASTE: F/P - Black; E - Municipal Trash Bin Stable for 28 days at room temperatur e Expires in days from ____Date Labetalol No Notes: Memori a 08-18 With food. l 22:00: (Same as:Prasanth Leonardo) 150 mg = 1/2 x 300 mg TAB Amlodipine No 5 mg, Memori a 08-18 Route: PO, l 17:12: Drug form: [place] 00 TAB, ONCE, Dosing Weight 62.3, kg, Start date: 08/18/16 11:12:00 ACTIVITY COORDINATOR, Stop date: 08/18/16 11:12:00 ACTIVITY COORDINATOR sevelamer No Notes: Memori a 08-17 Same as: l 23:00: Renvel travoprost Yes 1 drp, Memor ia 0.04 MG/ML 08-17 BOTH EYES, l Ophthalmic 20:37: QPM, # 5 Her aguayo Solution 00 ml, 0 [Travatan] Refill(s) Brimonidine Yes 2 drp, Ravi ino tartrate 2 08-17 BOTH EYES, l MG/ML / 20:37: BID, 0 Timolol 00 Refill(s) MG/ML Ophthalmic Solution [Combigan] Amlodipine No Notes: Memor ia 08-16 (Same as: l 15:00: Norvasc) Losartan No Notes: Memoria 08-16 (Same as: l 15:00: Cozaar) Labetalol No 10 mg, 2 Ravi ino - mL, Route: l 03:29: IVP, Drug form: INJ, ONCE, Dosing Weight 62.3, kg, Start date: 08/15/16 21:29:00 ACTIVITY COORDINATOR, Stop date: 08/15/16 21:29:00 ACTIVITY COORDINATOR Labetalol No 150; HOLD Me moria 08-16 for pulse l 01:22: < 60 Hydralazine No Notes: Ravi ino 08-16 (Same as: l 01:22: Apresoline ) multivitami Yes Daily, 0 Me moria n - Refill(s) l 16:19: losartan No 100 mg = 1 Mem oria 100 mg oral 3-01 tab, PO, l tablet 16:19: Daily, # [place] 00 90 tab, 0 Refill(s) amLODIPine No 5 mg = 1 Mem oria 5 mg oral 3-01 tab, PO, l tablet 16:19: Daily, [place] 00 evening, # 90 tab, 1 Refill(s) Glipizide Yes 10 mg = 1 Mem oria 10 MG Oral 3-01 tab, PO, l Tablet 16:19: BID-Before [place] nn 00 Meals, # 180 tab, 1 Refill(s) pantoprazol Yes 40 mg = 1 M emoria e 40 mg 3-01 tab, PO, l oral 16:19: Daily, # [place] enteric 00 90 tab, 0 coated Refill(s) tablet sevelamer Yes 1,600 mg = Me moria carbonate 3-01 2 tab, PO, l 800 MG Oral 16:19: TID-Meals, [place] Tablet 00 # 180 tab, [Renvela] 1 Refill(s) atorvastati No 20 mg = 1 Maddie valentino n 20 mg 3-01 tab, PO, l oral tablet 16:19: Bedtime, # [place] 00 90 tab, 3 Refill(s) Linagliptin Yes 5 mg = 1 Me moria 5 MG Oral 3-01 tab, PO, l Tablet 16:19: Daily, # [place] [Tradjenta] 00 30 tab, 3 Refill(s) metoprolol Yes 25 mg = 1 Me moria tartrate 25 3-01 tab, PO, l mg oral 16:19: BID, # 180 Herm marcos tablet 00 tab, 0 Refill(s) Miralax No 17 gm, Memoria 08-14 Route: PO, l 23:00: BID, [place] 00 Dosing Weight 62.3, kg, Start date: 08/14/16 17:00:00 ACTIVITY COORDINATOR, Duration: 30 day, Stop date: 09/13/16 9:00:00 CDT Beneprotein No Notes: Ravi ino 7 gm pkt 08-14 (Same as: l 19:00: Beneprotei [place] 00 n) physiologic No Notes: Ravi ino al 08-14 NxStage l irrigating 17:02: [id number] = He rmann solution 00 K4/Ca3 Total ingredient s in bag Na 140meq/L; K 4meq/L; HCO 35meq/L; Ca 3meq/L; Magnesium 1meq/L; CL 113meq/L; Glucose 100mg/dL; "Break seal Between compartmen ts and mix before hanging" sodium No 15 mmol, 5 Memor ia phosphate + 2-28 mL, Route: l sodium 17:00: IVPB, PRN, [place] nn chloride 00 Dosing 0.9% INJ Weight 250 mL 62.3, kg, PRN Abnormal Lab Result, Via central line, Start date: 08/14/16 11:00:00 ACTIVITY COORDINATOR, Duration: 30 day, Stop date: 09/13/16 11:59:00 CDT Magnesium No Notes: Memori a Sulfate 08-14 WASTE: F/P l 17:00: - Sink; E [place] - Municipal Trash Bin Calcium No Notes: Memoria Chloride 08-14 WASTE: F/P l 17:00: - Sink; E [place] - Municipal Trash Bin physiologic No 5,000 mL, Maddie valentino al 08-14 Route: l irrigating 17:00: DIALYSIS, He rmann solution 00 Irrigation 5000 mL Site: Other: See Comments, 2,000 ml/hr, catheter, 2.5 hr, Total Volume: 5,000 mL, "For Irrigation Only", Start date: 08/14/16 11:00:00 ACTIVITY COORDINATOR, Duration: 30 day, Stop date: 09/13/16 10:59:00 CDT potassium No Notes: Memori a chloride 08-14 (Same as: l 17:00: KCL) [place] Infuse no faster than 10 mEq/hr if given peripheral ly. heparin No Notes: Memoria sodium, 08-14 porcine l porcine 16:02: heparin [place] 2500 UNT/ML 00 Injectable Solution Miralax No Notes: Memoria - Dissolve l 15:58: in 8 oz of [place] water or juice. (Same as: Miralax) Labetalol No Notes: Memori a - With food. l 15:58: (Same [place] 00 as:Trandat e, Normodyne) Tylenol No Notes: Memoria 08-14 (Same as: l 06:35: Tylenol) [place] 00 Cathflo No Notes: Memoria Activase 2 08-14 "Syringe l mg 06:00: for [place] injection 00 catheter clearance or interventi onal radiology use. Pharmacy: [facility] each vial of Cathflo Activase with 2.2 ml Sterile Water resulting in a 1 mg/ml solution. Stable for 8 hours only. (Same as: Activase) MEDICATION WASTE Product Size: 2 mg Product Wasted: _1__ mg Ancef No 2 gm, Memoria 08-13 Route: l 23:47: IVPB, [place] 00 ONCE, Dosing Weight 62.3, kg, Start date: 08/13/16 17:47:00 ACTIVITY COORDINATOR, Duration: 1 doses or times, Stop date: 08/13/16 17:47:00 ACTIVITY COORDINATOR, Surgical Prophylaxi s Only; For patients < 120 kg Propofol 10 No Notes: Ravi ino MG/ML 2-27 Same as: l Injectable 23:47: Diprivan Her aguayo Suspension 00 Hydralazine No Notes: Ravi ino 2-27 (Same as: l 18:00: Apresoline [place] ) May interfere w/enteral feedings. Take With Food Insulin No 60 Memoria regular 2-27 units) l 18:00: WASTE: F/P [place] 00 - Black; E - Municipal Trash Bin Stable for 28 days at room temperatur e Expires in days from ____Date Zofran No Notes: Memoria 2-27 (Same as: l 17:46: Zofran) [place] 00 MEDICATION WASTE Product Size: 4 mg Product Wasted: ___ mg DDAVP No Notes: Memoria 2-27 (Same As: l 15:32: DDAVP) [place] 00 MEDICATION WASTE Product Size: 4 microgram Product Wasted: ___ microgram Docusate No Notes: Memoria Sodium 50 2-27 (Same as l MG / 15:00: Senokot-S) [place] sennosides, 00 Equiv. to FCI 8.6 MG Sherrie-Colac Oral Tablet e. Saline No Notes: Memoria Flush 0.9% 2-27 (Same as: l 15:00: BD [place] 00 Posiflush) lansoprazol No Notes: Ravi ino e 2-27 Take 1 l 13:30: hour [place] 00 before or 2 hours after meal; Expires in 14 days. Shake well before use. (Same as:Prevaci d) Compound ed Product - formulatio n not commercial ly available* * Dextrose No 25 gm, 50 Ravi ino 50% Syringe 2-27 mL, Route: l 10:08: IVP, Drug [place] 00 Form: INJ, kg, PRN, PRN Abnormal Lab Result, Start date: 08/13/16 4:08:00 ACTIVITY COORDINATOR, Duration: 30 day, Stop date: 09/12/16 5:07:00 CDT Regular No 60 Memoria Insulin, 2-27 units) l Human 100 10:08: WASTE: F/P He rmann UNT/ML 00 - Black; E Injectable - Solution Municipal Trash Bin Stable for 28 days at room temperatur e Expires in days from ____Date Saline No Notes: Memoria Flush 0.9% 2-27 (Same as: l 08:23: BD [place] 00 Posiflush) Stimate + No Notes: Memori a sodium 2-27 (Same As: l chloride 08:00: DDAVP) [place] 0.9% INJ 50 00 mL MEDICATION WASTE Product Size: 4 microgram Product Wasted: ___ microgram midazolam No Notes: Memori a 50mg/ NS 2-27 (Same as: l 50ml drip 07:33: Versed) [place] nn (premixed) 00 50 mg Fentanyl No 1,000 Memoria 2-27 microgram, l 07:32: 20 mL, [place] 00 Rate: Titrate, Start Dose: 50 microgram/ hr, Titration: 25 microgram/ hour every 15 minutes, Goal(s): rass -1, Max Dose: 300 microgram/ hr, Route: IV, Total Volume: 20, Start date: 08/13/16 1:32:00 ACTIVITY COORDINATOR, Duration: 30 day, Stop date... iodixanol No 100 mL, Memor ia 2-27 Route: l 07:25: IVP, Drug Form: SOLN, kg, ONCALL, STAT, Start date: 08/13/16 1:25:00 ACTIVITY COORDINATOR, Duration: 1 doses or times, Dose = 2.2ml/kg, Max dose = 100ml -- "To be infused by Radiology Staff ONLY" Dextrose No 25 gm, 50 Ravi ino 50% Syringe 2-27 mL, Route: l 07:24: IVP, Drug Form: INJ, kg, ONCE, STAT, Start date: 08/13/16 1:24:00 ACTIVITY COORDINATOR, Stop date: 08/13/16 1:24:00 ACTIVITY COORDINATOR Insulin No 60 Memoria regular 2-27 units) l 07:23: WASTE: F/P [place] - Black; E - Municipal Trash Bin Stable for 28 days at room temperatur e Expires in days from ____Date Albuterol No Notes: SEE Me moria 0.83 MG/ML 08-13 RT l Inhalant 07:23: DOCUMENTAT Her aguayo Solution 00 ION (Same as: Proventil) niCARdipine No Notes: Ravi ino 40 mg/ NS 08-13 Same as: l 200 ml IV 07:18: Abigail Potter nn Soln 00 Concentrat (premix) 40 ion: (0.2 mg mg /1 ml ) DDAVP No 10 Memoria 2-27 microgram, l 06:35: Route: IV, [place] 00 ONCE, kg, Start date: 08/13/16 0:35:00 ACTIVITY COORDINATOR, Stop date: 08/13/16 0:35:00 ACTIVITY COORDINATOR Saline No Notes: Memoria Flush 0.9% 08-13 Same as: l 06:08: BD [place] Posiflush Sterile Protonix Protonix Yes Na Mukherjee [address] [facility] Losartan Losartan Yes Na Mukherjee [address] [facility] Potassium Potassium [facility] Renvela Renvela Yes Na Mukherjee [address] with meals [facility] Losartan Losartan Yes Na Mukherjee [address] [facility] Potassium Potassium [facility] Lipitor Lipitor Yes Na Mukherjee [address] [facility] Amlodipine Amlodipine Yes Na Mukherjee [address] [facility] Besylate Besylate [facility] Metoprolol Metoprolol Yes Na Mukherjee [address] [facility] Tartrate Tartrate with food Vania kes - Memoria l [facility] Tradjenta Tradjenta Yes Na Mukherjee [address] [facility] HydrALAZINE HydrALAZINE Yes Na Mukherjee [address] [facility] HCl HCl with food [facility] Vital Signs Vital Name Observation Time Observation Value Comments Source Systolic (mm Hg) 2016-08-22 21:47:00 Ravi rial [place] Diastolic (mm Hg) 2016-08-22 21:47:00 Mem orial [place] Respitory Rate 2016-08-22 21:47:00 Memori al [place] Temperature Oral (F) 2016-08-22 21:47:00 98.4 F [facility] [place] Heart Rate 2016-08-22 21:47:00 [facility] [place] Systolic (mm Hg) 2016-08-22 19:07:00 Ravi rial [place] Diastolic (mm Hg) 2016-08-22 19:07:00 Mem orial [place] Respitory Rate 2016-08-22 19:07:00 Memori al [place] Temperature Oral (F) 2016-08-22 19:07:00 97.3 F [facility] [place] Temperature Oral (F) 2016-08-22 18:15:00 98.6 F [facility] [place] Respitory Rate 2016-08-22 18:15:00 Memori al [place] Systolic (mm Hg) 2016-08-22 18:15:00 Ravi rial [place] Diastolic (mm Hg) 2016-08-22 18:15:00 Mem orial [place] Heart Rate 2016-08-22 09:50:00 [facility] [place] Heart Rate 2016-08-22 05:35:00 [facility] [place] Height 2016-08-15 09:56:00 160.02 cm [facility] [place] Height 2016-08-15 05:57:00 160.02 cm [facility] [place] Height 2016-08-15 01:58:00 160.02 cm [facility] [place] BMI Calculated 2016-08-13 10:48:00 Memori al [place] Weight 2016-08-13 10:48:00 [facility] [place] Procedures This patient has no known procedures. Encounters Start End Encounter Admission Attending Care Care Encounter Source Date/Time Date/Time Type Type Clinicians Facility Department ID 2020-01-29 2020-01-29 Outpatient [place] Orellana [id number] [facility] 13:20:00 13:20:00 [employer] [place] [facility] Medicine Medicine Outpati ent Clinics 2019-10-27 2019-10-27 Outpatient [place] Orellana [id number] [facility] 16:00:00 16:00:00 t Cantril [employer]ril [employer] s - Drive [facility] Family Medicine l Medicine Outpati ent Clinics 2019-09-29 2019-09-29 [facility] [id number] [facility] 13:00:00 13:00:00 t Cantril [employer] - Drive [facility] Medicine l Medicine Outpati ent Clinics 2019-06-30 2019-06-30 [facility] [id number] 13:00:00 13:00:00 t Cantril Cantril [employer] - Drive [facility] Medicine l Medicine Outpati ent Clinics 2019-03-31 2019-03-31 [facility] [id number] 13:00:00 13:00:00 t Cantril [employer] - Drive [facility] Medicine l Medicine Outpati ent Clinics 2019-02-05 2019-02-05 [facility] [id number] 15:00:00 15:00:00 t Cantril [employer] - Drive [facility] Medicine l Medicine Outpati ent Clinics 2018-12-25 2018-12-25 [facility] [id number] 14:20:00 14:20:00 t Cantril [employer] - [employer] [facility] Medicine Medicine Outpati ent Clinics 2018-08-07 2018-08-07 [facility] [id number] 10:07:00 10:07:00 t Cantril [employer] - [employer] [facility] Medicine l Medicine Outpati ent Clinics 2018-07-09 2018-07-09 [facility] [id number] 15:15:00 15:15:00 t Cantril [employer] - Drive [facility] Medicine l Medicine Outpati ent Clinics 2018-06-23 2018-06-23 [facility] [id number] 15:17:00 15:17:00 t Cantril [employer] s - Drive [facility] Medicine l Medicine Outpati ent Clinics 2018-05-19 2018-05-19 [facility] [id number] 15:15:00 15:15:00 t Cantril [employer] - Drive [facility] Medicine l Medicine Outpati ent Clinics 2018-05-12 2018-05-12 [facility] [id number] 15:00:00 15:00:00 t [employer] [facility] 2017-11-19 2017-11-19 [facility] [id number] 09:30:00 09:30:00 t [employer] [facility] 2016-08-12 2016-08-22 Outpatient Grzegorz [facility] [id number] 23:25:00 16:00:00 Dari Louis Aleena Results Test Description Test Time Test Comments Results Result Comments Source CHEM PANEL 2016-08-22 2.9 [facility] 07:02:00 CHEM PANEL 2016-08-22 6.1 [facility] [place] [facility] 07:02:00 CHEM PANEL 2016-08-22 7 [facility] [place] [facility] 07:02:00 CHEM PANEL 2016-08-22 8.9 [facility] [place] [facility] 07:02:00 CHEM PANEL 2016-08-22 19.4 [facility] [place] [facility] 07:02:00 CHEM PANEL 2016-08-22 24 [facility] [place] [facility] 07:02:00 CHEM PANEL 2016-08-22 6.00 [facility] [place] [facility] 07:02:00 CHEM PANEL 2016-08-22 65 [facility] [place] [facility] 07:02:00 CHEM PANEL 2016-08-22 125 [facility] [place] [facility] 07:02:00 CHEM PANEL 2016-08-22 94 [facility] [place] [facility] 07:02:00 CHEM PANEL 2016-08-22 5.4 [facility] [place] [facility] 07:02:00 CHEM PANEL 2016-08-22 132 [facility] 07:02:00 HEMATOLOGY 2016-08-22 0.1 [facility] [place] [facility] 07:02:00 HEMATOLOGY 2016-08-22 2.5 [facility] [place] [facility] 07:02:00 HEMATOLOGY 2016-08-22 6.9 [facility] [place] [facility] 07:02:00 HEMATOLOGY 2016-08-22 0.8 [facility] [place] [facility] 07:02:00 HEMATOLOGY 2016-08-22 10.1 [facility] [place] [facility] 07:02:00 HEMATOLOGY 2016-08-22 14.2 [facility] [place] [facility] 07:02:00 HEMATOLOGY 2016-08-22 1.4 [facility] [place] [facility] 07:02:00 HEMATOLOGY 2016-08-22 0.2 [facility] [place] [facility] 07:02:00 HEMATOLOGY 2016-08-22 1.0 [facility] [place] [facility] 07:02:00 HEMATOLOGY 2016-08-22 72.4 [facility] [place] [facility] 07:02:00 HEMATOLOGY 2016-08-22 13.2 [facility] [place] [facility] 07:02:00 HEMATOLOGY 2016-08-22 32.5 [facility] [place] [facility] 07:02:00 HEMATOLOGY 2016-08-22 195 [facility] [place] [facility] 07:02:00 HEMATOLOGY 2016-08-22 07:02:00 Test Item Value Reference Range Interpretation Comme nts MCH (test code = MCH) 31.1 pg 27.0-31.0 [facility] [id number] 07:02:0095.8[facility] HermannHEMATOLOGY 2016-08-22 07:02:0025.2[facility] UundpwvRVIURHPBKV0798-48-13 07:02:0012.8[facility] KqnkcmvZNBKSJKWKE2568-87-12 07:02:009.5[facility] QfsfepuEKCRTPDGHW9467-73-73 07:02:002.63[facility] IcyeuxfQPNOKLDXOD4424-95-79 07:02:008.2[facility] HermannCHEM VTKPC4064-82-91 09:17:004.5[facility] HermannCHEM NMSJC5641-16-67 09:17:0011 [facility] HermannCHEM EBAGB6412-12-50 09:17:009.0[facility] HermannCHEM PANEL 2016-08-21 09:17:0016.5[facility] HermannCHEM OHMXQ4570-96-10 09:17:0027[facility] HermannCHEM BFPQQ6751-47-18 09:17:0097[facility] HermannCHEM MEEUR6386-42-96 09:17:004.5[facility] HermannCHEM GQRGI6773-74-23 09:17:0040[facility] HermannCHEM EZBVE1355-70-50 09:17:07841Qijuqwmq HermannCHEM JHCBO9406-20-16 09:17:003.93 [facility] HermannCHEM PDCDD0238-03-30 09:17:08390Imgbljzz HermannCHEM PANEL 2016-08-21 09:17:002.8[facility] OpynhbfIOYKNMACMQ5574-28-17 09:17:000.3[facility] VawehitOXSGWIHCDN3436-99-63 09:17:001.2[facility] FzkiaoyWBPITBMGKN4544-36-36 09:17:001.2[facility] YutjyahFXWVLQDXDX5745-72-63 09:17:008.6[facility] [place] ORPKAVTPMC4730-71-92 09:17:0076.0[facility] HajchpbTYNCUAKOBJ5202-38-26 09:17:00 2.3[facility] RhpeisxMMUYBDZDFC5294-01-70 09:17:0010.6[facility] HermannHEMATOLOGY 2016-08-21 09:17:000.4[facility] KstkhxrSLYTCCTJKV1308-86-64 09:17:0010.7[facility] UcjqfeqKOAEUWMTVV3496-49-35 09:17:0032.5[facility] FicounnPQLFOIDPJW1880-96-16 09:17:00 Test Item Value Reference Range Interpretation Comments MCH (test code = MCH) 30.7 pg 27.0-31.0 [facility] RtcudjlZMYMDVZMAY4834-96-59 09:17:0094.5[facility] HermannHEMATOLOGY 2016-08-21 09:17:0011.3[facility] PutvypaIJQAFPNRDS5747-06-74 09:17:0026.2[facility] SqlswryVVHGYZSHSR9167-64-39 09:17:008.5[facility] HhosgymKDBJNVDUAV6288-70-24 09:17:002.77[facility] JccaudfXVYFSZDMIB3932-27-78 09:17:0013.1[facility] [place] KWYNWZWEFL5424-92-75 09:17:36170Iywddxun UddxsqsFREGPGHYCZ0048-00-07 09:17:00 11.9[facility] HermannPARATHYROID EFIEYAK9780-67-40 09:17:001.02[facility] [place] PARATHYROID KGJQRBN5088-81-07 09:17:000.99[facility] HermannCHEM GTMTL0312-23-11 00:24:0016[facility] HermannCHEM MIAIX1208-13-11 00:24:008.6[facility] HermannCHEM [id number] 00:24:0013.2[facility] HermannCHEM KXTUF3472-44-49 00:24:0030 [facility] HermannCHEM POURJ7143-39-54 00:24:0031[facility] HermannCHEM PANEL 2016-08-21 00:24:003.04[facility] HermannCHEM NYVSV8936-14-82 00:24:60889Vrzbrjus HermannCHEM HVDFQ7306-30-22 00:24:004.2[facility] HermannCHEM LXPTS8166-11-11 00:24:0096[facility] HermannCHEM VTCJR6962-72-96 00:24:06555Gilhagwt [place] BLMUUJVMYK2923-90-65 00:24:0026.3[facility] JegjvtcUCGBBQAHFE9856-50-39 00:24:00 8.9[facility] HermannCHEM KEYIW3597-87-62 09:41:006.5[facility] HermannCHEM PANEL 2016-08-20 09:41:002.8[facility] RrwuulyGPCZYJUZCB0344-77-17 09:41:002.38[facility] AojaeddDVZBWUGPNY4041-21-30 09:41:0094.2[facility] ByedlikPXEJFFVDQR2385-00-67 09:41:00 Test Item Value Reference Range Interpretation Comments MCH (test code = MCH) 31.7 pg 27.0-31.0 [facility] AwqswxiNQGXLJYRAD5769-50-72 09:41:80060Kceeoflj HermannHEMATOLOGY 2016-08-20 09:41:0033.7[facility] OnyaxfgEZQWUNDENX5369-24-77 09:41:0012.2[facility] FwpzrcaVSRUAYSXIA7981-84-81 09:41:0013.2[facility] PyxfaqvYEXLESIHSG6551-48-38 09:41:0010.2[facility] XtfxurjJYCLUUIFLP4108-26-78 09:41:001.1[facility] [place] XRAFXUPHAG8745-41-97 09:41:000.3[facility] LbuwcluQGOKGUBMHX4047-75-96 09:41:001.0 [facility] XegnvcaFGXLMTSUFS6883-38-38 09:41:0076.2[facility] HermannHEMATOLOGY 2016-08-20 09:41:002.5[facility] HnfxbnbUVRQLKSYWC3896-29-69 09:41:0010.9[facility] OxfsbgeAWRVWKPBGY9870-66-71 09:41:000.4[facility] UzppmouEXABCKKMNZ1072-72-73 09:41:0010.0[facility] VmagxhqISEAKXEAYA7116-32-42 09:41:007.8[facility] PARATHYROID PYAFXRS2435-17-20 09:41:000.99[facility]annPARATHYROID PROFILE 2016-08-20 09:41:000.98[facility]annPARATHYROID FYBYEEM2470-94-43 10:52:00 1.02[facility]annPARATHYROID NBODCBH2469-98-38 10:52:001.06[facility] AHVAZXYNVC3647-30-73 09:54:00 Test Item Value Reference Range Interpretation Comments PT (test code = PT) 13.6 s 12.0-14.7 [facility] ZcajsjqBJYUROWHUI2253-78-21 09:54:001.02[facility]annHEMATOLOGY 2016-08-17 09:54:00 Test Item Value Reference Range Interpretation Comments PTT (test code = PTT) 40.4 s 22.9-35.8 [facility] SwbkhsjGVWYVOXGAJ6488-47-83 15:51:37402.4[facility] HermannIMMUNOLOGY 2016-08-13 15:51:00Negative *NA*(08/13/16 9:51 AM)[facility] 2016-08-13 15:51:00Negative *NA*(08/13/16 9:51 AM)[facility] 2016-08-13 15:51:00Negative *NA*(08/13/16 9:51 AM)[facility] 2016-08-13 15:51:00Negative *NA*(08/13/16 9:51 AM)[facility] 2016-08-13 09:07:00Negative *NA*(08/13/16 3:07 AM)[facility] 2016-08-13 09:07:00Negative *NA*(08/13/16 3:07 AM)[facility] 2016-08-13 09:07:00Slight Cloudy (08/13/16 3:07 AM)[facility] [id number] 09:07:00 Test Item Value Reference Range Interpretation Comments UA Spec Grav (test code = UA Spec 1.015 1 Grav) [facility] [id number] 09:07:00 Test Item Value Reference Range Interpretation Comments UA pH (test code = UA pH) 8.5 1 5.0-8.0 [facility] [id number] 09:07:00Large *ABN*(08/13/16 3:07 AM) [facility] [id number] 09:07:00Negative (08/13/16 3:07 AM) [facility] [id number] 09:07:000.2[facility] [id number] 09:07:00Negative (08/13/16 3:07 AM)[facility] [id number] 09:07:00Yellow *NA*(08/13/16 3:07 AM)[facility] 2016-08-13 09:03:00See Note *NA*(08/13/16 3:03 AM)[facility] 2016-08-13 09:03:00Negative *NA*(08/13/16 3:03 AM)[facility] 2016-08-13 09:03:00Negative *NA*(08/13/16 3:03 AM)[facility] 2016-08-13 09:03:00Negative *NA*(08/13/16 3:03 AM)[facility] 2016-08-13 09:03:00Negative *NA*(08/13/16 3:03 AM)[facility] 2016-08-13 09:03:00Negative *NA*(08/13/16 3:03 AM)[facility] 2016-08-13 09:03:00Negative *NA*(08/13/16 3:03 AM)[facility] 2016-08-13 09:03:00Negative *NA*(08/13/16 3:03 AM)[facility] 2016-08-13 09:03:0032[facility] [id number] 09:03:0070[facility] [id number] 09:03:0042[facility] UbswookBGIYED8474-50-20 09:03:96927Anbpouuy WfwclmrFLULSZ1820-44-28 09:03:02982Nfaenyqm GlkpqgzFKSBTS2990-27-10 09:03:003.43 [facility]annSPE[facility] [id number] 09:03:008.6[facility] [id number] 07:44:00Negative (08/13/16 1:44 AM)[facility] [id number] 07:44:000.0[facility] RslknzfQQCUUMALIY6660-64-67 07:44:00 Test Item Value Reference Range Interpretation Comments Max Amplitude Rapid (test code = Max 71 mm 52-71 Amplitude Rapid) [facility]DcmsbunVPDHFMLSKJ1652-72-41 07:44:00 Test Item Value Reference Range Interpretation Comments Angle Rapid (test code = Angle 81 degrees 64-80 Rapid) [facility] TexasAvcsuppEDNJAGDSMH8867-82-48 07:44:0012.2[facility] 2016-08-13 07:44:00 Test Item Value Reference Range Interpretation Comments R-time Rapid (test code = R-time 0.6 min 0.4-0.7 Rapid) [facility] TexasOxloyvlZFWKALVJTJ6447-75-47 07:44:00 Test Item Value Reference Range Interpretation Comments K-time Rapid (test code = K-time 0.8 min 0.6-2.3 Rapid) [facility]EsgsorwJAFAQPJVAU7346-70-93 07:44:00 Test Item Value Reference Range Interpretation Comments ACT (TEG) Rapid (test code = ACT (TEG) 105 s 86-118 Rapid) [facility] TexasBsrlcgdRIWXZHCSBM5595-92-17 07:44:00 Test Item Value Reference Range Interpretation Comments Split Point Rapid (test code = Split 0.5 min Point Rapid) [facility] TexasTjhtvvcDZUVVZWXKN8122-59-29 06:26:00 Test Item Value Reference Range Interpretation Comments PTT (test code = PTT) 26.0 s 22.9-35.8 [facility] EqwfxrdEQHANLDJDK0076-61-07 06:26:000.97[facility] 2016-08-13 06:26:00 Test Item Value Reference Range Interpretation Comments PT (test code = PT) 13.1 s 12.0-14.7 [facility]
--- OUTSIDE RECORDS SUMMARY | 2020-03-24 19:06 | XMS REPORT ---
:1950 Author Organization eClinicalWorks Care Team Providers Name Role Phone Mukherjee, Na Provider Role Unavailable Allergies, Adverse Reactions, Alerts Substance Reaction Event Type Lisinopril Info Not Available Drug Allergy Problems Problem Type Condition Code Onset Dates Condition Statu s Problem End stage renal disease N18.6 Acti ve Problem Anemia in chronic illness D63.8 Ac tive Problem Hyperlipidemia, mixed E78.2 Active Problem Allergic rhinitis, unspecified J30.9 Active seasonality, unspecified trigger Problem Gastroesophageal reflux disease, K21.9 Active esophagitis presence not specified Problem Elevated blood pressure reading with I10 Active diagnosis of hypertension Problem Benign essential HTN I10 Active Problem Venous insufficiency I87.2 Active Problem Controlled type 2 diabetes mellitus E11.29 Active with other diabetic kidney complication, without long-term current use of insulin Problem Diabetes E11.9 Active Assessment Hyperlipidemia, mixed E78.2 Active Assessment Elevated blood pressure reading with I10 Active diagnosis of hypertension Assessment Hyperglycemia, unspecified R73.9 A ctive Assessment Controlled type 2 diabetes mellitus E11.29 Active with other diabetic kidney complication, without long-term current use of insulin Assessment End stage renal disease N18.6 Acti ve Medications Medication Code Code Instructions Start End Status Dosage System Date Date Metoprolol [facility] 49231775466 25 MG Orally Active 1 ta blet Tartrate once a day with food Renvela [facility] 18438315540 800 MG Orally Active 2 tabl et Three times a with meals day HydrALAZINE HCl ND 68363825267 25 MG Orally Active 1 tablet when bp greater with kole d than 170 Protonix ND 77180021316 40 MG Orally Active 1 tabl et Once a day Tradjenta ND 70789181641 5 MG Orally Once Active 1 tablet a day Lipitor ND 81022898752 20 MG Orally Active 1 table t Once a day Flonase ND 52964631733 50 MCG/DOSE Jul 09, Active 2 spray in Nasally Once a 2019 each day nostril Losartan [facility] 40265683023 100 MG Orally Active 1 tab let Potassium Once a day Metoprolol [facility] 26097965079 25 MG Orally Active 1 ta blet Tartrate once a day with food Tradjenta [facility] 14400130842 5 MG Orally Once Active 1 tablet a day Losartan [facility] 31955299459 100 MG Orally Active 1 tab let Potassium Once a day Amlodipine [facility] 98301230913 10 MG Orally Active 1 ta blet Besylate Once a day Cetirizine HCl [facility] 42200854194 10 MG Orally Jul 09, Active 1 tablet Once a day 2019 Results No Known Results Summary Purpose eClinicalWorks Submission
[2020-03-24] MEDS: ATORVASTATIN 20 MG TAB PO SCH (21:00)
--- NOTE | 2020-03-24 21:07 | CON ---
Reason For Consultation: Consultation called because of altered mental status. History Of Present Illness: Ms. Sidney Leggett is a 69-year-old, right-handed, patient with end-stage renal disease, on hemodialysis, and hypertension, who per her family who was in the room w ith her became more disoriented and confused, could not answer properly and speak properly. She was brought to [facility] on the March 23, and in the emergency room, evaluated for altered m ental status. Her head CT scan showed no acute ischemic or hemorrhagic change. There was a low dens ity area in the left frontal lobe compatible with a stroke. The family did realize she had some righ t-sided weakness. Also, there was mild to moderate small-vessel ischemic disease. She did receive s ome fluids and is scheduled for dialysis. Her additional workup including a chest x-ray showed mild pulmonary edema. Her electrocardiogram showed sinus tachycardia with left atrial enlargement as subs equent brain MRI ruled out an acute ischemic strokes. This study was remarkable for moderate chronic small-vessel ischemic disease. She did have an echocardiogram showing an ejection fraction of 71% w ith normal wall motion, however, there was severe tricuspid regurgitation, severe pulmonary hypertens ion, right ventricular systolic pressure was greater than 60, and dilated right ventricle. Mildly de pressed function was noted. There was a concern for possible pulmonary embolus. An abdomen and pelv is CT scan showed thickening of the gallbladder, probably related to hypoalbuminemia. Laboratory Studies: Did show slightly elevated white blood cell count with neutrophil predominance. INR unremarkable and chemistries showed creatinine elevated to 7.93 today, 8.68 before hemodialysis. The family notes she did seem to "wake up" earlier today and interacting and is mostly back towards h erself. Past Medical History: Stroke as indicated; pgy-oyiyxuv-lmatalgry diabetes mellitus; end-stage renal disease, on hemodialysis Saturday, Saturday, Saturday; gastroesophageal reflux disease; dyslipidemia; hy pertension. Family History: Noncontributory. Social History: No alcohol, tobacco, or IV drug use. Allergies: VANCOMYCIN AND NIFEDIPINE. Medications: Norvasc 10 mg daily, aspirin 162 mg daily, Lipitor 20 mg at bedtime, Zyrtec 10 mg daily , Plavix 75 mg daily, Lovenox 30 mg subcutaneously daily, Lasix 80 mg b.i.d., hydralazine 25 mg twice daily, Cozaar 100 mg daily, Slow-Mag 64 mg daily, Lopressor 25 mg daily, Zofran 4 mg as needed, Renv abad 800 mg 3 times a day, Protonix 40 mg daily. Review of Systems: She does have some diffuse weakness and some myalgias and arthralgias. No rash or psychiatric issues or gastrointestinal issues. She is on hemodialysis. Physical Examination: Vital Signs: Blood pressure 110/59, pulse 84, respiratory rate 16, temperature 97.8, oxygen saturati on 98% on room air. Weight 128 pounds, height 4 feet 11 inches, BMI 24.2. GENERAL: Ms. Sidney Leggett is resting in bed. She communicates in Occitan and family translated. She is normocephalic, atraumatic. Sclerae are anicteric. Oropharynx is moist. Neck: Supple. Chest: Clear. Heart: Regular. Extremities: Show no significant edema or cyanosis. Right forearm dialysis port access is intact. NEUROLOGICAL: She is alert and oriented to person, place. She follows simple commands without any d ifficulty. Cranial nerves show no focal deficits. Motor examination, she has diffuse weakness in th e upper and lower extremities stroke. No significant focal deficits. Stocking-glove loss to light touch temperature. Reflexes not present. gait belt and physical therapist. Assessment: Ms. Sidney Leggett has a resolving likely metabolic encephalopathy, possibly related to her renal disease, in addition to her chronic disease, however, her hemoglobin and hematocrit are in normal range. Her procalcitonin was elevated at 1.25, but lactic acid was normal. Ammonia level was not drawn. MRI shows no evidence of an acute ischemia or hemorrhagic stroke. The claraen t's family reports that she seems to return to her baseline. Plan: 1.The patient is to have dialysis as scheduled. 2.Blood work for ammonia level. 3.Consider EEG if the patient's condition fluctuates again and this will help to rule out epileptifo rm activity. 4.She is not likely to require lumbar puncture as the condition is improving and it is unlikely she has meningitis or encephalitis. LALO/BROOKE Voice ID: [id number] Report ID: [id number]
[2020-03-24] MEDS ORDERED: EPOETIN 4,000 UNIT/ML VIAL IV SCH (21:45)
--- NOTE | 2020-03-25 05:18 | CON ---
Date of Consultation: 03/24/2020 Counter Waiter Physician: Yasmin Fournier MD. Reason For Consultation: Elevated BUN and creatinine, fluid over-volume, end- stage renal disease. History Of Present Illness: This is a pleasant 69-year-old female, well known to me from the dialysis center with significant past medical history of hypertension, hyperlipidemia, diabetes complicated with neuropathy and retinopathy, nephropathy, CVA, required ventriculostomy tube, GERD, end-stage renal disease. The patient came to the hospital for altered mental status with confusion. Workup for CVA was negative including MRI and MRA. The patient was found to have over-volume for that reason and we have been consulted. Past Medical History: 1. Hypertension. 2. Hyperlipidemia. 3. Diabetes. 4. CVA, required ventriculostomy. 5. GERD. 6. End-stage renal disease, on hemodialysis Saturday, Saturday, Saturday. Past Surgical History: 1. Laser surgery. 2. AV fistula. 3. Ventriculostomy tube in the cranium for drainage of hemorrhage. Allergies: NO KNOWN DRUG ALLERGIES. Social History: Denies smoking. Denies drinking. Denies drugs abuse. Review of Systems: Head and Neck: No red eye. GI: Has decreased intake. : No polyuria, no dysuria, no hematuria. PLANT OPERATOR CONTROL ROOM OPERATOR: No vaginal discharge. Respiratory: Has shortness breath. Cardiovascular: Has leg swelling. Endocrine: No polydipsia. Skin: No rash. Neuro: Has altered mental status. Musculoskeletal: Generalized fatigue. Physical Examination: Vital Signs: When I saw the patient, blood pressure 137/63, pulse of 102, afebrile. Chest: Crackles bilateral. Heart: S1, S2. Systolic murmur. Abdomen: Soft, nontender. Extremities: Plus edema. Neuro: The patient received Ativan, sleepy. No focality. Vascular: Congestion /diltation on the jugular external bilaterally Laboratory Data: WBC 12.3, H and H 10.5/31.6. Sodium 138, potassium 4.8, BUN 62, creatinine 9.6, calcium 9.4, phosphorus 4.1, albumin 3.5. Current Medications: The patient on include; 1. Plavix. 2. Cetirizine. 3. Aspirin. 4. Amlodipine 10 mg daily. 5. Hydralazine 25 b.i.d. 6. Losartan. 7. Metoprolol. 8. Tylenol. 9. Lorazepam. 10. Lasix 80 b.i.d. 11. Renvela. 12. Zofran. 13. Pantoprazole. 14. Tradjenta. Assessment And Plan: 1. End-stage renal disease, looked to me on the over volume side. I am going to go ahead and arrange for dialysis today and tomorrow and we will challenge the patient. 2. Hypertension, currently controlled, optimal. We need to challenge the patient. For that reason, I am going to go ahead and discontinue losartan, discontinue hydralazine, discontinue amlodipine, and to utilize the blood pressure for more diuresis. 3. Altered mental status with history of intracranial hemorrhages, status post drainage. Follow up with the Neurology. Workup can include possible LP and EEG. We will follow up. 4. Secondary hyperparathyroidism. Continue VANESSA. 5. Anemia of chronic kidney disease. We will resume Retacrit. 6. Diabetes, as by primary. Thank you Dr. Fournier for allowing us to participate in the care of your patient. Time spent coordinating the care, discuss him with all of our team members including othere solar consultant and hospitalist and [id number] with the patient and please go out of 45 min FRANK Voice ID: [id number] Report ID: [id number] TIMO
[2020-03-25 05:52] LABS: Absolute Lymphocytes (CBC) 0.5 K/uL (0.7-4.9); Basophils % 0.6 % (0-1.3); Hematocrit 32.1 % (36.0-45.0); Lymphocytes % 6.6 % (15.3-44.8); MPV 11.5 fL (7.6-11.3)
[2020-03-25] MEDS: PANTOPRAZOLE 40MG TABLET PO SCH (08:25)
[2020-03-25] MEDS: ASPIRIN EC 81 MG TAB PO SCH (08:26)
[2020-03-25] MEDS: METOPROLOL TAR 25 MG TAB PO SCH (08:26)
[2020-03-25] MEDS: SEVELAMER CARBONATE 800 MG TABLET PO SCH ×3 (08:26→16:43)
[2020-03-25] MEDS: CLOPIDOGREL 75 MG TABLET PO SCH (08:26)
[2020-03-25] MEDS: MAGNESIUM CHLORIDE 64 MG TAB PO SCH (08:27)
[2020-03-25] MEDS: ENOXAPARIN 30 MG/0.3 ML SQ SCH (08:27)
[2020-03-25] MEDS: CETIRIZINE HCL 5 MG TABLET PO SCH (08:27)
[2020-03-25] MEDS: FUROSEMIDE 40 MG/4 ML VIAL IV SCH ×2 (08:28→16:44)
[2020-03-25] MEDS: HOME MED 1 EA UNK (Linagliptin [Tradjenta] 5 MG) PO SCH (08:29)
[2020-03-25] MEDS: ALBUMIN HUMAN 25% 50 ML IV ONE ×2 (08:48→10:37)
--- NOTE | 2020-03-25 10:07 | P.PN ---
Subjective Date of Service: 03/25/20 Chief Complaint: Acute CVA Subjective Pt with ESRD MWF , HTN, Hx of intracrainal hemorrhage pt was admitted for AMS Today as per family , pt is at he baseline, still have Rt sided weakness HD today PT/OT neurology F/U can be discharge from nephrology point of view after HD , if no further W/I indicated Physical exam general: Awake and alert , NAD Neck; Supple, No elevated JVD hear: RRR, normal S1,2 no murmur or rub Chest: CTAB, no rlaes or wheezes Abdomen: Soft , Nt Extremities Lt arm swelling, rt sided weakness A/P ESRD on HD MWF HD today renal dose meds Anemia of chronic disease cont epogrn Metabolic bone disease cont binders HT BP borderline pt is off meds AMS HX of Intracranial hemorrhage, this admission Heat CT amd Brain MRI with no significant findings neurology on baord PT/OT Physical Examination - Vital Signs Temperature: 96.9 F Blood Pressure: 118/59 Pulse: 75 Respirations: 15 Pulse Ox (%): 98
[2020-03-25] MEDS: ATORVASTATIN 20 MG TAB PO SCH (20:39)
[2020-03-25] MEDS ORDERED: GLUCAGON 1 MG/VIAL IM PRN (21:12)
[2020-03-25] MEDS ORDERED: D50W 25 GM/50 ML SYRINGE/VIAL IV PRN (21:12)
[2020-03-25] MEDS: INSULIN -REGULAR HUMAN 50 UNIT/0.5 ML ML SQ SCH (22:48)
[2020-03-26 05:34] VITALS: BMI 22.3
[2020-03-26] MEDS: INSULIN -REGULAR HUMAN 50 UNIT/0.5 ML ML SQ SCH (07:30)
[2020-03-26] MEDS: CETIRIZINE HCL 5 MG TABLET PO SCH (08:49)
[2020-03-26] MEDS: FUROSEMIDE 40 MG/4 ML VIAL IV SCH (08:49)
[2020-03-26] MEDS: SEVELAMER CARBONATE 800 MG TABLET PO SCH (08:49)
[2020-03-26] MEDS: CLOPIDOGREL 75 MG TABLET PO SCH (08:50)
[2020-03-26] MEDS: MAGNESIUM CHLORIDE 64 MG TAB PO SCH (08:50)
[2020-03-26] MEDS: METOPROLOL TAR 25 MG TAB PO SCH (08:50)
[2020-03-26] MEDS: PANTOPRAZOLE 40MG TABLET PO SCH (08:50)
[2020-03-26] MEDS: ASPIRIN EC 81 MG TAB PO SCH (08:50)
[2020-03-26] MEDS: ENOXAPARIN 30 MG/0.3 ML SQ SCH (08:55)
[2020-03-26 17:20] VITALS: BP 147/68; TEMP 98.8
--- NOTE | 2020-03-26 17:38 | P.PN ---
Subjective Date of Service: 03/24/20 Subjective: No new changes, No C/O voiced, Improving Review of Systems 10-point ROS is otherwise unremarkable Physical Examination - Vital Signs Temperature: 98.8 F Blood Pressure: 147/68 Pulse: 112 Respirations: 20 Pulse Ox (%): 91 - Physical Exam General: Alert, In no apparent distress, Oriented x3 Respiratory: Clear to auscultation bilaterally, Normal air movement Cardiovascular: Regular rate/rhythm, Normal S1 S2, Systolic murmur Gastrointestinal: Normal bowel sounds, Soft and benign, Non-distended, No tenderness Musculoskeletal: No clubbing, No swelling, No tenderness Integumentary: No rashes Neurological: Normal speech, Normal strength at 5/5 x4 extr - Studies Medications List Reviewed: Yes Assessment & Plan - Problems (Diagnosis) (1) Altered mental status Status: Acute (2) Acute CVA (cerebrovascular accident) Status: Acute (3) DM w/o complication type II Onset Date: 01/31/15 Status: Chronic (4) End-stage renal disease on hemodialysis Onset Date: 04/05/15 Status: Chronic (5) GERD (gastroesophageal reflux disease) Onset Date: 07/30/17 Status: Chronic (6) HTN (hypertension) Onset Date: 01/31/15 Status: Chronic Qualifiers: (7) Hyperlipidemia Onset Date: 01/31/15 Status: Chronic Qualifiers: - Plan Plan: 1. MRI of the brain did not reveal any acute infarct 2. Physical therapy evaluation and speech evaluation completed. Patient swallowing without any difficulty. Physical therapy working with patient 3. Anti-platelet therapy and statin therapy 4. Echocardiogram and carotid Doppler pending 5. Neuro consultation appreciated 6. Nephrology consultation for dialysis appreciated 7. GI and DVT prophylaxis Discharge Plan: Home Plan to discharge in: Greater than 2 days - Advance Directives Does patient have a Living Will: No Does patient have a Durable POA for Healthcare: No - Code Status/Comfort Care Code Status: Full Code Critical Care: No Time Spent Managing PTS Care (In Minutes): 35
--- NOTE | 2020-03-26 17:41 | P.PN ---
Subjective Date of Service: 03/25/20 Subjective: No new changes, No C/O voiced, Improving Patient mental status has improved. She is waking up a little bit better. Will go ahead and dialyze patient once again and see how she does. If she does improve then we will anticipate discharge in the morning. Review of Systems 10-point ROS is otherwise unremarkable Physical Examination - Vital Signs Temperature: 98.8 F Blood Pressure: 147/68 Pulse: 112 Respirations: 20 Pulse Ox (%): 91 - Physical Exam General: Alert, In no apparent distress, Oriented x2, Other (Following commands) Neck: Supple, JVD distended Respiratory: Clear to auscultation bilaterally, Normal air movement Cardiovascular: Regular rate/rhythm, Normal S1 S2, Systolic murmur Gastrointestinal: Normal bowel sounds, Soft and benign, Non-distended, No tenderness Musculoskeletal: No tenderness Integumentary: No rashes Neurological: Normal speech, Sensation intact, Cranial nerves 3-12 intact - Studies Medications List Reviewed: Yes Assessment & Plan - Problems (Diagnosis) (1) Altered mental status Status: Acute (2) Acute CVA (cerebrovascular accident) Status: Acute (3) DM w/o complication type II Onset Date: 01/31/15 Status: Chronic (4) End-stage renal disease on hemodialysis Onset Date: 04/05/15 Status: Chronic (5) GERD (gastroesophageal reflux disease) Onset Date: 07/30/17 Status: Chronic (6) HTN (hypertension) Onset Date: 01/31/15 Status: Chronic Qualifiers: (7) Hyperlipidemia Onset Date: 01/31/15 Status: Chronic Qualifiers: - Plan Plan: 1. MRI of the brain did not reveal any acute infarct; neurologic status has improved. 2. Continue with current plan of care at this time 3. Anti-platelet therapy and statin therapy 4. Echocardiogram and carotid Doppler pending; patient with elevated right ventricular pressures along with tricuspid regurg. Outpatient cardiology follow-up 5. Neuro consultation appreciated; outpatient follow-up 6. Nephrology consultation for dialysis appreciated 7. GI and DVT prophylaxis Discharge Plan: Home Plan to discharge in: Greater than 2 days - Advance Directives Does patient have a Living Will: No Does patient have a Durable POA for Healthcare: No - Code Status/Comfort Care Code Status: Full Code Critical Care: No Time Spent Managing PTS Care (In Minutes): 35
--- NOTE | 2020-03-26 17:46 | P.DS ---
Discharge Date: 03/26/20 Disposition: ROUTINE DISCHARGE Discharge Condition: GOOD Reason for Admission: Acute CVA Consultations: Neurology Nephrology - Problems (1) Altered mental status Status: Acute (2) Acute CVA (cerebrovascular accident) Status: Acute (3) DM w/o complication type II Onset Date: 01/31/15 Status: Chronic (4) End-stage renal disease on hemodialysis Onset Date: 04/05/15 Status: Chronic (5) GERD (gastroesophageal reflux disease) Onset Date: 07/30/17 Status: Chronic (6) HTN (hypertension) Onset Date: 01/31/15 Status: Chronic Qualifiers: (7) Hyperlipidemia Onset Date: 01/31/15 Status: Chronic Qualifiers: (8) Right heart failure Status: Acute (9) Tricuspid regurgitation Status: Acute Brief History of Present Illness: Patient is a 69yo female who presented to the ER with AMS. Patient was not able to interact and was not talking much at all. Patient would just stare at us. Decision was made to admit patient to the hospital for further evaluation. Patient has not had any issues similar to this in the past. Patient's daughter is not really sure exactly when she ended up like this. We went ahead and did a CT of the brain which was negative. Electrolytes were stable. Decision was made to admit the patient to the hospital for further evaluation. Hospital Course: Patient mentation has improved after hemodialysis. Patient is clinically doing much better. MRI was negative. Patient is much better at this time. Daughter states patient is back to baseline. At this time, patient is stable for discharge home. Patient will need close follow-up with Neurology and Nephrology. Will also need to follow with Cardiology and patient had right ventricular pressures that were elevated and tricuspid regurgitation. Return to the ER if symptoms worsen. Vital Signs/Physical Exam: Temp Pulse Resp BP Pulse Ox 98.8 F 112 H 20 147/68 H 91 03/26/20 17:41 03/26/20 17:41 03/26/20 17:41 03/26/20 17:41 03/26/20 17:41 General: Alert, In no apparent distress, Oriented x2 Laboratory Data at Discharge: WBC 8.1 K/uL (4.3-10.9) D 03/25/20 05:25 Hgb 10.6 g/dL (12.0-15.0) L 03/25/20 05:25 Hct 32.1 % (36.0-45.0) L 03/25/20 05:25 Plt Count 120 K/uL (152-406) L 03/25/20 05:25 PT 12.7 SECONDS (9.5-12.5) H 03/24/20 06:19 INR 1.08 03/24/20 06:19 APTT 24.1 SECONDS (24.3-36.9) L 03/26/20 05:09 Sodium 134 mmol/L (136-145) L 03/25/20 05:25 Potassium 4.0 mmol/L (3.5-5.1) 03/25/20 05:25 BUN 33 mg/dL (7-18) H D 03/25/20 05:25 Creatinine 6.06 mg/dL (0.55-1.3) H* D 03/25/20 05:25 Glucose 151 mg/dL (74-106) H 03/25/20 05:25 Phosphorus 4.1 mg/dL (2.5-4.9) 03/24/20 06:19 Magnesium 2.8 mg/dL (1.8-2.4) H 03/24/20 06:19 Total Bilirubin 1.1 mg/dL (0.2-1.0) H 03/24/20 06:19 AST 17 U/L (15-37) 03/24/20 06:19 ALT 22 U/L (12-78) 03/24/20 06:19 Alkaline Phosphatase 139 U/L (45-117) H 03/24/20 06:19 Troponin I 0.14 ng/mL (0.0-0.045) H 03/23/20 21:58 Triglycerides 125 mg/dL (<150) 03/24/20 06:19 Cholesterol 155 mg/dL (<200) 03/24/20 06:19 HDL Cholesterol 59 mg/dL (40-60) 03/24/20 06:19 Cholesterol/HDL Ratio 2.63 03/24/20 06:19 Home Medications: Amlodipine [Norvasc*] 10 mg PO DAILY 04/07/19 Hydralazine [Apresoline*] 25 mg PO DAILY PRN 04/07/19 Linagliptin [Tradjenta] 5 mg PO DAILY 04/07/19 Sevelamer Carbonate [Renvela] 800 mg PO TID 04/07/19 Magnesium Chloride [Slow-Mag*] 64 mg PO DAILY 07/10/19 Atorvastatin Calcium 20 mg PO BEDTIME 03/23/20 Cetirizine HCl 10 mg PO DAILY 03/23/20 Losartan Potassium 100 mg PO DAILY 03/23/20 Metoprolol Tartrate 25 mg PO DAILY 03/23/20 Pantoprazole [Protonix Tab*] 1 tab PO DAILY 03/23/20 Aspirin [Aspirin EC 81 MG] 81 mg PO DAILY #30 tablet. 03/26/20 New Medications: Aspirin [Aspirin EC 81 MG] 81 mg PO DAILY #30 tablet. Patient Discharge Instructions: OK TO DC IV AND DC HOME. FOLLOW-UP WITH PRIMARY CARE PROVIDER IN 1-2 WEEKS. FOLLOW-UP WITH NEPHROLOGY IN 1-2 WEEKS. FOLLOW-UP WITH NEUROLOGY IN 2-4 WEEKS. FOLLOW-UP WITH CARDIOLOGY IN 2-4 WEEKS. RETURN TO THE ER IF SYMPTOMS WORSEN. CALL or TEXT DR. BARNETT AT [phone] IF ANY QUESTIONS REGARDING HOSPITAL STAY. PLEASE CALL THE FLOOR AT [phone] IF ANY MEDICATION OR NURSING QUESTIONS. Diet: Renal Activity: Fall precautions Followup: Valdo Valencia MD [ACTIVE - CAN ADMIT] - Milton Sinha MD [ASSOCIATE-ACTIVE - CAN ADMIT] - Time spent managing pt's care (in minutes): 35
== END 2020-03-26 10:20 | disposition home or self-care (01) | DRG 291 ==
LOC: ER 08:44 → ERHOLD 11:38 → 2ND 12:36
PROVIDERS: ADMIT Hospitalist; ATTEND Hospitalist
PROC: 5A1D70Z Performance of Urinary Filtration, Intermittent, Less than 6 Hours Per Day (ICD-10-PCS; principal; 2020-03-25)
DX: I13.2 Hypertensive heart and chronic kidney disease with heart failure and with stage 5 chronic kidney disease, or end stage renal disease (principal); N18.6 End stage renal disease; G93.41 Metabolic encephalopathy; N25.81 Secondary hyperparathyroidism of renal origin; I50.811 Acute right heart failure; E11.22 Type 2 diabetes mellitus with diabetic chronic kidney disease; E78.5 Hyperlipidemia, unspecified; D63.1 Anemia in chronic kidney disease; K21.9 Gastro-esophageal reflux disease without esophagitis; I07.1 Rheumatic tricuspid insufficiency; Z88.1 Allergy status to other antibiotic agents; Z88.8 Allergy status to other drugs, medicaments and biological substances; Z86.73 Personal history of transient ischemic attack (TIA), and cerebral infarction without residual deficits; Z99.2 Dependence on renal dialysis; Z79.82 Long term (current) use of aspirin; Z79.899 Other long term (current) drug therapy; Z20.828 Contact with and (suspected) exposure to other viral communicable diseases
CPT/HCPCS: 36415; 70450; 70544; 70551; 71045; 74176; 80048; 80053; 80061; 82947; 83605; 83735; 84100; 84145; 84436; 84443; 84484; 85025; 85044; 85610; 85730; 90935; 93005; 93306; 96365; 97116; 97161; 99285; J0360; J1650; J1815; J1940; J7030; P9047; Q5105; U0002

== ENCOUNTER 2020-07-24 15:35 | Inpatient (IN) | payer OTHER, MEDICAID ==
--- OUTSIDE RECORDS SUMMARY | 2020-07-24 15:38 | XMS REPORT | Continuity of Care Document ---
:1950 Author Organization [employer] Care Team Providers Name Role Phone [employer] Unavailable Un available Problems Problem Status Onset Classification Date Comments Sourc e Date Reported SAH Active 08/12/[address] LFLT TRANSFER Active 08/12/19 Deyvi as #[id number] [address] [place] [address] IVH Active 08/12/[address] Diabetes mellitus Resolved Problem 08/25/2016 [facility] (disorder) [facility] End stage renal Active Problem 08/25/2016 [facility] (disorder) Center Hyperlipidemia Resolved Problem 08/25/2016 [facility] ex (disorder) [facility] Hypertensive Active Problem 08/25/2016 [place] disorder, Medical systemic arterial Ce nter (disorder) NONTRAUMATIC Active [facility] INTRACEREBRAL Medica l HEMORRHAGE, I Center Medications Medication Details Route Status Patient Ordering Order Source Instructions Provider Date [facility] Notes: Same as: Inactive 08/[facility] Deyvia s Renvela [address] [place] [address] losartan 50 mg 50 mg = 1 tab, Active [facility] oral tablet PO, Q12H, # 120 2017 Medi [place] tab, 1 Refill(s) Center amLODIPine 10 10 mg = 1 tab, Active 08/22[facility] mg oral tablet PO, Daily, # 60 2017 edical tab, 1 Refill(s) Center Amlodipine Notes: (Same as: No Longer [facility] Norvasc) Active [address] [place] [address] Humulin N Notes: [place] palms of hands Active 2017 Medical gently; Do not Center shake vigorously. (Same as: Humulin N) Do not hold insulin without contacting prescriber WASTE: F/P - Black; E - Municipal Trash Bin Stable for 28 days at room temperature Expires in days from Da te Labetalol Notes: With No Longer [facility] food. (Same Active 2017 Medical as:Trandate, [place] Normodyne) 150 mg = 1/2 x 300 mg TAB Amlodipine 5 mg, Route: PO, Inactive [facility] Drug form: TAB, 2017 Medical ONCE, Dosing Center Weight 62.3, kg, Start date: 08/18/16 11:12:00 TRACK LEADER, Stop date: 08/18/16 11:12:00 TRACK LEADER sevelamer Notes: Same as: No Longer [facility] exas Renvela Active [address] [place] [address] travoprost 0.04 1 drp, BOTH Active [facility] exas MG/ML EYES, QPM, # 5 2017 Medical Ophthalmic ml, 0 Refill(s) Cente r Solution [Travatan] Brimonidine 2 drp, BOTH Active [facility] tartrate 2 EYES, BID, 0 2016 Medical MG/ML / Timolol Refill(s) [place] 5 MG/ML Ophthalmic Solution [Combigan] Amlodipine Notes: (Same as: No Longer [facility] Norvasc) Active [address] [place] [address] Losartan Notes: (Same as: No Longer [facility] exas Cozaar) Active [address] [place] [address] Labetalol 10 mg, 2 mL, Inactive [facility] Route: IVP, Drug 2017 Medical form: INJ, ONCE, Center Dosing Weight 62.3, kg, Start date: 08/15/16 21:29:00 TRACK LEADER, Stop date: 08/15/16 21:29:00 TRACK LEADER Labetalol 150; HOLD for No Longer [facility] [place] pulse < [address] [place] [address] Hydralazine Notes: (Same as: No Longer H [place] Apresoline) Active 2017 [facility] multivitamin Daily, 0 Active [facility] Refill(s) 2017 [facility] losartan 100 mg 100 mg = 1 tab, No Longer [facility] oral tablet PO, Daily, # 90 Active 2016 Medi idalia tab, 0 Refill(s) [place] amLODIPine 5 mg 5 mg = 1 tab, No Longer [facility] oral tablet PO, Daily, Active 2016 Medical evening, # 90 Center tab, 1 Refill(s) Glipizide 10 MG 10 mg = 1 tab, Active H [place] Oral Tablet PO, BID-Before 2016 Medic al Meals, # 180 Center tab, 1 Refill(s) pantoprazole 40 40 mg = 1 tab, Active H [place] mg oral enteric PO, Daily, # 90 2017 Medical coated tablet tab, 0 Refill(s) C enter sevelamer 1,600 mg = 2 Active [place] carbonate 800 tab, PO, 2017 Medical MG Oral Tablet TID-Meals, # 180 Center [Renvela] tab, 1 Refill(s) atorvastatin 20 20 mg = 1 tab, No Longer [place] mg oral tablet PO, Bedtime, # Active 2016 Or dical 90 tab, 3 Center Refill(s) Linagliptin 5 5 mg = 1 tab, [place] Oral Tablet PO, Daily, # 30 2016 M edical [Tradjenta] tab, 3 Refill(s) [address] [facility] metoprolol 25 mg = 1 tab, Active [place] as tartrate 25 mg PO, BID, # 180 2017 Or dical oral tablet tab, 0 Refill(s) [address] [facility] Miralax 17 gm, Route: Inactive [place] PO, BID, Dosing 2016 Medical Weight 62.3, kg, [place] Start date: 08/14/16 17:00:00 TRACK LEADER, Duration: 30 day, Stop date: 09/13/16 9:00:00 CDT Beneprotein 7 Notes: (Same as: No Longer [place] gm pkt Beneprotein) Active 2017 [facility] physiological Notes: NxStage No Longer [place] irrigating [id number] = K4/Ca3 Active 2016 Medi [...] Via central line, Start date: 08/14/16 11:00:00 TRACK LEADER, Duration: 30 day, Stop date: 09/13/16 11:59:00 CDT Magnesium Notes: WASTE: No Longer [place] as Sulfate F/P - Sink; E - [facility] [place] Bin Calcium Notes: WASTE: No Longer [place] Chloride F/P - Sink; E - Active 2016 [facility] Bin physiological 5,000 mL, Route: Inactive [place] irrigating DIALYSIS, 2017 Medical solution 5000 Irrigation Site: C enter mL Other: See Comments, 2,000 ml/hr, catheter, 2.5 hr, Total Volume: 5,000 mL, "For Irrigation Only", Start date: 08/14/16 11:00:00 TRACK LEADER, Duration: 30 day, Stop date: 09/13/16 10:59:00 CDT potassium Notes: (Same as: No Longer [place] chloride KCL) Infuse no Active 2016 Medical faster than 10 Center mEq/hr if given peripherally. heparin sodium, Notes: porcine No Longer [place] porcine 2500 heparin Active 2016 [facility] UNT/ML Center Injectable Solution Miralax Notes: Dissolve No Longer [place] as in 8 oz of water Active 2017 Medical or juice. (Same Center as: Miralax) Labetalol Notes: With No Longer [place] food. (Same Active 2017 Medical as:Trandate, [place] Normodyne) Tylenol Notes: (Same as: [place] Tylenol) Active 2017 [facility] Cathflo Notes: "Syringe [place] Activase 2 mg for catheter 2017 Medic al injection clearance or [place] interventional radiology use. Pharmacy: Reconstitute each vial of Cathflo Activase with 2.2 ml Sterile Water resulting in a 1 mg/ml solution. Stable for 8 hours only. (Same as: Activase) MEDICATION WASTE Product Size: 2 mg Product Wasted: _1__ mg Ancef 2 gm, Route: Inactive [place] IVPB, ONCE, 2016 Medical Dosing Weight Center 62.3, kg, Start date: 08/13/16 17:47:00 TRACK LEADER, Duration: 1 doses or times, Stop date: 08/13/16 17:47:00 TRACK LEADER, Surgical Prophylaxis Only; For patients < 120 kg Propofol 10 Notes: Same as: No Longer [facility] MG/ML Diprivan Active 2016 Medical Injectable Center Suspension Hydralazine Notes: (Same as: No Longer [facility] Apresoline) October Active 2016 Medical interfere Center w/enteral feedings. Take With Food Insulin regular 60 units) No Longer [facility] WASTE: F/P - Active 2016 Medical Black; [...] Docusate Sodium Notes: (Same as No Longer [place] 50 MG / Senokot-S) Active 2016 [facility] sennosides, [facility] Equiv. to Center 8.6 MG Oral Sherrie-Colace. Tablet Saline Flush Notes: (Same as: No Longer [place] 0.9% BD Posiflush) Active 2016 Medical [place] lansoprazole Notes: Take 1 No Longer [facility] hour before or 2 Active 2016 Medical hours after Center meal; Expires in 14 days. Shake well before use. (Same as:Prevacid) Compounded Product - formulation not commercially available Dextrose 50% 25 gm, 50 mL, No Longer [facility] Syringe Route: IVP, Drug Active 2016 Medical Form: INJ, kg, Center PRN, PRN Abnormal Lab Result, Start date: 08/13/16 4:08:00 TRACK LEADER, Duration: 30 day, Stop date: 09/12/16 5:07:00 CDT Regular 60 units) No Longer [facility] Insulin, Human WASTE: F/P - Active 2016 [...] 50mg/ Notes: (Same as: No Longer 08/13 Arpan NS 50ml drip Versed) Active 2016 Medical (premixed) 50 Center mg Fentanyl 1,000 microgram, [place] 20 mL, Rate: Active 2016 Medical Titrate, Start Center Dose: 50 microgram/hr, Titration: 25 microgram/hour every 15 minutes, Goal(s): rass -1, Max Dose: 300 microgram/hr, Route: IV, Total Volume: 20, Start date: 08/13/16 1:32:00 TRACK LEADER, Duration: 30 day, Stop date... iodixanol 100 mL, Route: Inactive [place] as IVP, Drug Form: 2017 Medical SOLN, kg, Center ONCALL, STAT, Start date: 08/13/16 1:25:00 TRACK LEADER, Duration: 1 doses or times, Dose = 2.2ml/kg, Max dose = 100ml -- "To be infused by Radiology Staff ONLY" Dextrose 50% 25 gm, 50 mL, Inactive [place] Syringe Route: IVP, Drug 2016 Medical Form: INJ, kg, Center ONCE, STAT, Start date: 08/13/16 1:24:00 TRACK LEADER, Stop date: 08/13/16 1:24:00 TRACK LEADER Insulin regular 60 units) Inactive Arpan WASTE: F/P - 2017 Medical Black; E - Center Municipal Trash Bin Stable for 28 days at room temperature Expires in days from Da te Albuterol 0.83 Notes: SEE RT No Longer 08/13/ H [place] MG/ML Inhalant DOCUMENTATION Active 2016 Med ical Solution (Same as: [place] Proventil) niCARdipine 40 Notes: Same as: No Longer [place] mg/ NS 200 ml Cardene Active 2016 Medical IV Soln Concentration: [place] (premix) 40 mg (0.2 mg /1 ml ) DDAVP 10 microgram, Inactive [place] Route: IV, ONCE, 2017 Medical kg, Start date: [place] 08/13/16 0:35:00 TRACK LEADER, Stop date: 08/13/16 0:35:00 TRACK LEADER Saline Flush Notes: Same as: No Longer [facility] 0.9% BD Posiflush Active 2016 [facility] Sterile Center Allergies, Adverse Reactions, Alerts No Known Medication Allergies Immunizations No Data Provided for This Section Results Order Name Results Value Reference Date Interpretation Comments Anna rce Range CHEM PANEL Magnesium Lvl 2.9 1.8 - 2.4 08/22 [place] [facility] CHEM PANEL Phosphorus 6.1 2.5 - 4.5 08/22 [facility] CHEM PANEL eGFR 7 08/22 Result [...] Calcium Lvl 8.9 8.5 - 10.5 08/22 [facility] CHEM PANEL AGAP 19.4 10.0 - 08/22 [facility] 20.0 [facility] CHEM PANEL CO2 24 24 - 32 08/22 [facility] CHEM PANEL Creatinine 6.00 0.50 - 08/22 [facility] Lvl 1.40 [facility] CHEM PANEL BUN 65 7 - 22 08/22 [facility] CHEM PANEL Glucose Lvl 125 70 - 99 03/ [facility] CHEM PANEL Chloride Lvl 94 95 - 109 03/ [facility] CHEM PANEL Potassium Lvl 5.4 3.5 - 5.1 03 [facility] CHEM PANEL Sodium Lvl 132 135 - 145 03/ [facility] HEMATOLOGY Basophils # 0.1 0.0 - 0.2 03/ [facility] HEMATOLOGY Eosinophils 2.5 0.0 - 4.0 03/ [facility] HEMATOLOGY Segs-Bands # 6.9 1.5 - 8.1 08/22 [facility] HEMATOLOGY Basophils 0.8 0.0 - 1.0 03/ [facility] HEMATOLOGY Monocytes 10.1 2.0 - 12.0 03 [facility] HEMATOLOGY Lymphocytes 14.2 20.0 - 03 40.0 [facility] HEMATOLOGY Lymphocytes # 1.4 1.0 - 5.5 03 [facility] HEMATOLOGY Eosinophils # 0.2 0.0 - 0.5 03 [facility] HEMATOLOGY Monocytes # 1.0 0.0 - 0.8 03 [facility] HEMATOLOGY Segs 72.4 45.0 - 0308 75.0 [facility] HEMATOLOGY RDW 13.2 11.5 - 03 [place] 14.5 [facility] HEMATOLOGY MCHC 32.5 32.0 - 03 [place] 36.0 [facility] HEMATOLOGY Platelet 195 133 - 450 03 [facility] HEMATOLOGY MCH 31.1 27.0 - 03 31.0 [facility] HEMATOLOGY MCV 95.8 80.0 - 0308 98.0 [facility] HEMATOLOGY Hct 25.2 36.0 - 0308 48.0 [facility] HEMATOLOGY MPV 12.8 7.4 - 10.4 03 [facility] HEMATOLOGY WBC 9.5 3.7 - 10.4 03/ [facility] HEMATOLOGY RBC 2.63 4.20 - 03 [place] 5.40 [facility] HEMATOLOGY Hgb 8.2 12.0 - 08/22 [facility] 16.0 [facility] CHEM PANEL Phosphorus 4.5 2.5 - 4.5 08/21 [facility] CHEM PANEL eGFR 11 08/21 Result [...] Calcium Lvl 9.0 8.5 - 10.5 08/21 [facility] CHEM PANEL AGAP 16.5 10.0 - 08/21 [facility] 20. [facility] CHEM PANEL CO2 27 24 - 32 08/21 [facility] CHEM PANEL Chloride Lvl 97 95 - 109 08/21 [facility] CHEM PANEL Potassium Lvl 4.5 3.5 - 5.1 08/21 [facility] CHEM PANEL BUN 40 7 - 22 08/21 [facility] CHEM PANEL Sodium Lvl 136 135 - 145 03 [facility] CHEM PANEL Creatinine 3.93 0.50 - 03 [facility] Lvl 1.40 [facility] CHEM PANEL Glucose Lvl 140 70 - 99 08/21 [facility] CHEM PANEL Magnesium Lvl 2.8 1.8 - 2.4 08/21 [facility] HEMATOLOGY Eosinophils # 0.3 0.0 - 0.5 08/21 [facility] HEMATOLOGY Lymphocytes # 1.2 1.0 - 5.5 08/21 [facility] HEMATOLOGY Monocytes # 1.2 0.0 - 0.8 08/21 s [facility] HEMATOLOGY Segs-Bands # 8.6 1.5 - 8.1 08/21 as [facility] HEMATOLOGY Segs 76.0 45.0 - 08/21 [place] 75.0 [facility] HEMATOLOGY Eosinophils 2.3 0.0 - 4.0 08/21 s [facility] HEMATOLOGY Lymphocytes 10.6 20.0 - 08/21 [place] 40.0 [facility] HEMATOLOGY Basophils 0.4 0.0 - 1.0 08/21 [facility] HEMATOLOGY Monocytes 10.7 2.0 - 12.0 08/21 [facility] HEMATOLOGY MCHC 32.5 32.0 - 03 [place] 36.0 [facility] HEMATOLOGY MCH 30.7 27.0 - 03 [place] 31.0 [facility] HEMATOLOGY MCV 94.5 80.0 - 08/21 [place] 98.0 [facility] HEMATOLOGY WBC 11.3 3.7 - 10.4 08/21 [facility] HEMATOLOGY Hct 26.2 36.0 - 03 [place] 48.0 [facility] HEMATOLOGY Hgb 8.5 12.0 - 08/21 [place] 16.0 [facility] HEMATOLOGY RBC 2.77 4.20 - 08/21 [place] 5.40 /2016 [facility] HEMATOLOGY RDW 13.1 11.5 - 08/21 [place] 14.5 [facility] HEMATOLOGY Platelet 176 133 - 450 08/21 [facility] HEMATOLOGY MPV 11.9 7.4 - 10.4 08/21 [facility] PARATHYROID Ca Norm WB 1.02 1.05 - 08/21 [place] PROFILE 1. [facility] PARATHYROID Ca Ion WB 0.99 1.05 - 08/21 [facility] PROFILE . [facility] CHEM PANEL eGFR 16 08/21 [facility] Comment: The Medical eGFR is Center [...] Calcium Lvl 8.6 8.5 - 10.5 08/21 [facility] CHEM PANEL AGAP 13.2 10.0 - 08/21 20.0 [facility] CHEM PANEL CO2 30 24 - 32 08/21 [facility] CHEM PANEL BUN 31 7 - 22 08/21 [facility] CHEM PANEL Creatinine 3.04 0.50 - 08/21 [facility] Lvl 1.40 [facility] CHEM PANEL Sodium Lvl 135 135 - 145 08/21 [facility] CHEM PANEL Potassium Lvl 4.2 3.5 - 5.1 08/21 [facility] CHEM PANEL Chloride Lvl 96 95 - 109 08/21 [facility] CHEM PANEL Glucose Lvl 247 70 - 99 08/21 2016 [facility] HEMATOLOGY Hct 26.3 36.0 - 08/21 48.0 [facility] HEMATOLOGY Hgb 8.9 12.0 - 08/21 16.0 [facility] CHEM PANEL Phosphorus 6.5 2.5 - 4.5 08/20 [facility] CHEM PANEL Magnesium Lvl 2.8 1.8 - 2.4 08/20 [facility] HEMATOLOGY RBC 2.38 4.20 - 03 [place] 5.40 [facility] HEMATOLOGY MCV 94.2 80.0 - 08/20 [place] 98.0 [facility] HEMATOLOGY MCH 31.7 27.0 - 03/ [place] 31.0 [facility] HEMATOLOGY Platelet 156 133 - 450 03 [facility] HEMATOLOGY MCHC 33.7 32.0 - 03 [place] 36.0 [facility] HEMATOLOGY MPV 12.2 7.4 - 10.4 03/ [facility] HEMATOLOGY RDW 13.2 11.5 - 03 14.5 [facility] HEMATOLOGY WBC 10.2 3.7 - 10.4 03/ [facility] HEMATOLOGY Lymphocytes # 1.1 1.0 - 5.5 03 [facility] HEMATOLOGY Eosinophils # 0.3 0.0 - 0.5 03 [facility] HEMATOLOGY Monocytes # 1.0 0.0 - 0.8 03 [facility] HEMATOLOGY Segs 76.2 45.0 - 03/ [facility] 75.0 [facility] HEMATOLOGY Eosinophils 2.5 0.0 - 4.0 03 [facility] HEMATOLOGY Lymphocytes 10.9 20.0 - 08/20 40.0 [facility] HEMATOLOGY Basophils 0.4 0.0 - 1.0 08/20 [facility] HEMATOLOGY Monocytes 10.0 2.0 - 12.0 03 [facility] HEMATOLOGY Segs-Bands # 7.8 1.5 - 8.1 08/20 [facility] PARATHYROID Ca Ion WB 0.99 1.05 - 03 [facility] PROFILE 07.11 [facility] PARATHYROID Ca Norm WB 0.98 1.05 - 08/20 [facility] PROFILE 07.11 [facility] PARATHYROID Ca Ion WB 1.02 1.05 - 03 [facility] PROFILE 07.11 [facility] PARATHYROID Ca Norm WB 1.06 1.05 - 03 [facility] PROFILE 07.11 [facility] HEMATOLOGY PT 13.6 12.0 - 08/17 [facility] 14.7 [facility] HEMATOLOGY INR 1.02 0.85 - 08/17 . [facility] HEMATOLOGY PTT 40.4 22.9 - 03/03 [place] 35.8 [facility] IMMUNOLOGY Hep Bs Ab 356.4 <=7.4 08/13 [facility] mIU/mL [facility] IMMUNOLOGY Hep B Core Negative Negative 08/13 [facility] IgM *NA* /2016 [facility] (08/13/16 9:51 AM) [place] IMMUNOLOGY Hep B Core Ab Negative Negative 08/13 [place] *NA* [facility] (08/13/16 9:51 AM) Center IMMUNOLOGY Hep Bs Ag Negative Negative 08/13 [place] *NA* [facility] (08/13/16 9:51 AM) [place] IMMUNOLOGY Hep C Ab Negative 08/13 [place] *NA* [facility] (08/13/16 9:51 AM) [place] URINE AND UA Bacteria Few /HPF None Seen 08/13 [place] /HPF /2016 [facility] Center URINE AND UA WBC 0-2 /HPF None Seen 08/13 [place] STOOL /HPF /2016 Medical [place] URINE AND UA RBC 3-5 /HPF 0 - 2 08/13 [place] STOOL [facility] URINE AND UA Sq Epi Few /LPF Few /LPF 08/13 [place] STOOL [facility] URINE AND UA Protein >=300 Negative 08/13 [place] STOOL mg/dL mg/dL [facility] URINE AND UA Glucose 500 mg/dL Negative 08/13 [facility] mg/dL /2016 [facility] URINE AND UA Bili Negative Negative 08/13 [place] STOOL *NA* [facility] (08/13/16 3:07 AM) [place] URINE AND UA Ketones Negative Negative 08/13 [place] STOOL *NA* [facility] (08/13/16 3:07 AM) [place] URINE AND UA Turbidity Slight Cloudy Clear 08/13 [facility] (08/13/16 3:07 AM) [facility] URINE AND UA Spec Grav 1.015 <=1.030 08/13 [place] STOOL /2016 [facility] URINE AND UA pH 8.5 5.0 - 8.0 08/13 [place] STOOL /2016 [facility] URINE AND UA Blood Large Negative 08/13 [place] STOOL *ABN* [facility] (08/13/16 3:07 AM) [place] URINE AND UA Leuk Est Negative Negative 08/13 [facility] (08/13/16 3:07 AM) Medica l [place] URINE AND UA 0.2 0.1 - 1.0 08/13 [facility] Urobilinogen /2016 [facility] URINE AND UA Nitrite Negative Negative 08/13 [facility] (08/13/16 3:07 AM) Medica l [place] URINE AND UA Color Yellow Yellow 08/13 [place] STOOL *NA* [facility] (08/13/16 3:07 AM) Center DRUG SCREEN UDS Note See Note 08/13 [place] *NA* /2016 Medical (08/13/16 3:03 AM) Center DRUG SCREEN [...] 3:03 AM) Center LIPIDS VLDL 32 08/13 [facility] LIPIDS LDL 70 <=99 mg/dL 08/13 [facility] (Calculated) [facility] LIPIDS HDL 42 >=61 mg/dL 08/13 [facility] LIPIDS Chol 144 <=199 08/13 [facility] mg/dL [facility] LIPIDS Trig 160 <=149 08/13 [facility] mg/dL [facility] LIPIDS CHD Risk 3.43 3.90 - 08/13 [facility] 5.80 [facility] SPECIAL Hgb A1C 8.6 <=5.6 % 08/13 [facility] CHEMISTRY [facility] BLOOD BANK Antibody Scrn Negative 08/13 [place] RESULTS (08/13/16 1:44 AM) /2016 [facility] BLOOD BANK ABO/Rh O POS 08/13 [facility] RESULTS [facility] HEMATOLOGY Estimated % 0.0 0.0 - 7.5 08/13 [place] [facility] HEMATOLOGY Max Amplitude 71 52 - 71 08/13 [place] Rapid [facility] HEMATOLOGY Angle Rapid 81 64 - 80 08/13 [facility] HEMATOLOGY G-value Rapid 12.2 5.0 - 11.6 08/13 [place] [facility] HEMATOLOGY R-time Rapid 0.6 0.4 - 0.7 08/13 [facility] HEMATOLOGY K-time Rapid 0.8 0.6 - 2.3 08/13 [facility] HEMATOLOGY ACT (TEG) 105 86 - 118 08/13 [facility] HEMATOLOGY [place] 0.5 08/13 [facility] HEMATOLOGY PTT 26.0 22.9 - 08/13 [place] 35.8 [facility] HEMATOLOGY INR 0.97 0.85 - 08/13 1.17 [facility] HEMATOLOGY PT 13.1 12.0 - 08/13 [facility] 14.7 [facility] Pathology Reports No Data Provided for This Section Diagnostic Reports Report Value Date Source Brain wo contrast CT CT HEAD WITHOUT CONTRAST 08/16/2016 [facility] Medical DATE: 08/16/2016 at 12:24 AM. Ce [...] below the catheter and lateral to ent madyd of the ventriculostomy catheter into the left [...] DX EXAM: XR CHEST 1 VIEW 08/15/2016 [facility] [place] DATE: 08/15/2016 Center INDICATION: Abnormal chest sounds [...] MRI EXAM: MRI BRAIN WITHOUT CONTRAST 7 [facility] DATE: 08/13/2016 2:23 AM [facility] er INDICATION: Weakness COMPARISON: CT brain 08/14/2016 [...] CT EXAM: CT BRAIN WITHOUT CONTRAST 08/14/2016 [facility] DATE: 08/14/2016 9:20 AM [facility] er INDICATION: Intracranial hemorrhage COMPARISON: None TECHNIQUE: [...] DX EXAM: XR CHEST 1 VIEW 08/14/2016 [facility] DATE: 09/11/2016 Center INDICATION: Abnormal chest sounds [...] contrast CT CT HEAD WITHOUT CONTRAST 08/13/2016 [facility] DATE: 08/13/2016 at 9:05 PM. COMPARISON: 08/13/2016 [...] EXAM: XR ABDOMEN 1 FRONTAL VIEW 08/13/2016 [facility] DATE: 08/13/2016 4:59 PM [facility] Cent er INDICATION: Tube placement/removal/reposition ADDITIONAL INFORMATION: [...] for EXAM: XR CHEST 1 VIEW 08/13/2016 [facility] edical Placement DX DATE: 08/13/2016 4:11 AM [facility] LEADER Cent er INDICATION: Tube Placement (Endotracheal) COMPARISON: [...] contrast CT CT HEAD WITHOUT CONTRAST 08/13/2016 [facility] DATE: 08/13/2016 at 1:[address] COMPARISON: Outside imaging from [facility] 08/12/2016 at 8:45 PM.. HISTORY: Bleeding. [...] shift Brain/Neck CTA EXAM: CTA BRAIN 08/13/2016 [facility] EXAM: CTA NECK Center DATE: 08/13/2016 at 1:21 AM TRACK LEADER INDICATION: Bleeding COMPARISON: CT brain 08/13/2016 at [...] Comments Source Systolic (mm Hg) 129 08/22/2016 [facility] Center Diastolic (mm Hg) 46 08/22/2016 [facility] Respitory Rate 16 08/22/2016 [facility] Temperature Oral (F) 98.4 F 08/22/2016 [facility] Heart Rate 88 08/22/2016 [facility] Systolic (mm Hg) 126 08/22/2016 [facility] Diastolic (mm Hg) 57 08/22/2016 [facility] Respitory Rate 19 08/22/2016 [facility] Temperature Oral (F) 97.3 F 08/22/2016 [facility] Temperature Oral (F) 98.6 F 08/22/2016 [facility] Respitory Rate 18 08/22/2016 [facility] Systolic (mm Hg) 146 08/22/2016 [facility] Diastolic (mm Hg) 68 08/22/2016 [facility] Heart Rate 84 08/22/2016 [facility] Heart Rate 87 08/22/2016 [facility] Height 160.02 cm 08/15/2016 [facility] Height 160.02 cm 08/15/2016 [facility] Height 160.02 cm 08/15/2016 [facility] BMI Calculated 24.33 08/13/2016 [facility] Weight 62.3 08/13/2016 [facility] Encounters Location Location Encounter Encounter Reason Attending ADM DC Stat us Source Details Type Number For Provider Date Date Visit [facility] [id number] Dari 08/13 08/22 [facility] Lorne Joynerales /2016 [facility] Procedures No Data Provided for This Section Assessment and Plan Assessment and Plan Date Source Extracted from:Title: Progress Note 08/22/2016 [facility] Author: Edgardo Rowland MD Date: 08/22/16 Assessment/Plan 66 y/o F admitted for ICH renal consulted for ESRD ESRD: Will do HD today Hyponatremia: Likely from ESRD, Will be corrected with HD Hyperkalemia: Will be corrected with HD VOl status: Appears mildly hypervolumic. Will do UF on HD to day Anemia of CKD Addendum by Laure Arzate MD on 08/23/2016 16:06 TRACK LEADER ATTENDING NOTE I have seen and examined [...] been asked to evaluate this patient for TERRITORY ACCOUNT REPRESENTATIVE needs. Patient seen/evaluated at the bedside. Purnima [...] (end stage renal disease) / SNOMED CT [id number] / Conf irmed HTN (hypertension) / SNOMED CT 7306480238 / Confirmed, Active Problems (2) ESRD (end stage renal disease) HTN (hypertension) Histories Past Medical History: Active ESRD (end stage renal disease) (3466109853) HTN (hypertension) (6694554470) Resolved DM (diabetes mellitus) (911960149): Resolved. Hyperlipidemia (82923387): Resolved. Family History: Type 2 diabetes mellitus [...] 1. ESRD. We will continue to provide TERRITORY ACCOUNT REPRESENTATIVE for this patient while she is admitted. [...] 2-neither 2 1c. LOC Commands open/close eyes, information assistant/r elease non-paretic hand; 0-both 1-one 2-neither 1 [...] THE FOLLOWING WERE PRESENT ON ADMISSION (POA) ELECTRONIC BENCH TECHNICIAN Encephalopathy (anoxic, metabolic, other) Cerebral edema Anoxic [...] IPH with IVH, likely hypertensive in nature 60402 Inpatient admission Principal Diagnosis I61.6 Nontraumatic intracerebral [...] care and prognosis Angeles Diamond MD ([place]) Front End Java Developer of Neurology Pager: [phone] Plan of Care No Data Provided for This Section Social History Social History Date Source Social History TypeResponse 08/13/2016 [facility] Smoking Status Unknown if ever smoked; Ready [...]
--- OUTSIDE RECORDS SUMMARY | 2020-07-24 15:39 | XMS REPORT | Continuity of Care Document ---
:1950 Author Organization [facility] t Address [address] [place] [address] [place] [address] Care Team Providers Name Role Phone Dari Lantigua Attending Clinician Blossom Triana Admitting Clinician Problems Condition Condition Condition Status Onset Resolution Last Treating Co mments Source Name Details Category Date Date Treatment Clinician Date SAH Diagnosis Active 2016-08-13 Mem oria 08-12 01:49:00 l SAH 00:00: [place] 00 Active 08/12/2016 [facility] LFLT Diagnosis Active 2016-08-12 Mem oria TRANSFER 08-12 23:41:00 l #1001-A LFLT 00:00: [place] TRANSFER 00 #1001-A Active 08/12/2016 [facility] IVH Diagnosis Active 2016-08-28 Mem oria 08-12 21:58:00 l IVH 00:00: [place] 00 Active 08/12/2016 [facility] Diabetes Problem Resolve 2016-08-25 Me moria mellitus d 02:25:35 l (disorder) Diabetes He rmann mellitus (disorder) Resolved Problem 08/25/2016 [facility] Hyperlipid Problem Resolve 2016-08-25 Memoria emia d 02:25:35 l (disorder) Barry n Hyperlipid emia (disorder) Resolved Problem 08/25/2016 [facility] End stage Problem Active 2016-08-25 Me moria renal 02:25:35 l disease End [place] (disorder) stage renal disease (disorder) Active Problem 08/25/2016 [facility] Hypertensi Problem Active 2016-08-25 M emoria ve 02:25:35 l disorder, [place] systemic Hypertensi arterial ve (disorder) disorder, systemic arterial (disorder) Active Problem 08/25/2016 [facility] NONTRAUMAT Diagnosis Active 2016-08-28 Memoria IC 21:58:00 l INTRACEREB [place] n RAL NONTRAUMAT HEMORRHAGE IC , I INTRACEREB RAL HEMORRHAGE , I Active [facility] Allergies, Adverse Reactions, Alerts Allergy Allergy Status Severity Reaction(s) Onset Inactive Treating Comm ents Source Name Type Date Date Clinician Lisinopr Adverse Active Info Not [facility] Medications Ordered Filled Start Stop Current Ordering Indication Dosage Frequency Signature Comments Components Source Medication Medication Date Date Medication? Clinician (SIG) Name Name Brigette Machuca Yes Na Mukherjee [address] [facility] 07[facility]09 [facility] 00[facility]: nostril [facility] Cetirizine Cetirizine Yes Na Mukherjee [address] [facility] HCl HCl 07-09 [facility] - 00:[facility]: [facility] Renvela No Notes: Memoria 3-08 Same as: l 14:00: Renvela [place] 00 losartan 50 Yes 50 mg = 1 M emoria mg oral 3-08 tab, PO, l tablet 00:02: Q12H, # [place] 00 120 tab, 1 Refill(s) amLODIPine Yes 10 mg = 1 Me moria 10 mg oral 3-08 tab, PO, l tablet 00:02: Daily, # [place] 00 60 tab, 1 Refill(s) Amlodipine No Notes: Memor ia 3-05 (Same as: l 15:00: Norvasc) [place] Humulin N No Notes: Memori a 3-04 Roll in l 23:00: palms of [place] 00 hands gently; Do not shake vigorously . (Same as: Humulin N) Do not hold insulin without contacting prescriber WASTE: F/P - Black; E - Municipal Trash Bin Stable for 28 days at room temperatur e Expires in days from ____Date Labetalol No Notes: Memori a 08-18 With food. l 22:00: (Same as:DaphnedaLux ryanodyne) 150 mg = 1/2 x 300 mg TAB Amlodipine No 5 mg, Memori a 08-18 Route: PO, l 17:12: Drug form: [place] 00 TAB, ONCE, Dosing Weight 62.3, kg, Start date: 08/18/16 11:12:00 [employer], Stop date: 08/18/16 11:12:00 [employer] sevelamer No Notes: Memori a 08-17 Same as: l 23:00: Renvela travoprost Yes 1 drp, Memor ia 0.04 MG/ML 08-17 BOTH EYES, l Ophthalmic 20:37: QPM, # 5 Her aguayo Solution 00 ml, 0 [Travatan] Refill(s) Brimonidine Yes 2 drp, Ravi ino tartrate 2 08-17 BOTH EYES, l MG/ML / 20:37: BID, 0 Timolol 5 00 Refill(s) MG/ML Ophthalmic Solution [Combigan] Amlodipine No Notes: Memor ia -02 (Same as: l 15:00: Norvasc) Losartan No Notes: Memoria 3-02 (Same as: l 15:00: Cozaar) Labetalol No 10 mg, 2 Ravi ino 3-02 mL, Route: l 03:29: IVP, Drug form: INJ, ONCE, Dosing Weight 62.3, kg, Start date: 08/15/16 21:29:00 [employer], Stop date: 08/15/16 21:29:00 [employer] Labetalol No 150; HOLD Me moria 3-02 for pulse l 01:22: < 60 Hydralazine No Notes: Ravi ino 3-02 (Same as: l 01:22: Apresoline ) multivitami Yes Daily, 0 Me moria n 3-01 Refill(s) l 16:19: [place] 00 losartan No 100 mg = 1 Mem oria 100 mg oral 3-01 tab, PO, l tablet 16:19: Daily, # [place] 00 90 tab, 0 Refill(s) amLODIPine No 5 mg = 1 Mem oria 5 mg oral 3-01 tab, PO, l tablet 16:19: Daily, [place] 00 evening, # 90 tab, 1 Refill(s) Glipizide Yes 10 mg = 1 Mem oria 10 MG Oral 3-01 tab, PO, l Tablet 16:19: BID-Before [place] nn 00 Meals, # 180 tab, 1 Refill(s) pantoprazol Yes 40 mg = 1 M emoria e 40 mg 3-01 tab, PO, l oral 16:19: Daily, # [place] enteric 00 90 tab, 0 coated Refill(s) tablet sevelamer Yes 1,600 mg = Me moria carbonate 301 2 tab, PO, l 800 MG Oral 16:19: TID-Meals, [place] Tablet 00 # 180 tab, [Renvela] 1 Refill(s) atorvastati No 20 mg = 1 M emoria n 20 mg 3-01 tab, PO, l oral tablet 16:19: Bedtime, # [place] 00 90 tab, 3 Refill(s) Linagliptin Yes 5 mg = 1 Me moria 5 MG Oral 3-01 tab, PO, l Tablet 16:19: Daily, # [place] [Tradjenta] 00 30 tab, 3 Refill(s) metoprolol Yes 25 mg = 1 Me moria tartrate 25 3-01 tab, PO, l mg oral 16:19: BID, # 180 Herm marcos tablet 00 tab, 0 Refill(s) Miralax No 17 gm, Memoria 08-14 Route: PO, l 23:00: BID, [place] 00 Dosing Weight 62.3, kg, Start date: 08/14/16 17:00:00 [employer], Duration: 30 day, Stop date: 09/13/16 9:00:00 CDT Beneprotein No Notes: Ravi ino 7 gm pkt 08-14 (Same as: l 19:00: Beneprotei [place] 00 n) physiologic No Notes: Ravi ino al 2-28 NxStage l irrigating 17:02: [id number] = He [...] Via central line, Start date: 08/14/16 11:00:00 [employer]URING [employer]ER, Duration: 30 day, Stop date: 09/13/16 11:59:00 CDT Magnesium No Notes: Memori a Sulfate 08-14 WASTE: F/P l 17:00: - Sink; E [place] 00 - Municipal Trash Bin Calcium No Notes: Memoria Chloride 08-14 WASTE: F/P l 17:00: - Sink; E [place] 00 - Municipal Trash Bin physiologic No 5,000 mL, M emoria al 08-14 Route: l irrigating 17:00: DIALYSIS, He rmann solution 00 Irrigation 5000 mL Site: Other: See Comments, 2,000 ml/hr, catheter, 2.5 hr, Total Volume: 5,000 mL, "For Irrigation Only", Start date: 08/14/16 11:00:00 [employer]UFA[employer]URING [employer]INEER, Duration: 30 day, Stop date: 09/13/16 10:59:00 CDT potassium No Notes: Memori a chloride -28 (Same as: l 17:00: KCL) [place] 00 Infuse no faster than 10 mEq/hr if given peripheral ly. heparin No Notes: Memoria sodium, 2-28 porcine l porcine 16:02: heparin [place] 2500 UNT/ML 00 Injectable Solution Miralax No Notes: Memoria 2-28 Dissolve l 15:58: in 8 oz of [place] 00 water or juice. (Same as: Miralax) Labetalol No Notes: Memori a 08-14 With food. l 15:58: (Same [place] as:Trandat e, Normodyne) Tylenol No Notes: Memoria 08-14 (Same as: l 06:35: Tylenol) [place] Cathflo No Notes: Memoria Activase 2 - "Syringe l mg 06:00: for [place] injection catheter clearance or interventi onal radiology use. Pharmacy: [facility] each vial of Cathflo Activase with 2.2 ml Sterile Water resulting in a 1 mg/ml solution. Stable for 8 hours only. (Same as: Activase) MEDICATION WASTE Product Size: 2 mg Product Wasted: _1__ mg Ancef No 2 gm, Memoria 08-13 Route: l 23:47: IVPB, [place] ONCE, Dosing Weight 62.3, kg, Start date: 08/13/16 17:47:00 [employer]UFA[employer]URING [employer] ENGINEER, Duration: 1 doses or times, Stop date: 08/13/16 17:47:00 MANUFACTURING AUTOMATION ENGINEER, Surgical Prophylaxi s Only; For patients < 120 kg Propofol 10 No Notes: Ravi ino MG/ML 08-13 Same as: l Injectable 23:47: Diprivan Her aguayo Suspension Hydralazine No Notes: Ravi ino 08-13 (Same as: l 18:00: Apresoline ) May interfere w/enteral feedings. Take With Food Insulin No 60 Memoria regular - units) l 18:00: WASTE: F/P [place] - Black; E - Municipal Trash Bin Stable for 28 days at room temperatur e Expires in days from ____Date Zofran No Notes: Memoria 08-13 (Same as: l 17:46: Zofran) [place] 00 MEDICATION WASTE Product Size: 4 mg Product Wasted: ___ mg DDAVP No Notes: Memoria 08-13 (Same As: l 15:32: DDAVP) MEDICATION WASTE Product Size: 4 microgram Product Wasted: ___ microgram Docusate No Notes: Memoria Sodium 50 2-27 (Same as l MG / 15:00: Senokot-S) [place] sennosides, 00 Equiv. to RETIREMENT 8.6 MG Sherrie-Colac Oral Tablet e. Saline No Notes: Memoria Flush 0.9% 2-27 (Same as: l 15:00: BD [place] 00 Posiflush) lansoprazol No Notes: Ravi ino e 2-27 Take 1 l 13:30: hour [place] 00 before or 2 hours after meal; Expires in 14 days. Shake well before use. (Same as:Prevdottie d) Compound ed Product - formulatio n not commercial ly available* * Dextrose No 25 gm, 50 Ravi ino 50% Syringe 2-27 mL, Route: l 10:08: IVP, Drug [place] 00 Form: INJ, kg, PRN, PRN Abnormal Lab Result, Start date: 08/13/16 4:08:00 MANUFACTURING AUTOMATION ENGINEER, Duration: 30 day, Stop date: 09/12/16 5:07:00 CDT Regular No 60 Memoria Insulin, 2-27 units) l Human 100 10:08: WASTE: F/P He rmann UNT/ML 00 - Black; E Injectable - Solution Municipal Trash Bin Stable for 28 days at room temperatur e Expires in days from ____Date Saline No Notes: Memoria Flush 0.9% 2-27 (Same as: l 08:23: BD [place] 00 Posiflush) Stimate + No Notes: Memori a sodium 2-27 (Same As: l chloride 08:00: DDAVP) [place] 0.9% INJ 50 00 mL MEDICATION WASTE Product Size: 4 microgram Product Wasted: ___ microgram midazolam No Notes: Memori a 50mg/ NS 2-27 (Same as: l 50ml drip 07:33: Versed) [place] nn (premixed) 00 50 mg Fentanyl No 1,000 Memoria 2-27 microgram, l 07:32: 20 mL, [place] 00 Rate: Titrate, Start Dose: 50 microgram/ hr, Titration: 25 microgram/ hour every 15 minutes, Goal(s): rass -1, Max Dose: 300 microgram/ hr, Route: IV, Total Volume: 20, Start date: 08/13/16 1:32:00 MANUFACTURING AUTOMATION ENGINEER, Duration: 30 day, Stop date... iodixanol No 100 mL, Memor ia 227 Route: l 07:25: IVP, Drug Form: SOLN, kg, ONCALL, STAT, Start date: 08/13/16 1:25:00 MANUFACTURING AUTOMATION ENGINEER, Duration: 1 doses or times, Dose = 2.2ml/kg, Max dose = 100ml -- "To be infused by Radiology Staff ONLY" Dextrose No 25 gm, 50 Ravi ino 50% Syringe 2-27 mL, Route: l 07:24: IVP, Drug Form: INJ, kg, ONCE, STAT, Start date: 08/13/16 1:24:00 MANUFACTURING AUTOMATION ENGINEER, Stop date: 08/13/16 1:24:00 MANUFACTURING AUTOMATION ENGINEER Insulin No 60 Memoria regular 2-27 units) l 07:23: WASTE: F/P [place] - Black; E - Municipal Trash Bin Stable for 28 days at room temperatur e Expires in days from ____Date Albuterol No Notes: SEE Me moria 0.83 MG/ML 2-27 RT l Inhalant 07:23: DOCUMENTAT Her aguayo Solution 00 ION (Same as: Proventil) niCARdipine No Notes: Ravi ino 40 mg/ NS 2-27 Same as: l 200 ml IV 07:18: Cardene [place] nn Soln 00 Concentrat (premix) 40 ion: (0.2 mg mg /1 ml ) DDAVP No 10 Memoria 2-27 microgram, l 06:35: Route: IV, [place] 00 ONCE, kg, Start date: 08/13/16 0:35:00 MANUFACTURING AUTOMATION ENGINEER, Stop date: 08/13/16 0:35:00 MANUFACTURING AUTOMATION ENGINEER Saline No Notes: Memoria Flush 0.9% 2-27 Same as: l 06:08: BD [place] 00 Posiflush Sterile Protonix Protonix Yes Na Mukherjee [address] [facility] Losartan Losartan Yes Na Mukherjee [address] [facility] Potassium Potassium [facility] Renvela Renvela Yes Na Mukherjee [address] [facility] meals [facility] Losartan Losartan Yes Na Mukherjee [address] [facility] Potassium Potassium [facility] Lipitor Lipitor Yes Na Mukherjee [address] [facility] Clinics Amlodipine Amlodipine Yes Na Mukherjee [address] [facility] Besylate Besylate [facility] Metoprolol Metoprolol Yes Na Mukherjee [address] [facility] Tartrate Tartrate with food Vania kes - [facility] Clinics Tradjenta Tradjenta Yes Na Mukherjee [address] [facility] HydrALAZINE HydrALAZINE Yes Na Mukherjee [address] [facility] HCl HCl with food kes - [facility] Clinics Vital Signs Vital Name Observation Time Observation Value Comments Source Systolic (mm Hg) 2016-08-22 21:47:00 Ravi rial [place] Diastolic (mm Hg) 2016-08-22 21:47:00 Mem orial [place] Respitory Rate 2016-08-22 21:47:00 Memori al [place] Temperature Oral (F) 2016-08-22 21:47:00 98.4 F [facility] [place] Heart Rate 2016-08-22 21:47:00 [facility] [place] Systolic (mm Hg) 2016-08-22 19:07:00 Ravi rial [place] Diastolic (mm Hg) 2016-08-22 19:07:00 Mem orial [place] Respitory Rate 2016-08-22 19:07:00 Memori al [place] Temperature Oral (F) 2016-08-22 19:07:00 97.3 F [facility] [place] Temperature Oral (F) 2016-08-22 18:15:00 98.6 F [facility] [place] Respitory Rate 2016-08-22 18:15:00 Memori al [place] Systolic (mm Hg) 2016-08-22 18:15:00 Ravi rial [place] Diastolic (mm Hg) 2016-08-22 18:15:00 Mem orial [place] Heart Rate 2016-08-22 09:50:00 [facility] [place] Heart Rate 2016-08-22 05:35:00 [facility] [place] Height 2016-08-15 09:56:00 160.02 cm [facility] [place] Height 2016-08-15 05:57:00 160.02 cm [facility] [place] Height 2016-08-15 01:58:00 160.02 cm [facility] [place] BMI Calculated 2016-08-13 10:48:00 Memori al [place] Weight 2016-08-13 10:48:00 [facility] [place] Procedures This patient has no known procedures. Encounters Start End Encounter Admission Attending Care Care Encounter Source Date/Time Date/Time Type Type Clinicians Facility Department ID 2020-05-03 2020-05-03 Outpatient [facility] [id number] [facility]00 [facility] l Outpati ent Clinics 2020-01-29 2020-01-29 [facility] [id number] [facility] 13:20:00 13:20:00 t [place] - [employer] [facility] l Medicine Outpati ent Clinics 2019-10-27 2019-10-27 [facility] [id number] [facility] 16:00:00 16:00:00 [place] [employer] s - [employer] [facility] l Medicine Outpati ent Clinics 2019-09-29 2019-09-29 [facility] [id number] [facility] 13:00:00 13:00:00 [place] [employer] s - [employer] l Medicine Outpati ent Clinics 2019-06-30 2019-06-30 [facility] [id number] [facility] 13:00:00 13:00:00 [place] [employer] s - [employer] [facility] l Medicine Outpati ent Clinics 2019-03-31 2019-03-31 [facility] [id number] 13:00:00 13:00:00 [place] [employer] - [employer] [facility] l Medicine Outpati ent Clinics 2019-02-05 2019-02-05 [facility] [id number] 15:00:00 15:00:00 [place] [employer] s - Drive [facility] Family [facility] l Medicine Outpati ent Clinics 2018-12-25 2018-12-25 [facility] [id number] 14:20:00 14:20:00 [place] [employer] s - Drive [facility] Medicine Outpati ent Clinics 2018-08-07 2018-08-07 [facility] [id number] [facility] 10:07:00 10:07:00 [place] [employer] s - Drive [facility] Medicine Outpati ent Clinics 2018-07-09 2018-07-09 [facility] [id number] 15:15:00 15:15:00 [place] [employer] s - Drive [facility] Medicine Outpati ent Clinics 2018-06-23 2018-06-23 [facility] [id number] [facility] 15:17:00 15:17:00 [place] [employer] s - Drive [facility] Medicine Outpati ent Clinics 2018-05-19 2018-05-19 [facility] [id number] 15:15:00 15:15:00 [place] [employer] s - Drive [facility] Medicine Outpati ent Clinics 2018-05-12 2018-05-12 [facility] [id number] 15:00:00 15:00:00 [place] [employer] [place] - Drive [facility] Medicine Outpati ent Clinics 2017-11-19 2017-11-19 [facility] [id number] 09:30:00 09:30:00 [place] [employer] s - Drive [facility] Medicine Outpati ent Clinics 2016-08-12 2016-08-22 Outpatient [facility] [id number] 23:25:00 16:00:00 Dari Flood Results Test Description Test Time Test Comments [...] code = MCH) 31.1 pg 27.0-31.0 [facility] [id number] 07:02:0095.8[facility] HermannHEMATOLOGY 2016-08-22 07:02:0025.2[facility] BjktkatUIGFZBUCWX5691-43-18 07:02:0012.8[facility] XidjxpmFJGLXOTRKN2847-69-71 07:02:009.5[facility] MxtltneYRXSONBMCH0777-35-59 07:02:002.63[facility] PjswzboZCIYQDIUKK7577-26-93 07:02:008.2[facility] HermannCHEM PXMEW3617-74-41 09:17:004.5[facility] HermannCHEM BBGIS6683-27-75 09:17:0011 [facility] HermannCHEM KSJMZ3611-56-79 09:17:009.0[facility] HermannCHEM PANEL 2016-08-21 09:17:0016.5[facility] HermannCHEM PRQZC1314-19-72 09:17:0027[facility] HermannCHEM GRSCR7237-78-92 09:17:0097[facility] HermannCHEM YMSRF6455-26-21 09:17:004.5[facility] HermannCHEM ALNOD9948-61-41 09:17:0040[facility] HermannCHEM KXYJF0379-05-71 09:17:23972Zwytihpv HermannCHEM DPGFK7564-81-94 09:17:003.93 [facility] HermannCHEM VBTEB0182-12-62 09:17:29671Jlzhcasn HermannCHEM PANEL 2016-08-21 09:17:002.8[facility] PehisnxSNQIMFTDHC4460-80-72 09:17:000.3[facility] MxllnyhMIJIQTENNU8528-41-04 09:17:001.2[facility] IfjbvqzPPLXOOSLTP9709-64-01 09:17:001.2[facility] GfounirAQPIMUHSLV6158-38-02 09:17:008.6[facility] [place] AULCCUFKAD1242-72-75 09:17:0076.0[facility] FmfaczwQOSGAXVCEB1848-37-95 09:17:00 2.3[facility] QzpimrtIDBUGTTOCO4368-93-73 09:17:0010.6[facility] HermannHEMATOLOGY 2016-08-21 09:17:000.4[facility] QoacrdkPRCIQXXFME2275-15-94 09:17:0010.7[facility] BqmdesgAASZKUJSLM4755-75-29 09:17:0032.5[facility] BiyhskeYRBFWCIGQQ0233-57-80 09:17:00 Test Item Value Reference Range Interpretation Comments MCH (test code = MCH) 30.7 pg 27.0-31.0 [facility] XpwfmjmTZFTDRQYHR1362-80-60 09:17:0094.5[facility] HermannHEMATOLOGY 2016-08-21 09:17:0011.3[facility] JcrqjzvZMNJEMFNJR1497-82-15 09:17:0026.2[facility] PbulefjAQDMJGAVAQ0559-04-48 09:17:008.5[facility] YljxrdvTQQZAWOFXE0511-36-03 09:17:002.77[facility] CjasuoeNWJJXRGHRL8172-96-73 09:17:0013.1[facility] [place] POJVYKGGSU7868-69-84 09:17:50889Emawgdpb SrqyosdWDGWHTOIUJ2587-85-97 09:17:00 11.9[facility] HermannPARATHYROID CFDMEEB3677-59-55 09:17:001.02[facility] [place] PARATHYROID HPBOIMG6287-66-84 09:17:000.99[facility] HermannCHEM QCIUI2693-46-55 00:24:0016[facility] HermannCHEM JKNCY0962-92-49 00:24:008.6[facility] HermannCHEM RJESJ0586-10-95 00:24:0013.2[facility] HermannCHEM EXTKG1765-54-21 00:24:0030 [facility] HermannCHEM PVSVJ9391-37-87 00:24:0031[facility] HermannCHEM PANEL 2016-08-21 00:24:003.04[facility] HermannCHEM RKGJW3300-11-29 00:24:28827Tugneugg HermannCHEM KUYPN6250-11-14 00:24:004.2[facility] HermannCHEM RPBTU2730-13-05 00:24:0096[facility] HermannCHEM OZCXV5302-18-47 00:24:31321[place]ko [place] VTCVTRDCXK8323-18-26 00:24:0026.3[facility] GhkqklxESIUFOLTBS5964-11-80 00:24:00 8.9[facility] HermannCHEM ZCDJE6858-75-56 09:41:006.5[facility] HermannCHEM PANEL 2016-08-20 09:41:002.8[facility] SirxdomMRWXGYAIUO9687-36-18 09:41:002.38[facility] RpdaeucQMLLABOPEI9060-78-97 09:41:0094.2[facility] MxtebeySRBXMMGATN8151-67-37 09:41:00 Test Item Value Reference Range Interpretation Comments MCH (test code = MCH) 31.7 pg 27.0-31.0 [facility] CiljlroPZCDEZUDBT4091-23-85 09:41:29730Sgjniluh HermannHEMATOLOGY 2016-08-20 09:41:0033.7[facility] DavugehHNFWCTRBSI7524-35-87 09:41:0012.2[facility] TpdwqojSXZWXOKAZH6422-02-92 09:41:0013.2[facility] ZbxypuuPDSDDFVOXA6802-66-29 09:41:0010.2[facility] RvrvscsFIXIITZYRW4236-66-48 09:41:001.1[facility] [place] INSIGJMLDO4973-89-21 09:41:000.3[facility] GmqparjIBSJPYYQDS6519-48-56 09:41:001.0 [facility] JiytzfmZJSTKVDZVO9613-99-69 09:41:0076.2[facility] HermannHEMATOLOGY 2016-08-20 09:41:002.5[facility] FtvaeryANMFCOTWVK6157-90-26 09:41:0010.9[facility] GwyqhuvQTQUGTZRRH6617-22-82 09:41:000.4[facility] SsuvukmQLGDWZHTNT0853-06-04 09:41:0010.0[facility] HnedomqCHHIQNUKZH9988-33-28 09:41:007.8[facility] [place] PARATHYROID ECFGWKB8186-50-96 09:41:000.99[facility] HermannPARATHYROID PROFILE 2016-08-20 09:41:000.98[facility] HermannPARATHYROID LQYYYLP4365-88-01 10:52:00 1.02[facility] HermannPARATHYROID JVQDXND0325-30-12 10:52:001.06[facility] [place] VSEPPOBWAG2387-63-77 09:54:00 Test Item Value Reference Range Interpretation Comments PT (test code = PT) 13.6 s 12.0-14.7 [facility] BoacnwlRKRAOVHEBJ6819-84-90 09:54:001.02[facility] HermannHEMATOLOGY 2016-08-17 09:54:00 Test Item Value Reference Range Interpretation Comments PTT (test code = PTT) 40.4 s 22.9-35.8 [facility] PidqjemANXHQDHDCE9592-42-32 15:51:89952.4[facility] HermannIMMUNOLOGY 2016-08-13 15:51:00Negative *NA*(08/13/16 9:51 AM)[facility] HermannIMMUNOLOGY 2016-08-13 15:51:00Negative *NA*(08/13/16 9:51 AM)[facility] HermannIMMUNOLOGY 2016-08-13 15:51:00Negative *NA*(08/13/16 9:51 AM)[facility] HermannIMMUNOLOGY 2016-08-13 15:51:00Negative *NA*(08/13/16 9:51 AM)[facility] HermannURINE AND STOOL 2016-08-13 09:07:00Negative *NA*(08/13/16 3:07 AM)[facility] HermannURINE AND STOOL 2016-08-13 09:07:00Negative *NA*(08/13/16 3:07 AM)[facility]annURINE AND STOOL 2016-08-13 09:07:00Slight Cloudy (08/13/16 3:07 AM)[facility] HermannURINE AND [id number] 09:07:00 Test Item Value Reference Range Interpretation Comments UA Spec Grav (test code = UA Spec 1.015 1 Grav) [facility]annURINE AND [id number] 09:07:00 Test Item Value Reference Range Interpretation Comments UA pH (test code = UA pH) 8.5 1 5.0-8.0 [facility]annUR[facility] AND [id number] 09:07:00Large *ABN*(08/13/16 3:07 AM) [facility]annUR[facility] AND DRJBQ4625-41-30 09:07:00Negative (08/13/16 3:07 AM) [facility] AND EFZHF5760-48-72 09:07:000.2[facility]annURINE AND DLRYL2045-71-32 09:07:00Negative (08/13/16 3:07 AM)[facility]ann[facility] AND YUJMA1780-74-07 09:07:00Yellow *NA*(08/13/16 3:07 AM)[facility] HermannDRUG SCREEN 2016-08-13 [...] 09:03:00Negative *NA*(08/13/16 3:03 AM)[facility] HermannLIPIDS 2016-08-13 09:03:0032[facility] JbqsrktQRJRGM3685-21-70 09:03:0070[facility] [place] IJNFJZ4374-91-27 09:03:0042[facility] GaccfveERFSQH4133-52-97 09:03:43446Uystqsss BlndsggCAZNST3980-84-01 09:03:57778Lwustmwn BtdmmvqYNVDOV4063-62-62 09:03:003.43 [facility]annSPECIAL TOEUDMCIK5771-96-75 09:03:008.6[facility]BL[facility] HFGREWR3094-33-99 07:44:00Negative (08/13/16 1:44 AM)[facility] VIIYQTAUVJ5537-45-07 07:44:000.0[facility] NbhhqxfELYFHTVAWT6649-80-11 07:44:00 Test Item Value Reference Range Interpretation Comments Max Amplitude Rapid (test code = Max 71 mm 52-71 Amplitude Rapid) [facility] XomyvgxQLKEAKEHAC7698-15-94 07:44:00 Test Item Value Reference Range Interpretation Comments Angle Rapid (test code = Angle 81 degrees 64-80 Rapid) [facility]ahQOQWJMEBTP6635-77-77 07:44:0012.2[facility] 2016-08-13 07:44:00 Test Item Value Reference Range Interpretation Comments R-time Rapid (test code = R-time 0.6 min 0.4-0.7 Rapid) [facility] CenterGdzklcqQVLOGEYJPO1596-78-57 07:44:00 Test Item Value Reference Range Interpretation Comments K-time Rapid (test code = K-time 0.8 min 0.6-2.3 Rapid) [facility] CenterLbvalzoZSCDLEVXPY4889-00-49 07:44:00 Test Item Value Reference Range Interpretation Comments ACT (TEG) Rapid (test code = ACT (TEG) 105 s 86-118 Rapid) [facility] CenterNzoqunxKTOBNQLEWB3323-14-29 07:44:00 Test Item Value Reference Range Interpretation Comments Split Point Rapid (test code = Split 0.5 min Point Rapid) [facility] CenterTmymlqlLDFFOZEPBZ2045-97-03 06:26:00 Test Item Value Reference Range Interpretation Comments PTT (test code = PTT) 26.0 s 22.9-35.8 [facility] CenterQintttzFFTLAQZKIH9421-03-14 06:26[facility].97[facility] 2016-08-13 06:26:00 Test Item Value Reference Range Interpretation Comments PT (test code = PT) 13.1 s 12.0-14.7 [facility]
--- OUTSIDE RECORDS SUMMARY | 2020-07-24 15:39 | XMS REPORT ---
:1950 Author Organization [facility] Address [address] [place], [address] [place] [address] Care Team Providers Name Role Phone Mukherjee Unavailable [phone] PROBLEMS Type Condition ICD9-CM [id number] Onset Condition SNOMED Code Notes Code Code Dates Status Problem Hyperlipidemia, E78.2 Active 175370463 mixed Problem Anemia in chronic D63.8 Active 994614747 illness Problem Venous I87.2 Active 63658486 insufficiency Problem Allergic rhinitis, J30.9 Active 95936751 unspecified seasonality, unspecified trigger Problem End stage renal N18.6 Active 57022214 disease Problem Elevated blood I10 Active 46152205 pressure reading with diagnosis of hypertension Problem Benign essential I10 Active 86586577 HTN Problem Diabetes E11.9 Active 160247293 Problem Controlled type 2 E11.29 Active 01663846 diabetes mellitus with other diabetic kidney complication, without long-term current use of insulin Problem Gastroesophageal K21.9 Active 494696263 reflux disease, esophagitis presence not specified ALLERGIES Allergen (clinical drug Drug/Non Drug Allergy Reaction Allergy Type Onset Date Status ingredient) documented on EMR lisinopril Lisinopril([facility] Unknown Drug Allergy Active Code:[address]-53) ENCOUNTERS from 1950 to 2020-05-09 Encounter Location Date Provider Diagnosis [facility] [address] [place] Apr, Na Lonny Cid trolled type 2 Family [facility] [address], [place] [address] other diabetic kidney complication, w ithout long-term curre nt use of insulin E11. 29 ; Elevated blood pressure reading with di agnosis of hypertension I10 ; Hyperlipidemia, mixed E78.2 ; End sta ge renal disease N18.6 a nd Hyperglycemia, unspecified R73 .9 IMMUNIZATIONS No Information SOCIAL HISTORY Tobacco Use: Social History Observation Description Date Details (start date - stop date) Never Smoker Sex Assigned At : Social History Observation Description Sex Assigned At Unknown PHQ9 Question Answer Notes Little interest or pleasure in doing things Not at all Feeling down, depressed, or hopeless Not at all Trouble falling or staying asleep or sleeping too much Not a t all Feeling tired or having little energy Not at all Poor appetite or overeating Not at all Feeling bad about yourself, or that you are a failure, or mora ve let Not at all yourself or your family down Trouble concentrating on things, such as reading the newspap er or Not at all watching television Moving or speaking so slowly that other people could have no ticed; Not at all or the opposite, being so fidgety or restless that you have been moving around a lot more than usual Total Score 0 Thoughts that you would be better off or of hurting you rself in Not at all some way Tobacco Use/Smoking Question Answer Notes Are you a never smoker REASON FOR REFERRAL No Information VITAL SIGNS No information MEDICATIONS Medication SIG (Take, Route, Notes Start Date End Date Status Frequency, Duration) Tradjenta 5 MG 1 tablet Orally Once a Active day for 90 Cetirizine HCl 10 MG 1 tablet Orally Once a Jun, Active day for 90 day(s) Metoprolol Tartrate 25 1 tablet with food Not-Taking MG Orally once a day for 30 Metoprolol Tartrate 25 1 tablet with food Active MG Orally once a day Renvela 800 MG 2 tablet with meals A ctive Orally Three times a day for 30 HydrALAZINE HCl 25 MG 1 tablet with food Active Orally when bp greater than 170 for 90 days Tradjenta 5 MG 1 tablet Orally Once a Active day for 90 days Losartan Potassium 100 1 tablet Orally Once a Active MG day Protonix 40 MG 1 tablet Orally Once a Active day for 90 days Amlodipine Besylate 10 1 tablet Orally Once a Active MG day Lipitor 20 MG 1 tablet Orally Once a Active day for 90 days Losartan Potassium 100 1 tablet Orally Once a Unknown MG day for 30 Flonase 50 MCG/DOSE 2 spray in each Jun, Unknown nostril Nasally Once a day for 30 days PROCEDURES No Information RESULTS No Results REASON FOR VISIT 3 month follow up , 3 month f/u. In office., Blood sugar concern. evevated a1c @ dialysis, Telehealth Visit, MP Telehealth PE Normal MEDICAL (GENERAL) HISTORY Type Description Date Medical History Diabetes Medical History Benign essential HTN Medical History Hyperlipidemia, mixed Medical History End stage renal disease Medical History Anemia in chronic illness Medical History Venous insufficiency Surgical History aV graft fistula Surgical History kidney transplant Hospitalization History fall, severe hyperkalemia, ESRD on d ialysis 07/2017 Goals Section No Information Health Concerns No Information MEDICAL EQUIPMENT No Information MENTAL STATUS No Information FUNCTIONAL STATUS No Information ASSESSMENTS Encounter Date Diagnosis Assessment Notes Treatment Notes Treatm ent Clinical Notes Apr, Controlled type 2 Stable A1C elevated diabetes mellitus previously 6 % low with other carb 1800 ADA diet. diabetic kidney Avoid sodas, juices complication, and remember without long-term portion control. current use of Take your insulin (ICD-10 - medication as E11.29) prescribed. Monitor your blood sugar at home as directed and keep a log to bring back with you to your next visit for review. Schedule your annual diabetic eye exam with your eye doctor to screen for diabetic retinopathy. Check your feet daily to make sure you have no open wounds. Apr, Elevated blood -- controlled pressure reading Maintian a low salt with diagnosis of DASH diet, hypertension exercise, weight (ICD-10 - I10) loss and decrease stress recommended. Keep BP log and will review next visit. If blood pressure consistently above 140/90 return to clinic for adjustment of meds. Try to quit smoking if you currently smoke. Decrease caffeine intake if possible. Apr, Hyperlipidemia, low fat diet, mixed (ICD-10 - decrease fast food E78.2) and fried foods. Increase fruit and vegetable intake. exercise as tolerated 30minutes per day at least 3 days a week. May take fish oil 1000mg twice daily to help increase good cholesterol (HDL). Apr, End stage renal continue renal disease (ICD-10 - dialysis and N18.6) followup with nephrology. Low potassium diet and continue to monitor electrolytes with with nephro. on renvela Apr, Hyperglycemia, unspecified (ICD-10 - R73.9) Apr, Other -- Medications Total time sp ent reviewed and by provider updated. during this -- Dietary and virtual visit was Lifestyle approx 10 modifications minutes. Also, discussed with time was william morales patient regarding counseling and low fat low salt coordinatin g care diet diet, exercise includin g but not and weight limited to management. discussion of -- Treatment test results, options, risks and diagnosti c or benefits, side treatment effects reviewed in recommen dations, detail. Patient prognosis, r isks accepts risk. and benefits of -- Advised on management signs/symptoms to options, monitor and when to instruct ions, call clinic and/or education , visit the nearest compliance and or ER. Patient risk reduction. verbalized understanding and agreed with plan. PLAN OF TREATMENT Medication Medication Name Sig Start Date Stop Date Losartan Potassium 100 MG 1 tablet Orally Once a day Metoprolol Tartrate 25 MG 1 tablet with food Orally once a day Tradjenta 5 MG 1 tablet Orally Once a day for 90 days Amlodipine Besylate 10 MG 1 tablet Orally Once a day Lipitor 20 MG 1 tablet Orally Once a day for 90 days Treatment Notes Assessment Notes Clinical Notes Controlled type 2 diabetes mellitus Stable A1C elevated prev iously 6 % with other diabetic kidney low carb 1800 ADA diet. Avoid complication, without long-term sodas, juices and remember p ortion current use of insulin control. Take your medication as prescribed. Monitor your blood sugar at home as directed and keep a log to bring back with you to your next visit for review. Schedule your annual diabetic eye exam with your eye doctor to screen for diabetic retinopathy. Check your feet daily to make sure you have no open wounds. Elevated blood pressure reading -- controlled Maintian a low salt with diagnosis of hypertension DASH diet, exercise, weight l oss and decrease stress recommended. Keep BP log and will review next visit. If blood pressure consistently above 140/90 return to clinic for adjustment of meds. Try to quit smoking if you currently smoke. Decrease caffeine intake if possible. Hyperlipidemia, mixed low fat diet, decrease fast food and fried foods. Increase fruit and vegetable intake. exercise as tolerated 30minutes per day at least 3 days a week. May take fish oil 1000mg twice daily to help increase good cholesterol (HDL). End stage renal disease continue renal dialysis and followup with nephrology. Low potassium diet and continue to monitor electrolytes with with nephro.on renvela Next Appt Details 3 Months Reason: Insurance Providers Payer Name Payer Address Payer Insured Patient Coverage Cover age Phone Name Relationship to Start Date End Date Insured MEDICARE Attn Part B [id number] Lynne Little self [address] [facility] Claims [address] [facility] [address] [facility] [address] [phone] Lynne Little self [facility] [address] [address]
[2020-07-24] MEDS ORDERED: INSULIN -REGULAR HUMAN 50 UNIT/0.5 ML ML ONE ×2 (16:21→17:44)
[2020-07-24] MEDS ORDERED: NOREPINEPHRINE 4mg/D5W 250mL 4 MG/250 ML BAG IV ONE ×3 (16:21→22:12)
[2020-07-24 16:25] LABS: Protime INR 1.05
[2020-07-24 16:26] LABS: Absolute Lymphocytes (CBC) 5.1 K/uL (0.7-4.9); Basophils % 0.6 % (0-1.3); Hematocrit 35.8 % (36.0-45.0); Lymphocytes % 44.2 % (15.3-44.8); MPV 12.7 fL (7.6-11.3); RBC Red Blood Cell Count 3.37 M/uL (3.86-4.86)
[2020-07-24 16:35] LABS: Blood Gas Oxyhemoglobin 96.8 % (94-97); Blood O2 Saturation 98.8 % (92-98.5)
--- NOTE | 2020-07-24 16:37 | RAD REPORT ---
EXAM DESCRIPTION: CT - Head Brain Wo Cont - 07/24/2020 4:29 pm CLINICAL HISTORY: unresponsive, CPR Headache, drowsiness COMPARISON: Ct Stroke Brain Wo Cont dated 03/23/2020; Head Brain Wo Cont dated 07/10/2019; MRA Head Wo Cont dated 03/23/2020; Brain Wo Cont dated 03/23/2020 TECHNIQUE: All CT scans are performed using dose optimization technique as appropriate and may inclu de automated exposure control or mA/KV adjustment according to patient size. FINDINGS: No intracranial hemorrhage, hydrocephalus or extra-axial fluid collection.Moderate periven tricular and deep white matter chronic microvascular ischemic changes.No areas of brain edema or evid ence of midline shift. The paranasal sinuses and mastoids are clear. The calvarium is intact. IMPRESSION: No acute intracranial abnormality.
--- NOTE | 2020-07-24 16:39 | RAD REPORT ---
EXAM DESCRIPTION: RAD - Chest Single View - 07/24/2020 4:32 pm CLINICAL HISTORY: post cpr and intubation Chest pain. COMPARISON: Chest Single View dated 03/23/2020; Chest Single View dated 07/10/2019; Chest Single View dated 04/07/2019; Chest Single View dated 01/07/2019 FINDINGS: Portable technique limits examination quality. The lungs are grossly clear. The heart is normal in size. ET tube tip is above the [place]. Enteric tu be descends in the stomach.Several vascular stents are seen on the right.
[2020-07-24 16:51] LABS: Albumin 3.2 g/dL (3.4-5.0); Bilirubin Direct 0.3 mg/dL (0-0.2); Bilirubin Total 0.8 mg/dL (0.2-1.0); Magnesium 3.3 mg/dL (1.8-2.4); Protein, Total 7.1 g/dL (6.4-8.2); Troponin (Emerg Dept Use Only) 0.08 ng/mL (0.0-0.045)
[2020-07-24] MEDS ORDERED: NA CHLORIDE 0.9% 100 ML ONE (17:45)
--- NOTE | 2020-07-24 18:42 | EDPHYS ---
Physician Documentation [facility] Name: Lynne Leggett Age: 70 yrs Sex: Female : 1950 Arrival Date: 07/24/2020 Time: 15:38 Bed 3 Private MD: ED Physician Dagoberto Stone HPI: 07/24 15:57 This 70 yrs old Female presents to ER via Unassigned with complaints of found rn down, unresponsive. 15:57 Preceding the arrest, the patient collapsed, was found down. The arrest occurred at rn home. Pre-hospital course: Bystanders at the scene did not perform CPR. EMS care prior to arrival: Other nallely tube, no access, no meds. Per EMS, found down at home,unknown down time, weak pulse entire time, Respirations 6 BPM, basic truck, unable to intubate, nallely tube placed, lots of secretions and stomach contents. . Historical: - Allergies: 16:24 Nifedipine; iw 16:24 Vancomycin; iw - Home Meds: 16:24 amlodipine 5 mg tab 2 tabs nightly [Active]; atorvastatin 20 mg Oral tab 1 tab once iw daily [Active]; Daily-Isael Oral tab daily [Active]; glipizide 10 mg Oral tab 1 tab 2 times per day [Active]; hydralazine 25 mg Oral tab 1 tab 2 times per day [Active]; losartan 100 mg Oral tab 1 tab once daily [Active]; metoprolol tartrate 25 mg Oral tab 1 tab 2 times per day [Active]; pantoprazole 40 mg Oral TbEC 1 tab 2 times per day [Active]; Renvela 800 mg Oral tab 2 tabs 3 times per day [Active]; sodium polystyrene sulfonate Oral [Active]; Tradjenta 5 mg Oral tab 1 tab once daily [Active]; valtessa [Active]; victoza 0.6mg/ 0.1 mL 6 units at bedtime [Active]; - PMHx: 16:24 CVA (hemorrhagic); Diabetes - NIDDM; DIALYSIS MWF; ESRD; GERD; High Cholesterol; iw Hypertension; - Immunization history:: Adult Immunizations unknown. - Family history:: not pertinent. - Social history:: Smoking status: unknown. - Hospitalizations: : No recent hospitalization is reported. ROS: 16:36 Unable to obtain ROS due to comatose state. rn Exam: 16:36 Constitutional: This is a well developed, well nourished patient who is unresponsive, rn no spont breaths without bagging Head/Face: Normocephalic, atraumatic. Eyes: Pupils 4mm, non-reactive Cardiovascular: Regular rate and rhythm. Respiratory: Coarse bilateral breath sounds with bagging and post-intubation Abdomen/GI: Soft, non-tender Skin: Cool, dry MS/ Extremity: No cyanosis, cool extremities Neuro: GCS 3. 16:36 ECG was reviewed by the Attending Physician. Vital Signs: 15:52 BP 103 / 57; Pulse 103; Resp 24 A; Pulse Ox 97% on ETT ambu; jd3 15:59 BP 77 / 49; Pulse 29; jd3 16:03 BP 128 / 76; Pulse 99; Resp 24 A; Pulse Ox 99% on ETT ambu; jd3 16:07 BP 137 / 100; Pulse 105; Resp 24 A; Pulse Ox 99% on ETT vent; jd3 16:10 BP 103 / 68; Pulse 79; Resp 20 A; Pulse Ox 96% on ETT ambu; iw 16:15 Pulse 50; Resp 27 A; Pulse Ox 99% on ETT ambu; jd3 16:17 BP 107 / 63; Pulse 104; Resp 20 A; Pulse Ox 99% on ETT ambu; jd3 16:22 BP 186 / 120; Pulse 99; Resp 20 A; Pulse Ox 98% on ETT ambu; jd3 16:26 Pulse 88; Resp 21 A; Pulse Ox 100% on ETT ambu; jd3 16:30 BP 94 / 74; Pulse 78; Resp 17 A; Pulse Ox 100% on ETT ambu; jd3 16:36 BP 77 / 60; Pulse 72; Resp 24 A; Pulse Ox 100% on ETT vent; jd3 16:57 Pulse 38; jd3 16:59 BP 160 / 107; Pulse 73; Resp 23 A; Pulse Ox 99% on ETT ambu; jd3 17:06 BP 104 / 76; Pulse 78; Resp 24 A; Temp 93.2(C); Pulse Ox 100% on ETT vent; jd3 17:20 BP 98 / 71; Pulse 69; Resp 24 A; Temp 93.2(C); Pulse Ox 99% on ETT vent; jd3 17:22 Weight 63.5 kg; iw 17:30 BP 99 / 70; Pulse 69; Resp 24 A; Temp 93.3(C); Pulse Ox 99% on ETT vent; jd3 17:40 BP 97 / 66; Pulse 67; Resp 24 A; Temp 93.3(C); Pulse Ox 99% on ETT vent; jd3 17:50 BP 97 / 68; Pulse 69; Resp 24 A; Temp 93.4(C); Pulse Ox 100% on ETT vent; jd3 18:00 BP 99 / 66; Pulse 69; Resp 24 A; Temp 93.6(C); Pulse Ox 99% on ETT vent; jd3 18:15 BP 94 / 63; Pulse 70; Resp 24 A; Pulse Ox 99% on ETT vent; jd3 18:30 BP 92 / 62; Pulse 70; Resp 24 A; Temp 94.0(C); Pulse Ox 100% on ETT vent; jd3 18:45 BP 87 / 60; Pulse 72; Resp 24 A; Pulse Ox 99% on ETT vent; jd3 19:00 BP 79 / 57; Pulse 74; Resp 24; Temp 94.6; Pulse Ox 98% on 60% FiO2 ETT vent; rr5 19:10 BP 75 / 56; Pulse 75; Resp 24; Temp 95.0; Pulse Ox 98% on 60% FiO2 ETT vent; rr5 19:20 BP 74 / 55; Pulse 73; Resp 24; Temp 95; Pulse Ox 99% on 60% FiO2 ETT vent; rr5 19:30 BP 73 / 53; Pulse 77; Resp 24; Temp 95.1; Pulse Ox 99% on 60% FiO2 ETT vent; rr5 19:50 BP 72 / 60; Pulse 79; Resp 24; Temp 95.5; Pulse Ox 99% on 60% FiO2 ETT vent; rr5 20:00 BP 81 / 60; Pulse 82; Resp 24; Temp 95.5; Pulse Ox 99% on 60% FiO2 ETT vent; rr5 20:15 BP 88 / 59; Pulse 84; Resp 24; Temp 95.5(C); Pulse Ox 99% on 60% FiO2 ETT vent; rr5 16:15 PEA jd3 16:22 levophed stopped at this time for high BP, provider notified jd3 16:30 levophed restarted jd3 16:36 BGL of 380 jd3 19:00 increased to 28 mcg/min; on diana hugger rr5 Procedures: 15:58 Intubation: Ventilated with 100% NRB prior to procedure. Intubated orally using # 4 rn Sophie blade with 7.5 mm ETT. was successful on first attempt. Cricoid pressure applied during procedure. Placement verified by CO2 detector with (+) color change, auscultating bilateral breath sounds, O2 saturation after procedure was 96 %. Patient tolerated well. Central Line: the site was prepped with Betadine, in sterile fashion, a triple lumen catheter was inserted, in the right in 1 attempts. placement was verified, by blood return, the site was dressed with using sterile technique, the patient tolerated the procedure, well, Used ultrasound guidance given surgical scar right groin and dialysis patient. MDM: 15:55 Patient medically screened. rn 17:00 Differential diagnosis: arrythmia, cardiac arrest, respiratory arrest, renal failure. rn Data reviewed: vital signs, nurses notes, lab test result(s), radiologic studies, CT scan, plain films. ED course: Had long conversation with family, neg ct head for hemorrhage, no acute findings in CXR, continues to have very labile vitals, has gone in and out of PEA now atleast 4-5 times, responds to CPR and epi, family reports previous conversations with patient included patient saying she didn't want intubation or artifical life support, but family was wanting everything done until more information gathered. Despite levophed drip patient continues to have hypotension and go into PEA, family now states if loses pulse, want to stop. . 17:07 ED course: Bedside u/s neg for pericardial effusion, + plethoric IVC. + labs consistent rn with DKA although also could be acidotic from lactic acidosis due to recurrent pulseless codes. . 17:25 ED course: Given insulin and bicarb for hyperkalemia. . rn 17:28 ED course: Family states has been acting normal today, no complaints, that this was rn unexpected. Report she threw up once a few days ago but single episode and thought food related. Was found down on bathroom ground, was in bathroom for about 5 minutes. . 17:32 ED course: Family states last dialysis Saturday.. rn 17:37 ED course: Pt without palpable pulse upon arrival from EMS, not sure how long she was rn pulseless prior to that, EMS reported faint pulse. . 17:46 ED course: Patient barely made it to CT head and back to rule out hemorrhagic stroke rn given her past history of hemorrhagic stroke. I do not feel like she is stable enough to leave room at this point. . 18:38 Counseling: I had a detailed discussion with the patient and/or guardian regarding: the rn historical points, exam findings, and any diagnostic results supporting the discharge/admit diagnosis, lab results, radiology results, the need for further work-up and treatment in the hospital. Response to treatment: the patient's symptoms have mildly improved after treatment, and as a result, I will admit patient. Admission orders: after a detailed discussion of the patient's condition and case, the admit orders are written by me. ED course: Pt holding steady, treating DKA, admitted to [facility] and Dr. Stone.. 07/24 15:56 Order name: Basic Metabolic Panel rn 07/24 15:56 Order name: CBC with Diff rn 07/24 15:56 Order name: LFT's rn 07/24 15:56 Order name: Magnesium rn 07/24 15:56 Order name: NT PRO-BNP; Complete Time: 17:05 rn 07/24 15:56 Order name: PT-INR; Complete Time: 16:36 rn 07/24 15:56 Order name: Troponin (emerg Dept Use Only); Complete Time: 17:05 rn 07/24 15:56 Order name: ABG; Complete Time: 17:05 rn 07/24 15:56 Order name: Basic Metabolic Panel; Complete Time: 17:05 EDCT 07/24 15:56 Order name: CBC with Automated Diff; Complete Time: 19:59 EDMS 07/24 15:56 Order name: Liver (Hepatic) Function; Complete Time: 17:05 EDMS 07/24 15:57 Order name: Magnesium; Complete Time: 17:05 EDMS 07/24 16:10 Order name: Glucose, Ancillary Testing; Complete Time: 16:36 EDMS 07/24 17:49 Order name: Glucose, Ancillary Testing; Complete Time: 18:13 EDMS 07/24 18:45 Order name: Glucose, Ancillary Testing; Complete Time: 18:52 EDMS 07/24 19:32 Order name: Glucose, Ancillary Testing; Complete Time: 19:59 EDMS 07/24 19:45 Order name: Manual Differential; Complete Time: 19:59 EDMS 07/24 19:55 Order name: SARS-COV-2 RT PCR; Complete Time: 19:59 EDMS 07/24 20:29 Order name: Glucose, Ancillary Testing; Complete Time: 08:44 EDMS 07/24 21:12 Order name: Basic Metabolic Panel; Complete Time: 08:44 EDMS 07/24 21:44 Order name: Glucose, Ancillary Testing; Complete Time: 08:44 EDMS 07/24 22:32 Order name: Glucose, Ancillary Testing; Complete Time: 08:44 EDMS 07/24 23:52 Order name: Glucose, Ancillary Testing; Complete Time: 08:44 EDMS 07/25 00:56 Order name: Glucose, Ancillary Testing; Complete Time: 08:44 EDMS 08 01:05 Order name: Basic Metabolic Panel; Complete Time: 08:44 EDMS 08 01:05 Order name: Troponin I; Complete Time: 08:44 EDMS 08 01:54 Order name: Glucose, Ancillary Testing; Complete Time: 08:44 EDMS 08 02:49 Order name: Glucose, Ancillary Testing; Complete Time: 08:44 EDMS 08 04:01 Order name: Glucose, Ancillary Testing; Complete Time: 08:44 EDMS 07/24 15:56 Order name: XRAY Chest (1 view); Complete Time: 16:42 rn 07/24 15:56 Order name: EKG; Complete Time: 15:57 rn 07/24 15:56 Order name: Cardiac monitoring; Complete Time: 16:40 rn 07/24 15:56 Order name: EKG - Nurse/Tech; Complete Time: 16:40 rn 07/24 15:56 Order name: IV Saline Lock; Complete Time: 16:40 rn 07/24 15:56 Order name: Labs collected and sent; Complete Time: 16:40 rn 07/24 15:56 Order name: O2 Per Protocol; Complete Time: 16:40 rn 07/24 15:56 Order name: O2 Sat Monitoring; Complete Time: 16:40 rn 07/24 15:56 Order name: Glucose Level; Complete Time: 16:35 rn 07/24 15:56 Order name: CT Head Brain wo Cont; Complete Time: 16:42 rn 07/25 05:02 Order name: Glucose, Ancillary Testing; Complete Time: 08:44 EDMS 07/25 05:12 Order name: CBC with Automated Diff; Complete Time: 08:44 EDMS 07/25 05:18 Order name: Phosphorus; Complete Time: 08:44 EDMS 07/25 05:18 Order name: Magnesium; Complete Time: 08:44 EDMS 07/25 05:20 Order name: Basic Metabolic Panel; Complete Time: 08:44 EDMS 07/25 06:03 Order name: Glucose, Ancillary Testing; Complete Time: 08:44 EDMS 07/25 06:12 Order name: Manual Differential; Complete Time: 08:44 EDMS 07/25 06:41 Order name: ABG Arterial Blood Gas; Complete Time: 08:44 EDMS 07/25 07:16 Order name: Glucose, Ancillary Testing; Complete Time: 08:44 EDMS 07/25 08:43 Order name: RAD; Complete Time: 08:44 EDMS 07/25 08:44 Order name: Glucose, Ancillary Testing EDMS Administered Medications: 15:49 Drug: EPINEPHrine 0.1mg/mL 1:10,000 1 mg Route: IVP; Site: right upper arm; [facility] 15:50 Drug: Sodium Bicarbonate 1 amp Route: IVP; Site: right femoral; [facility] 15:59 Drug: NS 0.9% 500 ml Route: IV; Rate: bolus; Site: right femoral; j 16:01 Drug: EPINEPHrine 0.1mg/mL 1:10,000 1 mg Route: IVP; Site: right femoral; j 16:03 Drug: Sodium Bicarbonate 1 amp Route: IVP; Site: right femoral; jd3 16:04 Drug: Insulin Regular Human 10 units {Co-Signature: [email or web address] (Tracy Scott RN).} Route: IVP; [facility] Site: right femoral; 16:13 Drug: Levophed (4 mg/250 mL D5W 4 mcg/min Route: IV; Rate: calculated rate; Site: right jd3 femoral; 19:30 Follow up: Response: Blood pressure is lowered; Rate change 28 mcg/min rr5 19:50 Follow up: Response: Blood pressure is lowered; Rate change 30 mcg/min rr5 16:15 Drug: EPINEPHrine 0.1mg/mL 1:10,000 1 mg Route: IVP; Site: right femoral; jd3 16:19 Drug: Sodium Bicarbonate 1 amp Route: IVP; Site: right femoral; jd3 16:58 Drug: EPINEPHrine 0.1mg/mL 1:10,000 1 mg Route: IVP; Site: right femoral; jd3 17:39 Drug: Insulin Drip - (Insulin Regular Human 100 units, NS 0.9% 100 ml) {Co-Signature: [email or web address] (Tracy Scott RN).} Route: IV; Rate: calculated rate; Site: right femoral; 19:15 Follow up: Response: Blood sugar is lowered; Rate change 4 units/hr; 236 rr5 Disposition: 18:38 Critical Care:. rn Disposition: 07/24/20 18:41 Hospitalization ordered by Francis Stone for Inpatient Admission. Preliminary diagnosis are Cardiac arrest, Acute respiratory failure, Diabetes mellitus due to underlying condition with ketoacidosis. - Bed requested for [facility] ER HOLD. - Status is Inpatient Admission. ss - Condition is Guarded. - Problem is new. - Symptoms have improved. Critical care time excluding procedures: 18:38 Critical care time: Bedside Care: 25 minutes, Family Intervention: 15 minutes. Total rn time: 40 minutes Signatures: Dispatcher [employer] [facility] Velma Shore RN RN Dagoberto Sotne MD MD rn Smirch, Shelby, RN RN Darek Matta, VASCULAR TECHNICIAN-C VASCULAR TECHNICIAN-Cla1 Sherine Nieto RN RN Freddy Miller RN RN jd3 Roque, Raymond RN rr5 Tracy Scott RN [email or web address] Corrections: (The following items were deleted from the chart) 19:03 18:41 Hospitalization Ordered by Francis Stone MD for Inpatient Admission. Preliminary cg diagnosis is Cardiac arrest; Acute respiratory failure; Diabetes mellitus due to underlying condition with ketoacidosis. Bed requested for Intensive Care Unit. Status is Inpatient Admission. Condition is Guarded. Problem is new. Symptoms have improved. rn 19:05 18:26 CORONAVIRUS+MR.LAB.BRZ ordered. [facility] 07/25 13:28 07/24 19:03 07/24/2020 18:41 Hospitalization Ordered by Francis Stone MD for Inpatient Admission. Preliminary diagnosis is Cardiac arrest; Acute respiratory failure; Diabetes mellitus due to underlying condition with ketoacidosis. Bed requested for [facility] ER HOLD. Status is Inpatient Admission. Condition is Guarded. Problem is new. Symptoms have improved. cg
--- NOTE | 2020-07-24 18:42 | ER ---
Nurse's Notes [facility] Name: Lynne Leggett Age: 70 yrs Sex: Female : 1950 Arrival Date: 07/24/2020 Time: 15:38 Bed 3 Private MD: Diagnosis: Cardiac arrest;Acute respiratory failure;Diabetes mellitus due to underlying condition with ketoacidosis Presentation: 07/24 15:32 Chief complaint: EMS states: "family found pt unresponsive on the bathroom floor, not jd3 down longer than 5 min according to family. on our arrival we tried putting in an OPA, but that didn't work so we put in a NALLELY tube and bagged. she has had a pulse for us, but it has remained thready.". 15:32 Method Of Arrival: EMS: [facility] jd3 15:32 Coronavirus screen: At this time, the client does not indicate any symptoms associated jd3 with coronavirus-19. Ebola Screen: Patient negative for fever greater than or equal to 101.5 degrees Fahrenheit, and additional compatible Ebola Virus Disease symptoms. Initial Sepsis Screen: Does the patient meet any 2 criteria? No. Patient's initial sepsis screen is negative. Does the patient have a suspected source of infection? No. Patient's initial sepsis screen is negative. Risk Assessment: Do you want to hurt yourself or someone else? Unable to obtain. Onset of symptoms was July 24, 2020. 15:32 Care prior to arrival: Assisted ventilation, Oral airway placed, Glucose check: 468 jd3 Oxygen administered. via AMBU bag. 15:34 Compressions began at 15:34. jd3 15:38 Acuity: SHIKHA 1 iw Historical: - Allergies: 16:24 Nifedipine; iw 16:24 Vancomycin; iw - Home Meds: 16:24 amlodipine 5 mg tab 2 tabs nightly [Active]; atorvastatin 20 mg Oral tab 1 tab once iw daily [Active]; Daily-Isael Oral tab daily [Active]; glipizide 10 mg Oral tab 1 tab 2 times per day [Active]; hydralazine 25 mg Oral tab 1 tab 2 times per day [Active]; losartan 100 mg Oral tab 1 tab once daily [Active]; metoprolol tartrate 25 mg Oral tab 1 tab 2 times per day [Active]; pantoprazole 40 mg Oral TbEC 1 tab 2 times per day [Active]; Renvela 800 mg Oral tab 2 tabs 3 times per day [Active]; sodium polystyrene sulfonate Oral [Active]; Tradjenta 5 mg Oral tab 1 tab once daily [Active]; valtessa [Active]; victoza 0.6mg/ 0.1 mL 6 units at bedtime [Active]; - PMHx: 16:24 CVA (hemorrhagic); Diabetes - NIDDM; DIALYSIS MWF; ESRD; GERD; High Cholesterol; iw Hypertension; - Immunization history:: Adult Immunizations unknown. - Family history:: not pertinent. - Social history:: Smoking status: unknown. - Hospitalizations: : No recent hospitalization is reported. Screenin:03 Abuse screen: no signs of abuse noted. Nutritional screening: No deficits noted. jd3 Tuberculosis screening: No symptoms or risk factors identified. Fall Risk None identified. Assessment: 15:32 General: Behavior is unresponsive. nallely tube in place by EMS and bagging with Ambu bag. jd3 Cardiovascular: Rhythm is irregular. 15:34 CPR assessment: unresponsive, pupils pinpoint, mechanical ventilation, Ambu jd3 ventilation, pulses present w/ compressions. Cardiac rhythm is asystole. 15:37 Cardiac rhythm is PEA. jd3 15:40 CPR assessment: pulses present w/ compressions. Cardiac rhythm is PEA. jd3 15:40 General: Appears distressed, Behavior is unresponsive. Neuro: Level of Consciousness is jd3 unresponsive. Respiratory: Airway via oral intubation. 15:46 CPR assessment: pulses present w/ compressions. Cardiac rhythm is PEA. jd3 15:49 CPR assessment: pulses present w/ compressions. Cardiac rhythm is PEA. jd3 15:52 Cardiovascular: Rhythm is sinus tachycardia ROSC. jd3 15:59 Cardiac rhythm is bradycardia 29HR. jd3 16:01 CPR assessment: pulses present w/ compressions. Cardiac rhythm is asystole. jd3 16:03 Cardiovascular: Rhythm is sinus tachycardia ROSC. jd3 16:15 CPR assessment: pulses present w/ compressions. Cardiac rhythm is PEA. jd3 16:17 Cardiovascular: Rhythm is sinus tachycardia ROSC. jd3 16:20 Reassessment: pt transported to [place], via stretcher, on Life [place], on Levophed drip, iw intubated, with RT, Tracy DUTTA and Abdifatah DUTTA. 16:22 Reassessment: Levophed stopped for BP of 186/120. jd3 16:57 Cardiac rhythm is bradycardia 38. jd3 16:58 Cardiac rhythm is asystole. jd3 16:59 Cardiovascular: Rhythm is 73 HR ROSC. jd3 17:00 General: Appears comfortable, Behavior is unresponsive. Cardiovascular: Heart tones jd3 present Rhythm is regular. Respiratory: Airway via oral intubation Breath sounds are clear bilaterally. GI: No signs and/or symptoms were reported involving the gastrointestinal system. : No signs and/or symptoms were reported regarding the genitourinary system. EENT: No signs and/or symptoms were reported regarding the EENT system. Derm: Skin is intact, Skin is dry, Skin is pale, Skin temperature is cold. Musculoskeletal: No signs and/or symptoms reported regarding the musculoskeletal system. 17:00 Pain: Unable to use pain scale. Patient is unresponsive. jd3 17:15 Reassessment: No changes from previously documented assessment. Patient and/or family jd3 updated on plan of care and expected duration. Pain level reassessed. 17:30 Reassessment: No changes from previously documented assessment. Patient and/or family jd3 updated on plan of care and expected duration. Pain level reassessed. 17:45 Reassessment: No changes from previously documented assessment. Patient and/or family jd3 updated on plan of care and expected duration. Pain level reassessed. 18:00 Reassessment: No changes from previously documented assessment. Patient and/or family jd3 updated on plan of care and expected duration. Pain level reassessed. 18:34 Reassessment: No changes from previously documented assessment. Patient and/or family jd3 updated on plan of care and expected duration. Pain level reassessed. family at bedside with provider. 18:45 Reassessment: No changes from previously documented assessment. Patient and/or family jd3 updated on plan of care and expected duration. Pain level reassessed. 19:10 General: Appears intubated. Behavior is unresponsive. intubated connected to mechanical rr5 ventilator; with OGT connected to intermittent suction, hooked to school lunch monitor, with IV cannula G22 at right shoulder, with chester catheter F 16 to urine bag, with right femoral catheter 3 way ongoing norepinephrine drip at 26 mcg/min, insulin drip at 6.5 unit/hr. Neuro: Level of Consciousness is unresponsive. Cardiovascular: Capillary refill is > 3 seconds. Respiratory: Airway via oral intubation. Derm: Skin is pale, Bruising that is dark purple, on right arm, left arm and neck. 19:10 Reassessment: status as DNR verified to hospitalist. rr5 22:22 Reassessment: [id number] serge daughter. rr5 Vital Signs: 15:52 BP 103 / 57; Pulse 103; Resp 24 A; Pulse Ox 97% on ETT ambu; jd3 15:59 BP 77 / 49; Pulse 29; jd3 16:03 BP 128 / 76; Pulse 99; Resp 24 A; Pulse Ox 99% on ETT ambu; jd3 16:07 BP 137 / 100; Pulse 105; Resp 24 A; Pulse Ox 99% on ETT vent; jd3 16:10 BP 103 / 68; Pulse 79; Resp 20 A; Pulse Ox 96% on ETT ambu; iw 16:15 Pulse 50; Resp 27 A; Pulse Ox 99% on ETT ambu; jd3 16:17 BP 107 / 63; Pulse 104; Resp 20 A; Pulse Ox 99% on ETT ambu; jd3 16:22 BP 186 / 120; Pulse 99; Resp 20 A; Pulse Ox 98% on ETT ambu; jd3 16:26 Pulse 88; Resp 21 A; Pulse Ox 100% on ETT ambu; jd3 16:30 BP 94 / 74; Pulse 78; Resp 17 A; Pulse Ox 100% on ETT ambu; jd3 16:36 BP 77 / 60; Pulse 72; Resp 24 A; Pulse Ox 100% on ETT vent; jd3 16:57 Pulse 38; jd3 16:59 BP 160 / 107; Pulse 73; Resp 23 A; Pulse Ox 99% on ETT ambu; jd3 17:06 BP 104 / 76; Pulse 78; Resp 24 A; Temp 93.2(C); Pulse Ox 100% on ETT vent; jd3 17:20 BP 98 / 71; Pulse 69; Resp 24 A; Temp 93.2(C); Pulse Ox 99% on ETT vent; jd3 17:22 Weight 63.5 kg; iw 17:30 BP 99 / 70; Pulse 69; Resp 24 A; Temp 93.3(C); Pulse Ox 99% on ETT vent; jd3 17:40 BP 97 / 66; Pulse 67; Resp 24 A; Temp 93.3(C); Pulse Ox 99% on ETT vent; jd3 17:50 BP 97 / 68; Pulse 69; Resp 24 A; Temp 93.4(C); Pulse Ox 100% on ETT vent; jd3 18:00 BP 99 / 66; Pulse 69; Resp 24 A; Temp 93.6(C); Pulse Ox 99% on ETT vent; jd3 18:15 BP 94 / 63; Pulse 70; Resp 24 A; Pulse Ox 99% on ETT vent; jd3 18:30 BP 92 / 62; Pulse 70; Resp 24 A; Temp 94.0(C); Pulse Ox 100% on ETT vent; jd3 18:45 BP 87 / 60; Pulse 72; Resp 24 A; Pulse Ox 99% on ETT vent; jd3 19:00 BP 79 / 57; Pulse 74; Resp 24; Temp 94.6; Pulse Ox 98% on 60% FiO2 ETT vent; rr5 19:10 BP 75 / 56; Pulse 75; Resp 24; Temp 95.0; Pulse Ox 98% on 60% FiO2 ETT vent; rr5 19:20 BP 74 / 55; Pulse 73; Resp 24; Temp 95; Pulse Ox 99% on 60% FiO2 ETT vent; rr5 19:30 BP 73 / 53; Pulse 77; Resp 24; Temp 95.1; Pulse Ox 99% on 60% FiO2 ETT vent; rr5 19:50 BP 72 / 60; Pulse 79; Resp 24; Temp 95.5; Pulse Ox 99% on 60% FiO2 ETT vent; rr5 20:00 BP 81 / 60; Pulse 82; Resp 24; Temp 95.5; Pulse Ox 99% on 60% FiO2 ETT vent; rr5 20:15 BP 88 / 59; Pulse 84; Resp 24; Temp 95.5(C); Pulse Ox 99% on 60% FiO2 ETT vent; rr5 16:15 PEA jd3 16:22 levophed stopped at this time for high BP, provider notified jd3 16:30 levophed restarted jd3 16:36 BGL of 380 jd3 19:00 increased to 28 mcg/min; on diana pope rr5 ED Course: 15:32 Patient has correct armband on for positive identification. Placed in gown. Bed in low jd3 position. Call light in reach. Side rails up X2. quality assurance monitor final on. Pulse ox on. NIBP on. 15:36 Missed attempt(s): 22 gauge in left forearm. Bleeding controlled, band aid applied, jd3 catheter tip intact. 15:38 Patient arrived in ED. em1 15:38 Missed attempt(s): 22 gauge in left antecubital area. Bleeding controlled, band aid jd3 applied, catheter tip intact. 15:39 Assisted provider with intubation using 7.5 mm ETT via oral route. ET tube secured at jd3 21cm at the teeth. Set up intubation tray. Intubated by Dagoberto Stone MD Placement verified by CO2 detector w/ + color change, auscultating bilateral breath sounds, CXR, Patient tolerated well. 15:43 Missed attempt(s): 20 gauge in left EJ. Bleeding controlled, band aid applied, catheter jd3 tip intact. 15:49 Assisted provider with central line placement. Set up central line tray. Triple lumen jd3 line placed in right femoral. Line placed by Dagoberto Stone MD Placement verified by blood return, Dressed with Tegaderm, Blood was collected. Patient tolerated well. Inserted saline lock: 22 gauge in right upper arm, using aseptic technique. 15:55 Dagoberto Stone MD is Attending Physician. rn 15:55 EKG done, by brain wave technician. reviewed by Dagoberto Stone MD. NGT: inserted 16 Fr. other OG jd3 verified placement of air over stomach, verified return of gastric contents, to intermittent suction. 16:25 Triage completed. iw 16:29 CT Head Brain wo Cont In Process Unspecified. EDMS 16:30 Speci-cath kit inserted, using sterile technique, 16 Fr., Patient tolerated well. jd3 16:32 XRAY Chest (1 view) In Process Unspecified. EDMS 16:36 Freddy Miller, LUZMARIA is Primary Nurse. jd3 16:36 Arm band placed on. jd3 18:39 Francis Stone MD is Hospitalizing Provider. rn 19:15 Warm blanket given. rr5 20:18 Patient admitted, IV remains in place. intact, No redness/swelling at site. rr5 Administered Medications: 15:49 Drug: EPINEPHrine 0.1mg/mL 1:10,000 1 mg Route: IVP; Site: right upper arm; jd3 15:50 Drug: Sodium Bicarbonate 1 amp Route: IVP; Site: right femoral; jd3 15:59 Drug: NS 0.9% 500 ml Route: IV; Rate: bolus; Site: right femoral; jd3 16:01 Drug: EPINEPHrine 0.1mg/mL 1:10,000 1 mg Route: IVP; Site: right femoral; jd3 16:03 Drug: Sodium Bicarbonate 1 amp Route: IVP; Site: right femoral; jd3 16:04 Drug: Insulin Regular Human 10 units {Co-Signature: [email or web address] (Tracy Scott RN).} Route: IVP; jd3 Site: right femoral; 16:13 Drug: Levophed (4 mg/250 mL D5W 4 mcg/min Route: IV; Rate: calculated rate; Site: right jd3 femoral; 19:30 Follow up: Response: Blood pressure is lowered; Rate change 28 mcg/min rr5 19:50 Follow up: Response: Blood pressure is lowered; Rate change 30 mcg/min rr5 16:15 Drug: EPINEPHrine 0.1mg/mL 1:10,000 1 mg Route: IVP; Site: right femoral; jd3 16:19 Drug: Sodium Bicarbonate 1 amp Route: IVP; Site: right femoral; jd3 16:58 Drug: EPINEPHrine 0.1mg/mL 1:10,000 1 mg Route: IVP; Site: right femoral; jd3 17:39 Drug: Insulin Drip - (Insulin Regular Human 100 units, NS 0.9% 100 ml) {Co-Signature: [email or web address] jl7 (Tracy Scott RN).} Route: IV; Rate: calculated rate; Site: right femoral; 19:15 Follow up: Response: Blood sugar is lowered; Rate change 4 units/hr; 236 rr5 Intake: Outcome: 18:41 Decision to Hospitalize by Provider. rn 20:17 Admitted to ER Hold. Please see [facility] for further documentation. rr5 20:17 critical 20:17 Instructed on the need for admit. 20:19 Outcome ICU admission, DNR status rr5 07/25 13:28 Patient left the ED. ss Signatures: Dispatcher [employer] EDVelma Rodriguez RN RN iw Nieto, Roman, MD MD rn Martinez, Eric [facility] Norma Hudson RN RN Freddy Miller RN RN jd3 Francis Patel RN RN rr5 Tracy Scott RN jl7 Corrections: (The following items were deleted from the chart) 07/24 16:22 16:21 BP 103 / 68; Pulse 79bpm; Resp 20bpm; Assisted; Pulse Ox 96% ET / Ambu; iw iw
[2020-07-24] MEDS: NOREPINEPHRINE 4 MG in D5W 250 ML IV PRN ×2 (19:20→22:30)
--- NOTE | 2020-07-24 19:27 | P.HP ---
Certification for Inpatient Patient admitted to: Inpatient With expected LOS: >2 Midnights Patient will require the following post-hospital care: Hospice Practitioner: I am a practitioner with admitting privileges, knowledge of patient current condition, hospital course, and medical plan of care. Services: Services provided to patient in accordance with Admission requirements found in Title 42 Section 412.3 of the Code of Federal Regulations <Darek Matta - Last Filed: 07/24/20 19:20> Patient History Date of Service: 07/24/20 Primary Care Provider: unknown Reason for admission: Cardiopulmonary arrest S/P ROSC History of Present Illness: 70-year-old female history of end-stage renal disease on hemodialysis Saturday, diabetes mellitus type 2, hypertension, hyperlipidemia, hemorrhagic CVA presents the emergency department for cardiopulmonary arrest. Family reports patient was at home with them, went into the bathroom, had not been seen for approximately 5 min, they went to check on her and she was unresponsive. 911 was called, EMS showed up patient with agonal respirations and thready pulse, Antony tube was inserted in patient's transport to the emergency department, upon arrival to the ED physician noted that there was food contents in making tube, patient was intubated. During the stay in the emergency department patient coded 4 times each time achieving Rosc. Patient was hypotensive, central line was inserted, patient was started on Levophed. Patient's labs indicate she is in DKA as well as being mildly hyperkalemia without EKG changes. Lab significant for potassium 6.0 chloride 94, CO2 17 creatinine 7.33 GFR 6 glucose 525 ABG pH 7.16 HC03 14.7 white blood count 11.5 hemoglobin 10.4 hematocrit 35.8 MCV 106.3. Platelets 104. Patient currently on ventilator, not breathing over the vent, unresponsive, no corneal reflex, pupils fixed and dilated at this time. Case was discussed at length with family who elect for DNR but desire to continue with all other treatment modalities overnight and re-evaluate in the morning. Prognosis very poor at this time. Will admit for further evaluation and management. - Past Medical/Surgical History Diabetic: Yes -: DM-Type 2 -: HTN -: Hyperlipidemia -: ESRD on Dialysis M,W,F, Nephrology-Dr. Lynn -: Diverticulosis -: GERD -: History hemorrhagic CVA requiring craniotomy -: GERD -: Laser surgery on bilateral eyes -: AV graft to right arm -: Old AV graft in right upper leg-doesn't work. -: Craniotomy Psychosocial/ Personal History: , Lives with daughter. - Family History Mother -: Diabetes - Social History Smoking Status: Unknown if ever smoked Alcohol use: No CD- Drugs: No Caffeine use: Yes Place of Residence: Home <Darek Matta - Last Filed: 07/24/20 19:20> Date of Service: 08/01/20 <Francis Stone - Last Filed: 08/01/20 20:39> Allergies nifedipine Allergy (Verified 03/23/20 13:19) Rash vancomycin Allergy (Verified 03/23/20 13:19) Rash Home Medications: Amlodipine [Norvasc*] 10 mg PO DAILY 04/07/19 Hydralazine [Apresoline*] 25 mg PO DAILY PRN 04/07/19 Linagliptin [Tradjenta] 5 mg PO DAILY 04/07/19 Sevelamer Carbonate [Renvela] 800 mg PO TID 04/07/19 Magnesium Chloride [Slow-Mag*] 64 mg PO DAILY 07/10/19 Atorvastatin Calcium 20 mg PO BEDTIME 03/23/20 Cetirizine HCl 10 mg PO DAILY 03/23/20 Losartan Potassium 100 mg PO DAILY 03/23/20 Metoprolol Tartrate 25 mg PO DAILY 03/23/20 Pantoprazole [Protonix Tab*] 1 tab PO DAILY 03/23/20 Aspirin [Aspirin EC 81 MG] 81 mg PO DAILY #30 tablet. 03/26/20 Review of Systems is unable to be obtained <Darek Matta - Last Filed: 07/24/20 19:20> Physical Examination - Physical Exam General: Unresponsive HEENT: Other (Pupils fixed, dilated, no corneal reflex) Neck: JVD not distended Respiratory: Diminished (Bilaterally) Cardiovascular: Normal S1 S2, No murmurs, Abnormal pulses (Pulses 2+ radially) Capillary refill: >2 Seconds Gastrointestinal: Normal bowel sounds, Hypoactive, Soft and benign, No masses Musculoskeletal: No contractures, No erythema, No tenderness Integumentary: No tenderness/swelling, No erythema, No warmth Neurological: Other (Patient unresponsive, on ventilator, no sedation.) - Studies Laboratory Data (last 24 hrs) 07/24/20 16:00: PT 12.1, INR 1.05 07/24/20 16:00: WBC 11.50 H, Hgb 10.4 L, Hct 35.8 L, Plt Count 104 L 07/24/20 16:00: Sodium 136, Potassium 6.0 H*, BUN 49 H, Creatinine 7.33 H*, Glucose 525 H*, Magnesium 3.3 H D, Total Bilirubin 0.8, AST 249 H, ALT 156 H, Alkaline Phosphatase 317 H <Darek Matta - Last Filed: 07/24/20 19:20> Assessment and Plan - Plan Assessment Cardiopulmonary arrest S/P ROSC now unresponsive without sedation Diabetes mellitus type 2 with ketoacidosis ESRD on HD MWF-mild hyperkalemia Hypertension Hyperlipidemia Plan Cardiopulmonary arrest S/P ROSC now unresponsive without sedation: Patient currently on ventilator, not breathing over the vent, unresponsive no corneal reflex pupils fixed and dilated, no sedation required. Patient requiring vasopressor therapy, hypothermic to 94. Patient coded 4 times while in the emergency department but now has stabilized to some degree. Patient with history of hemorrhagic CVA, CT head performed without demonstrating any acute findings. Case discussed at length with family, they elect for DNR but continue with all other treatment modalities overnight to see if there is any improvement in her mental status. Consult pulmonology/critical care, nephrology, neurology. Very poor prognosis, family aware. Diabetes mellitus type 2 with ketoacidosis: Continue with insulin drip, q4h BMP, hourly blood sugars. Continue with IV Zosyn, blood cultures obtained. ESRD on HD MWF-mild hyperkalemia: Discuss case with nephrology, repeat chemistry at 8:00 p.m. to evaluate potassium level after potassium cocktail given. No EKG changes at this time. Continue to monitor. Hypertension: Patient hypertensive on vasopressor therapy, hold all blood pressure meds Hyperlipidemia: Hold medications for now. Discharge Plan: Other (Hospice) Plan to discharge in: 48 Hours - Advance Directives Does patient have a Living Will: No Does patient have a Durable POA for Healthcare: No - Code Status/Comfort Care Code Status Assessed: Yes (DNR) Critical Care: No Time Spent Managing Pts Care (In Minutes): 55 <Darek Matta - Last Filed: 07/24/20 19:20> - Plan Plan of care reviewed as noted above by Darek Matta, and I agree with the management plan as noted above. <Francis Stone - Last Filed: 08/01/20 20:39>
[2020-07-24 19:44] LABS: Blood Morphology Comment NOTED (NOT SEEN); Macrocytosis SLIGHT; Platelet Estimate DECR
[2020-07-24] MEDS ORDERED: MIDAZOLAM HCL 2 MG/2 ML INJ IV PRN (20:02)
[2020-07-24] MEDS ORDERED: LORazepam 2 MG/ML VIAL IV PRN (20:02)
[2020-07-24] MEDS ORDERED: INSULIN -REGULAR HUMAN 100 UNIT in NA CHLORIDE 0.9% 100 ML IV SCH (20:02)
[2020-07-24] MEDS ORDERED: ONDANSETRON 4 MG/2 ML VIAL IV PRN (20:02)
[2020-07-24] MEDS ORDERED: HALOPERIDOL LACT 5 MG/ML INJ IV PRN (20:02)
[2020-07-24] MEDS ORDERED: FENTANYL CITR 100 MCG/2 ML IV PRN (20:02)
[2020-07-24] MEDS ORDERED: NOREPINEPHRINE 4 MG in D5W 250 ML IV PRN (20:26)
[2020-07-24] MEDS: FAMOTIDINE 20 MG/2 ML VIAL IV SCH (21:00)
[2020-07-24] MEDS ORDERED: HEPARIN 5000 UNIT/ML 1 ML VIAL SQ SCH (21:00)
[2020-07-24 21:11] LABS: Potassium 3.6 mmol/L (3.5-5.1)
[2020-07-24] MEDS ORDERED: FAMOTIDINE 20 MG/2 ML VIAL IV ONE (21:17)
[2020-07-24] MEDS ORDERED: NOREPINEPHRINE 4 MG/4 ML VIAL ONE (22:26)
[2020-07-24] MEDS ORDERED: NA CHLORIDE 0.9% 0 ML ONE (22:26)
[2020-07-24] MEDS ORDERED: D5W 250 ML IV ONE (22:49)
[2020-07-24] MEDS ORDERED: D5 0.45 NS 500 ML IV ONE (22:54)
[2020-07-24] MEDS ORDERED: D5 0.45 NS 1,000 ML IV SCH (23:30)
[2020-07-24] MEDS ORDERED: D50W 25 GM/50 ML SYRINGE IV STA (23:30)
[2020-07-24 23:32] VITALS: BMI 23.3
[2020-07-24] MEDS ORDERED: D50W 50 ML IV ONE (23:56)
[2020-07-25 00:03] VITALS: O2SAT 99
[2020-07-25] MEDS: NOREPINEPHRINE 8 MG in D5W 250 ML IV PRN ×2 (00:50→05:30)
[2020-07-25 01:05] LABS: Troponin I 28.5 ng/mL (0.0-0.045)
[2020-07-25] MEDS ORDERED: PIPER/TAZO/NS 3.375gm 3.375 GM/100 ML BAG ONE ×2 (02:55→05:50)
[2020-07-25] MEDS ORDERED: NOREPINEPHRINE 4 MG/4 ML VIAL ONE (04:06)
[2020-07-25] MEDS ORDERED: D5W 250 ML IV ONE (04:13)
[2020-07-25] MEDS ORDERED: D5W 1,000 ML IV ONE (04:14)
[2020-07-25 05:10] LABS: Absolute Lymphocytes (CBC) 0.4 K/uL (0.7-4.9); Basophils % 0.3 % (0-1.3); Hematocrit 35.1 % (36.0-45.0); Lymphocytes % 1.5 % (15.3-44.8); MPV 11.5 fL (7.6-11.3); RBC Red Blood Cell Count 3.68 M/uL (3.86-4.86)
[2020-07-25 05:13] LABS: Magnesium 2.1 mg/dL (1.8-2.4)
[2020-07-25 05:20] LABS: Potassium 2.9 mmol/L (3.5-5.1)
[2020-07-25] MEDS: PIPER/TAZO/NS 3.375gm 3.375 GM/100 ML BAG IV SCH ×2 (05:20)
[2020-07-25] MEDS ORDERED: D5 0.45 NS 1,000 ML IV ONE (05:28)
[2020-07-25] MEDS ORDERED: KCL 20 MEQ/100 mL IVPB 20 MEQ/100 ML BAG IV ONE (05:50)
[2020-07-25] MEDS ORDERED: KCL 20 MEQ/100 mL IVPB 20 MEQ/100 ML BAG IV SCH (06:00)
[2020-07-25 06:09] LABS: Blood Morphology Comment NOT SEEN (NOT SEEN); Platelet Estimate ADEQ
[2020-07-25 06:39] LABS: Arterial Blood Carboxyhemoglob 1.3 % (0-1.5); Blood Gas Oxyhemoglobin 95.6 % (94-97)
[2020-07-25] MEDS ORDERED: DOPAMINE/D5W 400 MG/250 ML BAG IV PRN (07:05)
[2020-07-25] MEDS ORDERED: DOPAMINE/D5W 400 MG/250 ML BAG IV ONE (07:15)
--- NOTE | 2020-07-25 08:43 | RAD REPORT ---
EXAM DESCRIPTION: RAD - Chest Single View - 07/25/2020 6:11 am CLINICAL HISTORY: eval volume status Chest pain. COMPARISON: Chest Single View dated 07/24/2020; Chest Single View dated 03/23/2020; Chest Single View d ated 07/10/2019; Chest Single View dated 04/07/2019 FINDINGS: Portable technique limits examination quality. The lungs are grossly clear. The heart is normal in size. Tip of the endotracheal tube is above the c sonido. Enteric tube tip is in the stomach.Right-sided vascular stents are in place.
[2020-07-25] MEDS ORDERED: HYDROCORTISONE NA SUC 200 MG in NA CHLORIDE 0.9% 100 ML IV SCH (09:00)
[2020-07-25] MEDS: FAMOTIDINE 20 MG/2 ML VIAL IV SCH (09:00)
[2020-07-25 10:00] VITALS: BP 60/50; TEMP 98.3
[2020-07-25] MEDS ORDERED: PIPER/TAZO/NS 2.25gm 2.25 GM/50 ML BAG IV SCH (12:00)
--- NOTE | 2020-07-25 12:26 | P.CNS ---
Date of Consult: 07/25/20 Reason for Consult: Shock and respiratory failure Primary Care Provider: unknown Chief Complaint: Cardiopulmonary arrest S/P ROSC History of Present Illness: Patient is 70 years of age with end-stage renal disease on hemodialysis multiple medical problems include diabetes hypertension admitted with cardiac arrest elevated troponin currently on a ventilator unresponsive in shock respiratory failure also in ketoacidosis Allergies nifedipine Allergy (Verified 03/23/20 13:19) Rash vancomycin Allergy (Verified 03/23/20 13:19) Rash Home Medications: Amlodipine [Norvasc*] 10 mg PO DAILY 04/07/19 Hydralazine [Apresoline*] 25 mg PO DAILY PRN 04/07/19 Linagliptin [Tradjenta] 5 mg PO DAILY 04/07/19 Sevelamer Carbonate [Renvela] 800 mg PO TID 04/07/19 Magnesium Chloride [Slow-Mag*] 64 mg PO DAILY 07/10/19 Atorvastatin Calcium 20 mg PO BEDTIME 03/23/20 Cetirizine HCl 10 mg PO DAILY 03/23/20 Losartan Potassium 100 mg PO DAILY 03/23/20 Metoprolol Tartrate 25 mg PO DAILY 03/23/20 Pantoprazole [Protonix Tab*] 1 tab PO DAILY 03/23/20 Aspirin [Aspirin EC 81 MG] 81 mg PO DAILY #30 tablet. 03/26/20 - Past Medical/Surgical History Diabetic: Yes -: DM-Type 2 -: HTN -: Hyperlipidemia -: ESRD on Dialysis M,W,F, Nephrology-Dr. Lynn -: Diverticulosis -: GERD -: History hemorrhagic CVA requiring craniotomy -: GERD -: Laser surgery on bilateral eyes -: AV graft to right arm -: Old AV graft in right upper leg-doesn't work. -: Craniotomy Psychosocial/ Personal History: , Lives with daughter. - Family History Mother Medical History: Diabetes - Social History Alcohol use: No CD- Drugs: No Caffeine use: Yes Place of Residence: Home Review of Systems is unable to be obtained Physical Examination Temp Pulse Resp BP Pulse Ox 98.3 F 80 0 L 60/50 L 91 07/25/20 09:00 07/25/20 10:00 07/25/20 10:00 07/25/20 09:00 07/25/20 09:00 General: Unresponsive Respiratory: Clear to auscultation bilaterally Cardiovascular: No edema, Normal S1 S2 Laboratory Data (last 24 hrs) 07/24/20 16:00: PT 12.1, INR 1.05 07/24/20 16:00: WBC 11.50 H, Hgb 10.4 L, Hct 35.8 L, Plt Count 104 L 07/24/20 16:00: Sodium 136, Potassium 6.0 H*, BUN 49 H, Creatinine 7.33 H*, Glucose 525 H*, Magnesium 3.3 H D, Total Bilirubin 0.8, AST 249 H, ALT 156 H, Alkaline Phosphatase 317 H - Problems (1) Shock Current Visit: Yes Status: Acute Plan: Patient is 70 years of age admitted with cardiopulmonary arrest she is currently in shock hypotensive vasopressors renal failure patient is on chronic hemodialysis a 60% FiO2 shows hypoxemia white count is elevated patient's troponin is markedly elevated chest x-ray reviewed at mainstem intubation will need to pull out the endotracheal tube 1.5 cm chest x-ray remains clear continue with IV fluid boluses of IV steroid prognosis very poor patient is DNR
[2020-07-25] MEDS ORDERED: SODIUM CHL 0.9% 1000 ML BAG IV ONE (13:34)
[2020-07-25] MEDS ORDERED: SODIUM CHL 0.9% 500 ML BAG IV ONE (13:34)
[2020-07-25] MEDS ORDERED: EPINEPHrine 1 MG/10 ML SYR IV ONE (13:34)
--- NOTE | 2020-07-25 20:24 | CON ---
Date of Consultation: 07/25/2020 Chief Complaint: End-stage renal disease, on hemodialysis. History Of Present Illness: The patient was brought to the hospital after cardiopulmonary arrest at home. 911 was called. The patient was transferred to the hospital. The patient has history of mult iple medical problems including diabetes mellitus, diabetic kidney disease, hypertensive heart and ki dney disease. She had cardiac arrest prior to this admission at home. She was elevated troponin. S he was intubated on ventilator and she had multiple pressors for blood pressure support. Review of Systems: The patient cannot provide review of systems. Past Medical History: Diabetes mellitus; hypertension; hyperlipidemia; end-stage renal disease, on d ialysis Saturday, Saturday, Saturday; diverticulosis; GERD; history of hemorrhagic CVA, requiring cranio que; laser surgery to bilateral eyes; AV graft in the right upper extremity; and previously clotted craniotomy. Family History: Mother had diabetes. Social History: No alcohol. No tobacco. Physical Examination: General: Unresponsive. Lungs: Clear to auscultation. Extremities: No edema. Laboratory Data: WBC 11.5, hemoglobin 10.4, hematocrit 35.8. Sodium 136, potassium 6.0, BUN 49, cre atinine 7.3, glucose is 525, magnesium 3.3. Impression And Plan: The patient is a 70-year-old woman with multiple medical problems including his tory of end-stage renal disease. She is hypotensive. She had cardiopulmonary arrest and is in hypot ensive shock, on vasopressors, on chronic hemodialysis. She is on FiO2 60% for hypoxemic respiratory failure. The patient is on high-dose pressors. Blood pressure remains on low side and the patient' s family decided about withdrawal of care. The patient received boluses of steroids and pressor supp ort despite the blood pressure remains very low and the patient is unstable for conventional hemodial ysis. Family decided about withdrawal of care. EB/MODL Voice ID: [id number] Report ID: [id number]
--- NOTE | 2020-07-26 13:57 | P.DS ---
Admission Date: 07/24/20 Discharge Date: 07/25/20 Primary Care Provider: unknown Disposition: Discharge Condition: Reason for Admission: Cardiopulmonary arrest S/P ROSC Consultations: Pulmonology - Dr. Peñaloza Nephrology - Dr. sEtrella Procedures: CXR (07/24): The lungs are grossly clear. The heart is normal in size. ET tube tip is above the florence. Enteric tube descends in the stomach.Several vascular stents are seen on the right. CT Head (07/24): No acute intracranial abnormality. CXR (07/25): The lungs are grossly clear. The heart is normal in size. Tip of the endotracheal tube is above the florence. Enteric tube tip is in the stomach.Right- sided vascular stents are in place Problem List: Acute cardiopulmonary arrest secondary to septic shock, complicated by acute CHF Exacerbation, DKA, and ESRD Cardiopulmonary arrest S/P ROSC x4 now unresponsive without sedation Diabetes mellitus type 2 with ketoacidosis ESRD on HD MWF-mild hyperkalemia Hypertension Hyperlipidemia Brief History of Present Illness: 70-year-old female history of end-stage renal disease on hemodialysis Saturday, diabetes mellitus type 2, hypertension, hyperlipidemia, hemorrhagic CVA presents the emergency department for cardiopulmonary arrest. Family reports patient was at home with them, went into the bathroom, had not been seen for approximately 5 min, they went to check on her and she was unresponsive. 911 was called, EMS showed up patient with agonal respirations and thready pulse, Antony tube was inserted in patient's transport to the emergency department, upon arrival to the ED physician noted that there was food contents in making tube, patient was intubated. During the stay in the e mergency department patient coded 4 times each time achieving Rosc. Patient was hypotensive, central line was inserted, patient was started on Levophed. Patient's labs indicate she is in DKA as well as being mildly hyperkalemia without EKG changes. Lab significant for potassium 6.0 chloride 94, CO2 17 creatinine 7.33 GFR 6 glucose 525 ABG pH 7.16 HC03 14.7 white blood count 11.5 hemoglobin 10.4 hematocrit 35.8 MCV 106.3. Platelets 104. Patient currently on ventilator, not breathing over the vent, unresponsive, no corneal reflex, pupils fixed and dilated at this time. Case was discussed at length with family who elect for DNR but desire to continue with all other treatment modalities overnight and re-evaluate in the morning. Prognosis very poor at this time. Will admit for further evaluation and management. Hospital Course: Patient without improvement overnight. Had worsening hypotension requiring 2 pressors. Patient still unresponsive despite no sedation. Labs revealed worsening leukocytosis with bandemia, significantly elevated troponin. Despite increasing pressors, patient's blood pressure continued to decrease. After ongoing discussions with family, decision was made to withdraw care. Patient's pressors were discontinued and patient was extubated. Time of : 1022 am. Vital Signs/Physical Exam: Temp Pulse Resp BP Pulse Ox 98.3 F 80 0 L 60/50 L 91 07/25/20 09:00 07/25/20 10:00 07/25/20 10:00 07/25/20 09:00 07/25/20 09:00 General: Unresponsive HEENT: Other (nonreactive) Respiratory: Diminished Cardiovascular: No edema Gastrointestinal: Soft and benign, Non-distended Integumentary: No rashes Laboratory Data at Discharge: WBC 24.40 K/uL (4.3-10.9) H* D 07/25/20 04:50 Hgb 11.3 g/dL (12.0-15.0) L 07/25/20 04:50 Hct 35.1 % (36.0-45.0) L 07/25/20 04:50 Plt Count 175 K/uL (152-406) D 07/25/20 04:50 PT 12.1 SECONDS (9.5-12.5) 07/24/20 16:00 INR 1.05 07/24/20 16:00 Sodium 138 mmol/L (136-145) 07/25/20 04:50 Potassium 2.9 mmol/L (3.5-5.1) L* 07/25/20 04:50 BUN 54 mg/dL (7-18) H 07/25/20 04:50 Creatinine 7.39 mg/dL (0.55-1.3) H* 07/25/20 04:50 Glucose 104 mg/dL (74-106) 07/25/20 04:50 Phosphorus 3.0 mg/dL (2.5-4.9) 07/25/20 04:50 Magnesium 2.1 mg/dL (1.8-2.4) D 07/25/20 04:50 Total Bilirubin 0.8 mg/dL (0.2-1.0) 07/24/20 16:00 AST 249 U/L (15-37) H 07/24/20 16:00 ALT 156 U/L (12-78) H 07/24/20 16:00 Alkaline Phosphatase 317 U/L (45-117) H 07/24/20 16:00 Troponin I 28.50 ng/mL (0.0-0.045) H* 07/25/20 00:25 Home Medications: Amlodipine [Norvasc*] 10 mg PO DAILY 04/07/19 Hydralazine [Apresoline*] 25 mg PO DAILY PRN 04/07/19 Linagliptin [Tradjenta] 5 mg PO DAILY 04/07/19 Sevelamer Carbonate [Renvela] 800 mg PO TID 04/07/19 Magnesium Chloride [Slow-Mag*] 64 mg PO DAILY 07/10/19 Atorvastatin Calcium 20 mg PO BEDTIME 03/23/20 Cetirizine HCl 10 mg PO DAILY 03/23/20 Losartan Potassium 100 mg PO DAILY 03/23/20 Metoprolol Tartrate 25 mg PO DAILY 03/23/20 Pantoprazole [Protonix Tab*] 1 tab PO DAILY 03/23/20 Aspirin [Aspirin EC 81 MG] 81 mg PO DAILY #30 tablet. 03/26/20 Followup: Kiersten Mukherjee DO [Primary Care Provider] - Time spent managing pt's care (in minutes): 60
== END 2020-07-25 13:35 | disposition expired | DRG 871 ==
LOC: ER 15:35 → ERHOLD 19:16
PROVIDERS: ADMIT Hospitalist; ATTEND Hospitalist
PROC: 5A1935Z Respiratory Ventilation, Less than 24 Consecutive Hours (ICD-10-PCS; principal; 2020-07-24)
PROC: 0BH17EZ Insertion of Endotracheal Airway into Trachea, Via Natural or Artificial Opening (ICD-10-PCS; 2020-07-24)
PROC: 5A12012 Performance of Cardiac Output, Single, Manual (ICD-10-PCS; 2020-07-24)
DX: A41.9 Sepsis, unspecified organism (principal); E11.10 Type 2 diabetes mellitus with ketoacidosis without coma; N18.6 End stage renal disease; R65.21 Severe sepsis with septic shock; J96.01 Acute respiratory failure with hypoxia; I13.2 Hypertensive heart and chronic kidney disease with heart failure and with stage 5 chronic kidney disease, or end stage renal disease; I46.8 Cardiac arrest due to other underlying condition; E11.22 Type 2 diabetes mellitus with diabetic chronic kidney disease; E87.5 Hyperkalemia; K21.9 Gastro-esophageal reflux disease without esophagitis; Z66 Do not resuscitate; Z88.8 Allergy status to other drugs, medicaments and biological substances; Z88.5 Allergy status to narcotic agent; Z79.4 Long term (current) use of insulin; Z79.899 Other long term (current) drug therapy; Z79.82 Long term (current) use of aspirin; Z86.73 Personal history of transient ischemic attack (TIA), and cerebral infarction without residual deficits; Z99.2 Dependence on renal dialysis; Z20.822 Contact with and (suspected) exposure to COVID-19
CPT/HCPCS: 31500; 36415; 70450; 71045; 80048; 80076; 82805; 82947; 83735; 83880; 84100; 84484; 85025; 85610; 92950; 93005; 94002; 94003; 99291; 99292; J0171; J1265; J1720; J2543; J3480; J7030; J7040; J7050; J7060; J7799; U0003